=== PATIENT | female | born 1980 | race Caucasian/White ===

== ENCOUNTER 2017-11-14 10:38 | Emergency (ER) | payer OTHER ==
--- OUTSIDE RECORDS SUMMARY | 2017-11-14 10:41 | XMS REPORT ---
:1980 [facility] Care Team Providers Name Role Phone MackLaceycy Provider Role Unavailable Allergies, Adverse Reactions, Alerts Substance Reaction Event Type N.K.D.A. Info Not Available Non Drug Allergy Problems Problem Type Condition Code Onset Dates Condition Status Problem Bipolar 1 disorder F31.9 Active Problem Vertigo R42 Active Problem Migraine G43.909 Active Problem Urge incontinence N39.41 Active Problem Bipolar disorder F31.9 Active Problem Other chronic pain G89.29 Active Problem Overactive bladder N32.81 Active Assessment Stress incontinence N39.3 Active Problem Stress incontinence N39.3 Active Problem Arthritis of right knee M17.11 Active Problem Intractable vomiting with nausea, R11.2 Active unspecified vomiting type Problem Hypertriglyceridemia E78.1 Active Problem Elevated liver enzymes R74.8 Active Problem Gastroesophageal reflux disease K21.9 Active without esophagitis Problem Swelling R60.9 Active Problem History of hypothyroidism Z86.39 Active Problem Mild intermittent asthma without J45.20 Active complication Problem Asthma J45.909 Active Problem Anxiety F41.9 Active Problem Sinus problem J34.9 Active Problem Allergic rhinitis J30.9 Active Problem GERD (gastroesophageal reflux K21.9 Active disease) Problem Hyperlipidemia E78.5 Active Medications Medication Code Code Instructions Start End Status Dosage System Date Mirtazapine [facility] 87845049651 15 MG Orally Active 1 tablet Once a day at bedtime Topiramate [facility] 83415704368 50 MG Orally Active 1 tablet Twice a day Venlafaxine HCl [facility] 42635386892 75 MG Orally Jun 26, Active 1 capsule ER Once a day 2017 with food Meclizine HCl [facility] 24041573129 25 mg Orally Active 1 tablet every 8 hpurs for vertigo /dizzines s BusPIRone HCl ND 91460587801 30 MG Orally Jun 26, Active 1 tablet Twice a day 2017 Advair Diskus [facility] 77890308699 100-50 MCG/DOSE Active 1 puff Inhalation Twice a day One Touch Verio NDC 0 n/s finger Active one strip prick once a day Diclofenac [facility] [address]-22 1 % Transdermal Active not Sodium defined VESIcare [facility] 01413080601 10 MG Orally June Active 1 tablet Once a day 2017 Zofran [facility] 08028207663 8 MG Orally Active 1 tablet every 8 hours for N/V Ranitidine HCl ND 19535515418 150 MG Orally Jun 26, Active 1 capsule Once a day 2017 at bedtime Amitriptyline ND 65613436370 50 MG Orally Jun 26, Active 1 tablet HCl Once a day at 2017 bedtime VESIcare [facility] 49091854714 10 MG Orally Active 1 tablet Once a day Proventil HFA [facility] 80090615486 108 (90 Base) Active 2 puffs MCG/ACT as needed Inhalation every 6 hrs One Touch Delica ND 0 Active not Lancets defined Tolterodine [facility] 75336960284 1 MG Orally Jun 26, September 24, Active 1 tablet Tartrate Twice a day 2017 2017 Lasix [facility] 79166973483 20 MG Orally Active 1 tablet Once a day Klor-Con M10 [facility] 72978618804 10 MEQ Orally Active 1 tablet Twice a day with food Aripiprazole [facility] 27926885639 20 MG Orally Jun 26, Active 1 tablet Once a day 2017 Results Name Result Date Reference Range Unit Abnormality Flag URINALYSIS AUTO W/O SCOPE (27312) ----RADHA neg [id number] ----NIT neg [id number] ----PROTEIN neg [id number] ----pH 6.0 [id number] ----BLO neg [id number] ----GLUCOSE neg [id number] ----BILIRUBIN neg [id number] ----KETONES neg [id number] ----SPECIFIC GRAVITY 1.010 [id number] PVR ----PVR 0 [id number] Summary Purpose eClinicalWorks Submission
--- OUTSIDE RECORDS SUMMARY | 2017-11-14 10:41 | XMS REPORT ---
:1980 Author Organization eClinicalWorks Care Team Providers Name Role Phone Carrington, Na Provider Role Unavailable Allergies, Adverse Reactions, Alerts Substance Reaction Event Type N.K.D.A. Info Not Available Non Drug Allergy Problems Problem Type Condition Code Onset Dates Condition Status Assessment Arthritis of right knee M17.11 Active Assessment Other chronic pain G89.29 Active Assessment Elevated liver enzymes R74.8 Active Assessment Hypertriglyceridemia E78.1 Active Problem Allergic rhinitis J30.9 Active Assessment Urge incontinence N39.41 Active Problem Hyperlipidemia E78.5 Active Assessment Overactive bladder N32.81 Active Problem Bipolar 1 disorder F31.9 Active Problem Vertigo R42 Active Problem Migraine G43.909 Active Problem Urge incontinence N39.41 Active Problem Other chronic pain G89.29 Active Problem Bipolar disorder F31.9 Active Problem Overactive bladder N32.81 Active Problem Stress incontinence N39.3 Active Problem [...] Active Problem Sinus problem J34.9 Active Problem GERD (gastroesophageal reflux K21.9 Active disease) Medications Medication Code Code Instructions Start End Status Dosage System Date Date One Touch Verio NDC 0 n/s finger Active one strip prick once a day Proventil HFA ND 96921731781 108 (90 Base) Active 2 puffs MCG/ACT as needed Inhalation every 6 hrs Klor-Con M10 ND 13108982004 10 MEQ Orally Active 1 tablet Twice a day with food Zofran ND 39989132225 8 MG Orally Active 1 tablet every 8 hours for N/V Venlafaxine HCl ND 13070256789 75 MG Orally Jun 26, Active 1 capsule ER Once a day 2017 with food BusPIRone HCl ND 17773275364 30 MG Orally Jun 26, Active 1 tablet Twice a day 2017 Aripiprazole ND 41974326875 20 MG Orally Jun 26, Active 1 tablet Once a day 2017 Lasix [facility] 39220518149 20 MG Orally Active 1 tablet Once a day VESIcare [facility] 21251843227 10 MG Orally June Active 1 tablet Once a day 2017 VESIcare [facility] 43970174540 10 MG Orally Active 1 tablet Once a day Advair Diskus [facility] 87662478443 100-50 MCG/DOSE Active 1 puff Inhalation Twice a day Ranitidine HCl [facility] 58170052158 150 MG Orally Jun 26, Active 1 capsule Once a day 2017 at bedtime Diclofenac [facility] [address]-71 1 % Transdermal Active not Sodium defined Amitriptyline [facility] 97599510287 50 MG Orally Jun 26, Active 1 tablet HCl Once a day at 2018 bedtime One Touch Delica [facility] 0 Active not Lancets defined Tolterodine [facility] 49944068197 1 MG Orally Jun 26, September 24, Active 1 tablet Tartrate Twice a day 2017 2017 Meclizine HCl [facility] 12348594677 25 mg Orally Active 1 tablet every 8 hpurs for vertigo /dizzines s Results No Known Results Summary Purpose eClinicalWorks Submission
--- NOTE | 2017-11-14 10:58 | EDPHYS ---
Physician Documentation [facility] Name: Astrid Valadez Age: 37 yrs Sex: Female : 1980 Arrival Date: 11/14/2017 Time: 10:43 Bed 18 Private MD: Cassandra Carrington ED Physician Adam Rachel HPI: 11/14 10:55 This 37 yrs old Female presents to ER via Ambulatory with complaints of Flu pm1 Symptoms, Ear Pain. 10:55 The patient or guardian reports cough, with productive sputum, Left ear pain. Onset: pm1 The symptoms/episode began/occurred 4 day(s) ago. Severity of symptoms: in the emergency department the symptoms are actually worse. Modifying factors: The symptoms are alleviated by nothing, the symptoms are aggravated by nothing. Associated signs and symptoms: Pertinent positives: earache, sore throat, Pertinent negatives: chest pain, fever, nausea, vomiting. The patient has not experienced similar symptoms in the past. The patient has not recently seen a physician, the patient's primary care provider is Dr. Carrington. 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 ph Historical: - Allergies: 10:52 No Known Allergies; ph - Home Meds: 10:52 Abilify 15 mg Oral tab 1 tab once daily [Active]; buspirone 10 mg Oral tab 1 tab 3 ph times per day [Active]; Amitriptyline Oral once daily [Active]; Effexor XR 37.5 mg Oral cp24 1 cap once daily [Active]; omeprazole 40 mg Oral cpDR 1 cap once daily [Active]; ProAir HFA 90 mcg/actuation inhalation HFAA 2 puffs as needed [Active]; topiramate 25 mg Oral tab 1 tabs daily [Active]; - PMHx: 10:52 acid reflux; Asthma; Bipolar disorder; ph - PSHx: 10:52 eye surg; ph - Immunization history:: Adult Immunizations not up to date. - Social history:: Smoking status: Patient uses tobacco products, smokes one pack cigarettes per day. - Ebola Screening: : No symptoms or risks identified at this time. ROS: 10:55 Constitutional: Negative for fever, chills, and weight loss, Eyes: Negative for injury, pm1 pain, redness, and discharge. 10:55 Neck: Negative for injury, pain, and swelling, Cardiovascular: Negative for chest pain, palpitations, and edema, Abdomen/GI: Negative for abdominal pain, nausea, vomiting, diarrhea, and constipation, Back: Negative for injury and pain, MS/Extremity: Negative for injury and deformity, Skin: Negative for injury, rash, and discoloration, Neuro: Negative for headache, weakness, numbness, tingling, and seizure. 10:55 ENT: Positive for ear pain, sinus congestion, sinus pain, sore throat, Negative for drainage from ear(s). 10:55 Respiratory: Positive for cough, Negative for shortness of breath. Exam: 10:55 Constitutional: This is a well developed, well nourished patient who is awake, alert, pm1 and in no acute distress. Eyes: Pupils equal round and reactive to light, extra-ocular motions intact. Lids and lashes normal. Conjunctiva and sclera are non-icteric and not injected. Cornea within normal limits. Periorbital areas with no swelling, redness, or edema. 10:55 ENT: Nares patent. No nasal discharge, no septal abnormalities noted. Tympanic membranes are normal and external auditory canals are clear. Oropharynx with no redness, swelling, or masses, exudates, or evidence of obstruction, uvula midline. Mucous membranes moist. Neck: Trachea midline, no thyromegaly or masses palpated, and no cervical lymphadenopathy. Supple, full range of motion without nuchal rigidity, or vertebral point tenderness. No Meningismus. Chest/axilla: Normal chest wall appearance and motion. Nontender with no deformity. No lesions are appreciated. Cardiovascular: Regular rate and rhythm with a normal S1 and S2. No gallops, murmurs, or rubs. Normal PMI, no JVD. No pulse deficits. Respiratory: Lungs have equal breath sounds bilaterally, clear to auscultation and percussion. No rales, rhonchi or wheezes noted. No increased work of breathing, no retractions or nasal flaring. Abdomen/GI: Soft, non-tender, with normal bowel sounds. No distension or tympany. No guarding or rebound. No evidence of tenderness throughout. Back: No spinal tenderness. No costovertebral tenderness. Full range of motion. Skin: Warm, dry with normal turgor. Normal color with no rashes, no lesions, and no evidence of cellulitis. MS/ Extremity: Pulses equal, no cyanosis. Neurovascular intact. Full, normal range of motion. 10:55 Head/face: Sinus tenderness, that is moderate, is located over the right frontal sinus, left frontal sinus, right ethmoid sinus and left ethmoid sinus. 10:55 Neuro: Orientation: is normal, Motor: is normal, Gait: is steady, at a normal pace, without difficulty. Vital Signs: 10:50 BP 136 / 76; Pulse 82; Resp 18; Temp 98.6(TE); Pulse Ox 97% on R/A; Weight 129.27 kg; ph Height 5 ft. 4 in. (162.56 cm); Pain 5/10; 10:50 Body Mass Index 48.92 (129.27 kg, 162.56 cm) ph MDM: 10:44 Patient medically screened. pm1 10:55 Data reviewed: vital signs. Data interpreted: Pulse oximetry: on room air is 97 %. pm1 Interpretation: normal. Counseling: I had a detailed discussion with the patient and/or guardian regarding: the historical points, exam findings, and any diagnostic results supporting the discharge/admit diagnosis, the need for outpatient follow up, to return to the emergency department if symptoms worsen or persist or if there are any questions or concerns that arise at home. Administered Medications: No medications were administered Disposition: 17:59 Co-signature as Attending Physician, Adam Rachel MD. rn Disposition: 18 10:58 Discharged to Home. Impression: Acute sinusitis, Otalgia, right ear. - Condition is Stable. - Discharge Instructions: Earache, Adult, Sinusitis, Adult. - Prescriptions for Amoxicillin 500 mg Oral Capsule - take 1 capsule by ORAL route every 8 hours for 10 days; 30 tablet. Tessalon Perles 100 mg Oral Capsule - take 1 capsule by ORAL route every 8 hours As needed; 15 capsule. Zyrtec- D 5-120 mg Oral Tablet Sustained Release 12 hr - take 1 tablet by ORAL route every 12 hours As needed; 20 tablet. - Medication Reconciliation Form, Thank You Letter form. - Follow up: Emergency Department; When: As needed; Reason: Worsening of condition. Follow up: Private Physician; When: 2 - 3 days; Reason: Recheck today's complaints, Continuance of care, Re-evaluation by your physician. - Problem is new. - Symptoms have improved. Signatures: Adam Rachel MD MD rn Whiting, Zina RN RN Mayda Davis RN RN rb1 José Miguel Christiansen NP AIRCRAFT DE ICER INSTALLER pm1 Corrections: (The following items were deleted from the chart) 11:13 10:58 11/14/2017 10:58 Discharged to Home. Impression: Acute sinusitisOtalgia, right rb1 ear. Condition is Stable. Forms are Medication Reconciliation Form, Thank You Letter, Antibiotic Education, Prescription Opioid Use. Follow up: Emergency Department; When: As needed; Reason: Worsening of condition. Follow up: Private Physician; When: 2 - 3 days; Reason: Recheck today's complaints, Continuance of care, Re-evaluation by your physician. Problem is new. Symptoms have improved. pm1
--- NOTE | 2017-11-14 10:58 | ER ---
Nurse's Notes [facility] Name: Astrid Valadez Age: 37 yrs Sex: Female : 1980 Arrival Date: 11/14/2017 Time: 10:43 Bed 18 Private MD: Cassandra Carrington Diagnosis: Otalgia, right ear;Acute sinusitis Presentation: 11/14 10:46 Risk Assessment: Do you want to hurt yourself or someone else? Patient reports no rb1 desire to harm self or others. Initial Sepsis Screen: Does the patient meet any 2 criteria? No. Patient's initial sepsis screen is negative. Does the patient have a suspected source of infection? No. Patient's initial sepsis screen is negative. 10:49 Presenting complaint: Patient states: Pt c/o sore throat, cough, dizziness, sinus ph pressure and R ear pain x 4 days, denies fever, N/V/D. Transition of care: patient was not received from another setting of care. Onset of symptoms was November 14, 2017. Care prior to arrival: None. 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 ph Historical: - Allergies: 10:52 No Known Allergies; ph - Home Meds: 10:52 Abilify 15 mg Oral tab 1 tab once daily [Active]; buspirone 10 mg Oral tab 1 tab 3 ph times per day [Active]; Amitriptyline Oral once daily [Active]; Effexor XR 37.5 mg Oral cp24 1 cap once daily [Active]; omeprazole 40 mg Oral cpDR 1 cap once daily [Active]; ProAir HFA 90 mcg/actuation inhalation HFAA 2 puffs as needed [Active]; topiramate 25 mg Oral tab 1 tabs daily [Active]; - PMHx: 10:52 acid reflux; Asthma; Bipolar disorder; ph - PSHx: 10:52 eye surg; ph - Immunization history:: Adult Immunizations not up to date. - Social history:: Smoking status: Patient uses tobacco products, smokes one pack cigarettes per day. - Ebola Screening: : No symptoms or risks identified at this time. Screenin:46 Abuse screen: Denies threats or abuse. Nutritional screening: No deficits noted. rb1 Tuberculosis screening: No symptoms or risk factors identified. Fall Risk None identified. Assessment: 10:46 General: Appears in no apparent distress. comfortable, obese, unkempt, Behavior is rb1 calm, cooperative, Reports feeling ill for 2-3 days, Denies fever. Pain: Complains of pain in forehead and right ear Pain currently is 5 out of 10 on a pain scale. Neuro: Level of Consciousness is awake, alert, obeys commands, Oriented to person, place, time, situation. Cardiovascular: Capillary refill < 3 seconds is brisk in bilateral fingers. Respiratory: Reports cough that is productive, green sputum Airway is patent Respiratory effort is even, unlabored, Respiratory pattern is regular, symmetrical. GI: Reports diarrhea. : No signs and/or symptoms were reported regarding the genitourinary system. EENT: Throat is pink Reports pain since right ear. Derm: Skin is pink, warm \T\ dry. Vital Signs: 10:50 BP 136 / 76; Pulse 82; Resp 18; Temp 98.6(TE); Pulse Ox 97% on R/A; Weight 129.27 kg; ph Height 5 ft. 4 in. (162.56 cm); Pain 5/10; 10:50 Body Mass Index 48.92 (129.27 kg, 162.56 cm) ph ED Course: 10:43 Patient arrived in ED. sb2 10:43 Cassandra Carrington MD is Private Physician. sb2 10:44 [facility] pm1 10:44 Adam Rachel MD is Attending Physician. pm1 10:46 Patient has correct armband on for positive identification. Bed in low position. Call rb1 light in reach. Side rails up X 1. Pulse ox on. NIBP on. Warm blanket given. 10:48 Mayda Davis, RN is Primary Nurse. rb1 10:50 Triage completed. ph 10:52 Arm band placed on. ph 11:13 No provider procedures requiring assistance completed. Patient did not have IV access rb1 during this emergency room visit. Administered Medications: No medications were administered Outcome: 10:58 Discharge ordered by . pm1 11:13 Patient left the ED. rb1 11:13 Discharged to home ambulatory. rb1 11:13 Condition: stable 11:13 Discharge instructions given to patient, Instructed on discharge instructions, follow up and referral plans. medication usage, Demonstrated understanding of instructions, follow-up care, medications, Prescriptions given X 3. Signatures: Zina Whiting RN RN ph Mayda Davis RN RN rb1 José Miguel Christiansen NP LIBRARY INFORMATION TECHNICIAN pm1 Kiah Mak sb2 Corrections: (The following items were deleted from the chart) 11:15 No provider procedures requiring assistance completed. rb1 rb1 11:15 Patient did not have IV access during this emergency room visit. rb1 rb1
== END 2017-11-14 11:13 | disposition home or self-care (01) ==
LOC: ER 10:38
DX: J01.90 Acute sinusitis, unspecified (principal); H92.01 Otalgia, right ear; Z72.0 Tobacco use; J45.909 Unspecified asthma, uncomplicated
CPT/HCPCS: 99283

== ENCOUNTER 2018-01-26 16:30 | Emergency (ER) | payer OTHER ==
--- OUTSIDE RECORDS SUMMARY | 2018-01-26 16:32 | XMS REPORT ---
:1980 [facility] Care Team Providers Name Role Phone MackLaceycy [...] End Status Dosage System Date Mirtazapine [facility] 06814942197 15 MG Orally Active 1 tablet Once a day at bedtime Topiramate [facility] 46977754640 50 MG Orally Active 1 tablet Twice a day Venlafaxine HCl [facility] 12924690654 75 MG Orally Jun 26, Active 1 capsule ER Once a day 2017 with food Meclizine HCl [facility] 93688946685 25 mg Orally Active 1 tablet every 8 hpurs for vertigo /dizzines s BusPIRone HCl ND 51464690504 30 MG Orally Jun 26, Active 1 tablet Twice a day 2017 Advair Diskus [facility] 01457282410 100-50 MCG/DOSE Active 1 puff Inhalation Twice a day One Touch Verio NDC 0 n/s finger Active one strip prick once a day Diclofenac [facility] [address]-11 1 % Transdermal Active not Sodium defined VESIcare [facility] 76561640050 10 MG Orally June Active 1 tablet Once a day 2017 Zofran [facility] 82884729435 8 MG Orally Active 1 tablet every 8 hours for N/V Ranitidine HCl ND 18348885606 150 MG Orally Jun 26, Active 1 capsule Once a day 2017 at bedtime Amitriptyline ND 25849173976 50 MG Orally Jun 26, Active 1 tablet HCl Once a day at 2017 bedtime VESIcare [facility] 48173650898 10 MG Orally Active 1 tablet Once a day Proventil HFA [facility] 88700261197 108 (90 Base) Active 2 puffs MCG/ACT as needed Inhalation every 6 hrs One Touch Delica ND 0 Active not Lancets defined Tolterodine [facility] 22269759180 1 MG Orally Jun 26, September 24, Active 1 tablet Tartrate Twice a day 2017 2017 Lasix [facility] 25867970736 20 MG Orally Active 1 tablet Once a day Klor-Con M10 [facility] 83743992113 10 MEQ Orally Active 1 tablet Twice a day with food Aripiprazole [facility] 14334442218 20 MG Orally Jun 26, Active 1 tablet Once a day 2017 Results Name Result Date Reference Range Unit Abnormality Flag URINALYSIS AUTO W/O SCOPE (68947) ----RADHA neg [id number] ----NIT neg [id number] ----PROTEIN neg [id number] ----pH 6.0 [id number] ----BLO neg [id number] ----GLUCOSE neg [id number] ----BILIRUBIN neg [id number] ----KETONES neg [id number] ----SPECIFIC GRAVITY 1.010 [id number] PVR ----PVR 0 [id number] Summary Purpose eClinicalWorks Submission
--- OUTSIDE RECORDS SUMMARY | 2018-01-26 16:33 | XMS REPORT ---
:1980 Author Organization eClinicalWorks Care Team Providers Name Role Phone MackLaceycy [...] G89.29 Active Problem Overactive bladder N32.81 Active Problem [...] J34.9 Active Problem Allergic rhinitis J30.9 Active Assessment Stress incontinence N39.3 Active Problem GERD (gastroesophageal reflux K21.9 Active disease) Problem Hyperlipidemia E78.5 Active Medications Medication Code Code Instructions Start End Status Dosage System Date Date Venlafaxine HCl [facility] 52705351666 75 MG Orally b , Active 1 capsule ER Once a day 2018 with food Mirtazapine ND 64495782588 15 MG Orally Active 1 tablet Once a day at bedtime Diclofenac [facility] [address]-31 1 % Transdermal Active not Sodium defined Amitriptyline ND 53912849169 50 MG Orally Jun 26, Active 1 tablet HCl Once a day at 2018 bedtime Lasix ND 21893050277 20 MG Orally Active 1 tablet Once a day Aripiprazole ND 17035773572 20 MG Orally Jun 26, Active 1 tablet Once a day 2017 Zofran [facility] 86142642965 8 MG Orally Active 1 tablet every 8 hours for N/V Ranitidine HCl [facility] 21881315090 150 MG Orally Active 1 capsule Once a day at bedtime One Touch Verio NDC 0 n/s finger Active one strip prick once a day VESIcare [facility] 00564404213 10 MG Orally Active 1 tablet Once a day Proventil HFA [facility] 37899451927 108 (90 Base) Active 2 puffs MCG/ACT as needed Inhalation every 6 hrs Advair Diskus [facility] 87310178301 100-50 MCG/DOSE Active 1 puff Inhalation Twice a day One Touch Delica NDC 0 Active not Lancets defined Meclizine HCl [facility] 79616460741 25 mg Orally Active 1 tablet every 8 hpurs for vertigo /dizzines s Topiramate ND 94039741607 50 MG Orally Active 1 tablet Twice a day Klor-Con M10 ND 87699850739 10 MEQ Orally Active 1 tablet Twice a day with food BusPIRone HCl ND 34531382833 30 MG Orally Jun 26, Active 1 tablet Twice a day 2017 Results No Known Results Summary Purpose eClinicalWorks Submission
--- OUTSIDE RECORDS SUMMARY | 2018-01-26 16:33 | XMS REPORT ---
:1980 Author Organization eClinicalWorks Care Team Providers Name Role Phone Carrington, Na Provider Role Unavailable Allergies, Adverse Reactions, Alerts Substance Reaction Event Type N.K.D.A. Info Not Available Non Drug Allergy Problems Problem Type Condition Code Onset Dates Condition Status Assessment Hyperlipidemia E78.5 Active Assessment Gastroesophageal reflux disease K21.9 Active without esophagitis Assessment Hyperglycemia R73.9 Active Assessment Chronic sinus complaints R09.89 Active Assessment Allergic rhinitis J30.9 Active Assessment Mild intermittent asthma without J45.20 Active complication Problem Mild intermittent asthma without J45.20 Active complication Problem Vertigo R42 Active Problem Gastroesophageal reflux disease K21.9 Active without esophagitis Problem Intractable vomiting with nausea, R11.2 Active unspecified vomiting type Problem Swelling R60.9 Active Problem Arthritis of right knee M17.11 Active Problem Hypertriglyceridemia E78.1 Active Problem Elevated liver enzymes R74.8 Active Problem Pharyngitis, unspecified etiology J02.9 Active Problem Chronic sinus complaints R09.89 Active Problem Asthma J45.909 Active Problem Hyperlipidemia E78.5 Active Problem Cough R05 Active Problem Allergic rhinitis J30.9 Active Problem Other chronic pain G89.29 Active Problem Urge incontinence N39.41 Active Problem Hyperglycemia R73.9 Active Problem Stress incontinence N39.3 Active Problem Bipolar 1 disorder F31.9 Active Problem Overactive bladder N32.81 Active Problem Anxiety F41.9 Active Problem GERD (gastroesophageal reflux K21.9 Active disease) Problem History of hypothyroidism Z86.39 Active Problem Migraine G43.909 Active Problem Sinus problem J34.9 Active Problem Bipolar disorder F31.9 Active Medications Medication Code Code Instructions Start End Status Dosage System Date Date Montelukast [facility] 15224302994 10 MG Orally Dec 19, Active 1 tablet Sodium Once a day 2017 Diclofenac [facility] [address]-03 1 % Transdermal Active not Sodium defined VESIcare [facility] 01702495206 10 MG Orally Fe Active 1 tablet Once a day 2018 Symbicort [facility] 17245184979 160-4.5 MCG/ACT Dec 19Mar Active 2 puffs Inhalation 2017, Twice a day 2017 BusPIRone HCl ND 88468029628 30 MG Orally Jun 26, Active 1 tablet Twice a day 2017 Aripiprazole ND 16479301300 20 MG Orally Jun 26, Active 1 tablet Once a day 2017 Lasix ND 13874924447 20 MG Orally Active 1 tablet Once a day Ranitidine HCl [facility] 37827434526 150 MG Orally Active 1 capsule Once a day at bedtime Ranitidine HCl ND 36470916699 150 MG Orally Active 1 capsule Once a day at bedtime One Touch Verio NDC 0 n/s finger Active one strip prick once a day One Touch Delica ND 0 Active not Lancets defined Topiramate ND 04735532769 50 MG Orally Active 1 tablet Twice a day Mirtazapine ND 37423865452 15 MG Orally Active 1 tablet Once a day at bedtime Zofran [facility] 50608501577 8 MG Orally Active 1 tablet every 8 hours for N/V Meclizine HCl ND 13792680014 25 mg Orally Active 1 tablet every 8 hpurs for vertigo /dizzines s Klor-Con M10 [facility] 42943237069 10 MEQ Orally Active 1 tablet Twice a day with food Amitriptyline ND 71334236266 50 MG Orally Jun 26, Active 1 tablet HCl Once a day at 2018 bedtime Proventil HFA [facility] 72654745705 108 (90 Base) Active 2 puffs MCG/ACT as needed Inhalation every 6 hrs Advair Diskus [facility] 70433235751 100-50 MCG/DOSE Inactive 1 puff Inhalation Twice a day Venlafaxine HCl [facility] 62095682205 75 MG Orally Jun 26, Active 1 capsule ER Once a day 2017 with food Results No Known Results Summary Purpose eClinicalWorks Submission
--- OUTSIDE RECORDS SUMMARY | 2018-01-26 16:33 | XMS REPORT ---
:1980 Author Organization eClinicalWorks Care Team Providers Name Role Phone Carrington, Na Provider Role Unavailable Allergies No Known Allergies Problems Problem Type Condition Code Onset Dates Condition Status Problem Mild intermittent asthma without J45.20 Active [...] Active Problem Bipolar disorder F31.9 Active Medications No Known Medications Results No Known Results Summary Purpose eClinicalWorks Submission
--- OUTSIDE RECORDS SUMMARY | 2018-01-26 16:33 | XMS REPORT ---
:1980 Author Organization eClinicalWorks Care Team Providers Name Role Phone Venecia Giron Provider Role Unavailable Allergies No Known Allergies Problems Problem Type Condition Code Onset Dates Condition Status Problem Intractable vomiting with nausea, R11.2 Active unspecified vomiting type Problem Other chronic pain G89.29 Active Problem Vertigo R42 Active Problem Pharyngitis, unspecified etiology J02.9 Active Problem Allergic rhinitis J30.9 Active Problem Stress incontinence N39.3 Active Problem Anxiety F41.9 Active Problem Asthma J45.909 Active Problem Cough R05 Active Problem Hypertriglyceridemia E78.1 Active Problem Urge incontinence N39.41 Active Problem Elevated liver enzymes R74.8 Active Problem Arthritis of right knee M17.11 Active Problem Mild intermittent asthma without J45.20 Active complication Problem Gastroesophageal reflux disease K21.9 Active without esophagitis Problem Hyperlipidemia E78.5 Active Problem Bipolar 1 disorder F31.9 Active Problem Bipolar disorder F31.9 Active Problem History of hypothyroidism Z86.39 Active Problem Swelling R60.9 Active Problem Migraine G43.909 Active Problem GERD (gastroesophageal reflux K21.9 Active disease) Problem Sinus problem J34.9 Active Problem Overactive bladder N32.81 Active Medications Medication Code System Code Instructions Start Date End Date Status Dosage VESIcare [facility] 55095484111 10 MG Orally Once Jun 01, Active 1 tablet a day 2019 Results No Known Results Summary Purpose eClinicalWorks Submission
--- OUTSIDE RECORDS SUMMARY | 2018-01-26 16:33 | XMS REPORT ---
:1980 Author Organization eClinicalWorks Care Team Providers Name Role Phone Dorie Nolasco Provider Role Unavailable Allergies, Adverse Reactions, Alerts Substance Reaction Event Type N.K.D.A. Info Not Available Non Drug Allergy Problems Problem Type Condition Code Onset Dates Condition Status Assessment Pharyngitis, unspecified etiology J02.9 Active Assessment Cough R05 Active Problem Migraine G43.909 Active Problem Overactive bladder N32.81 Active Problem GERD (gastroesophageal reflux K21.9 Active disease) Problem Intractable vomiting with nausea, R11.2 Active unspecified vomiting type Problem Other chronic pain G89.29 Active Problem Vertigo R42 Active Problem Pharyngitis, unspecified etiology J02.9 Active Problem Stress incontinence N39.3 Active Problem Allergic rhinitis J30.9 Active Problem Anxiety F41.9 Active Problem Cough R05 Active Problem Asthma J45.909 Active Problem Hypertriglyceridemia E78.1 Active Problem Urge [...] Z86.39 Active Problem Swelling R60.9 Active Problem Sinus problem J34.9 Active Medications Medication Code Code Instructions Start End Status Dosage System Date Date Topiramate ND 89484662597 50 MG Orally Active 1 tablet Twice a day Mirtazapine ND 29374657783 15 MG Orally Active 1 tablet Once a day at bedtime Diclofenac [facility] [address]-72 1 % Transdermal Active not Sodium defined One Touch Delica ND 0 Active not Lancets defined Ranitidine HCl [facility] 48158894508 150 MG Orally Active 1 capsule Once a day at bedtime Aripiprazole ND 90431475320 20 MG Orally Jun 26, Active 1 tablet Once a day 2017 Lasix ND 47076585081 20 MG Orally Active 1 tablet Once a day Meclizine HCl ND 75981365750 25 mg Orally Active 1 tablet every 8 hpurs for vertigo /dizzines s VESIcare ND 96101369243 10 MG Orally Active 1 tablet Once a day One Touch Verio ND 0 n/s finger Active one strip prick once a day Advair Diskus ND 37571541769 100-50 MCG/DOSE Active 1 puff Inhalation Twice a day Proventil HFA [facility] 91665804758 108 (90 Base) Active 2 puffs MCG/ACT as needed Inhalation every 6 hrs BusPIRone HCl ND 32389626536 30 MG Orally Jun 26, Active 1 tablet Twice a day 2017 Zofran ND 75962889891 8 MG Orally Active 1 tablet every 8 hours for N/V Klor-Con M10 ND 43833491496 10 MEQ Orally Active 1 tablet Twice a day with food Venlafaxine HCl ND 04210598556 75 MG Orally Jun 26, Active 1 capsule ER Once a day 2017 with food Amitriptyline ND 20623678262 50 MG Orally Jun 26, Active 1 tablet HCl Once a day at 2018 bedtime Results No Known Results Summary Purpose eClinicalWorks Submission
--- OUTSIDE RECORDS SUMMARY | 2018-01-26 16:33 | XMS REPORT ---
[...] prick once a day Proventil HFA ND 57522018490 108 (90 Base) Active 2 puffs MCG/ACT as needed Inhalation every 6 hrs Klor-Con M10 ND 11803025450 10 MEQ Orally Active 1 tablet Twice a day with food Zofran ND 93538423543 8 MG Orally Active 1 tablet every 8 hours for N/V Venlafaxine HCl ND 11951030507 75 MG Orally Jun 26, Active 1 capsule ER Once a day 2017 with food BusPIRone HCl ND 30735080419 30 MG Orally Jun 26, Active 1 tablet Twice a day 2017 Aripiprazole ND 48822206624 20 MG Orally Jun 26, Active 1 tablet Once a day 2017 Lasix [facility] 35816388213 20 MG Orally Active 1 tablet Once a day VESIcare [facility] 86239171689 10 MG Orally June Active 1 tablet Once a day 2017 VESIcare [facility] 59514862943 10 MG Orally Active 1 tablet Once a day Advair Diskus [facility] 26982347502 100-50 MCG/DOSE Active 1 puff Inhalation Twice a day Ranitidine HCl [facility] 54825519703 150 MG Orally Jun 26, Active 1 capsule Once a day 2017 at bedtime Diclofenac [facility] [address]-69 1 % Transdermal Active not Sodium defined Amitriptyline [facility] 04918842082 50 MG Orally Jun 26, Active 1 tablet HCl Once a day at 2018 bedtime One Touch Delica [facility] 0 Active not Lancets defined Tolterodine [facility] 43120988771 1 MG Orally Jun 26, September 24, Active 1 tablet Tartrate Twice a day 2017 2017 Meclizine HCl [facility] 04646496438 25 mg Orally Active 1 tablet every 8 hpurs for vertigo /dizzines s Results No Known Results Summary Purpose eClinicalWorks Submission
--- OUTSIDE RECORDS SUMMARY | 2018-01-26 16:33 | XMS REPORT ---
:1980 Author Organization eClinicalWorks Care Team Providers Name Role Amber Vincent Provider Role Unavailable Allergies, Adverse Reactions, Alerts [...] Active Problem Allergic rhinitis J30.9 Active Assessment Acute non-recurrent sinusitis, J01.90 Active unspecified location Problem GERD (gastroesophageal reflux K21.9 Active disease) Problem Hyperlipidemia E78.5 Active Medications Medication Code System Code Instructions Start Date End Date Status Dosage Ranitidine HCl NDC 0 Active not defined Results No Known Results Summary Purpose eClinicalWorks Submission
[2018-01-26 18:24] LABS: Absolute Lymphocytes (CBC) 4.4 K/uL (0.7-4.9); Absolute Monocytes 0.7 K/uL (0.1-1.3); Absolute Neutrophil 7.4 K/uL (1.8-8.0); Basophils % 2.8 % (0-1.3); Eosinophils % 5.6 % (0-4.4); Lymphocytes % 32.3 % (15.3-44.8); MCH 33.8 pg (27.0-35.0); MCV 99.3 fL (80-100); Monocytes % 5.2 % (3.3-12.3); RBC Red Blood Cell Count 4.23 M/uL (3.86-4.86)
[2018-01-26 18:51] LABS: Potassium 4.4 mmol/L (3.5-5.1)
[2018-01-26 19:00] LABS: Blood Morphology Comment NOT SEEN (NOT SEEN); Platelet Estimate ADEQ
[2018-01-26] MEDS ORDERED: NA CHLORIDE 0.9% 1,000 ML ONE (19:14)
[2018-01-26 20:30] LABS: Urine Blood 2+ (NEG); Urine Glucose NEGATIVE (NEG); Urine Protein 1+ (NEG)
[2018-01-26 21:10] LABS: ALT/SGPT 39 U/L (12-78); AST/SGOT 37 U/L (15-37); Albumin 3.1 g/dL (3.4-5.0); Alkaline Phosphatase 59 U/L (45-117); Bilirubin Direct < 0.1 mg/dL (0-0.2); Bilirubin Total 0.4 mg/dL (0.2-1.0); Lipase 87 U/L (73-393); Protein, Total 6.7 g/dL (6.4-8.2)
--- NOTE | 2018-01-26 21:14 | ER ---
Nurse's Notes [facility] Name: Astrid Valadez Age: 37 yrs Sex: Female : 1980 Arrival Date: 01/26/2018 Time: 16:34 Bed 24 Private MD: Cassandra Carrington Diagnosis: Upper abdominal pain, unspecified Presentation: 01/26 16:39 Presenting complaint: Patient states: lower abd pain and cramping that started this sg morning, is worse now, has experienced vaginal bleeding today but has since stopped, pt reports having finished her cycle days ago. denies fever, reports nausea. Transition of care: patient was not received from another setting of care. Onset of symptoms was January 26, 2018. Risk Assessment: Do you want to hurt yourself or someone else? Patient reports no desire to harm self or others. Care prior to arrival: None. 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 - Social history:: Smoking status: Patient uses tobacco products, smokes two packs cigarettes per day. - Ebola Screening: : Patient negative for fever greater than or equal to 101.5 degrees Fahrenheit, and additional compatible Ebola Virus Disease symptoms Patient denies exposure to infectious person Patient denies travel to an Ebola-affected area in the 21 days before illness onset No symptoms or risks identified at this time. Screenin:50 Abuse screen: Denies threats or abuse. Nutritional screening: No deficits noted. tl3 Tuberculosis screening: No symptoms or risk factors identified. Fall Risk None identified. Assessment: 17:50 General: Appears uncomfortable, obese, well developed, well nourished, Behavior is tl3 calm, cooperative, drowsy, quiet. Pain: Complains of pain in left upper quadrant and right upper quadrant. Neuro: Level of Consciousness is awake, alert, obeys commands, confused, Oriented to person, place, time, situation, Appropriate for age. Cardiovascular: Patient's skin is warm and dry. Respiratory: Airway is patent Respiratory effort is even, unlabored, Respiratory pattern is regular, symmetrical. GI: Bowel sounds hyperactive in right upper quadrant, left upper quadrant, right lower quadrant and left lower quadrant Abd is soft. : Urine is cloudy. EENT: No signs and/or symptoms were reported regarding the EENT system. Derm: No signs and/or symptoms reported regarding the dermatologic system. Musculoskeletal: No signs and/or symptoms reported regarding the musculoskeletal system. 20:06 Reassessment: No changes from previously documented assessment. Patient and/or family iw updated on plan of care and expected duration. Pain level reassessed. Patient is alert, oriented x 3, equal unlabored respirations, skin warm/dry/pink. lab at bedside again to try and get additional blood for testing. Vital Signs: 16:40 Pulse 77; Resp 16; Temp 98.1; Pulse Ox 96% on R/A; Weight 126.1 kg; Height 5 ft. 4 in. sg (162.56 cm); Pain 10/10; 16:40 BP 140 / 88; sg 17:50 BP 109 / 69; Pulse 68; Resp 18; Pulse Ox 100% on R/A; tl3 19:24 Pulse 66; Resp 18; Pulse Ox 100% on R/A; mg2 20:06 BP 109 / 71; Pulse 66; Resp 18; Pulse Ox 96% ; iw 16:40 Body Mass Index 47.72 (126.10 kg, 162.56 cm) ED Course: 16:34 Patient arrived in ED. mr 16:34 Cassandra Carrington MD is Private Physician. mr 16:40 Triage completed. sg 16:41 Arm band placed on. sg 16:46 [facility] kb 16:46 Nate Nolasco MD is Attending Physician. kb 17:15 Lois Santoyo, BHARATH is Primary Nurse. tl3 17:50 Patient has correct armband on for positive identification. Bed in low position. Call tl3 light in reach. Side rails up X 1. Adult w/ patient. Pulse ox on. NIBP on. Door closed. Lights dimmed. Warm blanket given. Pillow given. 17:50 No provider procedures requiring assistance completed. Inserted saline lock: 22 gauge tl3 in right hand, using aseptic technique. Administered Medications: 19:17 Drug: NS 0.9% 1000 ml Route: IV; Rate: 1000 ml; Site: left hand; mg2 21:24 Follow up: IV Status: Completed infusion; IV Intake: 1000ml iw 21:22 Drug: Bentyl 20 mg Route: PO; mg2 21:22 Follow up: Response: No adverse reaction; Medication administered at discharge. mg2 Intake: 21:24 IV: 1000ml; Total: 1000ml. iw Outcome: 21:13 Discharge ordered by . kb 21:24 Patient left the ED. iw Signatures: Veronica Hood, NORM WALLIS-Maco Braden, RN RN Delia Canales mr Effie Lackey, RN BHARATH iw Lois Santoyo RN RN tl3 Magen Jade RN RN mg2
--- NOTE | 2018-01-26 21:14 | EDPHYS ---
Physician Documentation [facility] Name: Astrid Valadez Age: 37 yrs Sex: Female : 1980 Arrival Date: 01/26/2018 Time: 16:34 Bed 24 Private MD: Cassandra Carrington ED Physician Nate Nolasco HPI: 01/26 17:04 This 37 yrs old Female presents to ER via Ambulatory with complaints of kb Abdominal Pain. 17:04 The patient presents with abdominal pain in the upper abdomen. Onset: The kb symptoms/episode began/occurred this morning. The symptoms do not radiate. Associated signs and symptoms: Pertinent positives: nausea and vomiting, vaginal bleeding. The symptoms are described as crampy. Modifying factors: The symptoms are alleviated by nothing, the symptoms are aggravated by pressure. Severity of pain: At its worst the pain was mild in the emergency department the pain is unchanged. The patient has not experienced similar symptoms in the past. The patient has not recently seen a physician. Pt reports vomiting yesterday, nausea and abd cramping today with an episode of vaginal bleeding when she wiped once. . 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 - Social history:: Smoking status: Patient uses tobacco products, smokes two packs cigarettes per day. - Ebola Screening: : Patient negative for fever greater than or equal to 101.5 degrees Fahrenheit, and additional compatible Ebola Virus Disease symptoms Patient denies exposure to infectious person Patient denies travel to an Ebola-affected area in the 21 days before illness onset No symptoms or risks identified at this time. ROS: 17:04 Constitutional: Negative for fever, chills, and weight loss, Cardiovascular: Negative kb for chest pain, palpitations, and edema, Respiratory: Negative for shortness of breath, cough, wheezing, and pleuritic chest pain, Back: Negative for injury and pain, MS/Extremity: Negative for injury and deformity, Skin: Negative for injury, rash, and discoloration, Neuro: Negative for headache, weakness, numbness, tingling, and seizure. 17:04 Abdomen/GI: Positive for abdominal pain, nausea and vomiting. 17:04 : Positive for vaginal bleeding. Exam: 17:04 Constitutional: This is a well developed, well nourished patient who is awake, alert, kb and in no acute distress. Head/Face: Normocephalic, atraumatic. Chest/axilla: Normal chest wall appearance and motion. Nontender with no deformity. No lesions are appreciated. Cardiovascular: Regular rate and rhythm with a normal S1 and S2. No gallops, murmurs, or rubs. Normal PMI, no JVD. No pulse deficits. Respiratory: Lungs have equal breath sounds bilaterally, clear to auscultation and percussion. No rales, rhonchi or wheezes noted. No increased work of breathing, no retractions or nasal flaring. Back: No spinal tenderness. No costovertebral tenderness. Full range of motion. Skin: Warm, dry with normal turgor. Normal color with no rashes, no lesions, and no evidence of cellulitis. MS/ Extremity: Pulses equal, no cyanosis. Neurovascular intact. Full, normal range of motion. Neuro: Awake and alert, GCS 15, oriented to person, place, time, and situation. Cranial nerves II-XII grossly intact. Motor strength 5/5 in all extremities. Sensory grossly intact. Cerebellar exam normal. Normal gait. 17:04 Abdomen/GI: Inspection: abdomen appears normal, Bowel sounds: normal, in all quadrants, Palpation: soft, in all quadrants, mild abdominal tenderness, in the right upper quadrant and left upper quadrant. Vital Signs: 16:40 Pulse 77; Resp 16; Temp 98.1; Pulse Ox 96% on R/A; Weight 126.1 kg; Height 5 ft. 4 in. sg (162.56 cm); Pain 10/10; 16:40 BP 140 / 88; sg 17:50 BP 109 / 69; Pulse 68; Resp 18; Pulse Ox 100% on R/A; tl3 19:24 Pulse 66; Resp 18; Pulse Ox 100% on R/A; mg2 20:06 BP 109 / 71; Pulse 66; Resp 18; Pulse Ox 96% ; iw 16:40 Body Mass Index 47.72 (126.10 kg, 162.56 cm) MDM: 16:46 Patient medically screened. kb 17:06 Data reviewed: vital signs, nurses notes. Data interpreted: Pulse oximetry: on room air kb is 96 %. Interpretation: normal. 21:12 Counseling: I had a detailed discussion with the patient and/or guardian regarding: the kb historical points, exam findings, and any diagnostic results supporting the discharge/admit diagnosis, lab results, the need for outpatient follow up, a family practitioner, to return to the emergency department if symptoms worsen or persist or if there are any questions or concerns that arise at home. 01/26 16:50 Order name: Basic Metabolic Panel; Complete Time: 19:02 kb 01/26 16:50 Order name: CBC with Diff; Complete Time: 19:02 kb 01/26 17:54 Order name: Urine Dipstick--Ancillary (enter results); Complete Time: 20:31 eb 01/26 17:54 Order name: Urine --Ancillary (enter results); Complete Time: 20:31 eb 01/26 16:50 Order name: IV Saline Lock; Complete Time: 17:50 kb 01/26 16:50 Order name: Labs collected and sent; Complete Time: 17:50 kb 01/26 18:50 Order name: Manual Differential; Complete Time: 19:02 EDMS 01/26 19:24 Order name: Hepatic Function; Complete Time: 21:11 mg2 01/26 19:24 Order name: Lipase; Complete Time: 21:11 mg2 01/26 16:50 Order name: Urine Dipstick-Ancillary (obtain specimen); Complete Time: 17:50 kb 01/26 16:50 Order name: Urine Test (obtain specimen); Complete Time: 17:49 kb Administered Medications: 19:17 Drug: NS 0.9% 1000 ml Route: IV; Rate: 1000 ml; Site: left hand; mg2 21:24 Follow up: IV Status: Completed infusion; IV Intake: 1000ml iw 21:22 Drug: Bentyl 20 mg Route: PO; mg2 21:22 Follow up: Response: No adverse reaction; Medication administered at discharge. mg2 Disposition: 01/26/18 21:13 Discharged to Home. Impression: Upper abdominal pain, unspecified. - Condition is Stable. - Discharge Instructions: Gastroesophageal Reflux Disease, Adult, Abdominal Pain, Adult, [id number]. - Prescriptions for Bentyl 20 mg Oral Tablet - take 1 tablet by ORAL route every 6 hours As needed; 20 tablet. - Medication Reconciliation Form, Thank You Letter, Antibiotic Education, Prescription Opioid Use form. - Follow up: Private Physician; When: 2 - 3 days; Reason: Recheck today's complaints, Continuance of care, Re-evaluation by your physician. Follow up: Emergency Department; When: As needed; Reason: Worsening of condition. Addendum: 02/03/2018 16:43 Co-signature as Attending Physician, Nate Nolasco MD. g s Signatures: Dispatcher [employer] [facility] Veronica Hood, KADI-Kj CHIANGP-Maco Braden, RN RN sg Effie Lackey RN RN iw Nate Nolasco MD MD Magen Jade, RN RN mg2 Corrections: (The following items were deleted from the chart) 01/26 18:51 18:50 CBC Smear Scan ordered. [facility] 18:59 16:51 HEPATIC FUNCTION+C.LAB.BRZ ordered. [facility] 18:59 16:51 LIPASE+C.LAB.BRZ ordered. [facility] 21:24 21:13 01/26/2018 21:13 Discharged to Home. Impression: Upper abdominal pain, iw unspecified. Condition is Stable. Forms are Medication Reconciliation Form, Thank You Letter, Antibiotic Education, Prescription Opioid Use. Follow up: Private Physician; When: 2 - 3 days; Reason: Recheck today's complaints, Continuance of care, Re-evaluation by your physician. Follow up: Emergency Department; When: As needed; Reason: Worsening of condition. kb
[2018-01-26] MEDS ORDERED: DICYCLOMINE HCL 10 MG CAP ONE (21:23)
== END 2018-01-26 21:24 | disposition home or self-care (01) ==
LOC: ER 16:30
DX: R10.10 Upper abdominal pain, unspecified (principal); F17.210 Nicotine dependence, cigarettes, uncomplicated
CPT/HCPCS: 36415; 80048; 80076; 81003; 81025; 83690; 85025; 96360; 96361; 99283; J7030

== ENCOUNTER 2018-03-11 17:07 | Emergency (ER) | payer OTHER ==
--- OUTSIDE RECORDS SUMMARY | 2018-03-11 17:09 | XMS REPORT ---
[...] Start Date End Date Status Dosage VESIcare [facility] 16892742951 10 MG Orally Once Jun 01, Active 1 tablet a day 2019 Results No Known Results Summary Purpose eClinicalWorks Submission
--- OUTSIDE RECORDS SUMMARY | 2018-03-11 17:09 | XMS REPORT ---
[...] Status Dosage System Date Date Venlafaxine HCl [facility] 08321530080 75 MG Orally b , Active 1 capsule ER Once a day 2018 with food Mirtazapine ND 69225741097 15 MG Orally Active 1 tablet Once a day at bedtime Diclofenac [facility] [address]-77 1 % Transdermal Active not Sodium defined Amitriptyline ND 71468516467 50 MG Orally Jun 26, Active 1 tablet HCl Once a day at 2018 bedtime Lasix ND 36107813715 20 MG Orally Active 1 tablet Once a day Aripiprazole ND 99480174241 20 MG Orally Jun 26, Active 1 tablet Once a day 2017 Zofran [facility] 10106911061 8 MG Orally Active 1 tablet every 8 hours for N/V Ranitidine HCl [facility] 78460973616 150 MG Orally Active 1 capsule Once a day at bedtime One Touch Verio NDC 0 n/s finger Active one strip prick once a day VESIcare [facility] 00229392363 10 MG Orally Active 1 tablet Once a day Proventil HFA [facility] 85030440182 108 (90 Base) Active 2 puffs MCG/ACT as needed Inhalation every 6 hrs Advair Diskus [facility] 34112766203 100-50 MCG/DOSE Active 1 puff Inhalation Twice a day One Touch Delica NDC 0 Active not Lancets defined Meclizine HCl [facility] 86999707211 25 mg Orally Active 1 tablet every 8 hpurs for vertigo /dizzines s Topiramate ND 94183138002 50 MG Orally Active 1 tablet Twice a day Klor-Con M10 ND 49523409183 10 MEQ Orally Active 1 tablet Twice a day with food BusPIRone HCl ND 18328893418 30 MG Orally Jun 26, Active 1 tablet Twice a day 2017 Results No Known Results Summary Purpose eClinicalWorks Submission
--- OUTSIDE RECORDS SUMMARY | 2018-03-11 17:09 | XMS REPORT ---
:1980 [facility] Team Providers Name [...] Start End Status Dosage System Date Mirtazapine [facility] 56443363485 15 MG Orally Active 1 tablet Once a day at bedtime Topiramate [facility] 13032700753 50 MG Orally Active 1 tablet Twice a day Venlafaxine HCl [facility] 91298512736 75 MG Orally Jun 26, Active 1 capsule ER Once a day 2017 with food Meclizine HCl [facility] 51360026409 25 mg Orally Active 1 tablet every 8 hpurs for vertigo /dizzines s BusPIRone HCl ND 23643001451 30 MG Orally Jun 26, Active 1 tablet Twice a day 2017 Advair Diskus [facility] 83939761252 100-50 MCG/DOSE Active 1 puff Inhalation Twice a day One Touch Verio NDC 0 n/s finger Active one strip prick once a day Diclofenac [facility] [address]-03 1 % Transdermal Active not Sodium defined VESIcare [facility] 21979011998 10 MG Orally June Active 1 tablet Once a day 2017 Zofran [facility] 72335610824 8 MG Orally Active 1 tablet every 8 hours for N/V Ranitidine HCl ND 63353926502 150 MG Orally Jun 26, Active 1 capsule Once a day 2017 at bedtime Amitriptyline ND 08586839615 50 MG Orally Jun 26, Active 1 tablet HCl Once a day at 2017 bedtime VESIcare [facility] 34930894358 10 MG Orally Active 1 tablet Once a day Proventil HFA [facility] 40448062939 108 (90 Base) Active 2 puffs MCG/ACT as needed Inhalation every 6 hrs One Touch Delica ND 0 Active not Lancets defined Tolterodine [facility] 38392912423 1 MG Orally Jun 26, September 24, Active 1 tablet Tartrate Twice a day 2017 2017 Lasix [facility] 10481315290 20 MG Orally Active 1 tablet Once a day Klor-Con M10 [facility] 26902235660 10 MEQ Orally Active 1 tablet Twice a day with food Aripiprazole [facility] 07942623795 20 MG Orally Jun 26, Active 1 tablet Once a day 2017 Results Name Result Date Reference Range Unit Abnormality Flag URINALYSIS AUTO W/O SCOPE (94079) ----RADHA neg [id number] ----NIT neg [id number] ----PROTEIN neg [id number] ----pH 6.0 [id number] ----BLO neg [id number] ----GLUCOSE neg [id number] ----BILIRUBIN neg [id number] ----KETONES neg [id number] ----SPECIFIC GRAVITY 1.010 [id number] PVR ----PVR 0 [id number] Summary Purpose eClinicalWorks Submission
--- OUTSIDE RECORDS SUMMARY | 2018-03-11 17:09 | XMS REPORT ---
[...] prick once a day Proventil HFA ND 68294142356 108 (90 Base) Active 2 puffs MCG/ACT as needed Inhalation every 6 hrs Klor-Con M10 ND 42919335545 10 MEQ Orally Active 1 tablet Twice a day with food Zofran ND 27301466984 8 MG Orally Active 1 tablet every 8 hours for N/V Venlafaxine HCl ND 59429059793 75 MG Orally Jun 26, Active 1 capsule ER Once a day 2017 with food BusPIRone HCl ND 59314517640 30 MG Orally Jun 26, Active 1 tablet Twice a day 2017 Aripiprazole ND 41059803458 20 MG Orally Jun 26, Active 1 tablet Once a day 2017 Lasix [facility] 78417111046 20 MG Orally Active 1 tablet Once a day VESIcare [facility] 06752405962 10 MG Orally June Active 1 tablet Once a day 2017 VESIcare [facility] 44494443429 10 MG Orally Active 1 tablet Once a day Advair Diskus [facility] 39781094549 100-50 MCG/DOSE Active 1 puff Inhalation Twice a day Ranitidine HCl [facility] 96108755281 150 MG Orally Jun 26, Active 1 capsule Once a day 2017 at bedtime Diclofenac [facility] [address]-09 1 % Transdermal Active not Sodium defined Amitriptyline [facility] 27130181814 50 MG Orally Jun 26, Active 1 tablet HCl Once a day at 2018 bedtime One Touch Delica [facility] 0 Active not Lancets defined Tolterodine [facility] 99365985115 1 MG Orally Jun 26, September 24, Active 1 tablet Tartrate Twice a day 2017 2017 Meclizine HCl [facility] 90328037252 25 mg Orally Active 1 tablet every 8 hpurs for vertigo /dizzines s Results No Known Results Summary Purpose eClinicalWorks Submission
--- OUTSIDE RECORDS SUMMARY | 2018-03-11 17:09 | XMS REPORT ---
[...] Status Dosage System Date Date Topiramate ND 13084507911 50 MG Orally Active 1 tablet Twice a day Mirtazapine ND 69295747505 15 MG Orally Active 1 tablet Once a day at bedtime Diclofenac [facility] [address]-66 1 % Transdermal Active not Sodium defined One Touch Delica ND 0 Active not Lancets defined Ranitidine HCl [facility] 67316579937 150 MG Orally Active 1 capsule Once a day at bedtime Aripiprazole ND 71113661367 20 MG Orally Jun 26, Active 1 tablet Once a day 2017 Lasix ND 75145617563 20 MG Orally Active 1 tablet Once a day Meclizine HCl ND 52098553747 25 mg Orally Active 1 tablet every 8 hpurs for vertigo /dizzines s VESIcare ND 04953031113 10 MG Orally Active 1 tablet Once a day One Touch Verio ND 0 n/s finger Active one strip prick once a day Advair Diskus ND 31149815313 100-50 MCG/DOSE Active 1 puff Inhalation Twice a day Proventil HFA [facility] 16809610512 108 (90 Base) Active 2 puffs MCG/ACT as needed Inhalation every 6 hrs BusPIRone HCl ND 22097688179 30 MG Orally Jun 26, Active 1 tablet Twice a day 2017 Zofran ND 06785956965 8 MG Orally Active 1 tablet every 8 hours for N/V Klor-Con M10 ND 99948965748 10 MEQ Orally Active 1 tablet Twice a day with food Venlafaxine HCl ND 89704265128 75 MG Orally Jun 26, Active 1 capsule ER Once a day 2017 with food Amitriptyline ND 69896357042 50 MG Orally Jun 26, Active 1 tablet HCl Once a day at 2018 bedtime Results No Known Results Summary Purpose eClinicalWorks Submission
--- OUTSIDE RECORDS SUMMARY | 2018-03-11 17:10 | XMS REPORT ---
:1980 Author Organization eClinicalWorks Care Team Providers Name Role Earl Amber Sun Provider Role Unavailable Allergies, Adverse Reactions, Alerts Substance Reaction Event Type N.K.D.A. Info Not Available Non Drug Allergy Problems Problem Type Condition Code Onset Dates Condition Status Assessment Cellulitis of left hand L03.114 Active Problem Gastroesophageal reflux disease K21.9 Active without esophagitis Problem Swelling R60.9 Active Problem Sinus problem J34.9 Active Problem Mild intermittent asthma without J45.20 Active complication Problem Other chronic pain G89.29 Active Problem Allergic rhinitis J30.9 Active Problem Hypertriglyceridemia E78.1 Active Problem Hyperlipidemia E78.5 Active Problem Urge incontinence N39.41 Active Problem Stress incontinence N39.3 Active Problem Elevated liver enzymes R74.8 Active Problem Vaginal bleeding N93.9 Active Problem Gastroesophageal reflux disease, K21.9 Active esophagitis presence not specified Problem GERD (gastroesophageal reflux K21.9 Active disease) Problem Anxiety F41.9 Active Problem Fatty liver K76.0 Active Problem Asthma J45.909 Active Problem Hyperglycemia R73.9 Active Problem Chronic sinus complaints R09.89 Active Problem Pharyngitis, unspecified etiology J02.9 Active Problem Cough R05 Active Problem Bipolar disorder F31.9 Active Problem History of hypothyroidism Z86.39 Active Problem Bipolar 1 disorder F31.9 Active Problem Overactive bladder N32.81 Active Problem Intractable vomiting with nausea, R11.2 Active unspecified vomiting type Problem Arthritis of right knee M17.11 Active Problem Migraine G43.909 Active Problem Vertigo R42 Active Medications Medication Code Code Instructions Start End Status Dosage System Date Date One Touch Verio NDC 0 n/s finger Active one strip prick once a day Bactrim DS ND 61553915878 800-160 MG Feb 02, Active 1 tablet Orally Twice a 2018 day Ranitidine HCl ND 07437723242 150 MG Orally Active 1 capsule Once a day at bedtime Symbicort [facility] 47605901027 160-4.5 MCG/ACT Dec 19, Apr 18, Active 2 puffs Inhalation 2017 2017 Twice a day Klor-Con M10 ND 85826623467 10 MEQ Orally Active 1 tablet Twice a day with food Aripiprazole ND 16084299389 20 MG Orally Jun 26, Active 1 tablet Once a day 2017 One Touch Delica ND 0 Active not Lancets defined VESIcare ND 13503311314 10 MG Orally Jun 01, Active 1 tablet Once a day 2018 Proventil HFA [facility] 46179815191 108 (90 Base) Active 2 puffs MCG/ACT as needed Inhalation every 6 hrs Lasix ND 91630174006 20 MG Orally Active 1 tablet Once a day Topiramate ND 41223002473 50 MG Orally Active 1 tablet Twice a day Venlafaxine HCl [facility] 77552721369 75 MG Orally Jun 26, Active 1 capsule ER Once a day 2017 with food Mirtazapine ND 92713985139 15 MG Orally Active 1 tablet Once a day at bedtime Meclizine HCl ND 97313709049 25 mg Orally Active 1 tablet every 8 hpurs for vertigo /dizzines s Zofran ND 49787701148 8 MG Orally Active 1 tablet every 8 hours for N/V Amitriptyline ND 49627338889 50 MG Orally Jun 26, Active 1 tablet HCl Once a day at 2018 bedtime Diclofenac [facility] [address]-76 1 % Transdermal Active not Sodium defined Montelukast [facility] 02693409488 10 MG Orally Active 1 tablet Sodium Once a day Cipro [facility] 31424733221 500 MG Orally Jan 27, Feb 03, Active 1 tablet every 12 hrs 2017 2017 BusPIRone HCl [facility] 53967301701 30 MG Orally Jun 26, Active 1 tablet Twice a day 2017 Results No Known Results Summary Purpose eClinicalWorks Submission
--- OUTSIDE RECORDS SUMMARY | 2018-03-11 17:10 | XMS REPORT ---
[...] End Status Dosage System Date Date Montelukast [facility] 63445563211 10 MG Orally Dec 19, Active 1 tablet Sodium Once a day 2017 Diclofenac [facility] [address]-47 1 % Transdermal Active not Sodium defined VESIcare [facility] 28495539181 10 MG Orally Fe Active 1 tablet Once a day 2018 Symbicort [facility] 65662586806 160-4.5 MCG/ACT Dec 19Mar Active 2 puffs Inhalation 2017, Twice a day 2017 BusPIRone HCl ND 29073549233 30 MG Orally Jun 26, Active 1 tablet Twice a day 2017 Aripiprazole ND 96006296938 20 MG Orally Jun 26, Active 1 tablet Once a day 2017 Lasix ND 71509617841 20 MG Orally Active 1 tablet Once a day Ranitidine HCl [facility] 71937501351 150 MG Orally Active 1 capsule Once a day at bedtime Ranitidine HCl ND 58338026076 150 MG Orally Active 1 capsule Once a day at bedtime One Touch Verio NDC 0 n/s finger Active one strip prick once a day One Touch Delica ND 0 Active not Lancets defined Topiramate ND 57004899668 50 MG Orally Active 1 tablet Twice a day Mirtazapine ND 66682684964 15 MG Orally Active 1 tablet Once a day at bedtime Zofran [facility] 26018671344 8 MG Orally Active 1 tablet every 8 hours for N/V Meclizine HCl ND 24377901192 25 mg Orally Active 1 tablet every 8 hpurs for vertigo /dizzines s Klor-Con M10 [facility] 04413275834 10 MEQ Orally Active 1 tablet Twice a day with food Amitriptyline ND 60612116781 50 MG Orally Jun 26, Active 1 tablet HCl Once a day at 2018 bedtime Proventil HFA [facility] 61576361652 108 (90 Base) Active 2 puffs MCG/ACT as needed Inhalation every 6 hrs Advair Diskus [facility] 62334937746 100-50 MCG/DOSE Inactive 1 puff Inhalation Twice a day Venlafaxine HCl [facility] 08489836946 75 MG Orally Jun 26, Active 1 capsule ER Once a day 2017 with food Results No Known Results Summary Purpose eClinicalWorks Submission
--- OUTSIDE RECORDS SUMMARY | 2018-03-11 17:10 | XMS REPORT ---
:1980 Author Organization eClinicalWorks Care Team Providers Name Role Phone Carrington, Na Provider Role Unavailable Allergies No Known Allergies Problems Problem Type Condition Code Onset Dates Condition Status Problem Gastroesophageal reflux disease K21.9 Active without [...] G43.909 Active Problem Vertigo R42 Active Medications No Known Medications Results No Known Results Summary Purpose eClinicalWorks Submission
--- OUTSIDE RECORDS SUMMARY | 2018-03-11 17:10 | XMS REPORT ---
:1980 Author Organization eClinicalWorks Care Team Providers Name Role Phone Carrington, Na Provider Role Unavailable Allergies, Adverse Reactions, Alerts Substance Reaction Event Type N.K.D.A. Info Not Available Non Drug Allergy Problems Problem Type Condition Code Onset Dates Condition Status Assessment Allergic rhinitis J30.9 Active Assessment Acute renal insufficiency N28.9 Active Assessment Lower abdominal pain R10.30 Active Assessment Fatty liver K76.0 Active Problem Gastroesophageal reflux disease K21.9 Active [...] etiology J02.9 Active Problem Cough R05 Active Assessment Gastroesophageal reflux disease, K21.9 Active esophagitis presence not specified Problem Bipolar disorder F31.9 Active Assessment Vaginal bleeding N93.9 Active Problem History of hypothyroidism Z86.39 Active Assessment Hematuria, unspecified R31.9 Active Problem Bipolar 1 disorder F31.9 Active Assessment Urinary tract infection, site not N39.0 Active specified Problem Overactive bladder N32.81 Active Problem Intractable vomiting with nausea, R11.2 Active unspecified vomiting type Problem Arthritis of right knee M17.11 Active Problem Migraine G43.909 Active Problem Vertigo R42 Active Medications Medication Code Code Instructions Start End Status Dosage System Date Date or-Con M10 [facility] 29297759284 10 MEQ Orally Active 1 tablet Twice a day with food Venlafaxine HCl ND 39086135322 75 MG Orally Jun 26, Active 1 capsule ER Once a day 2018 with food Montelukast ND 12465574667 10 MG Orally Active 1 tablet Sodium Once a day Lasix ND 77005184851 20 MG Orally Active 1 tablet Once a day Ranitidine HCl ND 01595373076 150 MG Orally Active 1 capsule Once a day at bedtime Meclizine HCl ND 76860113813 25 mg Orally Active 1 tablet every 8 hpurs for vertigo /dizzines s Mirtazapine ND 40926115409 15 MG Orally Active 1 tablet Once a day at bedtime Proventil HFA [facility] 41969116296 108 (90 Base) Active 2 puffs MCG/ACT as needed Inhalation every 6 hrs Amitriptyline ND 31208715784 50 MG Orally Jun 26, Active 1 tablet HCl Once a day at 2018 bedtime VESIcare ND 80601748528 10 MG Orally Jun 01, Active 1 tablet Once a day 2018 Ranitidine HCl [facility] 06108343439 150 MG Orally Active 1 capsule Once a day at bedtime One Touch Delica NDC 0 Active not Lancets defined One Touch Verio ND 0 n/s finger Active one strip prick once a day Topiramate ND 04000167348 50 MG Orally Active 1 tablet Twice a day Aripiprazole ND 67037393737 20 MG Orally Jun 26, Active 1 tablet Once a day 2018 Cipro ND 65000657216 500 MG Orally Jan 27, Feb 03, Active 1 tablet every 12 hrs 2017 2017 Symbicort [facility] 08813250426 160-4.5 MCG/ACT Dec 19, Apr 18, Active 2 puffs Inhalation 2017 2017 Twice a day Diclofenac [facility] [address]-75 1 % Transdermal Active not Sodium defined BusPIRone HCl ND 44543171681 30 MG Orally Jun 26, Active 1 tablet Twice a day 2017 Zofran [facility] 82227128319 8 MG Orally Active 1 tablet every 8 hours for N/V Results No Known Results Summary Purpose eClinicalWorks Submission
[2018-03-11] MEDS ORDERED: NA CHLORIDE 0.9% 1,000 ML ONE (17:48)
[2018-03-11] MEDS ORDERED: ONDANSETRON 4 MG/2 ML VIAL ONE (17:48)
[2018-03-11] MEDS ORDERED: MECLIZINE HCL 12.5 MG TAB ONE (17:48)
--- NOTE | 2018-03-11 17:58 | RAD REPORT ---
EXAM DESCRIPTION: CT - Head Brain Wo Cont - 03/11/2018 5:50 pm CLINICAL HISTORY: DIZZINESS Drowsiness COMPARISON: Head C Spine Cap W Con dated 07/28/2016 TECHNIQUE: All CT scans are performed using dose optimization technique as appropriate and may inclu de automated exposure control or mA/KV adjustment according to patient size. FINDINGS: No intracranial hemorrhage, hydrocephalus or extra-axial fluid collection.No areas of brai n edema or evidence of midline shift. The paranasal sinuses and mastoids are clear. The calvarium is intact. IMPRESSION: No acute intracranial abnormality.
--- NOTE | 2018-03-11 18:03 | RAD REPORT ---
EXAM DESCRIPTION: RAD - Chest Single View - 03/11/2018 5:56 pm CLINICAL HISTORY: COUGH Chest pain. COMPARISON: No comparisons FINDINGS: Portable technique limits examination quality. The lungs are grossly clear. The heart is normal in size. No displaced fractures. IMPRESSION: No acute intrathoracic process suspected.
[2018-03-11 18:54] LABS: Urine Blood TRACE (NEG); Urine Glucose NEGATIVE (NEG); Urine Protein NEGATIVE (NEG); Urine Specific Gravity 1.015 (1.005-1.030)
--- NOTE | 2018-03-11 19:27 | RAD REPORT ---
EXAM DESCRIPTION: - CP - 03/11/2018 7:12 pm CLINICAL HISTORY: DIZZINESS TIA/CVA COMPARISON: No comparisons TECHNIQUE: Real-time sonographic evaluation of both carotid systems was performed. Doppler interroga tion was performed with waveform tracing bilaterally. FINDINGS: Normal high resistance waveforms are noted in both external carotid arteries. The common c arotid arteries and internal carotid arteries show normal low resistance waveforms. No significant plaque formation is seen. Peak systolic and end diastolic velocity values and the ICA/ CCA ratios are in the non-hemodynamically significant range. Antegrade flow seen in both vertebral arteries. IMPRESSION: No significant atherosclerotic changes noted. No evidence of a hemodynamically significant stenosis.
--- NOTE | 2018-03-11 19:51 | RAD REPORT ---
EXAM DESCRIPTION: MRI - Brain Wo Cont - 03/11/2018 7:43 pm CLINICAL HISTORY: DIZZINESS Drowsiness COMPARISON: Head Brain Wo Cont dated 03/11/2018 TECHNIQUE: Multi-sequence, multiplanar MR imaging of the brain was performed without contrast. FINDINGS: No intracranial hemorrhage, hydrocephalus or extra-axial fluid collections. No edema or sh ift of midline structures. No findings to suspect brain mass. DWI is negative for acute CVA. Midline structures are normally formed. Mastoid air cells and paranasal sinuses are clear. IMPRESSION: No acute or concerning intracranial abnormalities.
--- NOTE | 2018-03-11 22:28 | EDPHYS ---
Physician Documentation [facility] Name: Cely Valadez Age: 38 yrs Sex: Female : 1980 Arrival Date: 03/11/2018 Time: 17:09 Bed 30 Private MD: ED Physician Gareth Crowley HPI: 03/11 18:15 This 38 yrs old Female presents to ER via Ambulatory with complaints of breanne Dizziness. 18:15 The patient presents with dizziness, feeling off balance. Onset: The symptoms/episode breanne began/occurred 3 day(s) ago. Context: occurred at home. Modifying factors: The symptoms are alleviated by closing eyes, holding head still, the symptoms are aggravated by movement of head. Associated signs and symptoms: The patient has no apparent associated signs or symptoms. Severity of symptoms: At their worst the symptoms were mild moderate in the emergency department the symptoms are unchanged. Patient's baseline: Neuro:. 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 03/04/2018 ph Historical: - Allergies: 17:25 No Known Allergies; ph - Home Meds: 17:25 Abilify 15 mg Oral tab 1 tab once daily [Active]; Amitriptyline Oral once daily ph [Active]; buspirone 10 mg Oral tab 1 tab 3 times per day [Active]; Effexor XR 37.5 mg Oral cp24 1 cap once daily [Active]; omeprazole 40 mg Oral cpDR 1 cap once daily [Active]; ProAir HFA 90 mcg/actuation inhalation HFAA 2 puffs as needed [Active]; topiramate 25 mg Oral tab 1 tabs daily [Active]; - PMHx: 17:25 acid reflux; Asthma; Bipolar disorder; ph - PSHx: 17:25 eye surg; ph - Immunization history:: Adult Immunizations up to date. - Social history:: Smoking status: Patient uses tobacco products, smokes one pack cigarettes per day. - Family history:: not pertinent. - Ebola Screening: : No symptoms or risks identified at this time. ROS: 18:15 Constitutional: Negative for fever, chills, and weight loss, Eyes: Negative for injury, breanne pain, redness, and discharge, ENT: Negative for injury, pain, and discharge, Neck: Negative for injury, pain, and swelling, Cardiovascular: Negative for chest pain, palpitations, and edema, Respiratory: Negative for shortness of breath, cough, wheezing, and pleuritic chest pain, Abdomen/GI: Negative for abdominal pain, nausea, vomiting, diarrhea, and constipation, Back: Negative for injury and pain, : Negative for injury, bleeding, discharge, and swelling, MS/Extremity: Negative for injury and deformity, Skin: Negative for injury, rash, and discoloration, Psych: Negative for depression, anxiety, suicide ideation, homicidal ideation, and hallucinations, Allergy/Immunology: Negative for hives, rash, and allergies, Endocrine: Negative for neck swelling, polydipsia, polyuria, polyphagia, and marked weight changes, Hematologic/Lymphatic: Negative for swollen nodes, abnormal bleeding, and unusual bruising. 18:15 Neuro: Positive for dizziness. Exam: 18:15 Constitutional: This is a well developed, well nourished patient who is awake, alert, breanne and in no acute distress. Head/Face: Normocephalic, atraumatic. Eyes: Pupils equal round and reactive to light, extra-ocular motions intact. Lids and lashes normal. Conjunctiva and sclera are non-icteric and not injected. Cornea within normal limits. Periorbital areas with no swelling, redness, or edema. ENT: Nares patent. No nasal discharge, no septal abnormalities noted. Tympanic membranes are normal and external auditory canals are clear. Oropharynx with no redness, swelling, or masses, exudates, or evidence of obstruction, uvula midline. Mucous membranes moist. Neck: Trachea midline, no thyromegaly or masses palpated, and no cervical lymphadenopathy. Supple, full range of motion without nuchal rigidity, or vertebral point tenderness. No Meningismus. Chest/axilla: Normal chest wall appearance and motion. Nontender with no deformity. No lesions are appreciated. Cardiovascular: Regular rate and rhythm with a normal S1 and S2. No gallops, murmurs, or rubs. Normal PMI, no JVD. No pulse deficits. Respiratory: Lungs have equal breath sounds bilaterally, clear to auscultation and percussion. No rales, rhonchi or wheezes noted. No increased work of breathing, no retractions or nasal flaring. Abdomen/GI: Soft, non-tender, with normal bowel sounds. No distension or tympany. No guarding or rebound. No evidence of tenderness throughout. Back: No spinal tenderness. No costovertebral tenderness. Full range of motion. Skin: Warm, dry with normal turgor. Normal color with no rashes, no lesions, and no evidence of cellulitis. MS/ Extremity: Pulses equal, no cyanosis. Neurovascular intact. Full, normal range of motion. Neuro: Awake and alert, GCS 15, oriented to person, place, time, and situation. Cranial nerves II-XII grossly intact. Motor strength 5/5 in all extremities. Sensory grossly intact. Cerebellar exam normal. Normal gait. Psych: Awake, alert, with orientation to person, place and time. Behavior, mood, and affect are within normal limits. 18:15 Neck: ROM/movement: is normal, no acute changes, Meningeal signs: are not present, Kernig's sign is negative, Brudzinski's sign is negative. Vital Signs: 17:23 BP 137 / 78; Pulse 70; Resp 18; Temp 97.9; Pulse Ox 100% on R/A; Weight 127.01 kg; ph Height 5 ft. 4 in. (162.56 cm); Pain 6/10; 18:30 BP 134 / 74; Pulse 80; Resp 19; Pulse Ox 99% ; kr2 20:30 BP 120 / 89; Pulse 72; Resp 17; Pulse Ox 100% ; kr2 17:23 Body Mass Index 48.06 (127.01 kg, 162.56 cm) ph MDM: 17:25 Patient medically screened. [facility] 18:17 Data reviewed: vital signs, nurses notes, lab test result(s), EKG, radiologic studies, [facility] CT scan, doppler, plain films. 03/11 17:27 Order name: Basic Metabolic Panel [facility] 03/11 17:27 Order name: CBC with Diff [facility] 03/11 17:27 Order name: LFT's [facility] 03/11 17:27 Order name: Magnesium [facility] 03/11 17:27 Order name: NT PRO-BNP [facility] 03/11 17:27 Order name: PT-INR [facility] 03/11 17:27 Order name: XRAY Chest (1 view); Complete Time: 18:13 [facility] 03/11 18:35 Order name: Urine Dipstick--Ancillary (enter results); Complete Time: 19:40 03/11 18:35 Order name: Urine --Ancillary (enter results); Complete Time: 19:40 bd 03/11 22:30 Order name: Troponin I [facility] 03/11 22:31 Order name: Lipase [facility] 03/11 17:27 Order name: EKG; Complete Time: 17:28 [facility] 03/11 17:27 Order name: Cardiac monitoring; Complete Time: 18:30 [facility] 03/11 17:27 Order name: EKG - Nurse/Tech; Complete Time: 18:30 [facility] 03/11 17:27 Order name: O2 Per Protocol; Complete Time: 17:43 [facility] 03/11 17:27 Order name: O2 Sat Monitoring; Complete Time: 17:43 [facility] 03/11 17:27 Order name: CT Head Brain wo Cont; Complete Time: 18:13 [facility] 03/11 17:27 Order name: Urine Dipstick-Ancillary (obtain specimen); Complete Time: 18:30 [facility] 03/11 18:14 Order name: US Carotid Artery Bilateral; Complete Time: 19:40 [facility] 03/11 19:00 Order name: Brain Wo Cont; Complete Time: 20:10 [facility] Administered Medications: 18:00 Drug: Meclizine 50 mg Route: PO; kr2 19:30 Follow up: Response: No adverse reaction; No adverse reaction, states dizziness is kr2 decreased Disposition: 03/11/18 22:27 Patient has left against medical advice. Impression: Dizziness and giddiness, Bipolar disorder. - Patients states they are going to Home. - Condition is Undetermined. Follow up: Private Physician; When: Upon discharge from the Emergency Department; Reason: Recheck today's complaints, Continuance of care, Re-evaluation by your physician. - Problem is new. - Symptoms are unchanged. Signatures: Dispatcher [employer] [facility] Gareth Crowley MD MD cha Ballard, Brenda, RN RN Zina Maza RN RN Lucy Gonzales RN RN kr2 Corrections: (The following items were deleted from the chart) 19:00 18:15 MR STROKE PROTOCOL+MRI.RAD.BRZ ordered. [facility] 22:30 17:28 TROPONIN (EMERG DEPT USE ONLY)+C.LAB.BRZ ordered. [facility] 22:30 17:28 LIPASE+C.LAB.BRZ ordered. [facility] 22:39 22:27 03/11/2018 22:27 Patients has left against medical advice. Impression: Dizziness bb and giddiness; Bipolar disorder. Patient states they are going to Home. Condition is Undetermined. Follow up: Private Physician; When: Upon discharge from the Emergency Department; Reason: Recheck today's complaints, Continuance of care, Re-evaluation by your physician. Problem is new. Symptoms are unchanged. breanne
--- NOTE | 2018-03-11 22:28 | ER ---
Nurse's Notes [facility] Name: Cely Valadez Age: 38 yrs Sex: Female : 1980 Arrival Date: 03/11/2018 Time: 17:09 Bed 30 Private MD: Diagnosis: Dizziness and giddiness;Bipolar disorder Presentation: 03/11 17:20 Presenting complaint: Patient states: Dizziness x 3-4 days, worse today, states, " I ph feel like I'm going to fall over when I'm standing still." also reports runny nose, post nasal drip, chills, and pain in R ear, L episcopal and sinuses, states, " I went to urgent care and they said my ears looked okay and to come here." Denies syncope or fall, also denies N/V. Transition of care: patient was not received from another setting of care. Onset of symptoms was March 11, 2018. Risk Assessment: Do you want to hurt yourself or someone else? Patient reports no desire to harm self or others. Care prior to arrival: None. 17:20 Method Of Arrival: Ambulatory ph 17:20 Acuity: ADRIANA 3 ph 17:30 Initial Sepsis Screen: Does the patient meet any 2 criteria? No. Patient's initial kr2 sepsis screen is negative. Does the patient have a suspected source of infection? No. Patient's initial sepsis screen is negative. 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 - Social history:: Smoking status: Patient uses tobacco products, smokes one pack cigarettes per day. - Family history:: not pertinent. - Ebola Screening: : No symptoms or risks identified at this time. Screenin:30 Abuse screen: Denies threats or abuse. Denies injuries from another. Nutritional kr2 screening: No deficits noted. Tuberculosis screening: No symptoms or risk factors identified. Fall Risk None identified. Assessment: 17:30 General: Appears in no apparent distress. uncomfortable, obese, unkempt, Behavior is kr2 calm, cooperative. Pain: Complains of pain in head Pain does not radiate. Pain currently is 6 out of 10 on a pain scale. Quality of pain is described as aching, dull, Is continuous, Alleviated by nothing. Neuro: Level of Consciousness is awake, alert, obeys commands, Oriented to person, place, time, situation, Appropriate for age Supervisor [employer] are equal bilaterally Moves all extremities. Full function Gait is steady, Speech is normal, Facial symmetry appears normal, Pupils are PERRLA, Intact. Neuro: Reports dizziness. Cardiovascular: Capillary refill < 3 seconds in bilateral fingers Patient's skin is warm and dry. Respiratory: Airway is patent Respiratory effort is even, unlabored, Respiratory pattern is regular, symmetrical. GI: Abdomen is non-distended, obese. : Urine is clear. EENT: Oral mucosa is moist. Derm: Skin is intact, is healthy with good turgor, Skin is pink, warm \\T\\ dry. Musculoskeletal: Circulation, motion, and sensation intact. 18:30 Reassessment: Patient appears in no apparent distress at this time. Patient and/or kr2 family updated on plan of care and expected duration. Pain level reassessed. Patient is alert, oriented x 3, equal unlabored respirations, skin warm/dry/pink. Patient states feeling better. 19:30 Reassessment: No changes from previously documented assessment. kr2 20:15 Reassessment: Unable to obtain IV access, provider notified. kr2 20:30 Reassessment: Patient appears in no apparent distress at this time. Patient and/or kr2 family updated on plan of care and expected duration. Pain level reassessed. Patient is alert, oriented x 3, equal unlabored respirations, skin warm/dry/pink. Patient states feeling better. 20:54 Reassessment: Rheostat Assembler at bedside redrawing blood, previous sample hemolyzed. kr2 22:14 Reassessment: Patient appears in no apparent distress at this time. Patient and/or kr2 family updated on plan of care and expected duration. Pain level reassessed. Patient is alert, oriented x 3, equal unlabored respirations, skin warm/dry/pink. Patient states feeling better. 22:15 Reassessment: Pt states she does not want to be stuck again Dr Crowley notified pt bb wants to sign out AMA. 22:20 Reassessment: Dr Crowley at bedside for IV placement attempted to L EJ, blood drawn bb but unable to advance catheter. Catheter was removed intact, bleeding controlled pressure dressing applied. Blood sent to lab. 22:36 Reassessment: Patient is alert, oriented x 3, equal unlabored respirations, skin bb warm/dry/pink. pt states she wants to leave now Dr Crowley notified. Pt opted to go home against medical advice AMA form signed pt ambulated with steady gait to exit. Vital Signs: 17:23 BP 137 / 78; Pulse 70; Resp 18; Temp 97.9; Pulse Ox 100% on R/A; Weight 127.01 kg; ph Height 5 ft. 4 in. (162.56 cm); Pain 6/10; 18:30 BP 134 / 74; Pulse 80; Resp 19; Pulse Ox 99% ; kr2 20:30 BP 120 / 89; Pulse 72; Resp 17; Pulse Ox 100% ; kr2 17:23 Body Mass Index 48.06 (127.01 kg, 162.56 cm) ph ED Course: 17:09 Patient arrived in ED. as 17:23 Triage completed. ph 17:25 Gareth Crowley MD is Attending Physician. breanne 17:25 Arm band placed on Patient placed in an exam room, on a stretcher, on pulse oximetry. ph 17:30 Patient has correct armband on for positive identification. Bed in low position. Call kr2 light in reach. Side rails up X 1. Pulse ox on. NIBP on. Door closed. Warm blanket given. Head of bed elevated. 17:[address] via wheelchair. vr 17:50 CT Head Brain wo Cont In Process Unspecified. EDMS 17:52 X-ray completed. Patient tolerated procedure well. Patient moved back from radiology. jb2 17:55 XRAY Chest (1 view) In Process Unspecified. EDMS 18:02 EKG done, by mental health technician. reviewed by Gareth Crowley MD. sm3 18:20 Missed attempt(s): 20 gauge in left antecubital area. kr2 18:27 Missed attempt(s): 22 gauge in right antecubital area. Bleeding controlled, band aid ph applied, catheter tip intact. 18:40 Missed attempt(s): 24 gauge in left wrist. Bleeding controlled, band aid applied, jp3 catheter tip intact. 18:50 Missed attempt(s): 24 gauge in right wrist. Bleeding controlled, band aid applied, jp3 catheter tip intact. 19:12 US Carotid Artery Bilateral In Process Unspecified. EDMS 19:13 Patient moved to MRI via wheelchair. ka 19:31 Brain Wo Cont In Process Unspecified. EDMS 19:48 MRI completed. Patient tolerated well. Patient moved back from MRI. ka 20:21 Initial lab(s) drawn, by me, sent to lab. bb Administered Medications: 18:00 Drug: Meclizine 50 mg Route: PO; kr2 19:30 Follow up: Response: No adverse reaction; No adverse reaction, states dizziness is kr2 decreased Outcome: 22:39 AMA AMA form signed bb 22:39 Condition: stable 22:39 Patient left the ED. bb Signatures: Dispatcher [employer] [facility] Gareth Crowley MD MD cha Buechter, Jesse jb2 Martinez, Amelia as Ballard, Brenda, RN RN Kylah Adamson Patricia, RN RN ph Aguilera, Katelyn ka Reaves, Karey, RN RN kr2 Kelsie Hatch 3 Gurwinder Oliver jp3
[2018-03-11 22:31] LABS: Absolute Monocytes 0.9 K/uL (0.1-1.3); Absolute Neutrophil 7.6 K/uL (1.8-8.0); Basophils % 0.9 % (0-1.3); Eosinophils % 3.8 % (0-4.4); Hematocrit 43.8 % (36.0-45.0); Lymphocytes % 30.7 % (15.3-44.8); MCH 33.1 pg (27.0-35.0); MCV 98.5 fL (80-100); MPV 10.2 fL (7.6-11.3); Monocytes % 6.7 % (3.3-12.3); RBC Red Blood Cell Count 4.44 M/uL (3.86-4.86)
[2018-03-11 22:48] LABS: ALT/SGPT 38 U/L (12-78); AST/SGOT 27 U/L (15-37); Albumin 3.5 g/dL (3.4-5.0); Alkaline Phosphatase 70 U/L (45-117); BUN Blood Urea Nitrogen 12 mg/dL (7-18); Bicarbonate 26 mmol/L (21-32); Bilirubin Direct 0.2 mg/dL (0-0.2); Bilirubin Total 0.6 mg/dL (0.2-1.0); Glucose Level 87 mg/dL (74-106); Lipase 118 U/L (73-393); Magnesium 2.3 mg/dL (1.8-2.4); NT PRO-BNP 82 pg/mL (<125); Potassium 4.2 mmol/L (3.5-5.1); Protein, Total 7.3 g/dL (6.4-8.2); Sodium Level 140 mmol/L (136-145); Troponin I < 0.02 ng/mL (0.0-0.045)
--- NOTE | 2018-03-12 06:04 | EKG ---
Test Date: 2018-03-11 Test Time: 17:57:46 Business Mail Entry Clerk: GALLO MEASUREMENT RESULTS: Intervals: Rate: 68 ND: 194 QRSD: 74 QT: 412 QTc: 438 [place]: P: 58 ND: 194 QRS: 50 T: 50 INTERPRETIVE STATEMENTS: Normal sinus rhythm Low voltage QRS Nonspecific T wave abnormality Abnormal ECG No previous ECG available for comparison Electronically Signed On 03-12-18 06:03:38 TUGGER OPERATOR by Enmanuel Murillo
== END 2018-03-11 22:39 | disposition left against medical advice (07) ==
LOC: ER 17:07
DX: R42 Dizziness and giddiness (principal); F31.9 Bipolar disorder, unspecified; F17.210 Nicotine dependence, cigarettes, uncomplicated
CPT/HCPCS: 36415; 70450; 70551; 71045; 80048; 80076; 81003; 81025; 83690; 83735; 83880; 84484; 85025; 85610; 93005; 93880; 99284; J2405; J7030

== ENCOUNTER 2018-06-14 18:53 | Emergency (ER) | payer OTHER ==
--- OUTSIDE RECORDS SUMMARY | 2018-06-14 18:56 | XMS REPORT ---
:1980 [facility] Organization [facility] Address [address] [place] [address] Care Team Providers Name Role Phone Unavailable Unavailable Unavailable Problems This patient has no known problems. Allergies, Adverse Reactions, Alerts This patient has no known allergies or adverse reactions. Medications This patient has no known medications.
--- OUTSIDE RECORDS SUMMARY | 2018-06-14 18:56 | XMS REPORT ---
[...] prick once a day Proventil HFA ND 97405552113 108 (90 Base) Active 2 puffs MCG/ACT as needed Inhalation every 6 hrs Klor-Con M10 ND 65964473333 10 MEQ Orally Active 1 tablet Twice a day with food Zofran ND 21692369189 8 MG Orally Active 1 tablet every 8 hours for N/V Venlafaxine HCl ND 85155251041 75 MG Orally Jun 26, Active 1 capsule ER Once a day 2017 with food BusPIRone HCl ND 52037594138 30 MG Orally Jun 26, Active 1 tablet Twice a day 2017 Aripiprazole ND 28406486894 20 MG Orally Jun 26, Active 1 tablet Once a day 2017 Lasix [facility] 17575811014 20 MG Orally Active 1 tablet Once a day VESIcare [facility] 38664738565 10 MG Orally June Active 1 tablet Once a day 2017 VESIcare [facility] 92485955757 10 MG Orally Active 1 tablet Once a day Advair Diskus [facility] 32457187639 100-50 MCG/DOSE Active 1 puff Inhalation Twice a day Ranitidine HCl [facility] 76114819832 150 MG Orally Jun 26, Active 1 capsule Once a day 2017 at bedtime Diclofenac [facility] [address]-36 1 % Transdermal Active not Sodium defined Amitriptyline [facility] 76897473705 50 MG Orally Jun 26, Active 1 tablet HCl Once a day at 2018 bedtime One Touch Delica [facility] 0 Active not Lancets defined Tolterodine [facility] 08145640506 1 MG Orally Jun 26, September 24, Active 1 tablet Tartrate Twice a day 2017 2017 Meclizine HCl [facility] 43739285824 25 mg Orally Active 1 tablet every 8 hpurs for vertigo /dizzines s Results No Known Results Summary Purpose eClinicalWorks Submission
--- OUTSIDE RECORDS SUMMARY | 2018-06-14 18:56 | XMS REPORT ---
[...] Start End Status Dosage System Date Mirtazapine [facility] 91027428317 15 MG Orally Active 1 tablet Once a day at bedtime Topiramate [facility] 03131505459 50 MG Orally Active 1 tablet Twice a day Venlafaxine HCl [facility] 57847634092 75 MG Orally Jun 26, Active 1 capsule ER Once a day 2017 with food Meclizine HCl [facility] 60424033856 25 mg Orally Active 1 tablet every 8 hpurs for vertigo /dizzines s BusPIRone HCl ND 79317019300 30 MG Orally Jun 26, Active 1 tablet Twice a day 2017 Advair Diskus [facility] 51642233708 100-50 MCG/DOSE Active 1 puff Inhalation Twice a day One Touch Verio NDC 0 n/s finger Active one strip prick once a day Diclofenac [facility] [address]-34 1 % Transdermal Active not Sodium defined VESIcare [facility] 81368202013 10 MG Orally June Active 1 tablet Once a day 2017 Zofran [facility] 30890538064 8 MG Orally Active 1 tablet every 8 hours for N/V Ranitidine HCl ND 33312264531 150 MG Orally Jun 26, Active 1 capsule Once a day 2017 at bedtime Amitriptyline ND 88514478632 50 MG Orally Jun 26, Active 1 tablet HCl Once a day at 2017 bedtime VESIcare [facility] 91425220868 10 MG Orally Active 1 tablet Once a day Proventil HFA [facility] 06153295560 108 (90 Base) Active 2 puffs MCG/ACT as needed Inhalation every 6 hrs One Touch Delica ND 0 Active not Lancets defined Tolterodine [facility] 26987624753 1 MG Orally Jun 26, September 24, Active 1 tablet Tartrate Twice a day 2017 2017 Lasix [facility] 11552295321 20 MG Orally Active 1 tablet Once a day Klor-Con M10 [facility] 60868116664 10 MEQ Orally Active 1 tablet Twice a day with food Aripiprazole [facility] 98954499849 20 MG Orally Jun 26, Active 1 tablet Once a day 2017 Results Name Result Date Reference Range Unit Abnormality Flag URINALYSIS AUTO W/O SCOPE (01087) ----RADHA neg [id number] ----NIT neg [id number] ----PROTEIN neg [id number] ----pH 6.0 [id number] ----BLO neg [id number] ----GLUCOSE neg [id number] ----BILIRUBIN neg [id number] ----KETONES neg [id number] ----SPECIFIC GRAVITY 1.010 [id number] PVR ----PVR 0 [id number] Summary Purpose eClinicalWorks Submission
--- OUTSIDE RECORDS SUMMARY | 2018-06-14 18:57 | XMS REPORT ---
[...] Status Dosage System Date Date Topiramate ND 17816076347 50 MG Orally Active 1 tablet Twice a day Mirtazapine ND 64440105950 15 MG Orally Active 1 tablet Once a day at bedtime Diclofenac [facility] [address]-52 1 % Transdermal Active not Sodium defined One Touch Delica ND 0 Active not Lancets defined Ranitidine HCl [facility] 80707962648 150 MG Orally Active 1 capsule Once a day at bedtime Aripiprazole ND 79071955911 20 MG Orally Jun 26, Active 1 tablet Once a day 2017 Lasix ND 98959388798 20 MG Orally Active 1 tablet Once a day Meclizine HCl ND 05673468136 25 mg Orally Active 1 tablet every 8 hpurs for vertigo /dizzines s VESIcare ND 80100074462 10 MG Orally Active 1 tablet Once a day One Touch Verio ND 0 n/s finger Active one strip prick once a day Advair Diskus ND 02809678137 100-50 MCG/DOSE Active 1 puff Inhalation Twice a day Proventil HFA [facility] 04048450895 108 (90 Base) Active 2 puffs MCG/ACT as needed Inhalation every 6 hrs BusPIRone HCl ND 57568466371 30 MG Orally Jun 26, Active 1 tablet Twice a day 2017 Zofran ND 38577476482 8 MG Orally Active 1 tablet every 8 hours for N/V Klor-Con M10 ND 65743881477 10 MEQ Orally Active 1 tablet Twice a day with food Venlafaxine HCl ND 25911701384 75 MG Orally Jun 26, Active 1 capsule ER Once a day 2017 with food Amitriptyline ND 44775398742 50 MG Orally Jun 26, Active 1 tablet HCl Once a day at 2018 bedtime Results No Known Results Summary Purpose eClinicalWorks Submission
--- OUTSIDE RECORDS SUMMARY | 2018-06-14 18:57 | XMS REPORT ---
[...] Start Date End Date Status Dosage VESIcare [facility] 71693908848 10 MG Orally Once Jun 01, Active 1 tablet a day 2019 Results No Known Results Summary Purpose eClinicalWorks Submission
--- OUTSIDE RECORDS SUMMARY | 2018-06-14 18:57 | XMS REPORT ---
[...] Status Dosage System Date Date or-Con M10 [facility] 22988255757 10 MEQ Orally Active 1 tablet Twice a day with food Venlafaxine HCl ND 96437205402 75 MG Orally Jun 26, Active 1 capsule ER Once a day 2018 with food Montelukast ND 80567181256 10 MG Orally Active 1 tablet Sodium Once a day Lasix ND 00065956572 20 MG Orally Active 1 tablet Once a day Ranitidine HCl ND 77986719294 150 MG Orally Active 1 capsule Once a day at bedtime Meclizine HCl ND 86721697535 25 mg Orally Active 1 tablet every 8 hpurs for vertigo /dizzines s Mirtazapine ND 69407980719 15 MG Orally Active 1 tablet Once a day at bedtime Proventil HFA [facility] 54221245627 108 (90 Base) Active 2 puffs MCG/ACT as needed Inhalation every 6 hrs Amitriptyline ND 40455349416 50 MG Orally Jun 26, Active 1 tablet HCl Once a day at 2018 bedtime VESIcare ND 84430415812 10 MG Orally Jun 01, Active 1 tablet Once a day 2018 Ranitidine HCl [facility] 31544027491 150 MG Orally Active 1 capsule Once a day at bedtime One Touch Delica NDC 0 Active not Lancets defined One Touch Verio ND 0 n/s finger Active one strip prick once a day Topiramate ND 91342103522 50 MG Orally Active 1 tablet Twice a day Aripiprazole ND 05300106877 20 MG Orally Jun 26, Active 1 tablet Once a day 2018 Cipro ND 54481022970 500 MG Orally Jan 27, Feb 03, Active 1 tablet every 12 hrs 2017 2017 Symbicort [facility] 11326813765 160-4.5 MCG/ACT Dec 19, Apr 18, Active 2 puffs Inhalation 2017 2017 Twice a day Diclofenac [facility] [address]-77 1 % Transdermal Active not Sodium defined BusPIRone HCl ND 73151336292 30 MG Orally Jun 26, Active 1 tablet Twice a day 2017 Zofran [facility] 53655068746 8 MG Orally Active 1 tablet every 8 hours for N/V Results No Known Results Summary Purpose eClinicalWorks Submission
--- OUTSIDE RECORDS SUMMARY | 2018-06-14 18:57 | XMS REPORT ---
[...] Status Dosage System Date Date Venlafaxine HCl [facility] 24621529598 75 MG Orally b , Active 1 capsule ER Once a day 2018 with food Mirtazapine ND 82967578538 15 MG Orally Active 1 tablet Once a day at bedtime Diclofenac [facility] [address]-11 1 % Transdermal Active not Sodium defined Amitriptyline ND 58462609042 50 MG Orally Jun 26, Active 1 tablet HCl Once a day at 2018 bedtime Lasix ND 90879141909 20 MG Orally Active 1 tablet Once a day Aripiprazole ND 02396780180 20 MG Orally Jun 26, Active 1 tablet Once a day 2017 Zofran [facility] 59151562048 8 MG Orally Active 1 tablet every 8 hours for N/V Ranitidine HCl [facility] 28947595359 150 MG Orally Active 1 capsule Once a day at bedtime One Touch Verio NDC 0 n/s finger Active one strip prick once a day VESIcare [facility] 07287210050 10 MG Orally Active 1 tablet Once a day Proventil HFA [facility] 52301038298 108 (90 Base) Active 2 puffs MCG/ACT as needed Inhalation every 6 hrs Advair Diskus [facility] 04826408961 100-50 MCG/DOSE Active 1 puff Inhalation Twice a day One Touch Delica NDC 0 Active not Lancets defined Meclizine HCl [facility] 31473970481 25 mg Orally Active 1 tablet every 8 hpurs for vertigo /dizzines s Topiramate ND 20482755355 50 MG Orally Active 1 tablet Twice a day Klor-Con M10 ND 80303134598 10 MEQ Orally Active 1 tablet Twice a day with food BusPIRone HCl ND 10842552483 30 MG Orally Jun 26, Active 1 tablet Twice a day 2017 Results No Known Results Summary Purpose eClinicalWorks Submission
--- OUTSIDE RECORDS SUMMARY | 2018-06-14 18:57 | XMS REPORT ---
[...] End Status Dosage System Date Date Montelukast [facility] 13364866616 10 MG Orally Dec 19, Active 1 tablet Sodium Once a day 2017 Diclofenac [facility] [address]-69 1 % Transdermal Active not Sodium defined VESIcare [facility] 01145334933 10 MG Orally Fe Active 1 tablet Once a day 2018 Symbicort [facility] 18849000350 160-4.5 MCG/ACT Dec 19Mar Active 2 puffs Inhalation 2017, Twice a day 2017 BusPIRone HCl ND 72386996326 30 MG Orally Jun 26, Active 1 tablet Twice a day 2017 Aripiprazole ND 90748718430 20 MG Orally Jun 26, Active 1 tablet Once a day 2017 Lasix ND 20354989858 20 MG Orally Active 1 tablet Once a day Ranitidine HCl [facility] 31746193561 150 MG Orally Active 1 capsule Once a day at bedtime Ranitidine HCl ND 36824023197 150 MG Orally Active 1 capsule Once a day at bedtime One Touch Verio NDC 0 n/s finger Active one strip prick once a day One Touch Delica ND 0 Active not Lancets defined Topiramate ND 77573094201 50 MG Orally Active 1 tablet Twice a day Mirtazapine ND 54651740761 15 MG Orally Active 1 tablet Once a day at bedtime Zofran [facility] 97421657021 8 MG Orally Active 1 tablet every 8 hours for N/V Meclizine HCl ND 92927622333 25 mg Orally Active 1 tablet every 8 hpurs for vertigo /dizzines s Klor-Con M10 [facility] 03969642300 10 MEQ Orally Active 1 tablet Twice a day with food Amitriptyline ND 90709075250 50 MG Orally Jun 26, Active 1 tablet HCl Once a day at 2018 bedtime Proventil HFA [facility] 47874928763 108 (90 Base) Active 2 puffs MCG/ACT as needed Inhalation every 6 hrs Advair Diskus [facility] 55325414000 100-50 MCG/DOSE Inactive 1 puff Inhalation Twice a day Venlafaxine HCl [facility] 09857035225 75 MG Orally Jun 26, Active 1 capsule ER Once a day 2017 with food Results No Known Results Summary Purpose eClinicalWorks Submission
--- OUTSIDE RECORDS SUMMARY | 2018-06-14 18:57 | XMS REPORT ---
[...] prick once a day Bactrim DS ND 16704022557 800-160 MG Feb 02, Active 1 tablet Orally Twice a 2018 day Ranitidine HCl ND 79056405432 150 MG Orally Active 1 capsule Once a day at bedtime Symbicort [facility] 56584131994 160-4.5 MCG/ACT Dec 19, Apr 18, Active 2 puffs Inhalation 2017 2017 Twice a day Klor-Con M10 ND 92100646137 10 MEQ Orally Active 1 tablet Twice a day with food Aripiprazole ND 53721464853 20 MG Orally Jun 26, Active 1 tablet Once a day 2017 One Touch Delica ND 0 Active not Lancets defined VESIcare ND 76999003674 10 MG Orally Jun 01, Active 1 tablet Once a day 2018 Proventil HFA [facility] 69764104244 108 (90 Base) Active 2 puffs MCG/ACT as needed Inhalation every 6 hrs Lasix ND 62116529820 20 MG Orally Active 1 tablet Once a day Topiramate ND 90009424311 50 MG Orally Active 1 tablet Twice a day Venlafaxine HCl [facility] 67770673286 75 MG Orally Jun 26, Active 1 capsule ER Once a day 2017 with food Mirtazapine ND 51226476007 15 MG Orally Active 1 tablet Once a day at bedtime Meclizine HCl ND 84591318097 25 mg Orally Active 1 tablet every 8 hpurs for vertigo /dizzines s Zofran ND 86530087331 8 MG Orally Active 1 tablet every 8 hours for N/V Amitriptyline ND 09669566375 50 MG Orally Jun 26, Active 1 tablet HCl Once a day at 2018 bedtime Diclofenac [facility] [address]-71 1 % Transdermal Active not Sodium defined Montelukast [facility] 51607275970 10 MG Orally Active 1 tablet Sodium Once a day Cipro [facility] 69823133066 500 MG Orally Jan 27, Feb 03, Active 1 tablet every 12 hrs 2017 2017 BusPIRone HCl [facility] 47784617060 30 MG Orally Jun 26, Active 1 tablet Twice a day 2017 Results No Known Results Summary Purpose eClinicalWorks Submission
--- OUTSIDE RECORDS SUMMARY | 2018-06-14 18:58 | XMS REPORT ---
:1980 Author Organization eClinicalWorks Care Team Providers Name Role Phone Dorie Nolasco Provider Role Unavailable Allergies, Adverse Reactions, Alerts Substance Reaction Event Type N.K.D.A. Info Not Available Non Drug Allergy Problems Problem Type Condition Code Onset Dates Condition Status Problem Allergic rhinitis J30.9 Active Problem Asthma J45.909 Active Problem Hyperlipidemia E78.5 Active Problem Anxiety F41.9 Active Problem GERD (gastroesophageal reflux K21.9 Active disease) Problem Bipolar 1 disorder F31.9 Active Problem Overactive bladder N32.81 Active Problem Bipolar disorder F31.9 Active Problem History of hypothyroidism Z86.39 Active Problem Stress incontinence N39.3 Active Problem Chronic sinus complaints R09.89 Active Problem Migraine G43.909 Active Problem Hyperglycemia R73.9 Active Problem Pharyngitis, unspecified etiology J02.9 Active Problem Cough R05 Active Problem Cigarette nicotine dependence F17.210 Active without complication Problem PUD (peptic ulcer disease) K27.9 Active Problem Mild intermittent asthma without J45.20 Active complication Problem Swelling R60.9 Active Problem Edema, unspecified type R60.9 Active Problem Gastroesophageal reflux disease K21.9 Active without esophagitis Problem Fatty liver K76.0 Active Problem Gastroesophageal reflux disease, K21.9 Active esophagitis presence not specified Problem Bilateral lower extremity edema R60.0 Active Problem Vaginal bleeding N93.9 Active Problem Vertigo R42 Active Assessment Edema, unspecified type R60.9 Active Problem Urge incontinence N39.41 Active Problem Sinus problem J34.9 Active Problem Intractable vomiting with nausea, R11.2 Active unspecified vomiting type Problem Arthritis of right knee M17.11 Active Problem Other chronic pain G89.29 Active Problem Elevated liver enzymes R74.8 Active Problem Hypertriglyceridemia E78.1 Active Medications Medication Code Code Instructions Start End Status Dosage System Date Date Mirtazapine [facility] 10680436558 7.5 MG Orally Active 1 tablet Once a day at bedtime Amitriptyline ND 73550931325 25 MG Orally Jun 26, Active 1 tablet HCl Once a day at 2018 bedtime VESIcare ND 43126766843 10 MG Orally Feb Active 1 tablet Once a day 2018 One Touch Verio NDC 0 n/s finger Active one strip prick once a day Klor-Con M10 ND 49745222860 10 MEQ Orally Active 1 tablet Twice a day with food Ranitidine HCl [facility] 07035690841 150 MG Orally Active 1 capsule Once a day at bedtime Metoprolol ND 00907354555 50 MG Orally Active 1 tablet Succinate ER Once a day BusPIRone HCl ND 65616169069 15 MG Orally Jun 26, Active 1 tablet Twice a day 2017 Pantoprazole ND 59696896108 40 MG Orally Active 1 tablet Sodium Once a day Symbicort [facility] 94776368686 160-4.5 MCG/ACT Active 2 puffs Inhalation Twice a day Divalproex ND 86620046983 250 MG Orally Active as Sodium ER at bedtime directed Lasix ND 81931650134 20 MG Orally Active 1 tablet Once a day Proventil HFA [facility] 94991330252 108 (90 Base) Active 2 puffs as MCG/ACT needed Inhalation every 6 hrs Montelukast ND 87179594356 10 MG Orally Active 1 tablet Sodium Once a day Diclofenac [facility] [address]-80 1 % Transdermal Active not Sodium defined One Touch Delica NDC 0 Active not Lancets defined Aripiprazole ND 96941508683 15 MG Orally Jun 26, Active 1 tablet Once a day 2017 Venlafaxine HCl ND 07164112447 75 MG Orally Jun 26, Active 1 capsule ER Once a day 2017 with food Topiramate [facility] 00405944674 50 MG Orally Active 1 tablet Twice a day Results No Known Results Summary Purpose eClinicalWorks Submission
--- OUTSIDE RECORDS SUMMARY | 2018-06-14 18:58 | XMS REPORT ---
[...] bleeding N93.9 Active Problem Vertigo R42 Active Problem Urge incontinence N39.41 Active Problem Sinus problem J34.9 Active Problem Intractable vomiting with nausea, R11.2 Active unspecified vomiting type Problem Arthritis of right knee M17.11 Active Problem Other chronic pain G89.29 Active Problem Elevated liver enzymes R74.8 Active Problem Hypertriglyceridemia E78.1 Active Medications Medication Code Code Instructions Start End Status Dosage System Date Date Mupirocin [facility] 76495085908 2 % Externally Jun 02, Jun 07, Active 1 application twice a day 2018 2018 to affected area Results No Known Results Summary Purpose eClinicalWorks Submission
[2018-06-14] MEDS ORDERED: MORPHINE 4 MG/ML SYR ONE (19:55)
[2018-06-14] MEDS ORDERED: ONDANSETRON 4 MG/2 ML VIAL ONE (19:55)
[2018-06-14 20:16] LABS: Absolute Lymphocytes (CBC) 3.7 K/uL (0.7-4.9); Absolute Monocytes 1.2 K/uL (0.1-1.3); Absolute Neutrophil 11.1 K/uL (1.8-8.0); Basophils % 1.3 % (0-1.3); Hematocrit 43.8 % (36.0-45.0); Lymphocytes % 22.3 % (15.3-44.8); MPV 8.8 fL (7.6-11.3); Monocytes % 7.1 % (3.3-12.3); RBC Red Blood Cell Count 4.44 M/uL (3.86-4.86)
[2018-06-14 20:19] LABS: Protime INR 1.01
--- NOTE | 2018-06-14 20:33 | RAD REPORT ---
EXAM DESCRIPTION: RAD - Chest Single View - 06/14/2018 8:26 pm CLINICAL HISTORY: CHEST PAIN Chest pain. COMPARISON: Chest Single View dated 03/11/2018 FINDINGS: Portable technique limits examination quality. The lungs are grossly clear. The heart is normal in size. No displaced fractures. IMPRESSION: No acute intrathoracic process suspected.
[2018-06-14 20:39] LABS: ALT/SGPT 25 U/L (12-78); AST/SGOT 15 U/L (15-37); Albumin 3.7 g/dL (3.4-5.0); Alkaline Phosphatase 65 U/L (45-117); BUN Blood Urea Nitrogen 14 mg/dL (7-18); Bicarbonate 28 mmol/L (21-32); Bilirubin Direct 0.2 mg/dL (0-0.2); Bilirubin Total 0.5 mg/dL (0.2-1.0); Glucose Level 91 mg/dL (74-106); Magnesium 2.1 mg/dL (1.8-2.4); NT PRO-BNP 321 pg/mL (<125); Potassium 3.9 mmol/L (3.5-5.1); Protein, Total 7.5 g/dL (6.4-8.2); Sodium Level 140 mmol/L (136-145); Troponin (Emerg Dept Use Only) < 0.02 ng/mL (0.0-0.045)
[2018-06-14 21:22] LABS: Urine Blood NEGATIVE (NEG); Urine Glucose NEGATIVE (NEG); Urine Protein NEGATIVE (NEG); Urine Specific Gravity 1.015 (1.005-1.030)
--- NOTE | 2018-06-14 22:15 | ER ---
Nurse's Notes [facility] Name: Cely Valadez Age: 38 yrs Sex: Female : 1980 Arrival Date: 06/14/2018 Time: 18:56 Bed 15 Private MD: Cassandra Carrington Diagnosis: Strain of muscle and tendon of thorax Presentation: 06/14 19:00 Presenting complaint: Patient states: i started having trouble breathing an hour ago, hj my upper back hurts; been coughing for 2 days now; reports fever and chills;. Transition of care: patient was not received from another setting of care. Onset of symptoms was June 14, 2018. Risk Assessment: Do you want to hurt yourself or someone else? Patient reports no desire to harm self or others. Initial Sepsis Screen: Does the patient meet any 2 criteria? No. Patient's initial sepsis screen is negative. Does the patient have a suspected source of infection? No. Patient's initial sepsis screen is negative. Care prior to arrival: None. 19:00 Method Of Arrival: Ambulatory 19:00 Acuity: ADRIANA 3 hj Triage Assessment: 19:03 General: Appears in no apparent distress. uncomfortable, obese, Behavior is calm, hj cooperative, appropriate for age. Pain: Complains of pain in back. Musculoskeletal: Circulation, motion, and sensation intact. Capillary refill. 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 - Social history:: Smoking status: Patient uses tobacco products, smokes one pack cigarettes per day. Patient/guardian denies using alcohol. - Ebola Screening: : Patient negative for fever greater than or equal to 101.5 degrees Fahrenheit, and additional compatible Ebola Virus Disease symptoms Patient denies exposure to infectious person Patient denies travel to an Ebola-affected area in the 21 days before illness onset. Screenin:03 Abuse screen: Denies threats or abuse. Denies injuries from another. Nutritional hj screening: No deficits noted. Tuberculosis screening: No symptoms or risk factors identified. Fall Risk None identified. Assessment: 19:10 General: Appears in no apparent distress. uncomfortable, Behavior is calm, cooperative, rr5 crying. 19:10 Pain: Complains of pain in back Pain does not radiate. Pain currently is 10 out of 10 rr5 on a pain scale. Quality of pain is described as aching, Pain began gradually, Is intermittent. Neuro: Level of Consciousness is awake, alert, obeys commands, Oriented to person, place, time, situation, Appropriate for age. Cardiovascular: Capillary refill < 3 seconds Patient's skin is warm and dry. Respiratory: Reports Airway is patent Respiratory effort is even, unlabored, Respiratory pattern is regular, symmetrical. GI: Abdomen is obese. : No signs and/or symptoms were reported regarding the genitourinary system. EENT: No signs and/or symptoms were reported regarding the EENT system. Derm: Skin is intact, Skin temperature is warm. Musculoskeletal: Capillary refill < 3 seconds, Range of motion: intact in all extremities. 20:40 Reassessment: Patient appears in no apparent distress at this time. Patient is alert, rr5 oriented x 3, equal unlabored respirations, skin warm/dry/pink. Patient states symptoms have improved. 21:35 Reassessment: Patient appears in no apparent distress at this time. Patient is alert, rr5 oriented x 3, equal unlabored respirations, skin warm/dry/pink. awaiting for laboratory results. Patient states feeling better. Patient states symptoms have improved. 22:00 Reassessment: Patient appears in no apparent distress at this time. awaiting for review.rr5 23:00 Reassessment: Patient appears in no apparent distress at this time. Patient is alert, rr5 oriented x 3, equal unlabored respirations, skin warm/dry/pink. no complaints made. discharge instruction given and explained. Patient states feeling better. Patient states symptoms have improved. Vital Signs: 19:03 BP 123 / 88; Pulse 108; Resp 20; Temp 98.7(O); Pulse Ox 95% on R/A; Weight 87.09 kg; hj Height 5 ft. 4 in. (162.56 cm); Pain 10/10; 20:30 BP 143 / 84; Pulse 87; Resp 17; Pulse Ox 99% ; Pain 8/10; rr5 21:30 BP 135 / 70; Pulse 85; Resp 17; Pulse Ox 98% ; rr5 22:30 BP 131 / 76; Pulse 80; Resp 19; Pulse Ox 100% ; rr5 23:00 BP 131 / 70; Pulse 75; Resp 17; Pulse Ox 98% ; Pain 0/10; rr5 19:03 Body Mass Index 32.96 (87.09 kg, 162.56 cm) hj ED Course: 18:56 Patient arrived in ED. mr 18:56 Cassandra Carrington MD is Private Physician. mr 19:02 Triage completed. hj 19:03 Arm band placed on left wrist. hj 19:04 Patient has correct armband on for positive identification. Placed in gown. Bed in low hj position. Call light in reach. 19:10 Ramiundo Bright, BHARATH is Primary Nurse. rr5 19:10 Pulse ox on. NIBP on. rr5 19:13 Michi Sanchez PA is PHCP. jmm 19:13 Davis Weston MD is Attending Physician. jmm 19:20 classroom monitor on. rr5 19:54 Radiology exam delayed due to lab results not completed at this time. (BUN/Creatinine). mw3 20:15 Inserted saline lock: 22 gauge in left forearm, using aseptic technique. Blood rr5 collected. 20:27 XRAY Chest (1 view) In Process Unspecified. EDMS 21:36 CT Aorta for Dissection In Process Unspecified. EDMS 21:41 CT completed. Patient tolerated procedure well. Patient moved back from CT. mw3 22:14 Cassandra Carrington MD is Referral Physician. jmm 23:16 No provider procedures requiring assistance completed. IV discontinued, intact, rr5 bleeding controlled, No redness/swelling at site. Pressure dressing applied. Administered Medications: 20:20 Drug: morphine 4 mg Route: IVP; Site: left forearm; rr5 23:00 Follow up: Response: No adverse reaction rr5 20:25 Drug: Zofran 4 mg Route: IVP; Site: left forearm; rr5 23:17 Follow up: Response: No adverse reaction rr5 Outcome: 22:15 Discharge ordered by MD. clayton 23:00 Discharged to home ambulatory. rr5 23:00 Condition: stable 23:00 Discharge instructions given to patient, Instructed on discharge instructions, follow up and referral plans. medication usage, Demonstrated understanding of instructions, follow-up care, medications, Prescriptions given X 1. 23:17 Patient left the ED. rr5 Signatures: Dispatcher [employer] EDMS Michi Sanchez PA PA jmm Rivera, Mary mr David Draper RN BHARATH Estephania [facility] Raimundo Bright, BHARATH RN rr5
--- NOTE | 2018-06-14 22:15 | EDPHYS ---
Physician Documentation [facility] Name: Cely Valadez Age: 38 yrs Sex: Female : 1980 Arrival Date: 06/14/2018 Time: 18:56 Bed 15 Private MD: Cassandra Carrington ED Physician Davis Weston HPI: 06/14 19:40 This 38 yrs old Female presents to ER via Ambulatory with complaints of Back jmm Pain, Breathing Difficulty. 19:40 The patient presents with pain that is acute. Onset: The symptoms/episode jmm began/occurred 1 hour(s) ago. The pain does not radiate. Associated signs and symptoms: Pertinent positives: fever. This is a 38 year old female with a history of bipolar, asthma that present to the ED with complaints of cough she attributes to her asthma, fever with left upper back pain. patient states the pain switched to the right side of her back. Patient also complains of shortness of breath. Denies abdominal pain, denies vomiting, denies diarrhea, denies dysuria. . 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 - Social history:: Smoking status: Patient uses tobacco products, smokes one pack cigarettes per day. Patient/guardian denies using alcohol. - Ebola Screening: : Patient negative for fever greater than or equal to 101.5 degrees Fahrenheit, and additional compatible Ebola Virus Disease symptoms Patient denies exposure to infectious person Patient denies travel to an Ebola-affected area in the 21 days before illness onset. ROS: 19:40 Cardiovascular: Negative for chest pain, palpitations, and edema. [facility] 19:40 Constitutional: Positive for fever. 19:40 Respiratory: Positive for cough. 19:40 Back: Positive for pain at rest. 19:40 All other systems are negative. Exam: 19:40 Head/Face: atraumatic. Eyes: EOMI, no conjunctival erythema appreciated ENT: Moist [facility] Mucus Membranes 19:40 Chest/axilla: Normal chest wall appearance and motion. Cardiovascular: Regular rate and rhythm. No edema appreciated Respiratory: Normal respirations, no respiratory distress appreciated 19:40 Constitutional: The patient appears alert, awake, anxious, in obvious pain. 19:40 Abdomen/GI: Inspection: abdomen appears normal, Bowel sounds: normal, Palpation: abdomen is soft and non-tender. 19:40 Back: right thoracic back pain on palpation. 19:40 Musculoskeletal/extremity: ROM: intact in all extremities. 19:40 Neuro: Orientation: is normal, Mentation: is normal, Memory: is normal. Vital Signs: 19:03 BP 123 / 88; Pulse 108; Resp 20; Temp 98.7(O); Pulse Ox 95% on R/A; Weight 87.09 kg; hj Height 5 ft. 4 in. (162.56 cm); Pain 10/10; 20:30 BP 143 / 84; Pulse 87; Resp 17; Pulse Ox 99% ; Pain 8/10; rr5 21:30 BP 135 / 70; Pulse 85; Resp 17; Pulse Ox 98% ; rr5 22:30 BP 131 / 76; Pulse 80; Resp 19; Pulse Ox 100% ; rr5 23:00 BP 131 / 70; Pulse 75; Resp 17; Pulse Ox 98% ; Pain 0/10; rr5 19:03 Body Mass Index 32.96 (87.09 kg, 162.56 cm) MDM: 19:40 Patient medically screened. [facility] 22:13 Data reviewed: vital signs, nurses notes. Counseling: I had a detailed discussion with matilde the patient and/or guardian regarding: the historical points, exam findings, and any diagnostic results supporting the discharge/admit diagnosis, lab results, radiology results, to return to the emergency department if symptoms worsen or persist or if there are any questions or concerns that arise at home. 22:13 ED course: Patient is alert and non toxic in appearance in the ED. Symptoms appear to [facility] be due to musculoskeletal thoracic pain. CT negative. Patient advised to follow up with pcp and other cuevas given return precautions. patient understood and agrees with the plan of care. . 06/14 19:41 Order name: Basic Metabolic Panel; Complete Time: 20:47 [facility] 06/14 19:41 Order name: CBC with Diff; Complete Time: 20:47 [facility] 06/14 19:41 Order name: LFT's; Complete Time: 20:47 [facility] 06/14 19:41 Order name: Magnesium; Complete Time: 20:47 [facility] 06/14 19:41 Order name: NT PRO-BNP; Complete Time: 20:47 [facility] 06/14 19:41 Order name: PT-INR; Complete Time: 20:47 [facility] 06/14 19:41 Order name: Troponin (emerg Dept Use Only); Complete Time: 20:47 [facility] 06/14 19:41 Order name: XRAY Chest (1 view); Complete Time: 20:47 [facility] 06/14 19:41 Order name: CT Aorta for Dissection [facility] 06/14 20:44 Order name: Urine Dipstick--Ancillary (enter results); Complete Time: 21:41 [facility] 06/14 20:44 Order name: Urine --Ancillary (enter results); Complete Time: 21:41 [facility] 06/14 20:49 Order name: Flu; Complete Time: 21:52 [facility] 06/14 19:41 Order name: EKG; Complete Time: 19:43 [facility] 06/14 19:41 Order name: Cardiac monitoring; Complete Time: 20:25 [facility] 06/14 19:41 Order name: EKG - Nurse/Tech; Complete Time: 20:25 [facility] 06/14 19:41 Order name: IV Saline Lock; Complete Time: 20:25 [facility] 06/14 19:41 Order name: Labs collected and sent; Complete Time: 20:25 [facility] 06/14 19:41 Order name: O2 Per Protocol; Complete Time: 20:25 [facility] 06/14 19:41 Order name: O2 Sat Monitoring; Complete Time: 20:25 jm Administered Medications: 20:20 Drug: morphine 4 mg Route: IVP; Site: left forearm; rr5 23:00 Follow up: Response: No adverse reaction rr5 20:25 Drug: Zofran 4 mg Route: IVP; Site: left forearm; rr5 23:17 Follow up: Response: No adverse reaction rr5 Disposition: 06/15 00:00 Co-signature as Attending Physician, Davis Weston MD I agree with the assessment and kdr plan of care. Disposition: 06/14/18 22:15 Discharged to Home. Impression: Strain of muscle and tendon of thorax. - Condition is Stable. - Discharge Instructions: Thoracic Strain. - Prescriptions for Valium 5 mg Oral Tablet - take 1 tablet by ORAL route every 8 hours As needed; 12 tablet. - Medication Reconciliation Form, Thank You Letter, Antibiotic Education, Prescription Opioid Use form. - Follow up: Cassandra Carrington MD; When: 2 - 3 days; Reason: Recheck today's complaints, Continuance of care, Re-evaluation by your physician. Signatures: Dispatcher [employer] EDMS Davis Weston MD MD kdr Mickail, Joel, PA PA jmm Joaquin, Henry, RN RN Raimundo Bright RN RN rr5 Corrections: (The following items were deleted from the chart) 06/14 23:17 22:15 06/14/2018 22:15 Discharged to Home. Impression: Strain of muscle and tendon of rr5 thorax. Condition is Stable. Forms are Medication Reconciliation Form, Thank You Letter, Antibiotic Education, Prescription Opioid Use. Follow up: Cassandra Carrington; When: 2 - 3 days; Reason: Recheck today's complaints, Continuance of care, Re-evaluation by your physician. matilde
--- NOTE | 2018-06-15 07:40 | EKG ---
Test Date: 2018-06-14 Test Time: 19:50:43 Project Finance Analyst: RR MEASUREMENT RESULTS: Intervals: Rate: 90 NV: 238 QRSD: 74 QT: 378 QTc: 462 [place]: P: 36 NV: 238 QRS: 72 T: 47 INTERPRETIVE STATEMENTS: Sinus rhythm with 1st degree AV block Low voltage QRS Nonspecific T wave abnormality Abnormal ECG Compared to ECG 03/11/2018 17:57:46 First degree AV block now present T-wave abnormality still present Electronically Signed On 06-15-18 07:39:15 MATERIAL HANDLER 1ST SHIFT by Adolfo Zabala
--- NOTE | 2018-06-16 13:41 | RAD REPORT ---
EXAM DESCRIPTION: CT - Angio Aorta For Dissection - 06/14/2018 9:36 pm CLINICAL HISTORY: 38 years Female, right thoracic back pain COMPARISON: None. TECHNIQUE: CTA chest, abdomen, pelvis. 3 mm axial images were obtained along with coronal and sagitt al reformatted images. Intravenous contrast: No documented. Please refer to medical record. FINDINGS: Lung courtney: No active infiltrates. No pneumothorax. Mediastinal structures: Unremarkable. Thoracic aorta: No aneurysm or dissection. Right brachiocephalic artery: Unremarkable. Left common carotid artery: Unremarkable. Left subclavian artery: Unremarkable. Pulmonary arteries: No evidence of dissection. Celiac artery: Unremarkable. Superior mesenteric artery: Unremarkable. Right renal artery: Unremarkable. Left vertebral artery: Unremarkable. Inferior mesenteric artery: Unremarkable. Right iliofemoral arteries: Unremarkable. Left iliofemoral arteries: Unremarkable. Liver: Mild hepatomegaly. Spleen: Normal. Pancreas: Normal. Gallbladder: Normal Adrenal glands: Normal. Kidneys: Normal. Retroperitoneal structures: Normal. Bowel survey: Increased stool within the ascending, transverse, descending, sigmoid colon. The append ix is unremarkable. The distal ileum is unremarkable. Uterus and adnexa: Unremarkable. Urinary bladder: Unremarkable. Cavity: Unremarkable. Mesentery structures: Unremarkable. Abdominal wall: Very small umbilical hernia containing fat. Bony structures: Unremarkable. IMPRESSION: 1. No evidence of aortic dissection. 2. Increased stool within the ascending, transverse, descending, and sigmoid colon. Electronically signed by Ramon Moncada MD 06/14/2018 9:48 PM MACHINE PRECISION ETCHER Due to temporary technical issues with the PACS/Fluency reporting system, reports are being signed by the in house radiologist as a courtesy to ensure prompt reporting. The interpreting radiologist is f ully responsible for the content of the report.
== END 2018-06-14 23:17 | disposition home or self-care (01) ==
LOC: ER 18:53
DX: S29.012A Strain of muscle and tendon of back wall of thorax, initial encounter (principal); I44.0 Atrioventricular block, first degree; J45.909 Unspecified asthma, uncomplicated; F31.9 Bipolar disorder, unspecified
CPT/HCPCS: 36415; 71045; 71275; 74175; 80048; 80076; 81003; 81025; 83735; 83880; 84484; 85025; 85610; 87804; 93005; 96374; 96375; 99285; J2405; Q9967

== ENCOUNTER 2018-09-09 18:08 | Emergency (ER) | payer OTHER ==
--- OUTSIDE RECORDS SUMMARY | 2018-09-09 18:11 | XMS REPORT ---
[...] Status Dosage System Date Date Topiramate ND 01327990297 50 MG Orally Active 1 tablet Twice a day Mirtazapine ND 27626079937 15 MG Orally Active 1 tablet Once a day at bedtime Diclofenac [facility] [address]-31 1 % Transdermal Active not Sodium defined One Touch Delica ND 0 Active not Lancets defined Ranitidine HCl [facility] 00243144718 150 MG Orally Active 1 capsule Once a day at bedtime Aripiprazole ND 76445791610 20 MG Orally Jun 26, Active 1 tablet Once a day 2017 Lasix ND 32728105064 20 MG Orally Active 1 tablet Once a day Meclizine HCl ND 96040686639 25 mg Orally Active 1 tablet every 8 hpurs for vertigo /dizzines s VESIcare ND 83593908690 10 MG Orally Active 1 tablet Once a day One Touch Verio ND 0 n/s finger Active one strip prick once a day Advair Diskus ND 88357514137 100-50 MCG/DOSE Active 1 puff Inhalation Twice a day Proventil HFA [facility] 06855772553 108 (90 Base) Active 2 puffs MCG/ACT as needed Inhalation every 6 hrs BusPIRone HCl ND 14947291697 30 MG Orally Jun 26, Active 1 tablet Twice a day 2017 Zofran ND 36939155631 8 MG Orally Active 1 tablet every 8 hours for N/V Klor-Con M10 ND 89363708825 10 MEQ Orally Active 1 tablet Twice a day with food Venlafaxine HCl ND 16926287289 75 MG Orally Jun 26, Active 1 capsule ER Once a day 2017 with food Amitriptyline ND 72216394692 50 MG Orally Jun 26, Active 1 tablet HCl Once a day at 2018 bedtime Results No Known Results Summary Purpose eClinicalWorks Submission
--- OUTSIDE RECORDS SUMMARY | 2018-09-09 18:11 | XMS REPORT ---
:1980 [facility] Address [address] [place] [address] Dr. Wall [address] [place] [id number] Care Team Providers Name Role Phone Unavailable Unavailable Unavailable Problems This patient has no known problems. Allergies, Adverse Reactions, Alerts This patient has no known allergies or adverse reactions. Medications This patient has no known medications.
--- OUTSIDE RECORDS SUMMARY | 2018-09-09 18:11 | XMS REPORT ---
[...] Start Date End Date Status Dosage VESIcare [facility] 35726349471 10 MG Orally Once Jun 01, Active 1 tablet a day 2019 Results No Known Results Summary Purpose eClinicalWorks Submission
--- OUTSIDE RECORDS SUMMARY | 2018-09-09 18:11 | XMS REPORT ---
:1980 [facility] Team Providers Name Role Phone MackLaceycy [...] Start End Status Dosage System Date Mirtazapine [facility] 63967634428 15 MG Orally Active 1 tablet Once a day at bedtime Topiramate [facility] 43454311411 50 MG Orally Active 1 tablet Twice a day Venlafaxine HCl [facility] 18067795024 75 MG Orally Jun 26, Active 1 capsule ER Once a day 2017 with food Meclizine HCl [facility] 18793575891 25 mg Orally Active 1 tablet every 8 hpurs for vertigo /dizzines s BusPIRone HCl ND 86361732468 30 MG Orally Jun 26, Active 1 tablet Twice a day 2017 Advair Diskus [facility] 69127014409 100-50 MCG/DOSE Active 1 puff Inhalation Twice a day One Touch Verio NDC 0 n/s finger Active one strip prick once a day Diclofenac [facility] [address]-41 1 % Transdermal Active not Sodium defined VESIcare [facility] 24031830334 10 MG Orally June Active 1 tablet Once a day 2017 Zofran [facility] 21177362692 8 MG Orally Active 1 tablet every 8 hours for N/V Ranitidine HCl ND 61742006847 150 MG Orally Jun 26, Active 1 capsule Once a day 2017 at bedtime Amitriptyline ND 53015535028 50 MG Orally Jun 26, Active 1 tablet HCl Once a day at 2017 bedtime VESIcare [facility] 47700353548 10 MG Orally Active 1 tablet Once a day Proventil HFA [facility] 67940106863 108 (90 Base) Active 2 puffs MCG/ACT as needed Inhalation every 6 hrs One Touch Delica ND 0 Active not Lancets defined Tolterodine [facility] 23419344392 1 MG Orally Jun 26, September 24, Active 1 tablet Tartrate Twice a day 2017 2017 Lasix [facility] 47887935213 20 MG Orally Active 1 tablet Once a day Klor-Con M10 [facility] 11354939194 10 MEQ Orally Active 1 tablet Twice a day with food Aripiprazole [facility] 96139716909 20 MG Orally Jun 26, Active 1 tablet Once a day 2017 Results Name Result Date Reference Range Unit Abnormality Flag URINALYSIS AUTO W/O SCOPE (83474) ----RADHA neg [id number] ----NIT neg [id number] ----PROTEIN neg [id number] ----pH 6.0 [id number] ----BLO neg [id number] ----GLUCOSE neg [id number] ----BILIRUBIN neg [id number] ----KETONES neg [id number] ----SPECIFIC GRAVITY 1.010 [id number] PVR ----PVR 0 [id number] Summary Purpose eClinicalWorks Submission
--- OUTSIDE RECORDS SUMMARY | 2018-09-09 18:11 | XMS REPORT ---
[...] Status Dosage System Date Date Venlafaxine HCl [facility] 38159966170 75 MG Orally b , Active 1 capsule ER Once a day 2018 with food Mirtazapine ND 37849673150 15 MG Orally Active 1 tablet Once a day at bedtime Diclofenac [facility] [address]-27 1 % Transdermal Active not Sodium defined Amitriptyline ND 24709114951 50 MG Orally Jun 26, Active 1 tablet HCl Once a day at 2018 bedtime Lasix ND 85745678741 20 MG Orally Active 1 tablet Once a day Aripiprazole ND 55676767993 20 MG Orally Jun 26, Active 1 tablet Once a day 2017 Zofran [facility] 80846189507 8 MG Orally Active 1 tablet every 8 hours for N/V Ranitidine HCl [facility] 26515456653 150 MG Orally Active 1 capsule Once a day at bedtime One Touch Verio NDC 0 n/s finger Active one strip prick once a day VESIcare [facility] 93741910776 10 MG Orally Active 1 tablet Once a day Proventil HFA [facility] 12281742249 108 (90 Base) Active 2 puffs MCG/ACT as needed Inhalation every 6 hrs Advair Diskus [facility] 58620081405 100-50 MCG/DOSE Active 1 puff Inhalation Twice a day One Touch Delica NDC 0 Active not Lancets defined Meclizine HCl [facility]AM[facility] 18312200763 25 mg Orally Active 1 tablet every 8 hpurs for vertigo /dizzines s Topiramate ND 36413382624 50 MG Orally Active 1 tablet Twice a day Klor-Con M10 ND 22974049294 10 MEQ Orally Active 1 tablet Twice a day with food BusPIRone HCl ND 55192368036 30 MG Orally Jun 26, Active 1 tablet Twice a day 2017 Results No Known Results Summary Purpose eClinicalWorks Submission
--- OUTSIDE RECORDS SUMMARY | 2018-09-09 18:11 | XMS REPORT ---
[...] prick once a day Proventil HFA ND 20791123702 108 (90 Base) Active 2 puffs MCG/ACT as needed Inhalation every 6 hrs Klor-Con M10 ND 78870965657 10 MEQ Orally Active 1 tablet Twice a day with food Zofran ND 62552275941 8 MG Orally Active 1 tablet every 8 hours for N/V Venlafaxine HCl ND 20908988112 75 MG Orally Jun 26, Active 1 capsule ER Once a day 2017 with food BusPIRone HCl ND 63810442430 30 MG Orally Jun 26, Active 1 tablet Twice a day 2017 Aripiprazole ND 52902908959 20 MG Orally Jun 26, Active 1 tablet Once a day 2017 Lasix [facility] 87222438106 20 MG Orally Active 1 tablet Once a day VESIcare [facility] 42511547552 10 MG Orally June Active 1 tablet Once a day 2017 VESIcare [facility] 53378317406 10 MG Orally Active 1 tablet Once a day Advair Diskus [facility] 64834149949 100-50 MCG/DOSE Active 1 puff Inhalation Twice a day Ranitidine HCl [facility] 99597968982 150 MG Orally Jun 26, Active 1 capsule Once a day 2017 at bedtime Diclofenac [facility] [address]-00 1 % Transdermal Active not Sodium defined Amitriptyline [facility] 24005972766 50 MG Orally Jun 26, Active 1 tablet HCl Once a day at 2018 bedtime One Touch Delica [facility] 0 Active not Lancets defined Tolterodine [facility] 43022882448 1 MG Orally Jun 26, September 24, Active 1 tablet Tartrate Twice a day 2017 2017 Meclizine HCl [facility] 62168102536 25 mg Orally Active 1 tablet every 8 hpurs for vertigo /dizzines s Results No Known Results Summary Purpose eClinicalWorks Submission
--- OUTSIDE RECORDS SUMMARY | 2018-09-09 18:12 | XMS REPORT ---
[...] Status Dosage System Date Date or-Con M10 [facility] 48636470321 10 MEQ Orally Active 1 tablet Twice a day with food Venlafaxine HCl ND 42203750048 75 MG Orally Jun 26, Active 1 capsule ER Once a day 2018 with food Montelukast ND 71517907641 10 MG Orally Active 1 tablet Sodium Once a day Lasix ND 56832090489 20 MG Orally Active 1 tablet Once a day Ranitidine HCl ND 19012043180 150 MG Orally Active 1 capsule Once a day at bedtime Meclizine HCl ND 55348761448 25 mg Orally Active 1 tablet every 8 hpurs for vertigo /dizzines s Mirtazapine ND 90186263551 15 MG Orally Active 1 tablet Once a day at bedtime Proventil HFA [facility] 41357401530 108 (90 Base) Active 2 puffs MCG/ACT as needed Inhalation every 6 hrs Amitriptyline ND 53213508938 50 MG Orally Jun 26, Active 1 tablet HCl Once a day at 2018 bedtime VESIcare ND 56261229912 10 MG Orally Jun 01, Active 1 tablet Once a day 2018 Ranitidine HCl [facility] 22443315428 150 MG Orally Active 1 capsule Once a day at bedtime One Touch Delica NDC 0 Active not Lancets defined One Touch Verio ND 0 n/s finger Active one strip prick once a day Topiramate ND 09743817304 50 MG Orally Active 1 tablet Twice a day Aripiprazole ND 04024776755 20 MG Orally Jun 26, Active 1 tablet Once a day 2018 Cipro ND 85205470776 500 MG Orally Jan 27, Feb 03, Active 1 tablet every 12 hrs 2017 2017 Symbicort [facility] 32348408764 160-4.5 MCG/ACT Dec 19, Apr 18, Active 2 puffs Inhalation 2017 2017 Twice a day Diclofenac [facility] [address]-12 1 % Transdermal Active not Sodium defined BusPIRone HCl ND 50494235318 30 MG Orally Jun 26, Active 1 tablet Twice a day 2017 Zofran [facility] 38460338120 8 MG Orally Active 1 tablet every 8 hours for N/V Results No Known Results Summary Purpose eClinicalWorks Submission
--- OUTSIDE RECORDS SUMMARY | 2018-09-09 18:12 | XMS REPORT ---
[...] End Status Dosage System Date Date Mirtazapine [facility] 95920275401 7.5 MG Orally Active 1 tablet Once a day at bedtime Amitriptyline ND 68009022823 25 MG Orally Fe, Active 1 tablet HCl Once a day at 2018 bedtime VESIcare ND 09016385300 10 MG Orally Feb Active 1 tablet Once a day 2018 One Touch Verio NDC 0 n/s finger Active one strip prick once a day Klor-Con M10 ND 97376830409 10 MEQ Orally Active 1 tablet Twice a day with food Ranitidine HCl [facility] 10141332114 150 MG Orally Active 1 capsule Once a day at bedtime Metoprolol ND 00247830257 50 MG Orally Active 1 tablet Succinate ER Once a day BusPIRone HCl ND 06884790385 15 MG Orally Jun 26, Active 1 tablet Twice a day 2017 Pantoprazole ND 71594452882 40 MG Orally Active 1 tablet Sodium Once a day Symbicort [facility] 44166925121 160-4.5 MCG/ACT Active 2 puffs Inhalation Twice a day Divalproex ND 76099856971 250 MG Orally Active as Sodium ER at bedtime directed Lasix ND 90148460516 20 MG Orally Active 1 tablet Once a day Proventil HFA [facility] 85478765683 108 (90 Base) Active 2 puffs as MCG/ACT needed Inhalation every 6 hrs Montelukast ND 51846686616 10 MG Orally Active 1 tablet Sodium Once a day Diclofenac [facility] [address]-45 1 % Transdermal Active not Sodium defined One Touch Delica NDC 0 Active not Lancets defined Aripiprazole ND 55943481821 15 MG Orally Jun 26, Active 1 tablet Once a day 2017 Venlafaxine HCl ND 28754342940 75 MG Orally Jun 26, Active 1 capsule ER Once a day 2017 with food Topiramate [facility] 90491830779 50 MG Orally Active 1 tablet Twice a day Results No Known Results Summary Purpose eClinicalWorks Submission
--- OUTSIDE RECORDS SUMMARY | 2018-09-09 18:12 | XMS REPORT ---
[...] prick once a day Bactrim DS ND 81721975321 800-160 MG Feb 02, Active 1 tablet Orally Twice a 2018 day Ranitidine HCl ND 16885969840 150 MG Orally Active 1 capsule Once a day at bedtime Symbicort [facility] 01784451809 160-4.5 MCG/ACT Dec 19, Apr 18, Active 2 puffs Inhalation 2017 2017 Twice a day Klor-Con M10 ND 07430059166 10 MEQ Orally Active 1 tablet Twice a day with food Aripiprazole ND 44808376449 20 MG Orally Jun 26, Active 1 tablet Once a day 2017 One Touch Delica ND 0 Active not Lancets defined VESIcare ND 46167425822 10 MG Orally Jun 01, Active 1 tablet Once a day 2018 Proventil HFA [facility] 41511692471 108 (90 Base) Active 2 puffs MCG/ACT as needed Inhalation every 6 hrs Lasix ND 32034803926 20 MG Orally Active 1 tablet Once a day Topiramate ND 52038982077 50 MG Orally Active 1 tablet Twice a day Venlafaxine HCl [facility] 07572582981 75 MG Orally Jun 26, Active 1 capsule ER Once a day 2017 with food Mirtazapine ND 87152504999 15 MG Orally Active 1 tablet Once a day at bedtime Meclizine HCl ND 40990564642 25 mg Orally Active 1 tablet every 8 hpurs for vertigo /dizzines s Zofran ND 64928711038 8 MG Orally Active 1 tablet every 8 hours for N/V Amitriptyline ND 96923018745 50 MG Orally Jun 26, Active 1 tablet HCl Once a day at 2018 bedtime Diclofenac [facility] [address]-42 1 % Transdermal Active not Sodium defined Montelukast [facility] 15792069316 10 MG Orally Active 1 tablet Sodium Once a day Cipro [facility] 68923773770 500 MG Orally Jan 27, Feb 03, Active 1 tablet every 12 hrs 2017 2017 BusPIRone HCl [facility] 91690064580 30 MG Orally Jun 26, Active 1 tablet Twice a day 2017 Results No Known Results Summary Purpose eClinicalWorks Submission
--- OUTSIDE RECORDS SUMMARY | 2018-09-09 18:12 | XMS REPORT ---
[...] Status Dosage System Date Date Montelukast [facility] 88923068483 10 MG Orally Dec 19, Active 1 tablet Sodium Once a day [address] [facility] [address]-75 1 % Transdermal Active not Sodium defined VESIcare [facility] 45930085980 10 MG Orally Fe Active 1 tablet Once a day [address] [facility] 88643714466 160-4.5 MCG/ACT Dec 19Mar Active 2 puffs Inhalation 2017, Twice a day 2017 BusPIRone HCl ND 63512067658 30 MG Orally Jun 26, Active 1 tablet Twice a day 2017 Aripiprazole ND 77472266240 20 MG Orally Jun 26, Active 1 tablet Once a day 2017 Lasix ND 73638713289 20 MG Orally Active 1 tablet Once a day Ranitidine HCl [facility] 08124161587 150 MG Orally Active 1 capsule Once a day at bedtime Ranitidine HCl ND 45891648761 150 MG Orally Active 1 capsule Once a day at bedtime One Touch Verio NDC 0 n/s finger Active one strip prick once a day One Touch Delica ND 0 Active not Lancets defined Topiramate ND 04617281717 50 MG Orally Active 1 tablet Twice a day Mirtazapine ND 63396921727 15 MG Orally Active 1 tablet Once a day at bedtime Zofran [facility] 80430825175 8 MG Orally Active 1 tablet every 8 hours for N/V Meclizine HCl ND 47950273556 25 mg Orally Active 1 tablet every 8 hpurs for vertigo /dizzines s Klor-Con M10 [facility] 77201499815 10 MEQ Orally Active 1 tablet Twice a day with food Amitriptyline ND 74615005538 50 MG Orally Jun 26, Active 1 tablet HCl Once a day at 2018 bedtime Proventil HFA [facility] 01456903583 108 (90 Base) Active 2 puffs MCG/ACT as needed Inhalation every 6 hrs Adv[address] [facility] 52274309057 100-50 MCG/DOSE Inactive 1 puff Inhalation Twice a day Venlafaxine HCl [facility] 40567550547 75 MG Orally Jun 26, Active 1 capsule ER Once a day 2017 with food Results No Known Results Summary Purpose eClinicalWorks Submission
--- OUTSIDE RECORDS SUMMARY | 2018-09-09 18:13 | XMS REPORT ---
[...] J45.20 Active complication Problem Swelling R60.9 Active Assessment Allergic rhinitis J30.9 Active Problem Edema, unspecified type R60.9 Active Problem Gastroesophageal reflux disease K21.9 Active without esophagitis Assessment Leg cramps R25.2 Active Problem Fatty liver K76.0 Active Assessment Cigarette nicotine dependence F17.210 Active without complication Problem Gastroesophageal reflux disease, K21.9 Active esophagitis presence not specified Assessment Bipolar disorder F31.9 Active Problem Bilateral lower extremity edema R60.0 Active Problem Vaginal bleeding N93.9 Active Assessment Mild intermittent asthma without J45.20 Active complication Problem Vertigo R42 Active Assessment Hyperlipidemia E78.5 Active Problem Urge incontinence N39.41 Active Assessment Gastroesophageal reflux disease K21.9 Active without esophagitis Problem Sinus problem J34.9 Active Assessment Hypokalemia E87.6 Active Problem Intractable vomiting with nausea, R11.2 Active unspecified vomiting type Assessment Hyperglycemia R73.9 Active Problem Arthritis of right knee M17.11 Active Assessment Acute deep vein thrombosis (DVT) of I82.402 Active left lower extremity, unspecified vein Problem Other chronic pain G89.29 Active Problem Elevated liver enzymes R74.8 Active Problem Hypertriglyceridemia E78.1 Active Medications Medication Code Code Instructions Start End Status Dosage System Date Date KlorCon M10 [facility] 94091788401 10 MEQ Orally October Active 1 tablet once a day , with food 2018 Ranitidine HCl [facility] 36058489977 150 MG Orally Active 1 capsule Once a day at bedtime Diclofenac [facility] [address]-73 1 % Active not Sodium Transdermal defined Topiramate [facility] 93672066182 50 MG Orally Active 1 tablet Twice a day Ranitidine HCl [facility] 86911133016 150 MG Orally Active 1 capsule Once a day at bedtime Divalproex [facility] 69385806391 250 MG Orally Active as Sodium ER at bedtime directed VESIcare [facility] 21479722458 10 MG Orally May Active 1 tablet Once a day 2018 Advair Diskus [facility] 27449423050 100-50 Inactive 1 puff MCG/DOSE Inhalation Twice a day Lasix [facility] 58117503705 20 MG Orally Active 1 tablet Once a day Eliquis [facility] 45809774710 5 MG Orally Active as directed Naproxen [facility] 70048928628 500 MG Orally Active 1 tablet Twice a day Mirtazapine [facility] 26331120379 7.5 MG Orally Active 1 tablet Once a day at bedtime Symbicort [facility] 89980951128 160-4.5 Active 2 puffs MCG/ACT Inhalation Twice a day BusPIRone HCl [facility] 86246580627 15 MG Orally Jun 26, Active 1 tablet Three times a 2017 day Montelukast [facility] 24782137939 10 MG Orally Active 1 tablet Sodium Once a day Proventil HFA [facility] 69105977881 108 (90 Base) Active 2 puffs as MCG/ACT needed Inhalation every 6 hrs Metoprolol [facility] 40145481389 50 MG Orally Active 1 tablet Succinate ER Once a day Amitriptyline ND 18083392714 25 MG Orally Jun 26, Active 1 tablet HCl Once a day at 2017 bedtime One Touch Verio NDC 0 n/s finger Active one strip prick once a day One Touch Delica NDC 0 Active not Lancets defined Symbicort [facility] 88401802620 160-4.5 May 28, Active 2 puffs MCG/ACT 2019 Inhalation Twice a day Abilify [facility] 61410955447 15 MG Orally Active 1 tablet Once a day Pantoprazole [facility] 68413413171 40 MG Orally Active 1 tablet Sodium Once a day Aripiprazole [facility] 22825647474 15 MG Orally Jun 26, Active 1 tablet Once a day 2017 Dime Box [facility] 16568749312 300 MG Orally Active 1 tablet Carbonate ER Once a day at bedtime Provera [facility] 84045772763 10 MG Orally Active 1 tablet Once a day with food Venlafaxine HCl [facility] 35808570174 75 MG Orally Jun 26, Active 1 capsule ER Once a day 2017 with food Results No Known Results Summary Purpose eClinicalWorks Submission
--- OUTSIDE RECORDS SUMMARY | 2018-09-09 18:13 | XMS REPORT ---
[...] End Status Dosage System Date Date Mupirocin [facility] 30147978998 2 % Externally Jun 02, Jun 07, Active 1 application twice a day 2018 2018 to affected area Results No Known Results Summary Purpose eClinicalWorks Submission
[2018-09-09] MEDS ORDERED: BENZONATATE 100 MG CAP PO ONE (18:49)
[2018-09-09] MEDS ORDERED: ALBUTEROL 2.5 MG/3 ML NEB SOL ONE (18:49)
[2018-09-09] MEDS ORDERED: METHYLPREDNISOLONE 125 MG INJ ONE (18:49)
[2018-09-09] MEDS ORDERED: IPRATROPIUM BROM 0.5MG/2.5ML ONE (18:50)
[2018-09-09 19:18] LABS: Absolute Lymphocytes (CBC) 1.8 K/uL (0.7-4.9); Absolute Monocytes 0.7 K/uL (0.1-1.3); Absolute Neutrophil 11.8 K/uL (1.8-8.0); Basophils % 0.3 % (0-1.3); Eosinophils % 1.1 % (0-4.4); Hematocrit 47.9 % (36.0-45.0); Lymphocytes % 12.2 % (15.3-44.8); MPV 9.8 fL (7.6-11.3); Monocytes % 5.1 % (3.3-12.3); RBC Red Blood Cell Count 4.91 M/uL (3.86-4.86)
[2018-09-09 19:30] LABS: Albumin 3.7 g/dL (3.4-5.0); Bilirubin Total 0.4 mg/dL (0.2-1.0); Potassium 4.2 mmol/L (3.5-5.1); Protein, Total 7.8 g/dL (6.4-8.2)
--- NOTE | 2018-09-09 19:35 | RAD REPORT ---
EXAM DESCRIPTION: RAD - Chest Single View - 09/09/2018 6:47 pm CLINICAL HISTORY: Cough and congestion, shortness of breath COMPARISON: May 1018 TECHNIQUE: AP portable chest image was obtained 1843 hours . FINDINGS: Lung volumes are low. Patchy opacification in the lower right lung field is present. Heart size is prominent. Vasculature is prominent but not clearly different. Trachea is midline No measura ble pleural effusion and no pneumothorax. No acute bony abnormality seen. No acute aortic findings pereira spected. IMPRESSION: Shallow inspiration film showing patchy right base opacification. Right base finding is suspicious for early pneumonia. Atelectasis is possible given the shallow inspi ration.
--- NOTE | 2018-09-09 19:38 | ER ---
Nurse's Notes [facility] Name: Cely Valadez Age: 38 yrs Sex: Female : 1980 Arrival Date: 09/09/2018 Time: 18:11 Bed 11 Private MD: Cassandra Carrington Diagnosis: Pneumonia due to other specified bacteria Presentation: 09/09 18:14 Presenting complaint: Patient states: Aches, cough, dizziness during coughing spells. aj1 Denies fever. Transition of care: patient was not received from another setting of care. Onset of symptoms was September 09, 2018. Risk Assessment: Do you want to hurt yourself or someone else? Patient reports no desire to harm self or others. Initial Sepsis Screen: Does the patient meet any 2 criteria? HR > 90 bpm. No. Patient's initial sepsis screen is negative. Does the patient have a suspected source of infection? Yes: Productive cough/pneumonia. Care prior to arrival: None. 18:14 Method Of Arrival: Ambulatory aj1 18:14 Acuity: ADRIANA 4 aj1 Triage Assessment: 18:16 General: Appears in no apparent distress. uncomfortable, Behavior is calm, cooperative, aj1 appropriate for age. Pain: Denies pain. Neuro: Level of Consciousness is awake, alert, obeys commands. Cardiovascular: Patient's skin is warm and dry. Respiratory: Reports cough that is productive, Airway is patent Respiratory effort is even, unlabored, Respiratory pattern is regular, symmetrical. 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/A - Irregular menses aj1 Historical: - Allergies: 18:16 No Known Allergies; aj1 - Home Meds: 18:16 Depakote ER 500 mg Oral Tb24 1 tab once daily [Active]; Abilify 15 mg Oral tab 1 tab aj1 once daily [Active]; Amitriptyline Oral once daily [Active]; buspirone 15 mg oral tab 2 times per day [Active]; Effexor XR 37.5 mg Oral cp24 1 cap once daily [Active]; omeprazole 40 mg Oral cpDR 1 cap once daily [Active]; ProAir HFA 90 mcg/actuation inhalation HFAA 2 puffs as needed [Active]; topiramate 25 mg Oral tab 1 tabs daily [Active]; - PMHx: 18:16 acid reflux; Asthma; Bipolar disorder; aj1 - Immunization history:: Flu vaccine is not up to date. - Social history:: Smoking status: Patient uses tobacco products, smokes one pack cigarettes per day. - Ebola Screening: : Patient denies travel to an Ebola-affected area in the 21 days before illness onset. Screenin:50 Abuse screen: Denies threats or abuse. Denies injuries from another. rv 18:50 Nutritional screening: No deficits noted. Tuberculosis screening: No symptoms or risk rv factors identified. Fall Risk None identified. Assessment: 18:50 General: Appears in no apparent distress. uncomfortable, Behavior is calm, cooperative. rv 18:50 Pain: Denies pain. Neuro: Level of Consciousness is awake, alert, obeys commands, rv Oriented to person, place, time, situation. Cardiovascular: Capillary refill < 3 seconds. Respiratory: Reports shortness of breath at rest cough that is Airway is patent Respiratory effort is labored, Breath sounds with wheezes bilaterally. GI: No signs and/or symptoms were reported involving the gastrointestinal system. : No signs and/or symptoms were reported regarding the genitourinary system. EENT: No signs and/or symptoms were reported regarding the EENT system. Derm: Skin is intact. Musculoskeletal: No signs and/or symptoms reported regarding the musculoskeletal system. 19:24 Reassessment: Patient appears in no apparent distress at this time. Patient and/or rv family updated on plan of care and expected duration. Pain level reassessed. Patient is alert, oriented x 3, equal unlabored respirations, skin warm/dry/pink. Patient denies pain at this time. Patient states feeling better. Patient states symptoms have improved. Vital Signs: 18:16 BP 141 / 72; Pulse 112; Resp 20; Temp 99.2; Pulse Ox 96% on R/A; Weight 129.27 kg (R); aj1 Height 5 ft. 4 in. (162.56 cm) (R); Pain 0/10; 19:52 BP 139 / 76; Pulse 102; Resp 21; Temp 98.7; Pulse Ox 100% ; rv 18:16 Body Mass Index 48.92 (129.27 kg, 162.56 cm) aj1 ED Course: 18:11 Patient arrived in ED. mr 18:11 Cassandra Carrington MD is Private Physician. mr 18:15 Triage completed. aj1 18:16 Arm band placed on Patient placed in an exam room. aj1 18:20 Daljit Dodd MD is Attending Physician. ps1 18:27 Benjamin Valenzuela, BHARATH is Primary Nurse. rv 18:48 CXR XRAY In Process Unspecified. EDMS 18:50 Patient has correct armband on for positive identification. Bed in low position. Call rv light in reach. Side rails up X 1. 18:50 Pulse ox on. NIBP on. rv 18:55 Inserted saline lock: 22 gauge in right antecubital area, using aseptic technique. rv Blood collected. 19:36 Cassandra Carrington MD is Referral Physician. ps1 19:53 No provider procedures requiring assistance completed. rv 19:54 IV discontinued, intact, bleeding controlled, No redness/swelling at site. Pressure rv dressing applied. Administered Medications: 18:45 Drug: Tessalon Perle 200 mg Route: PO; rv 19:33 Follow up: Response: Marked relief of symptoms rv 18:46 Drug: DuoNeb (3:1) (2.5 mg - 0.5 mg) 3 ml Route: Nebulizer; rv 19:33 Follow up: Response: Marked relief of symptoms rv 18:54 Drug: SOLU-Medrol 125 mg Route: IVP; Site: right antecubital; rv 19:33 Follow up: Response: Marked relief of symptoms rv 19:50 Drug: Rocephin - (cefTRIAXone) 1 grams Route: IVPB; Infused Over: 30 mins; Site: right rv antecubital; 19:52 Follow up: Response: Medication administered at discharge.; IV Status: Completed rv infusion Outcome: 19:38 Discharge ordered by . ps1 19:54 Discharged to home ambulatory. rv 19:54 Condition: improved 19:54 Discharge instructions given to patient, Instructed on discharge instructions, follow up and referral plans. medication usage, Demonstrated understanding of instructions, follow-up care, medications, Prescriptions given X 2. 19:54 Patient left the ED. rv Signatures: Dispatcher [employer] EDLucy Morgan, RN RN aj1 Delia Canales mr Daljit Dodd MD MD ps1 Benjamin Valenzuela, BHARATH RN rv
--- NOTE | 2018-09-09 19:39 | EDPHYS ---
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 18:16 LMP N/A - Irregular menses aj1 Historical: - Allergies: 18:16 No Known Allergies; aj1 - Home Meds: 18:16 Depakote ER 500 mg Oral Tb24 1 tab once daily [Active]; Abilify 15 mg Oral tab 1 tab aj1 once daily [Active]; Amitriptyline Oral once daily [Active]; buspirone 15 mg oral tab 2 times per day [Active]; Effexor XR 37.5 mg Oral cp24 1 cap once daily [Active]; omeprazole 40 mg Oral cpDR 1 cap once daily [Active]; ProAir HFA 90 mcg/actuation inhalation HFAA 2 puffs as needed [Active]; topiramate 25 mg Oral tab 1 tabs daily [Active]; - PMHx: 18:16 acid reflux; Asthma; Bipolar disorder; aj1 - Immunization history:: Flu vaccine is not up to date. - Social history:: Smoking status: Patient uses tobacco products, smokes one pack cigarettes per day. - Ebola Screening: : Patient denies travel to an Ebola-affected area in the 21 days before illness onset. Vital Signs: 18:16 BP 141 / 72; Pulse 112; Resp 20; Temp 99.2; Pulse Ox 96% on R/A; Weight 129.27 kg (R); aj1 Height 5 ft. 4 in. (162.56 cm) (R); Pain 0/10; 19:52 BP 139 / 76; Pulse 102; Resp 21; Temp 98.7; Pulse Ox 100% ; rv 18:16 Body Mass Index 48.92 (129.27 kg, 162.56 cm) aj1 MDM: 18:34 Patient medically screened. ps1 09/09 18:33 Order name: CBC with Diff; Complete Time: 19:25 ps1 09/09 18:33 Order name: CMP; Complete Time: 19:36 ps1 09/09 18:33 Order name: CXR XRAY; Complete Time: 19:36 ps1 Administered Medications: 18:45 Drug: Tessalon Perle 200 mg Route: PO; rv 19:33 Follow up: Response: Marked relief of symptoms rv 18:46 Drug: DuoNeb (3:1) (2.5 mg - 0.5 mg) 3 ml Route: Nebulizer; rv 19:33 Follow up: Response: Marked relief of symptoms rv 18:54 Drug: SOLU-Medrol 125 mg Route: IVP; Site: right antecubital; rv 19:33 Follow up: Response: Marked relief of symptoms rv 19:50 Drug: Rocephin - (cefTRIAXone) 1 grams Route: IVPB; Infused Over: 30 mins; Site: right rv antecubital; 19:52 Follow up: Response: Medication administered at discharge.; IV Status: Completed rv infusion Disposition: 09/09/18 19:38 Discharged to Home. Impression: Pneumonia due to other specified bacteria. - Condition is Stable. - Discharge Instructions: Community-Acquired Pneumonia, Adult. - Prescriptions for Zithromax Z- Ridge 250 mg Oral Tablet - take 1 tablet by ORAL route as directed for 5 days Day 1 - take two (2) tablets one time. Day 2, 3, 4 , 5 take one (1) tablet once daily.; 6 tablet. Medrol (Ridge) 4 mg Oral Tablets, Dose Pack - take 1 tablet by ORAL route as directed - follow package instructions; 1 packet. - Medication Reconciliation Form, Thank You Letter, Antibiotic Education, Prescription Opioid Use form. - Follow up: Cassandra Carrington MD; When: As needed; Reason: Recheck today's complaints, Continuance of care, Re-evaluation by your physician. Follow up: Emergency Department; When: As needed; Reason: Fever > 102 F, Trouble breathing, Worsening of condition. - Problem is new. - Symptoms are unchanged. Signatures: Dispatcher [employer] EDMS Lucy Bowles RN RN aj1 Daljit Dodd MD MD ps1 Benjamin Valenzuela RN RN rv Corrections: (The following items were deleted from the chart) 19:54 19:38 09/09/2018 19:38 Discharged to Home. Impression: Pneumonia due to other specified rv bacteria. Condition is Stable. Forms are Medication Reconciliation Form, Thank You Letter, Antibiotic Education, Prescription Opioid Use. Follow up: Cassandra Carrington; When: As needed; Reason: Recheck today's complaints, Continuance of care, Re-evaluation by your physician. Follow up: Emergency Department; When: As needed; Reason: Fever > 102 F, Trouble breathing, Worsening of condition. Problem is new. Symptoms are unchanged. ps1
[2018-09-09] MEDS ORDERED: CEFTRIAXONE/SWI 1gm 1 GM/10 ML SYR ONE (19:59)
== END 2018-09-09 19:54 | disposition home or self-care (01) ==
LOC: ER 18:08
DX: J18.9 Pneumonia, unspecified organism (principal); J45.909 Unspecified asthma, uncomplicated; F31.9 Bipolar disorder, unspecified; F17.210 Nicotine dependence, cigarettes, uncomplicated
CPT/HCPCS: 36415; 71045; 80053; 85025; 94640; 96374; 96375; 99284; J0696; J2930

== ENCOUNTER 2018-09-22 15:23 | Emergency (ER) | payer OTHER ==
--- OUTSIDE RECORDS SUMMARY | 2018-09-22 15:25 | XMS REPORT ---
:1980 [facility] [address] [place] [address] Dr. Wall [address] [place] [id number] Care Team Providers Name Role Phone Unavailable Unavailable Unavailable Problems This patient has no known problems. Allergies, Adverse Reactions, Alerts This patient has no known allergies or adverse reactions. Medications This patient has no known medications.
--- OUTSIDE RECORDS SUMMARY | 2018-09-22 15:25 | XMS REPORT ---
:1980 [facility] Providers Name Role Phone [...] Start End Status Dosage System Date Mirtazapine [facility] 76099555391 15 MG Orally Active 1 tablet Once a day at bedtime Topiramate [facility] 57270890692 50 MG Orally Active 1 tablet Twice a day Venlafaxine HCl [facility] 34687090030 75 MG Orally Jun 26, Active 1 capsule ER Once a day 2017 with food Meclizine HCl [facility] 07711661475 25 mg Orally Active 1 tablet every 8 hpurs for vertigo /dizzines s BusPIRone HCl ND 54382224253 30 MG Orally Jun 26, Active 1 tablet Twice a day 2017 Advair Diskus [facility] 70575992066 100-50 MCG/DOSE Active 1 puff Inhalation Twice a day One Touch Verio NDC 0 n/s finger Active one strip prick once a day Diclofenac [facility] [address]-25 1 % Transdermal Active not Sodium defined VESIcare [facility] 38575243361 10 MG Orally June Active 1 tablet Once a day 2017 Zofran [facility] 63366892422 8 MG Orally Active 1 tablet every 8 hours for N/V Ranitidine HCl ND 19407626786 150 MG Orally Jun 26, Active 1 capsule Once a day 2017 at bedtime Amitriptyline ND 81008857436 50 MG Orally Jun 26, Active 1 tablet HCl Once a day at 2017 bedtime VESIcare [facility] 71348582104 10 MG Orally Active 1 tablet Once a day Proventil HFA [facility] 31291340930 108 (90 Base) Active 2 puffs MCG/ACT as needed Inhalation every 6 hrs One Touch Delica ND 0 Active not Lancets defined Tolterodine [facility] 51785840327 1 MG Orally Jun 26, September 24, Active 1 tablet Tartrate Twice a day 2017 2017 Lasix [facility] 14759086892 20 MG Orally Active 1 tablet Once a day Klor-Con M10 [facility] 14451611932 10 MEQ Orally Active 1 tablet Twice a day with food Aripiprazole [facility] 46626664437 20 MG Orally Jun 26, Active 1 tablet Once a day 2017 Results Name Result Date Reference Range Unit Abnormality Flag URINALYSIS AUTO W/O SCOPE (68324) ----RADHA neg [id number] ----NIT neg [id number] ----PROTEIN neg [id number] ----pH 6.0 [id number] ----BLO neg [id number] ----GLUCOSE neg [id number] ----BILIRUBIN neg [id number] ----KETONES neg [id number] ----SPECIFIC GRAVITY 1.010 [id number] PVR ----PVR 0 [id number] Summary Purpose eClinicalWorks Submission
--- OUTSIDE RECORDS SUMMARY | 2018-09-22 15:26 | XMS REPORT ---
[...] Start Date End Date Status Dosage VESIcare [facility] 10247694368 10 MG Orally Once Jun 01, Active 1 tablet a day 2019 Results No Known Results Summary Purpose eClinicalWorks Submission
--- OUTSIDE RECORDS SUMMARY | 2018-09-22 15:26 | XMS REPORT ---
[...] Status Dosage System Date Date Venlafaxine HCl [facility] [place] 2] 12450154030 75 MG Orally b , Active 1 capsule ER Once a day 2018 with food Mirtazapine ND 55147334650 15 MG Orally Active 1 tablet Once a day at bedtime Diclofenac [facility] [place] 2] [address]-68 1 % Transdermal Active not Sodium defined Amitriptyline ND 85468357786 50 MG Orally Jun 26, Active 1 tablet HCl Once a day at 2018 bedtime Lasix ND 99109179484 20 MG Orally Active 1 tablet Once a day Aripiprazole ND 39297376075 20 MG Orally Jun 26, Active 1 tablet Once a day 2017 Zofran [facility] [place] 2[place] 15628070662 8 MG Orally Active 1 tablet every 8 hours for N/V Ranitidine HCl [facility] [place]NOTE 2] 36487560318 150 MG Orally Active 1 capsule Once a day at bedtime One Touch Verio NDC 0 n/s finger Active one strip prick once a day VESIcare [facility] [place]NOTE 2] 37662075334 10 MG Orally Active 1 tablet Once a day Proventil HFA [facility] [place]NOTE 2] 09819072548 108 (90 Base) Active 2 puffs MCG/ACT as needed Inhalation every 6 hrs Advair Diskus [facility] [place]NOTE 2] 72447769800 100-50 MCG/DOSE Active 1 puff Inhalation Twice a day One Touch Delica NDC 0 Active not Lancets defined Meclizine HCl [facility] [place]NOTE 2] 24822207642 25 mg Orally Active 1 tablet every 8 hpurs for vertigo /dizzines s Topiramate ND 33009323900 50 MG Orally Active 1 tablet Twice a day Klor-Con M10 ND 00215837294 10 MEQ Orally Active 1 tablet Twice a day with food BusPIRone HCl ND 05722665649 30 MG Orally Jun 26, Active 1 tablet Twice a day 2017 Results No Known Results Summary Purpose eClinicalWorks Submission
--- OUTSIDE RECORDS SUMMARY | 2018-09-22 15:26 | XMS REPORT ---
[...] prick once a day Proventil HFA ND 03020792298 108 (90 Base) Active 2 puffs MCG/ACT as needed Inhalation every 6 hrs Klor-Con M10 ND 35838009393 10 MEQ Orally Active 1 tablet Twice a day with food Zofran ND 86385373190 8 MG Orally Active 1 tablet every 8 hours for N/V Venlafaxine HCl ND 95160845617 75 MG Orally Jun 26, Active 1 capsule ER Once a day 2017 with food BusPIRone HCl ND 17257746954 30 MG Orally Jun 26, Active 1 tablet Twice a day 2017 Aripiprazole ND 27689044611 20 MG Orally Jun 26, Active 1 tablet Once a day 2017 Lasix [facility] 11260746197 20 MG Orally Active 1 tablet Once a day VESIcare [facility] 32152717067 10 MG Orally June Active 1 tablet Once a day 2017 VESIcare [facility] 71106869897 10 MG Orally Active 1 tablet Once a day Advair Diskus [facility] 89123888831 100-50 MCG/DOSE Active 1 puff Inhalation Twice a day Ranitidine HCl [facility] 86579219015 150 MG Orally Jun 26, Active 1 capsule Once a day 2017 at bedtime Diclofenac [facility] [address]-85 1 % Transdermal Active not Sodium defined Amitriptyline [facility] 07446902882 50 MG Orally Jun 26, Active 1 tablet HCl Once a day at 2018 bedtime One Touch Delica [facility] 0 Active not Lancets defined Tolterodine [facility] 54585164137 1 MG Orally Jun 26, September 24, Active 1 tablet Tartrate Twice a day 2017 2017 Meclizine HCl [facility] 10541022854 25 mg Orally Active 1 tablet every 8 hpurs for vertigo /dizzines s Results No Known Results Summary Purpose eClinicalWorks Submission
--- OUTSIDE RECORDS SUMMARY | 2018-09-22 15:26 | XMS REPORT ---
[...] Status Dosage System Date Date Topiramate ND 33770662743 50 MG Orally Active 1 tablet Twice a day Mirtazapine ND 31901895989 15 MG Orally Active 1 tablet Once a day at bedtime Diclofenac [facility] [address]-49 1 % Transdermal Active not Sodium defined One Touch Delica ND 0 Active not Lancets defined Ranitidine HCl [facility] 25415480741 150 MG Orally Active 1 capsule Once a day at bedtime Aripiprazole ND 53378878693 20 MG Orally Jun 26, Active 1 tablet Once a day 2017 Lasix ND 47863902121 20 MG Orally Active 1 tablet Once a day Meclizine HCl ND 14376325894 25 mg Orally Active 1 tablet every 8 hpurs for vertigo /dizzines s VESIcare ND 75806706600 10 MG Orally Active 1 tablet Once a day One Touch Verio ND 0 n/s finger Active one strip prick once a day Advair Diskus ND 92509777061 100-50 MCG/DOSE Active 1 puff Inhalation Twice a day Proventil HFA [facility] 11100600342 108 (90 Base) Active 2 puffs MCG/ACT as needed Inhalation every 6 hrs BusPIRone HCl ND 84669026531 30 MG Orally Jun 26, Active 1 tablet Twice a day 2017 Zofran ND 14499411574 8 MG Orally Active 1 tablet every 8 hours for N/V Klor-Con M10 ND 10686752743 10 MEQ Orally Active 1 tablet Twice a day with food Venlafaxine HCl ND 17553480144 75 MG Orally Jun 26, Active 1 capsule ER Once a day 2017 with food Amitriptyline ND 57088917582 50 MG Orally Jun 26, Active 1 tablet HCl Once a day at 2018 bedtime Results No Known Results Summary Purpose eClinicalWorks Submission
--- OUTSIDE RECORDS SUMMARY | 2018-09-22 15:26 | XMS REPORT ---
[...] End Status Dosage System Date Date Montelukast [facility] 15811809853 10 MG Orally Dec 19, Active 1 tablet Sodium Once a day 2017 Diclofenac [facility] [address]-57 1 % Transdermal Active not Sodium defined VESIcare [facility] 79894480108 10 MG Orally Fe Active 1 tablet Once a day 2018 Symbicort [facility] 65885038986 160-4.5 MCG/ACT Dec 19Mar Active 2 puffs Inhalation 2017, Twice a day 2017 BusPIRone HCl ND 82963741010 30 MG Orally Jun 26, Active 1 tablet Twice a day 2017 Aripiprazole ND 57566348418 20 MG Orally Jun 26, Active 1 tablet Once a day 2017 Lasix ND 02037689628 20 MG Orally Active 1 tablet Once a day Ranitidine HCl [facility] 45913043419 150 MG Orally Active 1 capsule Once a day at bedtime Ranitidine HCl ND 40621813320 150 MG Orally Active 1 capsule Once a day at bedtime One Touch Verio NDC 0 n/s finger Active one strip prick once a day One Touch Delica ND 0 Active not Lancets defined Topiramate ND 45225987458 50 MG Orally Active 1 tablet Twice a day Mirtazapine ND 26055220425 15 MG Orally Active 1 tablet Once a day at bedtime Zofran [facility] 75962603347 8 MG Orally Active 1 tablet every 8 hours for N/V Meclizine HCl ND 60779194158 25 mg Orally Active 1 tablet every 8 hpurs for vertigo /dizzines s Klor-Con M10 [facility] 88692629589 10 MEQ Orally Active 1 tablet Twice a day with food Amitriptyline ND 99059483030 50 MG Orally Jun 26, Active 1 tablet HCl Once a day at 2018 bedtime Proventil HFA [facility] 04557207148 108 (90 Base) Active 2 puffs MCG/ACT as needed Inhalation every 6 hrs Advair Diskus [facility] 60780803352 100-50 MCG/DOSE Inactive 1 puff Inhalation Twice a day Venlafaxine HCl [facility] 10243536121 75 MG Orally Jun 26, Active 1 capsule ER Once a day 2017 with food Results No Known Results Summary Purpose eClinicalWorks Submission
--- OUTSIDE RECORDS SUMMARY | 2018-09-22 15:27 | XMS REPORT ---
[...] End Status Dosage System Date Date Mirtazapine [facility] 94552955619 7.5 MG Orally Active 1 tablet Once a day at bedtime Amitriptyline ND 52735713224 25 MG Orally Fe, Active 1 tablet HCl Once a day at 2018 bedtime VESIcare ND 35911934554 10 MG Orally Feb Active 1 tablet Once a day 2018 One Touch Verio NDC 0 n/s finger Active one strip prick once a day Klor-Con M10 ND 01197190631 10 MEQ Orally Active 1 tablet Twice a day with food Ranitidine HCl [facility] 38385586948 150 MG Orally Active 1 capsule Once a day at bedtime Metoprolol ND 52637234985 50 MG Orally Active 1 tablet Succinate ER Once a day BusPIRone HCl ND 66916466927 15 MG Orally Jun 26, Active 1 tablet Twice a day 2017 Pantoprazole ND 43003126375 40 MG Orally Active 1 tablet Sodium Once a day Symbicort [facility] 71011933657 160-4.5 MCG/ACT Active 2 puffs Inhalation Twice a day Divalproex ND 72342124690 250 MG Orally Active as Sodium ER at bedtime directed Lasix ND 87546337595 20 MG Orally Active 1 tablet Once a day Proventil HFA [facility] 79048709681 108 (90 Base) Active 2 puffs as MCG/ACT needed Inhalation every 6 hrs Montelukast ND 99764555434 10 MG Orally Active 1 tablet Sodium Once a day Diclofenac [facility] [address]-82 1 % Transdermal Active not Sodium defined One Touch Delica NDC 0 Active not Lancets defined Aripiprazole ND 14506485438 15 MG Orally Jun 26, Active 1 tablet Once a day 2017 Venlafaxine HCl ND 80348829502 75 MG Orally Jun 26, Active 1 capsule ER Once a day 2017 with food Topiramate [facility] 05360649704 50 MG Orally Active 1 tablet Twice a day Results No Known Results Summary Purpose eClinicalWorks Submission
--- OUTSIDE RECORDS SUMMARY | 2018-09-22 15:27 | XMS REPORT ---
[...] Status Dosage System Date Date KlorCon M10 [facility] 20395078857 10 MEQ Orally October Active 1 tablet once a day , with food [address] [facility] 65859482812 150 MG Orally Active 1 capsule Once a day at bedtime Diclofenac [facility] [address]-70 1 % Active not Sodium Transdermal defined Topiramate [facility] 43943952767 50 MG Orally Active 1 tablet Twice a day Ranitidine HCl [facility] 74321950821 150 MG Orally Active 1 capsule Once a day at bedtime Divalproex [facility] 64609048660 250 MG Orally Active as Sodium ER at bedtime directed VESIcare [facility] 26516286114 10 MG Orally May Active 1 tablet Once a day [address] [facility] 37162900651 100-50 Inactive 1 puff MCG/DOSE Inhalation Twice a day Lasix [facility] 72198422946 20 MG Orally Active 1 tablet Once a day Eliquis [facility] 48967727318 5 MG Orally Active as directed Naproxen [facility] 99687458312 500 MG Orally Active 1 tablet Twice a day Mirtazapine [facility] 78793313782 7.5 MG Orally Active 1 tablet Once a day at bedtime Symbicort [facility] 09717553824 160-4.5 Active 2 puffs MCG/ACT Inhalation Twice a day BusPIRone HCl [facility] 36982631558 15 MG Orally Jun 26, Active 1 tablet Three times a [address] [facility] 39825141666 10 MG Orally Active 1 tablet Sodium Once a day Proventil HFA [facility] 81858232925 108 (90 Base) Active 2 puffs as MCG/ACT needed Inhalation every [address] [facility] 79960886559 50 MG Orally Active 1 tablet Succinate ER Once a day Amitriptyline ND 28116406554 25 MG Orally Jun 26, Active 1 tablet HCl Once a day at 2017 bedtime One Touch Verio NDC 0 n/s finger Active one strip prick once a day One Touch Delica NDC 0 Active not Lancets defined Symbicort [facility] 97115222765 160-4.5 May 28, Active 2 puffs MCG/ACT 2019 Inhalation Twice a day Abilify [facility] 45908712535 15 MG Orally Active 1 tablet Once a day Pantoprazole [facility] 31657867415 40 MG Orally Active 1 tablet Sodium Once a day Aripiprazole [facility] 15311115889 15 MG Orally Jun 26, Active 1 tablet Once a day [address] [place] [facility] 35812304982 300 MG Orally Active 1 tablet Carbonate ER Once a day at bedtime Provera [facility] 95376928393 10 MG Orally Active 1 tablet Once a day with food Venlafaxine HCl [facility] 38831550798 75 MG Orally Jun 26, Active 1 capsule ER Once a day 2017 with food Results No Known Results Summary Purpose eClinicalWorks Submission
--- OUTSIDE RECORDS SUMMARY | 2018-09-22 15:27 | XMS REPORT ---
[...] End Status Dosage System Date Date Mupirocin [facility] 14451881283 2 % Externally Jun 02, Jun 07, Active 1 application twice a day 2018 2018 to affected area Results No Known Results Summary Purpose eClinicalWorks Submission
--- OUTSIDE RECORDS SUMMARY | 2018-09-22 15:27 | XMS REPORT ---
[...] Status Dosage System Date Date or-Con M10 [facility] 57878294199 10 MEQ Orally Active 1 tablet Twice a day with food Venlafaxine HCl ND 87876538766 75 MG Orally Jun 26, Active 1 capsule ER Once a day 2018 with food Montelukast ND 10518104547 10 MG Orally Active 1 tablet Sodium Once a day Lasix ND 65330836341 20 MG Orally Active 1 tablet Once a day Ranitidine HCl ND 23348624500 150 MG Orally Active 1 capsule Once a day at bedtime Meclizine HCl ND 32751987379 25 mg Orally Active 1 tablet every 8 hpurs for vertigo /dizzines s Mirtazapine ND 49453655921 15 MG Orally Active 1 tablet Once a day at bedtime Proventil HFA [facility] 83593848111 108 (90 Base) Active 2 puffs MCG/ACT as needed Inhalation every 6 hrs Amitriptyline ND 14150699374 50 MG Orally Jun 26, Active 1 tablet HCl Once a day at 2018 bedtime VESIcare ND 77643311221 10 MG Orally Jun 01, Active 1 tablet Once a day 2018 Ranitidine HCl [facility] 55884637127 150 MG Orally Active 1 capsule Once a day at bedtime One Touch Delica NDC 0 Active not Lancets defined One Touch Verio ND 0 n/s finger Active one strip prick once a day Topiramate ND 86587411453 50 MG Orally Active 1 tablet Twice a day Aripiprazole ND 53710005700 20 MG Orally Jun 26, Active 1 tablet Once a day 2018 Cipro ND 05598930394 500 MG Orally Jan 27, Feb 03, Active 1 tablet every 12 hrs 2017 2017 Symbicort [facility] 03404543003 160-4.5 MCG/ACT Dec 19, Apr 18, Active 2 puffs Inhalation 2017 2017 Twice a day Diclofenac [facility] [address]-33 1 % Transdermal Active not Sodium defined BusPIRone HCl ND 32329999266 30 MG Orally Jun 26, Active 1 tablet Twice a day 2017 Zofran [facility] 85268289897 8 MG Orally Active 1 tablet every 8 hours for N/V Results No Known Results Summary Purpose eClinicalWorks Submission
--- OUTSIDE RECORDS SUMMARY | 2018-09-22 15:27 | XMS REPORT ---
[...] prick once a day Bactrim DS ND 08255827582 800-160 MG Feb 02, Active 1 tablet Orally Twice a 2018 day Ranitidine HCl ND 62177497119 150 MG Orally Active 1 capsule Once a day at bedtime Symbicort [facility] 41983903805 160-4.5 MCG/ACT Dec 19, Apr 18, Active 2 puffs Inhalation 2017 2017 Twice a day Klor-Con M10 ND 58040285988 10 MEQ Orally Active 1 tablet Twice a day with food Aripiprazole ND 41161981511 20 MG Orally Jun 26, Active 1 tablet Once a day 2017 One Touch Delica ND 0 Active not Lancets defined VESIcare ND 12326225539 10 MG Orally Jun 01, Active 1 tablet Once a day 2018 Proventil HFA [facility] 17142712671 108 (90 Base) Active 2 puffs MCG/ACT as needed Inhalation every 6 hrs Lasix ND 47819699875 20 MG Orally Active 1 tablet Once a day Topiramate ND 28274889094 50 MG Orally Active 1 tablet Twice a day Venlafaxine HCl [facility] 19399919804 75 MG Orally Jun 26, Active 1 capsule ER Once a day 2017 with food Mirtazapine ND 55431419967 15 MG Orally Active 1 tablet Once a day at bedtime Meclizine HCl ND 41932245245 25 mg Orally Active 1 tablet every 8 hpurs for vertigo /dizzines s Zofran ND 76542375811 8 MG Orally Active 1 tablet every 8 hours for N/V Amitriptyline ND 66082602368 50 MG Orally Jun 26, Active 1 tablet HCl Once a day at 2018 bedtime Diclofenac [facility] [address]-43 1 % Transdermal Active not Sodium defined Montelukast [facility] 72638460286 10 MG Orally Active 1 tablet Sodium Once a day Cipro [facility] 51083987157 500 MG Orally Jan 27, Feb 03, Active 1 tablet every 12 hrs 2017 2017 BusPIRone HCl [facility] 73108639263 30 MG Orally Jun 26, Active 1 tablet Twice a day 2017 Results No Known Results Summary Purpose eClinicalWorks Submission
--- NOTE | 2018-09-22 16:47 | RAD REPORT ---
EXAM DESCRIPTION: US - Extrem Venous W Compress [place] - 09/22/2018 4:20 pm CLINICAL HISTORY: Leg pain and swelling COMPARISON: None. TECHNIQUE: Real-time sonographic evaluation of the bilateral lower extremity common femoral, superfi cial femoral, popliteal and posterior tibial veins was performed. FINDINGS: Normal compressibility, flow augmentation, phasic flow and spontaneous flow are identified in the left and right lower extremity common femoral, superficial femoral, popliteal and posterior t ibial veins. No intraluminal filling defects seen. IMPRESSION: No DVT in either lower extremity.
[2018-09-22 18:03] LABS: Absolute Lymphocytes (CBC) 2.8 K/uL (0.7-4.9); Absolute Monocytes 0.6 K/uL (0.1-1.3); Absolute Neutrophil 4.5 K/uL (1.8-8.0); Basophils % 0.7 % (0-1.3); Eosinophils % 3.8 % (0-4.4); Hematocrit 40.3 % (36.0-45.0); Lymphocytes % 33.7 % (15.3-44.8); Monocytes % 7.7 % (3.3-12.3)
[2018-09-22 18:23] LABS: ALT/SGPT 36 U/L (12-78); AST/SGOT 22 U/L (15-37); Albumin 2.9 g/dL (3.4-5.0); Alkaline Phosphatase 52 U/L (45-117); BUN Blood Urea Nitrogen 15 mg/dL (7-18); Bicarbonate 25 mmol/L (21-32); Bilirubin Direct < 0.1 mg/dL (0-0.2); Bilirubin Total 0.2 mg/dL (0.2-1.0); Glucose Level 93 mg/dL (74-106); Magnesium 2.4 mg/dL (1.8-2.4); NT PRO-BNP 142 pg/mL (<125); Potassium 4.5 mmol/L (3.5-5.1); Protein, Total 6.8 g/dL (6.4-8.2); Sodium Level 141 mmol/L (136-145); Troponin (Emerg Dept Use Only) < 0.02 ng/mL (0.0-0.045)
[2018-09-22 18:46] LABS: Blood Morphology Comment NOT SEEN (NOT SEEN); Platelet Estimate ND
[2018-09-22 18:47] LABS: MPV ND fL (7.6-11.3)
--- NOTE | 2018-09-22 18:58 | EDPHYS ---
Physician Documentation [facility] Name: Cely Valadez Age: 38 yrs Sex: Female : 1980 Arrival Date: 09/22/2018 Time: 15:24 Bed 17 Private MD: Cassandra Carrington ED Physician Gareth Crowley HPI: 09/22 16:05 This 38 yrs old Female presents to ER via Ambulatory with complaints of Leg cp Swelling, Numbness Of Arm. 16:05 The patient or guardian complains of intermittent numbness/tingling. The complaints cp affect the right hand, left hand. Context: resulted from unknown cause. Onset: The symptoms/episode began/occurred gradually. Treatment prior to arrival includes: no previous treatment. Associated signs and symptoms: Pertinent negatives: weakness, headache, chest pain, injury. Severity of symptoms: in the emergency department the symptoms have improved. Patient also c/o pain and swelling to left and right lower legs since yesterday. Patient reports she was diagnosed with DVT in the past and is not currently taking blood thinner. Patient reports prior to diagnosis of DVT she was taking oral contraceptive and she is a current smoker. Historical: - Allergies: 15:35 Aspirin; sv - PMHx: 15:35 acid reflux; Asthma; Bipolar disorder; DVT; sv - Immunization history:: Adult Immunizations up to date. - Social history:: Smoking status: Patient uses tobacco products, smokes one pack cigarettes per day. - Ebola Screening: : No symptoms or risks identified at this time. ROS: 16:10 Constitutional: Negative for body aches, chills, fever, poor PO intake. cp 16:10 Eyes: Negative for injury, pain, redness, and discharge. cp 16:10 ENT: Negative for drainage from ear(s), ear pain, sore throat, difficulty swallowing, difficulty handling secretions. 16:10 Cardiovascular: Negative for chest pain, palpitations. 16:10 Respiratory: Negative for cough, shortness of breath, wheezing. 16:10 Abdomen/GI: Negative for abdominal pain, nausea, vomiting, and diarrhea, black/tarry stool, rectal bleeding. 16:10 Back: Negative for pain at rest, pain with movement. 16:10 MS/extremity: Positive for pain, swelling, of the right lower leg and left lower leg, Negative for injury or acute deformity, decreased range of motion. 16:10 Skin: Negative for rash. 16:10 Neuro: Positive for tingling, of the right hand and left hand, Negative for altered mental status, headache, weakness. 16:10 All other systems are negative. Exam: 16:20 Head/Face: Normocephalic, atraumatic. cp 16:20 Constitutional: The patient appears in no acute distress, alert, awake, non-toxic, well developed, well nourished, obese. 16:20 Eyes: Periorbital structures: appear normal, Conjunctiva: normal, no exudate, no cp injection, Sclera: no appreciated abnormality, Lids and lashes: appear normal, bilaterally. 16:20 ENT: External ear(s): are unremarkable, Nose: is normal, Mouth: Lips: moist, Oral mucosa: pink and intact, moist, Posterior pharynx: is normal, airway is patent, no erythema, no exudate. 16:20 Neck: ROM/movement: is normal, is supple, without pain, no range of motions limitations, no nuchal rigidity. 16:20 Chest/axilla: Inspection: normal, Palpation: is normal, no crepitus, no tenderness. 16:20 Cardiovascular: Rate: normal, Rhythm: regular, Pulses: Pulses are 2+ in right radial artery, right dorsalis pedis artery, left radial artery and left dorsalis pedis artery. Heart sounds: murmur, not appreciated, JVD: is not appreciated. 16:20 Respiratory: the patient does not display signs of respiratory distress, Respirations: normal, no use of accessory muscles, no retractions, no splinting, no tachypnea, labored breathing, is not present, Breath sounds: are clear throughout, no decreased breath sounds, no stridor, no wheezing. 16:20 Abdomen/GI: Inspection: abdomen appears normal, Palpation: abdomen is soft and non-tender, in all quadrants. 16:20 Back: pain, is absent, ROM is normal. 16:20 Musculoskeletal/extremity: DVT Exam: no increased warmth, pain, that is mild, of the right leg, of the left leg, swelling, that is mild, of the right leg, of the left leg, tenderness, that is mild, of the right leg, of the left leg. 16:20 Skin: cellulitis, is not appreciated, no rash present. 16:20 Neuro: Orientation: is normal, Mentation: is normal, Cerebellar function: is grossly normal, Motor: moves all fours, strength is normal, Sensation: tingling, that is mild, of the left hand. 16:25 ECG was reviewed by the Attending Physician. Vital Signs: 15:36 BP 129 / 85; Pulse 83; Resp 16; Temp 98.2; Pulse Ox 96% ; Weight 129.27 kg; Height 5 sv ft. 4 in. (162.56 cm); Pain 3/10; 17:00 BP 124 / 82; Pulse 80; Resp 18; Temp 97.9(O); Pulse Ox 98% on R/A; mh5 18:01 BP 126 / 84; Pulse 73; Resp 20; Temp 98.6(O); Pulse Ox 98% on R/A; mh5 18:42 BP 120 / 87; Pulse 75; Resp 18; Temp 98.1(O); Pulse Ox 98% on R/A; mh5 19:08 BP 108 / 77; Pulse 75; Resp 17; Pulse Ox 97% on R/A; ae4 15:36 Body Mass Index 48.92 (129.27 kg, 162.56 cm) sv MDM: 15:50 Patient medically screened. breanne 16:00 Differential diagnosis: DVT, cellulitis, cardiac arrythmia, electrolyte abnormality. 18:56 Data reviewed: vital signs, nurses notes, lab test result(s), EKG, radiologic studies, cp ultrasound, and as a result, I will discharge patient. 18:56 Test interpretation: by ED physician or midlevel provider: ECG. Counseling: I had a cp detailed discussion with the patient and/or guardian regarding: the historical points, exam findings, and any diagnostic results supporting the discharge/admit diagnosis, lab results, radiology results, to return to the emergency department if symptoms worsen or persist or if there are any questions or concerns that arise at home. Response to treatment: the patient's symptoms have mildly improved after treatment, and as a result, I will discharge patient. ED course: VSS. US negative for DVT. Will discharge to home for continued monitoring. 09/22 15:55 Order name: Basic Metabolic Panel; Complete Time: 18:42 cp 09/22 18:52 Interpretation: Normal except: CL 109; GFR 69. cp 09/22 15:55 Order name: CBC with Diff; Complete Time: 18:53 09/22 18:52 Interpretation: Normal except: WBC 8.4; HCT 40.3. 09/22 15:55 Order name: LFT's; Complete Time: 18:42 09/22 15:55 Order name: Magnesium; Complete Time: 18:42 09/22 15:55 Order name: NT PRO-BNP; Complete Time: 18:42 09/22 15:55 Order name: Troponin (emerg Dept Use Only); Complete Time: 18:42 09/22 15:55 Order name: EKG; Complete Time: 15:57 09/22 15:55 Order name: Cardiac monitoring; Complete Time: 17:42 09/22 15:55 Order name: EKG - Nurse/Tech; Complete Time: 17:42 09/22 15:55 Order name: IV Saline Lock; Complete Time: 17:01 09/22 15:55 Order name: Labs collected and sent; Complete Time: 17:01 09/22 15:55 Order name: US Extremity Venous W Compression [place]; Complete Time: 18:17 09/22 18:17 Interpretation: Report reviewed. 09/22 18:46 Order name: Manual Differential; Complete Time: 18:53 EDMS 09/22 15:55 Order name: O2 Per Protocol; Complete Time: 17:01 09/22 15:55 Order name: O2 Sat Monitoring; Complete Time: 17:01 cp EC:25 Rate is 71 beats/min. Rhythm is regular. UT interval is normal. QRS interval is normal. cp QT interval is normal. Interpreted by me. Reviewed by me. Administered Medications: No medications were administered Disposition: 09/23 08:32 Co-signature as Attending Physician, Gareth Crowley MD I agree with the assessment and breanne plan of care. Disposition: 09/22/18 18:57 Discharged to Home. Impression: Pain in left lower leg, Pain in right lower leg, Paresthesia of skin - hands. - Condition is Stable. - Discharge Instructions: Musculoskeletal Pain, Paresthesia. - Medication Reconciliation Form, Thank You Letter, Antibiotic Education, Prescription Opioid Use form. - Follow up: Private Physician; When: 2 - 3 days; Reason: Recheck today's complaints. - Problem is new. - Symptoms have improved. Signatures: Dispatcher [employer] Jeimy Mendez RN RN Gareth Pulido MD MD cha Page, Corey, PA PA cp Kelvin Leal, RN RN ae4 Corrections: (The following items were deleted from the chart) 09/22 19:09 18:57 09/22/2018 18:57 Discharged to Home. Impression: Pain in left lower leg; Pain in ae4 right lower leg; Paresthesia of skin - hands. Condition is Stable. Forms are Medication Reconciliation Form, Thank You Letter, Antibiotic Education, Prescription Opioid Use. Follow up: Private Physician; When: 2 - 3 days; Reason: Recheck today's complaints. Problem is new. Symptoms have improved. cp
--- NOTE | 2018-09-22 18:58 | ER ---
Nurse's Notes [facility] Name: Cely Valadez Age: 38 yrs Sex: Female : 1980 Arrival Date: 09/22/2018 Time: 15:24 Bed 17 Private MD: Cassandra Carrington Diagnosis: Pain in left lower leg;Pain in right lower leg;Paresthesia of skin-hands Presentation: 09/22 15:34 Presenting complaint: Patient states: BLE swelling and pain since yesterday, has hx of sv DVT to the leg (unsure which one) stopped taking her blood thinner med d/t insurance dropping. c/o BUE numbness when holding them up and back. Transition of care: patient was not received from another setting of care. Onset of symptoms was September 21, 2018. Initial Sepsis Screen: Does the patient meet any 2 criteria? No. Patient's initial sepsis screen is negative. Does the patient have a suspected source of infection? No. Patient's initial sepsis screen is negative. Care prior to arrival: None. 15:34 Method Of Arrival: Ambulatory sv 15:34 Acuity: ADRIANA 3 sv 19:04 Risk Assessment: Do you want to hurt yourself or someone else? Patient reports no ae4 desire to harm self or others. Triage Assessment: 16:00 General: Appears in no apparent distress. uncomfortable, Behavior is calm, cooperative. ae4 Pain: Complains of pain in chest Pain currently is 8 out of 10 on a pain scale. EENT: No signs and/or symptoms were reported regarding the EENT system. Neuro: Level of Consciousness is awake, alert, obeys commands, Oriented to person, place, time, situation, Appropriate for age. Cardiovascular: Patient's skin is warm and dry. Cardiovascular: Denies fatigue, lightheadedness, nausea, shortness of breath, Heart tones S1 S2 present Rhythm is regular. Respiratory: Airway is patent Respiratory effort is even, unlabored, Respiratory pattern is regular, symmetrical, Breath sounds are clear bilaterally. Respiratory: Denies shortness of breath labored breathing. GI: Abdomen is round Bowel sounds present X 4 quads. : No signs and/or symptoms were reported regarding the genitourinary system. Derm: Skin is pink, warm \T\ dry. Musculoskeletal: No signs and/or symptoms reported regarding the musculoskeletal system. Historical: - Allergies: 15:35 Aspirin; sv - PMHx: 15:35 acid reflux; Asthma; Bipolar disorder; DVT; sv - Immunization history:: Adult Immunizations up to date. - Social history:: Smoking status: Patient uses tobacco products, smokes one pack cigarettes per day. - Ebola Screening: : No symptoms or risks identified at this time. Screenin:03 Abuse screen: Denies threats or abuse. Denies injuries from another. Nutritional ae4 screening: No deficits noted. Tuberculosis screening: No symptoms or risk factors identified. Fall Risk None identified. Assessment: 17:31 Reassessment: Lumber Sales Supervisor at bedside. ae4 17:45 Reassessment: Nurses unable to obtain successful IV, Lumber Sales Supervisor able to get small amount ae4 of blood provider notified, okay per provider to cancel PT. Lumber Sales Supervisor notified in person. Vital Signs: 15:36 BP 129 / 85; Pulse 83; Resp 16; Temp 98.2; Pulse Ox 96% ; Weight 129.27 kg; Height 5 sv ft. 4 in. (162.56 cm); Pain 3/10; 17:00 BP 124 / 82; Pulse 80; Resp 18; Temp 97.9(O); Pulse Ox 98% on R/A; mh5 18:01 BP 126 / 84; Pulse 73; Resp 20; Temp 98.6(O); Pulse Ox 98% on R/A; mh5 18:42 BP 120 / 87; Pulse 75; Resp 18; Temp 98.1(O); Pulse Ox 98% on R/A; mh5 19:08 BP 108 / 77; Pulse 75; Resp 17; Pulse Ox 97% on R/A; ae4 15:36 Body Mass Index 48.92 (129.27 kg, 162.56 cm) sv ED Course: 15:24 Patient arrived in ED. ag5 15:25 Cassandra Carrington MD is Private Physician. ag5 15:35 Triage completed. sv 15:36 Arm band placed on. sv 15:40 Kelvin Leal, BHARATH is Primary Nurse. ae4 15:48 Gareth Benites PA is PHCP. cp 15:48 Gareth Crowley MD is Attending Physician. cp 16:00 Placed in gown. Bed in low position. Call light in reach. Side rails up X 1. Adult w/ ae4 patient. bus monitor on. Pulse ox on. NIBP on. Warm blanket given. 16:21 US Extremity Venous W Compression [place] In Process Unspecified. EDMS 17:02 Missed attempt(s): 22 gauge antecubital area. upper arm. 5 17:20 Missed attempt(s): 24 gauge in left upper arm. ae4 19:08 No provider procedures requiring assistance completed. Patient did not have IV access ae4 during this emergency room visit. Administered Medications: No medications were administered Outcome: 18:57 Discharge ordered by . christian 19:09 Discharged to home ambulatory. ae4 19:09 Condition: stable 19:09 Discharge instructions given to patient, Instructed on discharge instructions, follow up and referral plans. Demonstrated understanding of instructions. 19:09 Patient left the ED. ae4 Signatures: Dispatcher [employer] Jeimy Mendez, RN RN Gareth Mosher, Emma Rose cp 5 Santiago Cooper Kelvin Carmichael RN RN ae4
[2018-09-22 19:25] LABS: Urine Specific Gravity 1.015 (1.005-1.030)
[2018-09-22 19:25] LABS: Urine Blood 2+ (NEG); Urine Glucose NEGATIVE (NEG); Urine Protein 1+ (NEG); Urine Specific Gravity 1.015 (1.005-1.030); Urine pH 7.5 (5.0-7.0)
--- NOTE | 2018-09-23 07:58 | EKG ---
Test Date: 2018-09-22 Test Time: 16:19:07 Car Pusher: MIMI MEASUREMENT RESULTS: Intervals: Rate: 71 NH: 188 QRSD: 78 QT: 416 QTc: 452 [place]: P: 57 NH: 188 QRS: 41 T: 34 INTERPRETIVE STATEMENTS: Normal sinus rhythm Low voltage QRS Nonspecific T wave abnormality Abnormal ECG Compared to ECG 06/14/2018 19:50:43 First degree AV block no longer present T-wave abnormality still present Electronically Signed On 09-23-18 07:57:05 CDT by Adolfo Zabala
== END 2018-09-22 19:09 | disposition home or self-care (01) ==
LOC: ER 15:23
DX: R20.2 Paresthesia of skin (principal); M79.661 Pain in right lower leg; F17.210 Nicotine dependence, cigarettes, uncomplicated; Z88.6 Allergy status to analgesic agent; Z86.718 Personal history of other venous thrombosis and embolism
CPT/HCPCS: 36415; 80048; 80076; 81003; 81025; 83735; 83880; 84484; 85025; 93005; 93970; 99284

== ENCOUNTER 2018-12-12 11:20 | Emergency (ER) | payer OTHER ==
--- OUTSIDE RECORDS SUMMARY | 2018-12-12 11:22 | XMS REPORT ---
:1980 [facility] Address [address] [place] [address] Dr. [address] [place] [id number] Care Team Providers Name Role Phone Unavailable Unavailable Unavailable Problems This patient has no known problems. Allergies, Adverse Reactions, Alerts This patient has no known allergies or adverse reactions. Medications This patient has no known medications.
--- OUTSIDE RECORDS SUMMARY | 2018-12-12 11:23 | XMS REPORT ---
:1980 [facility] Providers Name [...] Start End Status Dosage System Date Mirtazapine [facility] 23350342938 15 MG Orally Active 1 tablet Once a day at bedtime Topiramate [facility] 34300313908 50 MG Orally Active 1 tablet Twice a day Venlafaxine HCl [facility] 90964803349 75 MG Orally Jun 26, Active 1 capsule ER Once a day 2017 with food Meclizine HCl [facility] 10328756498 25 mg Orally Active 1 tablet every 8 hpurs for vertigo /dizzines s BusPIRone HCl ND 45684366659 30 MG Orally Jun 26, Active 1 tablet Twice a day 2017 Advair Diskus [facility] 70346492366 100-50 MCG/DOSE Active 1 puff Inhalation Twice a day One Touch Verio NDC 0 n/s finger Active one strip prick once a day Diclofenac [facility] [address]-10 1 % Transdermal Active not Sodium defined VESIcare [facility] 23496185369 10 MG Orally June Active 1 tablet Once a day 2017 Zofran [facility] 17437484651 8 MG Orally Active 1 tablet every 8 hours for N/V Ranitidine HCl ND 36084940127 150 MG Orally Jun 26, Active 1 capsule Once a day 2017 at bedtime Amitriptyline ND 07445623042 50 MG Orally Jun 26, Active 1 tablet HCl Once a day at 2017 bedtime VESIcare [facility] 46740355300 10 MG Orally Active 1 tablet Once a day Proventil HFA [facility] 80872001391 108 (90 Base) Active 2 puffs MCG/ACT as needed Inhalation every 6 hrs One Touch Delica ND 0 Active not Lancets defined Tolterodine [facility] 11056487194 1 MG Orally Jun 26, September 24, Active 1 tablet Tartrate Twice a day 2017 2017 Lasix [facility] 91755262299 20 MG Orally Active 1 tablet Once a day Klor-Con M10 [facility] 88464204787 10 MEQ Orally Active 1 tablet Twice a day with food Aripiprazole [facility] 88911752037 20 MG Orally Jun 26, Active 1 tablet Once a day 2017 Results Name Result Date Reference Range Unit Abnormality Flag URINALYSIS AUTO W/O SCOPE (61908) ----RADHA neg [id number] ----NIT neg [id number] ----PROTEIN neg [id number] ----pH 6.0 20170919 ----BLO neg [id number] ----GLUCOSE neg [id number] ----BILIRUBIN neg [id number] ----KETONES neg [id number] ----SPECIFIC GRAVITY 1.010 [id number] PVR ----PVR 0 [id number] Summary Purpose eClinicalWorks Submission
--- OUTSIDE RECORDS SUMMARY | 2018-12-12 11:23 | XMS REPORT ---
[...] Start Date End Date Status Dosage VESIcare [facility] 16551490341 10 MG Orally Once Jun 01, Active 1 tablet a day 2019 Results No Known Results Summary Purpose eClinicalWorks Submission
--- OUTSIDE RECORDS SUMMARY | 2018-12-12 11:23 | XMS REPORT ---
[...] Date Date Venlafaxine HCl [facility] 94600812321 75 MG Orally b , Active 1 capsule ER Once a day 2018 with food Mirtazapine ND 43324843106 15 MG Orally Active 1 tablet Once a day at bedtime Diclofenac [facility] [address]-46 1 % Transdermal Active not Sodium defined Amitriptyline ND 01128162896 50 MG Orally Jun 26, Active 1 tablet HCl Once a day at 2018 bedtime Lasix ND 83467569739 20 MG Orally Active 1 tablet Once a day Aripiprazole ND 35919391332 20 MG Orally Jun 26, Active 1 tablet Once a day 2017 Zofran [facility] 56530026360 8 MG Orally Active 1 tablet every 8 hours for N/V Ranitidine HCl [facility] 06274855132 150 MG Orally Active 1 capsule Once a day at bedtime One Touch Verio NDC 0 n/s finger Active one strip prick once a day VESIcare [facility] 23955459801 10 MG Orally Active 1 tablet Once a day Proventil HFA [facility] 13329592138 108 (90 Base) Active 2 puffs MCG/ACT as needed Inhalation every 6 hrs Advair Diskus [facility] 22564277057 100-50 MCG/DOSE Active 1 puff Inhalation Twice a day One Touch Delica NDC 0 Active not Lancets defined Meclizine HCl [facility] 89239371578 25 mg Orally Active 1 tablet every 8 hpurs for vertigo /dizzines s Topiramate ND 71286792126 50 MG Orally Active 1 tablet Twice a day Klor-Con M10 ND 35700582013 10 MEQ Orally Active 1 tablet Twice a day with food BusPIRone HCl ND 57127208542 30 MG Orally Jun 26, Active 1 tablet Twice a day 2017 Results No Known Results Summary Purpose eClinicalWorks Submission
--- OUTSIDE RECORDS SUMMARY | 2018-12-12 11:23 | XMS REPORT ---
[...] Status Dosage System Date Date Topiramate ND 97280153611 50 MG Orally Active 1 tablet Twice a day Mirtazapine ND 09660768952 15 MG Orally Active 1 tablet Once a day at bedtime Diclofenac [facility] [address]-77 1 % Transdermal Active not Sodium defined One Touch Delica ND 0 Active not Lancets defined Ranitidine HCl [facility] 98281778546 150 MG Orally Active 1 capsule Once a day at bedtime Aripiprazole ND 80372728530 20 MG Orally Jun 26, Active 1 tablet Once a day 2017 Lasix ND 22710141530 20 MG Orally Active 1 tablet Once a day Meclizine HCl ND 81860082153 25 mg Orally Active 1 tablet every 8 hpurs for vertigo /dizzines s VESIcare ND 65136825738 10 MG Orally Active 1 tablet Once a day One Touch Verio ND 0 n/s finger Active one strip prick once a day Advair Diskus ND 04232925389 100-50 MCG/DOSE Active 1 puff Inhalation Twice a day Proventil HFA [facility] 71162511289 108 (90 Base) Active 2 puffs MCG/ACT as needed Inhalation every 6 hrs BusPIRone HCl ND 44077218631 30 MG Orally Jun 26, Active 1 tablet Twice a day 2017 Zofran ND 60434501699 8 MG Orally Active 1 tablet every 8 hours for N/V Klor-Con M10 ND 76895527510 10 MEQ Orally Active 1 tablet Twice a day with food Venlafaxine HCl ND 92192632974 75 MG Orally Jun 26, Active 1 capsule ER Once a day 2017 with food Amitriptyline ND 69315946538 50 MG Orally Jun 26, Active 1 tablet HCl Once a day at 2018 bedtime Results No Known Results Summary Purpose eClinicalWorks Submission
--- OUTSIDE RECORDS SUMMARY | 2018-12-12 11:23 | XMS REPORT ---
[...] prick once a day Proventil HFA ND 29384334246 108 (90 Base) Active 2 puffs MCG/ACT as needed Inhalation every 6 hrs Klor-Con M10 ND 78435243368 10 MEQ Orally Active 1 tablet Twice a day with food Zofran ND 73100901836 8 MG Orally Active 1 tablet every 8 hours for N/V Venlafaxine HCl ND 53994360955 75 MG Orally Jun 26, Active 1 capsule ER Once a day 2017 with food BusPIRone HCl ND 83779349025 30 MG Orally Jun 26, Active 1 tablet Twice a day 2017 Aripiprazole ND 67614489881 20 MG Orally Jun 26, Active 1 tablet Once a day 2017 Lasix [facility] 61387148261 20 MG Orally Active 1 tablet Once a day VESIcare [facility] 43687541119 10 MG Orally June Active 1 tablet Once a day 2017 VESIcare [facility] 99433359409 10 MG Orally Active 1 tablet Once a day Advair Diskus [facility] 86444186080 100-50 MCG/DOSE Active 1 puff Inhalation Twice a day Ranitidine HCl [facility] 68565447272 150 MG Orally Jun 26, Active 1 capsule Once a day 2017 at bedtime Diclofenac [facility] [address]-45 1 % Transdermal Active not Sodium defined Amitriptyline [facility] 51921684555 50 MG Orally Jun 26, Active 1 tablet HCl Once a day at 2018 bedtime One Touch Delica [facility] 0 Active not Lancets defined Tolterodine [facility] 64979156143 1 MG Orally Jun 26, September 24, Active 1 tablet Tartrate Twice a day 2017 2017 Meclizine HCl [facility] 20405303393 25 mg Orally Active 1 tablet every 8 hpurs for vertigo /dizzines s Results No Known Results Summary Purpose eClinicalWorks Submission
--- OUTSIDE RECORDS SUMMARY | 2018-12-12 11:24 | XMS REPORT ---
[...] End Status Dosage System Date Date Mupirocin [facility] 83986325428 2 % Externally Jun 02, Jun 07, Active 1 application twice a day 2018 2018 to affected area Results No Known Results Summary Purpose eClinicalWorks Submission
--- OUTSIDE RECORDS SUMMARY | 2018-12-12 11:24 | XMS REPORT ---
[...] Status Dosage System Date Date Montelukast [facility] 52635382362 10 MG Orally Dec 19, Active 1 tablet Sodium Once a day 2017 Diclofenac [facility] [address]-17 1 % Transdermal Active not Sodium defined VESIcare [facility] 47317971192 10 MG Orally Fe Active 1 tablet Once a day 2018 Symbicort [facility] 33383948056 160-4.5 MCG/ACT Dec 19Mar Active 2 puffs Inhalation 2017, Twice a day 2017 BusPIRone HCl ND 45099749752 30 MG Orally Jun 26, Active 1 tablet Twice a day 2017 Aripiprazole ND 64582538452 20 MG Orally Jun 26, Active 1 tablet Once a day 2017 Lasix ND 10985026495 20 MG Orally Active 1 tablet Once a day Ranitidine HCl [facility] 77130778961 150 MG Orally Active 1 capsule Once a day at bedtime Ranitidine HCl ND 84579191370 150 MG Orally Active 1 capsule Once a day at bedtime One Touch Verio NDC 0 n/s finger Active one strip prick once a day One Touch Delica ND 0 Active not Lancets defined Topiramate ND 90828070672 50 MG Orally Active 1 tablet Twice a day Mirtazapine ND 09558796699 15 MG Orally Active 1 tablet Once a day at bedtime Zofran [facility] 03126215577 8 MG Orally Active 1 tablet every 8 hours for N/V Meclizine HCl ND 24752523128 25 mg Orally Active 1 tablet every 8 hpurs for vertigo /dizzines s Klor-Con M10 [facility] 61681877903 10 MEQ Orally Active 1 tablet Twice a day with food Amitriptyline ND 71852907935 50 MG Orally Jun 26, Active 1 tablet HCl Once a day at 2018 bedtime Proventil HFA [facility] 85314603057 108 (90 Base) Active 2 puffs MCG/ACT as needed Inhalation every 6 hrs Advair Diskus [facility] 51368995263 100-50 MCG/DOSE Inactive 1 puff Inhalation Twice a day Venlafaxine HCl [facility] 88555439179 75 MG Orally Jun 26, Active 1 capsule ER Once a day 2017 with food Results No Known Results Summary Purpose eClinicalWorks Submission
--- OUTSIDE RECORDS SUMMARY | 2018-12-12 11:24 | XMS REPORT ---
[...] Status Dosage System Date Date or-Con M10 [facility] 34971327557 10 MEQ Orally Active 1 tablet Twice a day with food Venlafaxine HCl ND 15131343857 75 MG Orally Jun 26, Active 1 capsule ER Once a day 2018 with food Montelukast ND 52440624303 10 MG Orally Active 1 tablet Sodium Once a day Lasix ND 13561620885 20 MG Orally Active 1 tablet Once a day Ranitidine HCl ND 03893202424 150 MG Orally Active 1 capsule Once a day at bedtime Meclizine HCl ND 10523500923 25 mg Orally Active 1 tablet every 8 hpurs for vertigo /dizzines s Mirtazapine ND 87867927634 15 MG Orally Active 1 tablet Once a day at bedtime Proventil HFA [facility] 70953312674 108 (90 Base) Active 2 puffs MCG/ACT as needed Inhalation every 6 hrs Amitriptyline ND 50364572970 50 MG Orally Jun 26, Active 1 tablet HCl Once a day at 2018 bedtime VESIcare ND 11020145596 10 MG Orally Jun 01, Active 1 tablet Once a day 2018 Ranitidine HCl [facility] 86031611258 150 MG Orally Active 1 capsule Once a day at bedtime One Touch Delica NDC 0 Active not Lancets defined One Touch Verio ND 0 n/s finger Active one strip prick once a day Topiramate ND 70889597577 50 MG Orally Active 1 tablet Twice a day Aripiprazole ND 35722825336 20 MG Orally Jun 26, Active 1 tablet Once a day 2018 Cipro ND 51366789371 500 MG Orally Jan 27, Feb 03, Active 1 tablet every 12 hrs 2017 2017 Symbicort [facility] 57853069429 160-4.5 MCG/ACT Dec 19, Apr 18, Active 2 puffs Inhalation 2017 2017 Twice a day Diclofenac [facility] [address]-38 1 % Transdermal Active not Sodium defined BusPIRone HCl ND 32081393088 30 MG Orally Jun 26, Active 1 tablet Twice a day 2017 Zofran [facility] 55282290286 8 MG Orally Active 1 tablet every 8 hours for N/V Results No Known Results Summary Purpose eClinicalWorks Submission
--- OUTSIDE RECORDS SUMMARY | 2018-12-12 11:24 | XMS REPORT ---
[...] prick once a day Bactrim DS ND 52699951088 800-160 MG Feb 02, Active 1 tablet Orally Twice a 2018 day Ranitidine HCl ND 74704388377 150 MG Orally Active 1 capsule Once a day at bedtime Symbicort [facility] 14131236091 160-4.5 MCG/ACT Dec 19, Apr 18, Active 2 puffs Inhalation 2017 2017 Twice a day Klor-Con M10 ND 19413247434 10 MEQ Orally Active 1 tablet Twice a day with food Aripiprazole ND 22514710178 20 MG Orally Jun 26, Active 1 tablet Once a day 2017 One Touch Delica ND 0 Active not Lancets defined VESIcare ND 50000302837 10 MG Orally Jun 01, Active 1 tablet Once a day 2018 Proventil HFA [facility] 48940214863 108 (90 Base) Active 2 puffs MCG/ACT as needed Inhalation every 6 hrs Lasix ND 29488033914 20 MG Orally Active 1 tablet Once a day Topiramate ND 89929169852 50 MG Orally Active 1 tablet Twice a day Venlafaxine HCl [facility] 19911276690 75 MG Orally Jun 26, Active 1 capsule ER Once a day 2017 with food Mirtazapine ND 93496025411 15 MG Orally Active 1 tablet Once a day at bedtime Meclizine HCl ND 48787214985 25 mg Orally Active 1 tablet every 8 hpurs for vertigo /dizzines s Zofran ND 50508451862 8 MG Orally Active 1 tablet every 8 hours for N/V Amitriptyline ND 53718871218 50 MG Orally Jun 26, Active 1 tablet HCl Once a day at 2018 bedtime Diclofenac [facility] [address]-00 1 % Transdermal Active not Sodium defined Montelukast [facility] 41569132371 10 MG Orally Active 1 tablet Sodium Once a day Cipro [facility] 80622607338 500 MG Orally Jan 27, Feb 03, Active 1 tablet every 12 hrs 2017 2017 BusPIRone HCl [facility] 79042152958 30 MG Orally Jun 26, Active 1 tablet Twice a day 2017 Results No Known Results Summary Purpose eClinicalWorks Submission
--- OUTSIDE RECORDS SUMMARY | 2018-12-12 11:24 | XMS REPORT ---
[...] Status Dosage System Date Date Mirtazapine [facility] 62610025069 7.5 MG Orally Active 1 tablet Once a day at bedtime Amitriptyline ND 95700137921 25 MG Orally Fe, Active 1 tablet HCl Once a day at 2018 bedtime VESIcare ND 20785568384 10 MG Orally Feb Active 1 tablet Once a day 2018 One Touch Verio NDC 0 n/s finger Active one strip prick once a day Klor-Con M10 ND 87606250231 10 MEQ Orally Active 1 tablet Twice a day with food Ranitidine HCl [facility] 03717262293 150 MG Orally Active 1 capsule Once a day at bedtime Metoprolol ND 73699025045 50 MG Orally Active 1 tablet Succinate ER Once a day BusPIRone HCl ND 40648797995 15 MG Orally Jun 26, Active 1 tablet Twice a day 2017 Pantoprazole ND 64748372842 40 MG Orally Active 1 tablet Sodium Once a day Symbicort [facility] 29196146905 160-4.5 MCG/ACT Active 2 puffs Inhalation Twice a day Divalproex ND 40254603649 250 MG Orally Active as Sodium ER at bedtime directed Lasix ND 09662030504 20 MG Orally Active 1 tablet Once a day Proventil HFA [facility] 88547755725 108 (90 Base) Active 2 puffs as MCG/ACT needed Inhalation every 6 hrs Montelukast ND 80363592201 10 MG Orally Active 1 tablet Sodium Once a day Diclofenac [facility] [address]-87 1 % Transdermal Active not Sodium defined One Touch Delica NDC 0 Active not Lancets defined Aripiprazole ND 70381399890 15 MG Orally Jun 26, Active 1 tablet Once a day 2017 Venlafaxine HCl ND 12982959289 75 MG Orally Jun 26, Active 1 capsule ER Once a day 2017 with food Topiramate [facility] 98408255769 50 MG Orally Active 1 tablet Twice a day Results No Known Results Summary Purpose eClinicalWorks Submission
--- OUTSIDE RECORDS SUMMARY | 2018-12-12 11:25 | XMS REPORT | Summary of Care ---
:1980 Author Organization [facility] - [facility] Address [address] [place] [address] Care Team Providers Name Role Phone Goldie Estevez MD Unavailable Unavailable 1, [facility] Unavailable Unavailable Cassandra Carrington Primary Care Provider Reason for Visit Reason Comments Refill Request Encounter Details Date Type Department Care Team Description 12/03/2018 Telephone [facility] and Belinda Martin, Refill Request Adult Primary Care- MD Schwartz [address] [place] [address] [address] [facility] , [facility] [address] [place] [address] [place] [id number] Allergies Active Allergy Reactions Severity Noted Date Comments Oats Nausea and/or Vomiting 02/02/2016 documented as of this encounter (statuses as of 12/05/2018) Medications Medication Sig Dispensed Refills Start Date End Date Status busPIRone 30 mg tablet TAKE 1 TABLET (30 0 11/23/2016 Active MG) BY MOUTH 2 TIMES PER DAY Diclofenac Sodium Take 2-4 grams 100 g 3 03/25/2017 Active (VOLTAREN) 1 % twice a day as gelIndications: Muscle needed for pain spasm albuterol (PROAIR HFA) Inhale 2 Puffs 8.5 g 11 03/25/2017 Active 90 mcg/actuation every 6 (six) inhalerIndications: hours as needed Intrinsic asthma for Wheezing or without status Shortness of asthmaticus, mild Breath. intermittent, uncomplicated mirtazapine 7.5 mg Take 7.5 mg by 0 Active tablet mouth at bedtime. solifenacin ([facility]) Take 10 mg by 0 Active 10 mg tablet mouth daily. ranitidine 150 mg Take 150 mg by 0 Active capsule mouth at bedtime. montelukast 10 mg Take 10 mg by 0 Active tablet mouth. budesonide-formoterol Inhale 2 Puffs 2 0 Active 160-4.5 mcg/actuation (two) times inhaler daily. amitriptyline 25 mg Take 25 mg by 0 Active tablet mouth at bedtime. ARIPiprazole 15 mg Take 15 mg by 0 Active tablet mouth daily. pantoprazole 20 mg EC Take 40 mg by 0 Active tablet mouth daily. cyclobenzaprine 5 mg Take 1 tablet by 30 tablet 0 04/09/2018 Active tablet mouth 3 (three) times daily. traMADOL (ULTRAM) 50 mg Take 1 tablet by 20 tablet 0 04/09/2018 Active tablet mouth every 6 (six) hours as needed for Pain (scale 4-6). KLOR-CON 10 10 mEq CR TAKE 1 TABLET BY 30 tablet 0 04/21/2018 Active tabletIndications: MOUTH DAILY. Pedal edema apixaban (ELIQUIS) 5 mg 10 mg twice daily 74 tablet 0 05/06/2018 Active (74 tabs) 5 mg VTE for 7 days then 5 starter pack mg twice daily blood sugar diagnostic Use BID, DX E11.9 100 Box 11 12/05/2018 Active strip (Brand upon insurance approval)ONE TOUCH VERIO TEST STRIP documented as of this encounter (statuses as of 12/05/2018) Active Problems Problem Noted Date Right knee pain 11/16/2016 Pedal edema 11/11/2016 Morbid obesity due to excess calories 09/12/2016 Irregular menstrual cycle 09/12/2016 Exposure to hepatitis C 09/12/2016 Exposure to hepatitis B 09/12/2016 Left lower quadrant pain 06/07/2016 Weight loss 06/07/2016 Elevated glucose 06/07/2016 Polyuria 06/07/2016 Hirsutism 06/07/2016 Acne, unspecified acne type 06/07/2016 documented as of this encounter (statuses as of 12/05/2018) Resolved Problems Problem Noted Date Resolved Date PCOS (polycystic ovarian syndrome) 08/09/2016 09/12/2016 Routine gynecological examination 06/07/2016 06/07/2016 documented as of this encounter (statuses as of 12/05/2018) Immunizations Name Administration Dates Next Due Influenza Virus Vaccine Quad IM 3+ YRS 03/25/2017 Tdap 02/02/2016 documented as of this encounter Social History Tobacco Use Types Packs/Day Years Used Date Current Every Day Smoker Cigarettes, Cigars 0.5 20 Smokeless Tobacco: Never Used Comments: 0.5 pack per day Alcohol Use Drinks/Week oz/Week Comments No 0 Standard drinks or equivalent 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 documented as of this encounter Last Filed Vital Signs Not on filedocumented in this encounter Plan of Treatment Health Maintenance Due Date Last Done Comments INFLUENZA VACCINE 12/28/2018 03/25/2017 PAP SMEAR 10/18/2021 10/18/2016, 02/10/2014 (Previously completed), 11/20/2005 DTaP,Tdap,and Td Vaccines (2 02/01/2026 02/02/2016 - Td) PNEUMOCOCCAL 0-64 YEARS Aged Out No longer eligible based COMBINED SERIES on patient's age to complete this topic documented as of this encounter Results Not on filedocumented in this encounter Insurance Payer Benefit Plan / Subscriber ID Effective Dates Phone Address Type Group [employer] MEDICAID OF xxxxxxxxx 2018-Present [phone] [address] [place] [address] [place] [address] documented as of this encounter
--- OUTSIDE RECORDS SUMMARY | 2018-12-12 11:25 | XMS REPORT ---
[...] Status Dosage System Date Date KlorCon M10 [facility] 87057830554 10 MEQ Orally October Active 1 tablet once a day , with food 2018 Ranitidine HCl [facility] 02869540944 150 MG Orally Active 1 capsule Once a day at bedtime Diclofenac [facility] [address]-67 1 % Active not Sodium Transdermal defined Topiramate [facility] 80863756672 50 MG Orally Active 1 tablet Twice a day Ranitidine HCl [facility] 45208471930 150 MG Orally Active 1 capsule Once a day at bedtime Divalproex [facility] 36744602379 250 MG Orally Active as Sodium ER at bedtime directed VESIcare [facility] 77121643858 10 MG Orally May Active 1 tablet Once a day 2018 Advair Diskus [facility] 05917840541 100-50 Inactive 1 puff MCG/DOSE Inhalation Twice a day Lasix [facility] 58591412005 20 MG Orally Active 1 tablet Once a day Eliquis [facility] 90912184144 5 MG Orally Active as directed Naproxen [facility] 10315253721 500 MG Orally Active 1 tablet Twice a day Mirtazapine [facility] 55987076276 7.5 MG Orally Active 1 tablet Once a day at bedtime Symbicort [facility] 06705401260 160-4.5 Active 2 puffs MCG/ACT Inhalation Twice a day BusPIRone HCl [facility] 86117704341 15 MG Orally Jun 26, Active 1 tablet Three times a 2017 day Montelukast [facility] 30932953047 10 MG Orally Active 1 tablet Sodium Once a day Proventil HFA [facility] 79002042424 108 (90 Base) Active 2 puffs as MCG/ACT needed Inhalation every 6 hrs Metoprolol [facility] 06110368119 50 MG Orally Active 1 tablet Succinate ER Once a day Amitriptyline ND 41684541036 25 MG Orally Jun 26, Active 1 tablet HCl Once a day at 2017 bedtime One Touch Verio NDC 0 n/s finger Active one strip prick once a day One Touch Delica NDC 0 Active not Lancets defined Symbicort [facility] 47662371947 160-4.5 May 28, Active 2 puffs MCG/ACT 2019 Inhalation Twice a day Abilify [facility] 29694096905 15 MG Orally Active 1 tablet Once a day Pantoprazole [facility] 79300111485 40 MG Orally Active 1 tablet Sodium Once a day Aripiprazole [facility] 09896893637 15 MG Orally Jun 26, Active 1 tablet Once a day 2017 [place] [facility] 74581668607 300 MG Orally Active 1 tablet Carbonate ER Once a day at bedtime Provera [facility] 89847832579 10 MG Orally Active 1 tablet Once a day with food Venlafaxine HCl [facility] 37603013411 75 MG Orally Jun 26, Active 1 capsule ER Once a day 2017 with food Results No Known Results Summary Purpose eClinicalWorks Submission
[2018-12-12] MEDS ORDERED: KETOROLAC 30 MG/ML INJ ONE (11:44)
--- NOTE | 2018-12-12 12:14 | RAD REPORT ---
EXAM DESCRIPTION: RAD - Shoulder Right 2 View - 12/12/2018 12:07 pm CLINICAL HISTORY: PAIN COMPARISON: Chest Single View dated 09/09/2018 FINDINGS: Mild AC joint degenerative changes present with inferiorly projecting osteophyte. No fract ure or dislocation.
--- NOTE | 2018-12-12 12:38 | EDPHYS ---
Physician Documentation [facility] Name: Cely Valadez Age: 38 yrs Sex: Female : 1980 Arrival Date: 12/12/2018 Time: 11:22 Bed 19 Private MD: ED Physician Adam Rachel HPI: 12/12 11:45 This 38 yrs old Female presents to ER via Ambulatory with complaints of cp Shoulder Pain. 11:45 The patient or guardian complains of pain, that is acute. anterior aspect and posterior cp aspect of right shoulder. Context: resulted from an unknown reason, The patient reports no decreased range of motion. Onset: The symptoms/episode began/occurred this morning, upon awakening. Modifying factors: The symptoms are aggravated by movement, rotation of arm, deep breaths. Associated signs and symptoms: Pertinent negatives: diaphoresis, dyspnea, neck pain, Numbness in right arm shortness of breath, Weakness in right arm. Severity of symptoms: in the emergency department the symptoms are unchanged. Treatment prior to arrival includes: no previous treatment. Historical: - Allergies: 11:31 Aspirin; la1 - PMHx: 11:31 acid reflux; Asthma; Bipolar disorder; DVT; la1 - Immunization history:: Adult Immunizations up to date. - Social history:: Smoking status: Patient uses tobacco products, smokes one pack cigarettes per day. - Ebola Screening: : No symptoms or risks identified at this time. ROS: 11:55 Constitutional: Negative for body aches, chills, fever, poor PO intake. cp 11:55 Eyes: Negative for injury, pain, redness, and discharge. cp 11:55 ENT: Negative for drainage from ear(s), ear pain, sore throat, difficulty swallowing, difficulty handling secretions. 11:55 Cardiovascular: Negative for edema, palpitations. 11:55 Respiratory: Negative for cough, shortness of breath, wheezing. 11:55 Abdomen/GI: Negative for abdominal pain, nausea, vomiting, and diarrhea. 11:55 MS/extremity: Positive for pain, tenderness, of the anterior aspect and posterior aspect of right shoulder, Negative for injury or acute deformity, decreased range of motion, paresthesias. 11:55 Skin: Negative for rash. 11:55 Neuro: Negative for altered mental status, headache, syncope, weakness. 11:55 All other systems are negative. Exam: 12:00 Constitutional: The patient appears in no acute distress, alert, awake, cp non-diaphoretic, non-toxic, well developed, well nourished, obese. 12:00 Head/Face: Normocephalic, atraumatic. cp 12:00 Eyes: Periorbital structures: appear normal, Conjunctiva: normal, no exudate, no injection, Sclera: no appreciated abnormality, Lids and lashes: appear normal, bilaterally. 12:00 ENT: External ear(s): are unremarkable, Nose: is normal, Mouth: Lips: moist, Oral mucosa: pink and intact, moist, Posterior pharynx: is normal, airway is patent, no erythema, no exudate. 12:00 Neck: C-spine: vertebral tenderness, is not appreciated, crepitus, is not appreciated, ROM/movement: is normal, is supple. 12:00 Chest/axilla: Inspection: normal. 12:00 Cardiovascular: Rate: normal, Rhythm: regular, Pulses: Pulses are 2+ in right radial artery and left radial artery. Edema: is not appreciated, JVD: is not appreciated. 12:00 Respiratory: the patient does not display signs of respiratory distress, Respirations: normal, no use of accessory muscles, no retractions, no splinting, no tachypnea, labored breathing, is not present, Breath sounds: are clear throughout, no decreased breath sounds, no stridor, no wheezing. 12:00 Abdomen/GI: Inspection: abdomen appears normal. 12:00 Musculoskeletal/extremity: ROM: limited passive range of motion due to pain, in the right shoulder, Sensation intact. Joints: All joints are normal except the anterior aspect and posterior aspect of right shoulder displays pain at rest, tenderness. 12:00 Skin: no rash present. Vital Signs: 11:31 BP 128 / 90; Pulse 96; Resp 16; Temp 98.7; Pulse Ox 98% on R/A; Weight 133.81 kg; la1 Height 5 ft. 4 in. (162.56 cm); 11:31 Body Mass Index 50.64 (133.81 kg, 162.56 cm) la1 MDM: 11:38 Patient medically screened. cp 12:35 ED course: VSS. Patient reports pain improved after IM toradol. Will discharge to home cp for continued monitoring. 12:35 Differential diagnosis: tendonitis, strain. cp 12:35 Data reviewed: vital signs, nurses notes, radiologic studies, plain films. Test cp interpretation: by ED physician or midlevel provider: xrays of right shoulder negative for acute findings. Counseling: I had a detailed discussion with the patient and/or guardian regarding: the historical points, exam findings, and any diagnostic results supporting the discharge/admit diagnosis, radiology results, to return to the emergency department if symptoms worsen or persist or if there are any questions or concerns that arise at home. Response to treatment: the patient's symptoms have markedly improved after treatment, and as a result, I will discharge patient. 12/12 11:42 Order name: XRAY Shoulder RIGHT 2 view cp Administered Medications: 11:54 Drug: TORadol 60 mg Route: IM; Site: left vastus lateralis; iw 12:44 Follow up: Response: No adverse reaction; Pain is decreased em Disposition: 12:52 Co-signature as Attending Physician, Adam Rachel MD. rn Disposition: 12/12/18 12:37 Discharged to Home. Impression: Pain in right shoulder. - Condition is Stable. - Discharge Instructions: Musculoskeletal Pain, Shoulder Pain, Shoulder Range of Motion Exercises. - Prescriptions for Naprosyn 500 mg Oral Tablet - take 1 tablet by ORAL route 2 times per day take with food; 20 tablet. Cyclobenzaprine 10 mg Oral Tablet - take 1 tablet by ORAL route every 8 hours As needed; 15 tablet. - Medication Reconciliation Form, Thank You Letter, Antibiotic Education, Prescription Opioid Use form. - Follow up: Private Physician; When: 2 - 3 days; Reason: Worsening of condition. - Problem is new. - Symptoms have improved. Signatures: Dispatcher [employer] [facility] Justus Kam, CHICKEN STUFFER CHICKEN STUFFER em Effie Lackey RN RN iw Nieto, Roman, MD MD rn Attema, Lee, RN RN la1 Gareth Benites PA PA cp Corrections: (The following items were deleted from the chart) 12:47 12:37 12/12/2018 12:37 Discharged to Home. Impression: Pain in right shoulder. em Condition is Stable. Forms are Medication Reconciliation Form, Thank You Letter, Antibiotic Education, Prescription Opioid Use. Follow up: Private Physician; When: 2 - 3 days; Reason: Worsening of condition. Problem is new. Symptoms have improved. cp
--- NOTE | 2018-12-12 12:38 | ER ---
Nurse's Notes [facility] Name: Cely Valadez Age: 38 yrs Sex: Female : 1980 Arrival Date: 12/12/2018 Time: 11:22 Bed 19 Private MD: Diagnosis: Pain in right shoulder Presentation: 12/12 11:30 Presenting complaint: Patient states: I woke up this morning with pain in my right la1 upper chest area close to my shoulder, it hurts when I take a deep breath and also when I move my shoulder. Pt denies any known trauma. Transition of care: patient was not received from another setting of care. Onset of symptoms was December 12, 2018. Risk Assessment: Do you want to hurt yourself or someone else? Patient reports no desire to harm self or others. Initial Sepsis Screen: Does the patient meet any 2 criteria? No. Patient's initial sepsis screen is negative. Does the patient have a suspected source of infection? No. Patient's initial sepsis screen is negative. Care prior to arrival: None. 11:30 Method Of Arrival: Ambulatory la1 11:30 Acuity: ADRIANA 4 la1 Historical: - Allergies: 11:31 Aspirin; la1 - PMHx: 11:31 acid reflux; Asthma; Bipolar disorder; DVT; la1 - Immunization history:: Adult Immunizations up to date. - Social history:: Smoking status: Patient uses tobacco products, smokes one pack cigarettes per day. - Ebola Screening: : No symptoms or risks identified at this time. Screenin:33 Abuse screen: Denies threats or abuse. Nutritional screening: No deficits noted. la1 Tuberculosis screening: No symptoms or risk factors identified. Fall Risk None identified. Assessment: 11:32 General: Appears in no apparent distress. Behavior is calm, cooperative. Pain: la1 Complains of pain in anterior aspect of right upper chest. Neuro: Level of Consciousness is awake, alert, obeys commands, Oriented to person, place, time, situation. Cardiovascular: Capillary refill < 3 seconds Patient's skin is warm and dry. Respiratory: Airway is patent Respiratory effort is even, unlabored, Respiratory pattern is regular, symmetrical. GI: No signs and/or symptoms were reported involving the gastrointestinal system. : No signs and/or symptoms were reported regarding the genitourinary system. Musculoskeletal: Reports pain with ROM of right shoulder. 12:44 Reassessment: Patient appears in no apparent distress at this time. Patient and/or em family updated on plan of care and expected duration. Pain level reassessed. Patient is alert, oriented x 3, equal unlabored respirations, skin warm/dry/pink. rates pain 3/10 Patient states feeling better. Vital Signs: 11:31 BP 128 / 90; Pulse 96; Resp 16; Temp 98.7; Pulse Ox 98% on R/A; Weight 133.81 kg; la1 Height 5 ft. 4 in. (162.56 cm); 11:31 Body Mass Index 50.64 (133.81 kg, 162.56 cm) la1 ED Course: 11:22 Patient arrived in ED. rg4 11:31 Triage completed. la1 11:32 Gareth Benites PA is PHCP. cp 11:32 Adam Rachel MD is Attending Physician. cp 11:32 Arm band placed on right wrist. la1 11:33 Patient has correct armband on for positive identification. la1 11:37 Justus Kam LVN is Primary Nurse. em 12:06 X-ray completed. Portable x-ray completed in exam room. Patient tolerated procedure mh1 well. 12:08 XRAY Shoulder RIGHT 2 view In Process Unspecified. EDMS 12:43 No provider procedures requiring assistance completed. Patient did not have IV access em during this emergency room visit. Administered Medications: 11:54 Drug: TORadol 60 mg Route: IM; Site: left vastus lateralis; iw 12:44 Follow up: Response: No adverse reaction; Pain is decreased em Outcome: 12:37 Discharge ordered by MD. cp 12:43 Discharged to home ambulatory. em 12:43 Condition: good 12:43 Discharge instructions given to patient, Instructed on discharge instructions, follow up and referral plans. medication usage, Demonstrated understanding of instructions, follow-up care, medications, Prescriptions given X 2. 12:47 Patient left the ED. em Signatures: Dispatcher [employer] EDMS Ariana Moon 1 Justus Kam LVN LVN em Effie Lackey RN RN Mazin Jarquin RN RN la1 Gareth Benites PA PA cp Garcia, Rubi rg4
== END 2018-12-12 12:47 | disposition home or self-care (01) ==
LOC: ER 11:20
DX: M25.511 Pain in right shoulder (principal); F17.210 Nicotine dependence, cigarettes, uncomplicated; Z88.6 Allergy status to analgesic agent
CPT/HCPCS: 96372; 99283

== ENCOUNTER 2019-03-11 20:47 | Emergency (ER) | payer OTHER ==
--- OUTSIDE RECORDS SUMMARY | 2019-03-11 20:51 | XMS REPORT ---
:1980 [facility] Address [address] Wall [address] [place] [address] Care Team Providers Name Role Phone Unavailable Unavailable Unavailable Problems This patient has no known problems. Allergies, Adverse Reactions, Alerts This patient has no known allergies or adverse reactions. Medications This patient has no known medications.
--- OUTSIDE RECORDS SUMMARY | 2019-03-11 20:51 | XMS REPORT ---
:1980 Author Organization [employer] Care Team Providers Name Role Phone Carrington, Na Provider Role Unavailable Allergies, Adverse Reactions, Alerts Substance Reaction Event Type N.K.D.A. Info Not Available Non Drug Allergy Problems Problem Type Condition Code Onset Dates Condition Status Problem Asthma J45.909 Active Problem Hyperlipidemia E78.5 Active Problem GERD (gastroesophageal reflux K21.9 Active disease) Problem Anxiety F41.9 Active Problem Bipolar 1 disorder F31.9 Active Problem Overactive bladder N32.81 Active Problem Bipolar disorder F31.9 Active Problem History of hypothyroidism Z86.39 Active Problem Migraine G43.909 Active Problem Gastroesophageal reflux disease K21.9 Active without esophagitis Problem Swelling R60.9 Active Problem Intractable vomiting with nausea, R11.2 Active unspecified vomiting type Problem Sinus problem J34.9 Active Problem Mild intermittent asthma without J45.20 Active complication Problem Elevated liver enzymes R74.8 Active Problem Hypertriglyceridemia E78.1 Active Problem Vertigo R42 Active Problem Urge incontinence N39.41 Active Problem Stress incontinence N39.3 Active Problem Chronic sinus complaints R09.89 Active Problem Arthritis of right knee M17.11 Active Problem Other chronic pain G89.29 Active Assessment Obesity, morbid, BMI 50 or higher E66.01 Active Assessment Gastroesophageal reflux disease K21.9 Active without esophagitis Assessment Hypokalemia E87.6 Active Assessment Pneumococcal vaccination declined Z28.21 Active Problem Hyperglycemia R73.9 Active Assessment BMI 50.0-59.9, adult Z68.43 Active Problem Cough R05 Active Problem Pharyngitis, unspecified etiology J02.9 Active Problem Fatty liver K76.0 Active Problem Gastroesophageal reflux disease, K21.9 Active esophagitis presence not specified Problem BMI 50.0-59.9, adult Z68.43 Active Problem Edema, unspecified type R60.9 Active Problem Obesity, morbid, BMI 50 or higher E66.01 Active Assessment Mild intermittent asthma without J45.20 Active complication Problem Bilateral lower extremity edema R60.0 Active Assessment Cervical cancer screening Z12.4 Active Problem Vaginal bleeding N93.9 Active Assessment Hyperlipidemia E78.5 Active Problem Cigarette nicotine dependence F17.210 Active without complication Assessment Influenza vaccination declined Z28.21 Active Problem PUD (peptic ulcer disease) K27.9 Active Assessment Allergic rhinitis J30.9 Active Problem Allergic rhinitis J30.9 Active Assessment Routine gynecological examination Z01.419 Active Assessment Adult general medical exam Z00.00 Active Assessment Screening mammogram, encounter for Z12.31 Active Assessment Hyperglycemia R73.9 Active Medications Medication Code Code Instructions Start End Status Dosage System Date Date Mirtazapine [facility] 97174532034 7.5 MG Orally Active 1 tablet Once a day at bedtime Venlafaxine HCl [facility] 73521863942 75 MG Orally Jun 26, Active 1 capsule ER Once a day 2017 with food Abilify [facility] 84505350064 15 MG Orally Active 1 tablet Once a day Ranitidine HCl [facility] 84765344369 150 MG Orally Inactive 1 capsule Once a day at bedtime One Touch Delica NDC 0 Active not Lancets defined Symbicort [facility] 47576216043 160-4.5 Active 2 puffs MCG/ACT Inhalation Twice a day Klor-Con M10 [facility] 29420314078 10 MEQ Orally Active 1 tablet once a day with food Aripiprazole [facility] 08081449826 15 MG Orally Jun 26, Active 1 tablet Once a day 2017 [place] [facility] 31659041197 300 MG Orally Active 1 tablet Carbonate ER Once a day at bedtime Divalproex [facility] 38823649018 250 MG Orally Active as Sodium ER at bedtime directed Diclofenac [facility] [address]-92 1 % Active not Sodium Transdermal defined Lasix [facility] 50675180518 20 MG Orally Active 1 tablet Once a day Proventil HFA [facility] 84418429961 108 (90 Base) Active 2 puffs as MCG/ACT needed Inhalation every 6 hrs One Touch Verio ND 0 n/s finger Active one strip prick once a day BusPIRone HCl [facility] [address]-62 Active not defined Naproxen [facility] 70272480785 500 MG Orally Active 1 tablet Twice a day Provera [facility] 69575060326 10 MG Orally Active 1 tablet Once a day with food Bactrim DS [facility] 33961053345 800-160 MG Active 1 tablet Orally Twice a day Depakote [facility] [address]-95 Active not defined Montelukast [facility] 40233969288 10 MG Orally Active 1 tablet Sodium Once a day Eliquis [facility] 90489900373 5 MG Orally Active as directed Pantoprazole [facility] 27400024435 40 MG Orally Feb 11, Active 1 tablet Sodium Once a day 2019 Effexor [facility] 30624326738 Active not defined Abilify [facility] [address]-86 Active not defined BusPIRone HCl [facility] 48333719764 15 MG Orally Jun 26, Active 1 tablet Three times a 2018 day Ranitidine HCl [facility] 61757849662 150 MG Active TAKE 1 CAPSULE BY MOUTH EVERYDAY AT BEDTIME Amitriptyline [facility] 86761811655 25 MG Orally Jun 26, Active 1 tablet HCl Once a day at 2018 bedtime Amitriptyline [facility] 0 Active not HCl defined Metoprolol [facility] 55942952308 50 MG Orally Active 1 tablet Succinate ER Once a day Symbicort [facility] 39642947959 160-4.5 Active 2 puffs MCG/ACT Inhalation Twice a day Pantoprazole [facility] 64815737219 40 MG Orally Active 1 tablet Sodium Once a day Topiramate [facility] 28284073431 50 MG Orally Active 1 tablet Twice a day Results No Known Results Summary Purpose eClinicalWorks Submission
--- NOTE | 2019-03-11 22:39 | ER ---
Nurse's Notes [facility] Name: Cely Valadez Age: 39 yrs Sex: Female : 1980 Arrival Date: 03/11/2019 Time: 20:49 Bed Waiting Private MD: Diagnosis: Presentation: 03/11 20:56 Presenting complaint: Patient states: "I went to the emergency clinic a couple days aj1 ago, and they tried to help me out but they don't know whats going on. My lower back and my side started hurting 2 to 3 days. They claimed it was back pain due to muscle problems but its shooting up into my upper back" Denies recent injury. Denies dysuria. Transition of care: patient was not received from another setting of care. Onset of symptoms was March 11, 2019. Risk Assessment: Do you want to hurt yourself or someone else? Patient reports no desire to harm self or others. Initial Sepsis Screen: Does the patient meet any 2 criteria? No. Patient's initial sepsis screen is negative. Does the patient have a suspected source of infection? No. Patient's initial sepsis screen is negative. Care prior to arrival: None. 20:56 Method Of Arrival: Ambulatory aj1 20:56 Acuity: ADRIANA 4 aj1 22:37 Note Patient notified registration staff that she was leaving because her ride was aj1 leaving and she didn't want to wait anymore. Triage Assessment: 20:59 General: Appears in no apparent distress. comfortable, Behavior is calm, cooperative, aj1 appropriate for age. Pain: Complains of pain in back Pain currently is 6 out of 10 on a pain scale. Neuro: Level of Consciousness is awake, alert, obeys commands. Cardiovascular: Patient's skin is warm and dry. Respiratory: Airway is patent Respiratory effort is even, unlabored, Respiratory pattern is regular, symmetrical. Musculoskeletal: Circulation, motion, and sensation intact. Range of motion: intact in all extremities. [employer]: 20:59 LMP 01/2019 aj1 Historical: - Allergies: 20:59 NKDA; aj1 - PMHx: 20:59 acid reflux; Asthma; Bipolar disorder; DVT; aj1 - Immunization history:: Flu vaccine is not up to date. - Social history:: Smoking status: Patient uses tobacco products, smokes two packs cigarettes per day. - Ebola Screening: : Patient denies travel to an Ebola-affected area in the 21 days before illness onset. Vital Signs: 20:59 BP 148 / 93; Pulse 81; Resp 18; Temp 97.4; Pulse Ox 98% on R/A; Weight 139.71 kg (R); aj1 Height 5 ft. 4 in. (162.56 cm) (R); Pain 6/10; 20:59 Body Mass Index 52.87 (139.71 kg, 162.56 cm) aj1 ED Course: 20:49 Patient arrived in ED. cf2 20:58 Triage completed. aj1 20:59 Arm band placed on Patient placed in waiting room, Patient notified of wait time. aj1 Administered Medications: No medications were administered Outcome: 22:38 Patient left the ED. aj1 Signatures: Lucy Bowles RN RN aj1 Rebekah Devi cf2
[2019-03-12 09:01] VITALS: BP 148/93; TEMP 97.4; O2SAT 98
== END 2019-03-11 22:38 | disposition left against medical advice (07) ==
LOC: ER 20:47
DX: Z02.9 Encounter for administrative examinations, unspecified (principal)
CPT/HCPCS: 99281

== ENCOUNTER 2019-04-08 11:19 | Emergency (ER) | payer OTHER ==
--- OUTSIDE RECORDS SUMMARY | 2019-04-08 11:33 | XMS REPORT ---
[...] End Status Dosage System Date Date Mirtazapine [facility] 70767381329 7.5 MG Orally Active 1 tablet Once a day at bedtime Venlafaxine HCl [facility] 49521116773 75 MG Orally Jun 26, Active 1 capsule ER Once a day 2017 with food Abilify [facility] 44234045514 15 MG Orally Active 1 tablet Once a day Ranitidine HCl [facility] 74398136067 150 MG Orally Inactive 1 capsule Once a day at bedtime One Touch Delica NDC 0 Active not Lancets defined Symbicort [facility] 83899781118 160-4.5 Active 2 puffs MCG/ACT Inhalation Twice a day Klor-Con M10 [facility] 22270229199 10 MEQ Orally Active 1 tablet once a day with food Aripiprazole [facility] 81733050620 15 MG Orally Jun 26, Active 1 tablet Once a day 2017 [place] [facility] 78922626003 300 MG Orally Active 1 tablet Carbonate ER Once a day at bedtime Divalproex [facility] 45684117728 250 MG Orally Active as Sodium ER at bedtime directed Diclofenac [facility] [address]-53 1 % Active not Sodium Transdermal defined Lasix [facility] 22243402403 20 MG Orally Active 1 tablet Once a day Proventil HFA [facility] 10427138516 108 (90 Base) Active 2 puffs as MCG/ACT needed Inhalation every 6 hrs One Touch Verio ND 0 n/s finger Active one strip prick once a day BusPIRone HCl [facility] [address]-29 Active not defined Naproxen [facility] 50632880453 500 MG Orally Active 1 tablet Twice a day Provera [facility] 64957319454 10 MG Orally Active 1 tablet Once a day with food Bactrim DS [facility] 45185753897 800-160 MG Active 1 tablet Orally Twice a day Depakote [facility] [address]-06 Active not defined Montelukast [facility] 81490559647 10 MG Orally Active 1 tablet Sodium Once a day Eliquis [facility] 22151138169 5 MG Orally Active as directed Pantoprazole [facility] 01427586449 40 MG Orally Feb 11, Active 1 tablet Sodium Once a day 2019 Effexor [facility] 52210621540 Active not defined Abilify [facility] [address]-97 Active not defined BusPIRone HCl [facility] 87870842643 15 MG Orally Jun 26, Active 1 tablet Three times a 2018 day Ranitidine HCl [facility] 97250236211 150 MG Active TAKE 1 CAPSULE BY MOUTH EVERYDAY AT BEDTIME Amitriptyline [facility] 41992826622 25 MG Orally Jun 26, Active 1 tablet HCl Once a day at 2018 bedtime Amitriptyline [facility] 0 Active not HCl defined Metoprolol [facility] 09583215663 50 MG Orally Active 1 tablet Succinate ER Once a day Symbicort [facility] 81153707923 160-4.5 Active 2 puffs MCG/ACT Inhalation Twice a day Pantoprazole [facility] 88896399200 40 MG Orally Active 1 tablet Sodium Once a day Topiramate [facility] 50476272730 50 MG Orally Active 1 tablet Twice a day Results No Known Results Summary Purpose eClinicalWorks Submission
--- OUTSIDE RECORDS SUMMARY | 2019-04-08 11:34 | XMS REPORT ---
[...] reflux disease K21.9 Active without esophagitis Problem Hyperglycemia R73.9 Active Problem Cough R05 Active Problem Swelling R60.9 Active Problem Pharyngitis, unspecified etiology J02.9 Active Problem Fatty liver K76.0 Active Problem Gastroesophageal reflux disease, K21.9 Active esophagitis presence not specified Problem BMI 50.0-59.9, adult Z68.43 Active Problem Edema, unspecified type R60.9 Active Problem Intractable vomiting with nausea, R11.2 Active unspecified vomiting type Problem Sinus problem J34.9 Active Problem Obesity, morbid, BMI 50 or higher E66.01 Active Problem Mild intermittent asthma without J45.20 Active complication Problem Bilateral lower extremity edema R60.0 Active Problem Vaginal bleeding N93.9 Active Problem Cigarette nicotine dependence F17.210 Active without complication Problem PUD (peptic ulcer disease) K27.9 Active Problem Elevated liver enzymes R74.8 Active Problem Allergic rhinitis J30.9 Active Problem Hypertriglyceridemia E78.1 Active Problem Vertigo R42 Active Problem Urge incontinence N39.41 Active Problem Stress incontinence N39.3 Active Problem Chronic sinus complaints R09.89 Active Problem Arthritis of right knee M17.11 Active Problem Other chronic pain G89.29 Active Medications No Known Medications Results No Known Results Summary Purpose [employer]ClinicalWorks Submission
--- OUTSIDE RECORDS SUMMARY | 2019-04-08 11:34 | XMS REPORT ---
[...] rhinitis J30.9 Active Problem Hypertriglyceridemia E78.1 Active Assessment Muscle tightness M62.89 Active Problem Vertigo R42 Active Assessment Acute left-sided low back pain M54.5 Active without sciatica Problem Urge incontinence N39.41 Active Problem Stress incontinence N39.3 Active Problem Chronic sinus complaints R09.89 Active Problem Arthritis of right knee M17.11 Active Problem Other chronic pain G89.29 Active Medications Medication Code Code Instructions Start End Status Dosage System Date Date Aripiprazole [facility] 68949582795 15 MG Orally Jun 26, Active 1 tablet Once a day [address] [facility] 36785677272 7.5 MG Orally Active 1 tablet Once a day at bedtime Eliquis [facility] 43169669892 5 MG Orally Active as directed [place] Carbonate [facility] 99528126637 300 MG Orally Active 1 tablet ER Once a day at bedtime Diclofenac Sodium [facility] [address]-06 1 % Active not Transdermal defined Ranitidine HCl [facility] 29739509296 150 MG Active TAKE 1 CAPSULE BY MOUTH EVERYDAY AT BEDTIME Amitriptyline HCl [facility] 0 Active not defined Venlafaxine HCl ER [facility] 32375132793 75 MG Orally Jun 26, Active 1 capsule Once a day 2017 with food Abilify [facility] 79344281169 15 MG Orally Active 1 tablet Once a day Divalproex Sodium [facility] 31087345866 250 MG Orally Active as ER at bedtime directed Cyclobenzaprine [facility] 25314977040 10 MG Orally Mar 19, Dec Active 1 tablet HCl once a day at 2018 11, as needed bedtime [address] [facility] 12379643482 20 MG Orally Active 1 tablet Once a day BusPIRone HCl [facility] [address]-83 Active not defined Bactrim DS [facility] 93413567292 800-160 MG Active 1 tablet Orally Twice a day Cyclobenzaprine [facility] 45633376001 10 MG Orally Active 1 tablet HCl Three times a as needed day Amitriptyline HCl [facility] 69720407714 25 MG Orally Jun 26, Active 1 tablet Once a day at 2018 bedtime BusPIRone HCl [facility] 67375705511 15 MG Orally Jun 26, Active 1 tablet Three times a [address] [facility] 46103070660 160-4.5 Active 2 puffs MCG/ACT Inhalation Twice a day Klor-Con M10 [facility] 30159707974 10 MEQ Orally Active 1 tablet once a day with food Abilify [facility] [address]-13 Active not defined Naproxen [facility] 18395946883 500 MG Orally Active 1 tablet Twice a day Provera [facility] 75643178133 10 MG Orally Active 1 tablet Once a day with food One Touch Verio ND 0 n/s finger Active one strip prick once a day Proventil HFA [facility] 81328466613 108 (90 Base) Active 2 puffs as MCG/ACT needed Inhalation every [address] [facility] 38736795801 160-4.5 Active 2 puffs MCG/ACT Inhalation Twice a day Pantoprazole [facility] 24819087168 40 MG Orally Oct 16, Active 1 tablet Sodium Once a day [address] [facility] 75271034873 50 MG Orally Active 1 tablet Twice a day One Touch Delica [facility] 0 Active not Lancets defined Montelukast Sodium [facility] 41275685701 10 MG Orally Active 1 tablet Once a day Effexor [facility] 04066342348 Active not defined Pantoprazole [facility] 40678227890 40 MG Orally Active 1 tablet Sodium Once a day Metoprolol [facility] 53212276985 50 MG Orally Active 1 tablet Succinate ER Once a day Depakote [facility] [address]-42 Active not defined Results No Known Results Summary Purpose eClinicalWorks Submission
--- OUTSIDE RECORDS SUMMARY | 2019-04-08 11:34 | XMS REPORT ---
:1980 [facility] Address [address] [place] [address] Care Team Providers Name Role Phone Unavailable Unavailable Unavailable Problems This patient has no known problems. Allergies, Adverse Reactions, Alerts This patient has no known allergies or adverse reactions. Medications This patient has no known medications.
[2019-04-08] MEDS ORDERED: IBUPROFEN 200 MG TAB PO ONE (12:15)
--- NOTE | 2019-04-08 12:46 | RAD REPORT ---
EXAM DESCRIPTION: RAD - Ankle Left 3 View - 04/08/2019 12:24 pm CLINICAL HISTORY: PAIN Twisting injury to left ankle. COMPARISON: Ankle Left 3 View dated 12/16/2016 FINDINGS: Mild soft tissue swelling is seen about the ankle. No fracture or dislocation is seen. Sma ll calcaneal spurs.
--- NOTE | 2019-04-08 13:41 | ER ---
Nurse's Notes [facility] Name: Cely Valadez Age: 39 yrs Sex: Female : 1980 Arrival Date: 04/08/2019 Time: 11:23 Bed 23 Private MD: Cassandra Carrington Diagnosis: Sprain of unspecified ligament of left ankle Presentation: 04/08 11:30 Presenting complaint: Twisted left ankle while walking today, c/o pain 10/06. Transition hb of care: patient was not received from another setting of care. Onset of symptoms was April 08, 2019. Risk Assessment: Do you want to hurt yourself or someone else? Patient reports no desire to harm self or others. Initial Sepsis Screen: Does the patient meet any 2 criteria? No. Patient's initial sepsis screen is negative. Does the patient have a suspected source of infection? No. Patient's initial sepsis screen is negative. Care prior to arrival: None. 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 hb Historical: - Allergies: 11:31 NKDA; hb - Home Meds: 11:31 Abilify 15 mg Oral tab 1 tab once daily [Active]; Amitriptyline Oral once daily hb [Active]; buspirone 15 mg Oral tab 2 times per day [Active]; Depakote ER 500 mg Oral Tb24 1 tab once daily [Active]; Effexor XR 37.5 mg Oral cp24 1 cap once daily [Active]; omeprazole 40 mg Oral cpDR 1 cap once daily [Active]; ProAir HFA 90 mcg/actuation inhalation HFAA 2 puffs as needed [Active]; topiramate 25 mg Oral tab 1 tabs daily [Active]; Hydralazine Oral [Active]; - PMHx: 11:31 acid reflux; Bipolar disorder; Asthma; DVT; hb - Immunization history:: Adult Immunizations up to date. - Social history:: Smoking status: Patient uses tobacco products, smokes one pack cigarettes per day. - Ebola Screening: : No symptoms or risks identified at this time. Screenin:09 Abuse screen: Denies threats or abuse. Denies injuries from another. Nutritional mg2 screening: No deficits noted. Tuberculosis screening: No symptoms or risk factors identified. Fall Risk Gait- Weak (10 pts.). Assessment: 12:08 General: Appears in no apparent distress. uncomfortable, Behavior is calm, cooperative. mg2 Pain: Complains of pain in left foot Pain does not radiate. Quality of pain is described as aching, Pain began suddenly, 1 day ago. Is intermittent, Aggravated by increased activity, weight bearing. Neuro: Level of Consciousness is awake, alert, obeys commands, Oriented to person, place, time, situation. Cardiovascular: Capillary refill < 3 seconds Patient's skin is warm and dry. Respiratory: Airway is patent Respiratory effort is even, unlabored, Respiratory pattern is regular, symmetrical. GI: No signs and/or symptoms were reported involving the gastrointestinal system. : No signs and/or symptoms were reported regarding the genitourinary system. EENT: No signs and/or symptoms were reported regarding the EENT system. Derm: Skin is intact, is healthy with good turgor, Skin is pink, warm \T\ dry. normal. Derm: Musculoskeletal: Swelling present in left foot. Vital Signs: 11:31 BP 144 / 90; Pulse 88; Resp 16; Temp 97.37; Pulse Ox 100% on R/A; Weight 139.71 kg; hb Height 5 ft. 4 in. (162.56 cm); Pain 6/10; 12:30 BP 135 / 78; Pulse 80; Resp 18; Temp 98; Pulse Ox 100% on R/A; mg2 13:25 BP 146 / 77; Pulse 83; Resp 18; Pulse Ox 100% on R/A; mg2 11:31 Body Mass Index 52.87 (139.71 kg, 162.56 cm) hb ED Course: 11:23 Patient arrived in ED. mr 11:23 Cassandra Carrington MD is Private Physician. mr 11:25 Davis Wetson MD is Attending Physician. kdr 11:30 Triage completed. hb 11:31 Arm band placed on. hb 11:51 Magen Jade, BHARATH is Primary Nurse. mg2 12:09 Patient has correct armband on for positive identification. Door closed. mg2 12:10 No provider procedures requiring assistance completed. Patient did not have IV access mg2 during this emergency room visit. 12:25 Ankle Left 3 View XRAY In Process Unspecified. EDMS 13:26 Yoshi wrap to left foot. mg2 13:39 Cassandra Carrington MD is Referral Physician. kdr Administered Medications: 12:21 Drug: Ibuprofen 600 mg Route: PO; mg2 12:53 Follow up: Response: No adverse reaction mg2 Outcome: 13:40 Discharge ordered by MD. kdr 13:50 Discharged to home via wheelchair. mg2 13:50 Condition: stable 13:50 Discharge instructions given to patient, Instructed on discharge instructions, follow mg2 up and referral plans. medication usage, Demonstrated understanding of instructions, follow-up care, medications, Prescriptions given X 1. 13:52 Patient left the ED. mg2 Signatures: Dispatcher [employer] EDMS Davis Weston MD MD [facility] Delia Canales mr Mohini Hein RN RN Magen Jade RN RN mg2
--- NOTE | 2019-04-08 13:41 | EDPHYS ---
Physician Documentation [facility] Name: Cely Valadez Age: 39 yrs Sex: Female : 1980 Arrival Date: 04/08/2019 Time: 11:23 Bed 23 Private MD: Cassandra Carrington ED Physician Davis Weston HPI: 04/08 12:11 This 39 yrs old Female presents to ER via Ambulatory with complaints of left kdr ankle pain. 12:12 The patient presents with decreased range of motion, an injury, pain, that is acute, kdr swelling, tenderness. The complaints affect the left ankle. Onset: The symptoms/episode began/occurred acutely, just prior to arrival, this morning. Context: The problem was sustained on a street or driveway, resulted from a mis-step by the patient, The mechanism of injury involved inversion of the affected ankle. The patient can partially bear weight on the affected extremity. the patient is able to ambulate, with mild difficulty. Associated signs and symptoms: The patient has no apparent associated signs or symptoms. Modifying factors: The symptoms are alleviated by sitting, the symptoms are aggravated by weight bearing, movement. Severity of symptoms: At their worst the symptoms were very mild, mild, in the emergency department the symptoms are unchanged. The patient has not experienced similar symptoms in the past. The patient has not recently seen a physician. 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 hb Historical: - Allergies: 11:31 NKDA; hb - Home Meds: 11:31 Abilify 15 mg Oral tab 1 tab once daily [Active]; Amitriptyline Oral once daily hb [Active]; buspirone 15 mg Oral tab 2 times per day [Active]; Depakote ER 500 mg Oral Tb24 1 tab once daily [Active]; Effexor XR 37.5 mg Oral cp24 1 cap once daily [Active]; omeprazole 40 mg Oral cpDR 1 cap once daily [Active]; ProAir HFA 90 mcg/actuation inhalation HFAA 2 puffs as needed [Active]; topiramate 25 mg Oral tab 1 tabs daily [Active]; Hydralazine Oral [Active]; - PMHx: 11:31 acid reflux; Bipolar disorder; Asthma; DVT; hb - Immunization history:: Adult Immunizations up to date. - Social history:: Smoking status: Patient uses tobacco products, smokes one pack cigarettes per day. - Ebola Screening: : No symptoms or risks identified at this time. ROS: 12:13 Constitutional: Negative for fever, chills, and weight loss, Eyes: Negative for injury, kdr pain, redness, and discharge, Neck: Negative for injury, pain, and swelling. 12:13 MS/extremity: Positive for injury or acute deformity, decreased range of motion, pain, swelling, tenderness, of the left lateral ankle and lateral aspect of left foot. Exam: 12:13 Constitutional: This is a well developed, well nourished patient who is awake, alert, kdr and in no acute distress. 12:13 Musculoskeletal/extremity: Extremities: grossly normal except: noted in the left lateral ankle and lateral aspect of left foot: ROM: limited active range of motion, limited passive range of motion, limited active range of motion due to pain, limited passive range of motion due to pain. Vital Signs: 11:31 BP 144 / 90; Pulse 88; Resp 16; Temp 97.37; Pulse Ox 100% on R/A; Weight 139.71 kg; hb Height 5 ft. 4 in. (162.56 cm); Pain 6/10; 12:30 BP 135 / 78; Pulse 80; Resp 18; Temp 98; Pulse Ox 100% on R/A; mg2 13:25 BP 146 / 77; Pulse 83; Resp 18; Pulse Ox 100% on R/A; mg2 11:31 Body Mass Index 52.87 (139.71 kg, 162.56 cm) hb MDM: 12:13 Data reviewed: vital signs, nurses notes, radiologic studies. Counseling: I had a kdr detailed discussion with the patient and/or guardian regarding: the historical points, exam findings, and any diagnostic results supporting the discharge/admit diagnosis, radiology results, the need for outpatient follow up. 13:40 Patient medically screened. kdr 04/08 12:10 Order name: Ankle Left 3 View XRAY; Complete Time: 13:39 kdr 04/08 12:10 Order name: Yoshi wrap-joint: Left ankle; Complete Time: 13:08 kdr Administered Medications: 12:21 Drug: Ibuprofen 600 mg Route: PO; mg2 12:53 Follow up: Response: No adverse reaction mg2 Disposition: 04/08/19 13:40 Discharged to Home. Impression: Sprain of unspecified ligament of left ankle. - Condition is Fair. - Discharge Instructions: Crutch Use, [id number], Ankle Sprain, [id number]. - Prescriptions for Ibuprofen 800 mg Oral Tablet - take 1 tablet by ORAL route every 8 hours As needed take with food; 15 tablet. - Medication Reconciliation Form, Thank You Letter form. - Follow up: Cassandra Carrington MD; When: 2 - 3 days; Reason: If symptoms return, Further diagnostic work-up, Recheck today's complaints, Continuance of care, Re-evaluation by your physician. - Problem is new. - Symptoms have improved. Signatures: Dispatcher [employer] EDMA Davis Weston MD MD [facility] Mohini Hein RN RN Magen Jade RN RN mg2 Corrections: (The following items were deleted from the chart) 13:52 13:40 04/08/2019 13:40 Discharged to Home. Impression: Sprain of unspecified ligament mg2 of left ankle. Condition is Fair. Forms are Medication Reconciliation Form, Thank You Letter, Antibiotic Education, Prescription Opioid Use. Follow up: Cassandra Carrington; When: 2 - 3 days; Reason: If symptoms return, Further diagnostic work-up, Recheck today's complaints, Continuance of care, Re-evaluation by your physician. Problem is new. Symptoms have improved. kdr
[2019-04-08 14:18] VITALS: BP 146/77; O2SAT 100
== END 2019-04-08 13:52 | disposition home or self-care (01) ==
LOC: ER 11:19
DX: S93.402A Sprain of unspecified ligament of left ankle, initial encounter (principal); X58.XXXA Exposure to other specified factors, initial encounter; Y93.01 Activity, walking, marching and hiking; Y92.89 Other specified places as the place of occurrence of the external cause; Z86.718 Personal history of other venous thrombosis and embolism; F31.9 Bipolar disorder, unspecified; J45.909 Unspecified asthma, uncomplicated; F17.210 Nicotine dependence, cigarettes, uncomplicated
CPT/HCPCS: 99284

== ENCOUNTER 2019-10-12 07:25 | Emergency (ER) | payer OTHER ==
--- OUTSIDE RECORDS SUMMARY | 2019-10-12 07:27 | XMS REPORT | Summary of Care ---
:1980 Author Organization [facility] Address [address] [place] [address] Care Team Providers Name Role Phone Mukul Estevez MD Unavailable Unavailable 1, Lab Unavailable Unavailable Salma Carrington Primary Care Provider Reason for Visit Reason Comments Appointment appt change Encounter Details Date Type Department Care Team Description 07/16/2019 Telephone [facility] Vascular Ramón Ingram MD Appointment (appt Surgery- [address]) [address] [place] [address] [address] [id number] [place], [place] [phone] [address] [phone] Allergies Active Allergy Reactions Severity Noted Date Comments Oats Nausea and/or Vomiting 02/02/2016 documented as of this encounter (statuses as of 07/17/2019) Medications Medication Sig Dispensed Refills Start Date End Date Status busPIRone 30 mg tablet TAKE 1 TABLET (30 0 7 Active MG) BY MOUTH 2 TIMES PER [...] 2 0 Active 160-4.5 mcg/actuation (two) times daily. inhaler amitriptyline 25 mg Take 25 mg by 0 Active tablet mouth at bedtime. ARIPiprazole 15 mg Take 15 mg by 0 Active tablet mouth daily. pantoprazole 20 mg EC Take 40 mg by 0 Active tablet mouth daily. KLOR-CON 10 10 mEq CR TAKE 1 TABLET BY 30 tablet 0 04/21/2018 Active tabletIndications: MOUTH DAILY. Pedal edema blood sugar diagnostic Use BID, DX E11.9 100 Box 11 9 Active strip (Brand upon insurance approval)ONE TOUCH VERIO TEST STRIP hydrOXYzine 25 mg TK 1 T PO BID PRN 0 02/21/2019 Active tablet divalproex ER 500 mg TK 2 TS PO QHS. 0 02/28/2019 Active 24 hr tablet diclofenac 75 mg EC Take 1 tablet by 60 tablet 1 03/25/2019 Active tabletIndications: mouth 2 (two) Right knee pain, times daily with unspecified chronicity meals. aspirin 81 mg EC Take 1 tablet by 0 05/06/2019 Active tabletIndications: mouth daily. Chest pain, unspecified type nitroglycerin 0.[address] 1 tablet 1 Bottle 5 05/06/2019 Active sublingual under the tongue tabletIndications: every 5 (five) Chest pain, minutes as needed unspecified type for Chest pain. Venlafaxine 150 mg TK 1 T PO QD 0 06/25/2019 Active tablet erythromycin 5 mg/gram Place 0.5 Inches 1 g 1 07/09/2019 Active (0.5 %) ophthalmic in both eyes 4 ointmentIndications: (four) times Hordeolum externum of daily. right lower eyelid documented as of this encounter (statuses as of 07/17/2019) Active Problems Problem Noted Date Right knee pain 11/16/2016 Pedal edema 11/11/2016 Morbid obesity due to excess calories 09/12/2016 Irregular menstrual cycle 09/12/2016 Exposure to hepatitis C 09/12/2016 Exposure to hepatitis B 09/12/2016 Left lower quadrant pain 06/07/2016 Weight loss 06/07/2016 Elevated glucose 06/07/2016 Polyuria 06/07/2016 Hirsutism 06/07/2016 Acne, unspecified acne type 06/07/2016 documented as of this encounter (statuses as of 07/17/2019) Resolved Problems Problem Noted Date Resolved Date PCOS (polycystic ovarian syndrome) 08/09/201609/12 Routine gynecological examination 06/07/20162016 documented as of this encounter (statuses as of 07/17/2019) Immunizations Name Administration Dates Next Due Influenza [...] filedocumented in this encounter Plan of Treatment Date Type Specialty Care Team Description 12/09/2019 Office Visit Cardiology Demetra Washington M D [address] [place] [address] [phone] Health Maintenance Due Date Last Done Comments Breast Cancer Screening 02/27/2020 02/26/2019 (MAMMOGRAM) PNEUMOCOCCAL 0-64 YEARS 05/26/2020 Postpone d from 1985 COMBINED SERIES (1 of 1 - (Refus ed) PPSV23) INFLUENZA VACCINE (#1) 2020 03/25/2017 Postponed from 12/28/2018 (Refused) PAP SMEAR 10/18/2021 10/18/2016, 02/10/2014 (Previously completed), 11/20/2005 DTaP,Tdap,and Td Vaccines (2 02/01/2026 02/02/2016 - Td) documented as of this encounter Results Not on filedocumented in this encounter Insurance Payer Benefit Plan / Subscriber ID Effective Dates Phone Addre ss Type Group [facility] xxxxxxxxx 2018-Present Medicaid COMM PLAN - PLUS MANAGED MEDICAID documented as of this encounter
--- OUTSIDE RECORDS SUMMARY | 2019-10-12 07:28 | XMS REPORT ---
:1980 Author Organization [employer] Care Team Providers Name Role Phone Carrington, Na Provider Role Unavailable Allergies No Known Allergies Problems Problem Type Condition Code Onset Dates Condition Statu s Problem GERD (gastroesophageal reflux K21.9 Active disease) Problem Anxiety F41.9 Active Problem Overactive bladder N32.81 Active Problem Bipolar 1 disorder F31.9 Active Problem Bipolar disorder F31.9 Active Problem History of hypothyroidism Z86.39 Ac tive Problem Migraine G43.909 Active Problem Gastroesophageal reflux disease K21.9 Active without esophagitis Problem Swelling R60.9 Active Problem Sinus problem J34.9 Active Problem Pharyngitis, unspecified etiology J02.9 Active Problem Gastroesophageal reflux disease, K21.9 Active esophagitis presence not specified Problem Mild intermittent asthma without J45.20 Active complication Problem Fatty liver K76.0 Active Problem Bilateral lower extremity edema R60.0 Active Problem Vaginal bleeding N93.9 Active Problem Primary osteoarthritis involving M15.0 Active multiple joints Problem Obesity, morbid, BMI 50 or higher E66.01 Active Problem Arthritis of right knee M17.11 Acti ve Problem Vertigo R42 Active Problem Abnormal mammogram of left breast R92.8 Active Problem Intractable vomiting with nausea, R11.2 Active unspecified vomiting type Problem Cigarette nicotine dependence F17.210 Active without complication Problem PUD (peptic ulcer disease) K27.9 A ctive Problem BMI 50.0-59.9, adult Z68.43 Active Problem Edema, unspecified type R60.9 Acti ve Problem Hyperlipidemia E78.5 Active Problem Hypertriglyceridemia E78.1 Active Problem Asthma J45.909 Active Problem Other chronic pain G89.29 Active Problem Urge incontinence N39.41 Active Problem Allergic rhinitis J30.9 Active Problem Elevated liver enzymes R74.8 Activ e Problem Hyperglycemia R73.9 Active Problem Cough R05 Active Problem Stress incontinence N39.3 Active Problem Chronic sinus complaints R09.89 Act wale Medications No Known Medications Results No Known Results Summary Purpose [employer] Submission
--- OUTSIDE RECORDS SUMMARY | 2019-10-12 07:29 | XMS REPORT | Summary of Care ---
:1980 Author Organization [facility] Address [address] [place] [address] Care Team Providers Name Role Phone Mukul Estevez MD Unavailable Unavailable 1, Lab Unavailable Unavailable Salma Carrington Primary Care Provider Reason for Visit Reason Comments Refill Request Encounter Details Date Type Department Care Team Description 08/20/2019 Telephone [facility] Orthopaedic Geno Brownlee, PAC Refill Request Surgery- [place] [address] [facility], [place] [address] [place], [place] [phone] [address] [phone] Allergies Active Allergy Reactions Severity Noted Date Comments Oats Nausea and/or Vomiting 02/02/2016 documented as of this encounter (statuses as of 08/20/2019) Medications Medication Sig Dispensed Refills Start Date End Date Status busPIRone 30 mg TAKE 1 TABLET 0 11/23/2016 Active tablet (30 MG) BY MOUTH 2 TIMES PER DAY Diclofenac Sodium Take 2-4 grams 100 g 3 03/25/2017 Active (VOLTAREN) 1 % twice a day as gelIndications: needed for Muscle spasm pain albuterol (PROAIR Inhale 2 Puffs 8.5 g 11 03/25/2017 Active HFA) 90 every 6 (six) mcg/actuation hours as inhalerIndications needed for : Intrinsic asthma Wheezing or without status Shortness of asthmaticus, mild Breath. intermittent, uncomplicated mirtazapine 7.5 mg Take 7.5 mg by 0 Active tablet mouth at bedtime. solifenacin Take 10 mg by 0 Acti ve (VESICARE) 10 mg mouth daily. tablet ranitidine 150 mg Take 150 mg by 0 Active capsule mouth at bedtime. montelukast 10 mg Take 10 mg by 0 Active tablet mouth. budesonide-formote Inhale 2 Puffs 0 Active rol 160-4.5 2 (two) times mcg/actuation daily. inhaler amitriptyline 25 Take 25 mg by 0 Active mg tablet mouth at bedtime. ARIPiprazole 15 mg Take 15 mg by 0 Active tablet mouth daily. pantoprazole 20 mg Take 40 mg by 0 Active EC tablet mouth daily. KLOR-CON 10 10 mEq TAKE 1 TABLET 30 tablet 0 04/21/2018 Active CR BY MOUTH tabletIndications: DAILY. Pedal edema blood sugar Use BID, DX 100 Box 11 12/05/2018 Activ e diagnostic strip E11.9 (Brand upon insurance approval)ONE TOUCH VERIO TEST STRIP hydrOXYzine 25 mg TK 1 T PO BID 0 02/21/2019 Active tablet PRN divalproex ER 500 TK 2 TS PO 0 02/28/2019 Active mg 24 hr tablet QHS. aspirin 81 mg EC Take 1 tablet 0 05/06/2019 Active tabletIndications: by mouth Chest pain, daily. unspecified type nitroglycerin 0.4 Place 1 tablet 1 Bottle 5 05/06/2019 Active mg sublingual under the tabletIndications: tongue every Chest pain, 5 (five) unspecified type minutes as needed for Chest pain. Venlafaxine 150 mg TK 1 T PO QD 0 06/25/2019 Active tablet erythromycin [address] Place 0.5 1 g 1 07/09/2019 Acti ve mg/gram (0.5 %) Inches in both ophthalmic eyes 4 (four) ointmentIndication times daily. s: Hordeolum externum of right lower eyelid diclofenac 75 mg Take 1 tablet 60 tablet 1 08/20/2019 Active EC by mouth 2 tabletIndications: (two) times Right knee pain, daily with unspecified meals. chronicity diclofenac 75 mg Take 1 tablet 60 tablet 1 03/25/2019 08/20/19 2 Discontinued EC by mouth 2 0 (Reorder) tabletIndications: (two) times Right knee pain, daily with unspecified meals. chronicity documented as of this encounter (statuses as of 08/20/2019) Active Problems Problem Noted Date Right knee pain 11/16/2016 Pedal edema 11/11/2016 Morbid obesity due to excess calories 09/12/2016 Irregular menstrual cycle 09/12/2016 Exposure to hepatitis C 09/12/2016 Exposure to hepatitis B 09/12/2016 Left lower quadrant pain 06/07/2016 Weight loss 06/07/2016 Elevated glucose 06/07/2016 Polyuria 06/07/2016 Hirsutism 06/07/2016 Acne, unspecified acne type 06/07/2016 documented as of this encounter (statuses as of 08/20/2019) Resolved Problems Problem Noted Date Resolved Date PCOS (polycystic ovarian syndrome) 08/09/201609/12 Routine gynecological examination 06/07/20162016 documented as of this encounter (statuses as of 08/20/2019) Immunizations Name Administration Dates Next Due Influenza [...] Office Visit Cardiology Demetra Washington M D [address] [address] [phone] Health Maintenance Due Date Last Done Comments [...] Results Not on filedocumented in this encounter Visit Diagnoses Diagnosis Right knee pain, unspecified chronicity documented in this encounter Insurance Payer Benefit Plan / Subscriber ID Effective Dates Phone Addre ss Type [facility] xxxxxxxxx 2018-Present Medicaid COMM PLAN - PLUS MANAGED MEDICAID documented as of this encounter
--- OUTSIDE RECORDS SUMMARY | 2019-10-12 07:29 | XMS REPORT ---
[...] M17.11 Acti ve Problem Vertigo R42 Active Assessment Elevated blood pressure reading R03.0 Active without diagnosis of hypertension Problem Abnormal mammogram of left breast R92.8 Active Problem Intractable vomiting with nausea, R11.2 Active unspecified vomiting type Assessment Primary osteoarthritis involving M15.0 Active multiple joints Problem Cigarette nicotine dependence F17.210 Active without complication Assessment Hyperlipidemia E78.5 Active Problem PUD (peptic ulcer disease) K27.9 A ctive Assessment Allergic rhinitis J30.9 Active Problem BMI 50.0-59.9, adult Z68.43 Active Problem Edema, unspecified type R60.9 Acti ve Problem Hyperlipidemia E78.5 Active Problem Hypertriglyceridemia E78.1 Active Problem Asthma J45.909 Active Problem Other chronic pain G89.29 Active Problem Urge incontinence N39.41 Active Problem Allergic rhinitis J30.9 Active Problem Elevated liver enzymes R74.8 Activ e Assessment Bipolar 1 disorder F31.9 Active Problem Hyperglycemia R73.9 Active Assessment Mild intermittent asthma without J45.20 Active complication Problem Cough R05 Active Problem Stress incontinence N39.3 Active Problem Chronic sinus complaints R09.89 Act wale Medications Medication Code Code Instructions Start End Status Dosage System Date Date Depakote [facility] [address]-00 Active not defined Abilify [facility] [address]-75 Active not defined Lasix [facility] 45479300803 20 MG Orally Active 1 table t Once a day Symbicort [facility] 72351474716 160-4.5 Active 2 puffs MCG/ACT Inhalation Twice a day Bactrim DS [facility] 49260546551 800-160 MG Active 1 tabl et Orally Twice a day [facility] Carbonate [facility] 72730582843 300 MG Orally Acti ve 1 tablet ER Once a day at bedtime Eliquis [facility] 20537342655 5 MG Orally Active as directed BusPIRone HCl [facility] [address]-47 Active not defined Diclofenac Sodium [facility] [address]-36 1 % Active not Transdermal defined Montelukast Sodium [facility] 56105119769 10 MG Orally Acti ve 1 tablet Once a day Cyclobenzaprine [facility] 08578058881 10 MG Orally Active 1 tablet HCl once a day at as needed bedtime Cetirizine HCl [facility] 69482033994 10 MG Orally Active 1 tablet Once a day for allergies Abilify [facility] 37543727872 15 MG Orally Active 1 table t Once a day Provera [facility] 77363175232 10 MG Orally Active 1 table t Once a day with food Topiramate [facility] 22562026446 50 MG Orally Active 1 ta blet Twice a day Amitriptyline HCl ND 0 Active not defined Ranitidine HCl [facility] 21097796333 150 MG Active TAKE 1 CAPSULE BY MOUTH EVERYDAY AT BEDTIME Amitriptyline HCl [facility] 75368393025 25 MG Orally Jun 26, Activ e 1 tablet Once a day at 2018 bedtime Divalproex Sodium [facility] 79645738199 250 MG Orally Acti ve as ER at bedtime directed Mirtazapine [facility] 92197051499 7.5 MG Orally Active 1 tablet Once a day at bedtime Naproxen ND 45054473662 500 MG Orally Active 1 tab let Twice a day Proventil HFA [facility] 60315808724 108 (90 Base) Active 2 puffs as MCG/ACT needed Inhalation every 6 hrs Effexor [facility] 14578258405 Active not defined Aripiprazole ND 78505442301 15 MG Orally Jun 26, Active 1 tablet Once a day 2017 Pantoprazole ND 04670416047 40 MG Orally Active 1 tablet Sodium Once a day Diclofenac Sodium [facility] 95765503206 75 MG Orally Activ e 1 tablet Twice a day with food prn pain or milk BusPIRone HCl ND 36911419351 15 MG Orally Jun 26, Active 1 tablet Three times a 2017 day Metoprolol [facility] 85264236072 50 MG Orally Active 1 ta blet Succinate ER Once a day One Touch Verio ND 0 n/s finger Active one s trip prick once a day Venlafaxine HCl ER [facility] 96427921588 75 MG Orally Jun 26, Acti ve 1 capsule Once a day 2017 with food Symbicort [facility] 12572067247 160-4.5 Active 2 puffs MCG/ACT Inhalation Twice a day Klor-Con M10 [facility] 30079810406 10 MEQ Orally Active 1 tablet once a day with food One Touch Delica NDC 0 Active not Lancets defined Pantoprazole [facility] 89246744405 40 MG Orally Feb 11, Active 1 tablet Sodium Once a day 2018 Montelukast Sodium [facility] 15036291159 10 MG Orally Acti ve 1 tablet Once a day Results No Known Results Summary Purpose eClinicalWorks Submission
--- OUTSIDE RECORDS SUMMARY | 2019-10-12 07:30 | XMS REPORT ---
[...] complaints R09.89 Act wale Medications Medication Code System Code Instructions Start Date End Date Status Dosage VESIcare NDC 41040170869 10 MG Orally Once Active 1 tablet a day Results No Known Results Summary Purpose eClinicalWorks Submission
--- OUTSIDE RECORDS SUMMARY | 2019-10-12 07:31 | XMS REPORT ---
:1980 Author Organization eClinicalWorks Care Team Providers Name Role Phone Carrington, Na Provider Role Unavailable Allergies, Adverse Reactions, Alerts Substance Reaction Event Type N.K.D.A. Info Not Available Non Drug Allergy Problems Problem Type Condition Code Onset Dates Condition Statu s Problem Bipolar 1 disorder F31.9 Active Problem GERD (gastroesophageal reflux K21.9 Active disease) Problem Bipolar disorder F31.9 Active Problem Overactive bladder N32.81 Active Problem History of hypothyroidism Z86.39 Ac tive Problem Migraine G43.909 Active Assessment Elevated blood pressure reading R03.0 Active without diagnosis of hypertension Problem Gastroesophageal reflux disease K21.9 Active without esophagitis Problem Swelling R60.9 Active Problem Sinus problem J34.9 Active Problem Mild intermittent asthma without J45.20 Active complication Problem Gastroesophageal reflux disease, K21.9 Active esophagitis presence not specified Problem Fatty liver K76.0 Active Problem Intractable vomiting with nausea, R11.2 Active unspecified vomiting type Problem Vaginal bleeding N93.9 Active Problem PUD (peptic ulcer disease) K27.9 A ctive Problem Bilateral lower extremity edema R60.0 Active Problem Abnormal mammogram of left breast R92.8 Active Problem Primary osteoarthritis involving M15.0 Active multiple joints Problem Urge incontinence N39.41 Active Problem Arthritis of right knee M17.11 Acti ve Assessment Hyperlipidemia E78.5 Active Problem Mixed incontinence urge and stress N39.46 Active Problem Vertigo R42 Active Assessment Primary osteoarthritis involving M15.0 Active multiple joints Problem Edema, unspecified type R60.9 Acti ve Assessment Mixed incontinence urge and stress N39.46 Active Problem Cigarette nicotine dependence F17.210 Active without complication Assessment Renal insufficiency N28.9 Active Problem Obesity, morbid, BMI 50 or higher E66.01 Active Assessment Bipolar 1 disorder F31.9 Active Problem BMI 50.0-59.9, adult Z68.43 Active Problem Asthma J45.909 Active Problem Other chronic pain G89.29 Active Problem Anxiety F41.9 Active Problem Stress incontinence N39.3 Active Problem Allergic rhinitis J30.9 Active Problem Elevated liver enzymes R74.8 Activ e Problem Hyperlipidemia E78.5 Active Problem Hypertriglyceridemia E78.1 Active Assessment Mild intermittent asthma without J45.20 Active complication Problem Cough R05 Active Problem Pharyngitis, unspecified etiology J02.9 Active Problem Chronic sinus complaints R09.89 Act wale Problem Hyperglycemia R73.9 Active Medications Medication Code Code Instructions Start End Status Dosage System Date Date Effexor [facility] 61943313727 Active not defined Abilify [facility] 21962983608 15 MG Orally Active 1 table t Once a day Eliquis [facility] 27649675018 5 MG Orally Active as directed Montelukast Sodium ND 31193982217 10 MG Orally Acti ve 1 tablet Once a day Klor-Con M10 [facility] 18590030840 10 MEQ Orally Active 1 tablet once a day with food Symbicort [facility] 64166933487 160-4.5 Active 2 puffs MCG/ACT Inhalation Twice a day Lasix [facility] 10731904445 20 MG Orally Active 1 table t Once a day Pantoprazole [facility] 44961098948 40 MG Orally Active 1 tablet Sodium Once a day Provera [facility] 99164461557 10 MG Orally Active 1 table t Once a day with food Bactrim DS [facility] 97109921476 800-160 MG Active 1 tabl et Orally Twice a day Symbicort [facility] 98971143830 160-4.5 Active 2 puffs MCG/ACT Inhalation Twice a day BusPIRone HCl ND 83707683931 15 MG Orally Jun 26, Active 1 tablet Three times a 2017 day Divalproex Sodium [facility] 01556312361 250 MG Orally Acti ve as ER at bedtime directed Topiramate [facility] 07353082160 50 MG Orally Active 1 ta blet Twice a day Diclofenac Sodium [facility] [address]-20 1 % Active not Transdermal defined One Touch Verio [facility] 0 n/s finger Active one s trip prick once a day [place] Carbonate [place] 67777242918 300 MG Orally Acti ve 1 tablet ER Once a day at bedtime Naproxen ND 45912187056 500 MG Orally Active 1 tab let Twice a day Abilify [facility] [address]-81 Active not defined Cyclobenzaprine [facility] 25154338197 10 MG Orally Active 1 tablet HCl once a day at as needed bedtime One Touch Delica ND 0 Active not Lancets defined Metoprolol [facility] 30138706322 50 MG Orally Active 1 ta blet Succinate ER Once a day VESIcare [facility] 52277949639 10 MG Orally Active 1 tabl et Once a day Montelukast Sodium ND 84055869295 10 MG Orally Acti ve 1 tablet Once a day Ranitidine HCl [facility] 04629121407 150 MG Active TAKE 1 CAPSULE BY MOUTH EVERYDAY AT BEDTIME Diclofenac Sodium [facility] 13076682746 75 MG Orally Activ e 1 tablet Twice a day with food prn pain or milk Mirtazapine [facility] 77595964688 7.5 MG Orally Active 1 tablet Once a day at bedtime Amitriptyline HCl [facility] 0 Active not defined Pantoprazole [facility] 95220793480 40 MG Orally Feb 11, Active 1 tablet Sodium Once a day 2018 Proventil HFA [facility] 85998338408 108 (90 Base) Active 2 puffs as MCG/ACT needed Inhalation every 6 hrs Depakote [facility] [address]-65 Active not defined BusPIRone HCl [facility] [address]-18 Active not defined Cetirizine HCl [facility] 47290999797 10 MG Orally Active 1 tablet Once a day for allergies Aripiprazole [facility] 39942633970 15 MG Orally Jun 26, Active 1 tablet Once a day 2017 Venlafaxine HCl ER [facility] 61191381206 75 MG Orally Jun 26, Acti ve 1 capsule Once a day 2017 with food Oxybutynin ND 42175044519 10 MG Orally September Active 1 ta blet Chloride ER Once a day 2019 Amitriptyline HCl [facility] 63185575536 25 MG Orally Jun 26, Activ e 1 tablet Once a day at 2018 bedtime Results No Known Results Summary Purpose eClinicalWorks Submission
--- OUTSIDE RECORDS SUMMARY | 2019-10-12 07:31 | XMS REPORT ---
[...] of right knee M17.11 Acti ve Problem Mixed incontinence urge and stress N39.46 Active Problem Vertigo R42 Active Problem Edema, unspecified type R60.9 Acti ve Problem Cigarette nicotine dependence F17.210 Active without complication Problem Obesity, morbid, BMI 50 or higher E66.01 Active Problem BMI 50.0-59.9, adult Z68.43 Active Problem Asthma J45.909 Active Problem Other chronic pain G89.29 Active Problem Anxiety F41.9 Active Problem Stress incontinence N39.3 Active Problem Allergic rhinitis J30.9 Active Problem Elevated liver enzymes R74.8 Activ e Problem Hyperlipidemia E78.5 Active Problem Hypertriglyceridemia E78.1 Active Problem Cough R05 Active Problem Pharyngitis, unspecified etiology J02.9 Active Problem Chronic sinus complaints R09.89 Act wale Problem Hyperglycemia R73.9 Active Medications Medication Code System Code Instructions Start Date End Date Status Dosage VESIcare [facility] 31265802970 10 MG Orally Once Active 1 tablet a day Results No Known Results Summary Purpose eClinicalWorks Submission
--- OUTSIDE RECORDS SUMMARY | 2019-10-12 07:32 | XMS REPORT | Continuity of Care Document ---
:1980 Author Organization [facility] t Address [address] [place] [address] Care Team Providers Name Role Phone Marisa Bravo Attending Clinician Juan Jose MCKNIGHT Attending Clinician Hitesh WALLIS Attending Clinician Felix MCKNIGHT Attending Clinician Problems Condition Condition Condition Status Onset Resolution Last Treating Co mments Source Name Details Category Date Date Treatment Clinician Date Bipolar Bipolar Problem Active [facility] Vertigo Vertigo Problem [facility] Migraine Migraine Problem [facility] Urge Urge Problem Active [facility] incontinen incontinen [facility] - ce ce [facility] Other Other Problem Active [facility] chronic chronic [facility] pain [facility] Overactive Overactive Problem Active [facility] bladder bladder [facility] Stress Stress Problem Active [facility] incontinen incontinen [facility] - ce [facility] Arthritis Arthritis Problem Active [facility] of right of right [facility] knee knee [facility] Intractabl Intractabl Problem Active [facility] e vomiting e vomiting [facility] - with with [facility] nausea, nausea, l unspecifie unspecifie Ou tpati d vomiting d vomiting en t type type Clinics Hypertrigl Hypertrigl Problem Active [facility] yceridemia yceridemia [facility] Elevated Elevated Problem [facility] liver liver [facility] enzymes enzymes [facility] Gastroesop Gastroesop Problem Active [facility] hageal hageal [facility] reflux reflux [facility] disease, disease, l esophagiti esophagiti Ou tpati s presence s presence en t not not Clinics specified specified Edema, Edema, Problem Active [facility] unspecifie unspecifie [facility] - d type d type [facility] History of History of Problem Active [facility] hypothyroi hypothyroi [facility] - dism dism [facility] Mild Mild Problem Active [facility] intermitte intermitte [facility] - nt asthma nt asthma Maynor kristin without without l complicati complicati Ou tpati on on ent Clinics Asthma Asthma Problem Active [facility] Anxiety Anxiety Problem Active [facility] Sinus Sinus Problem Active [facility] problem problem [facility] Allergic [facility]ergic Problem Active [facility] rhinitis rhinitis [facility] Hyperlipid Hyperlipid Problem Active [facility] emia emia [facility] Pharyngiti Pharyngiti Problem Active [facility] s, s, [facility] - unspecifie unspecifie Me moria d etiology d etiology l [facility] Cough Cough Problem Active [facility] Hyperglyce Hyperglyce Problem Active [facility] afsaneh afsaneh [facility] Chronic Chronic Problem Active [facility] sinus sinus [facility] complaints complaints Me moria l [facility] Fatty Fatty Problem Active [facility] liver liver [facility] Vaginal Vaginal Problem Active [facility] bleeding bleeding [facility] Cigarette Cigarette Problem Active [facility] nicotine nicotine [facility] dependence dependence Me moria without without l complicati complicati Ou tpati on on ent Clinics PUD PUD Problem Active [facility] (peptic (peptic [facility] ulcer ulcer [facility] disease) disease) l [facility] Bilateral Bilateral Problem Active [facility] lower lower [facility] extremity extremity Maynor kristin edema edema l [facility] Obesity, Obesity, Problem Active [facility] morbid, morbid, [facility] - BMI 50 or BMI 50 or Maynor kristin higher higher l [facility] BMI BMI Problem Active [facility] 50.0-59.9, 50.0-59.9, [facility] - adult adult [facility] Primary Primary Problem Active [facility] osteoarthr osteoarthr [facility] - itis itis [facility] involving involving l multiple multiple Outpat i joints joints ent Clinics Abnormal Abnormal Problem Active [facility] mammogram mammogram [facility] - of left of left [facility] breast breast l [facility] Mixed Mixed Problem Active [facility] incontinen incontinen [facility] - ce urge ce urge [facility] and stress and stress l [facility] Allergies, Adverse Reactions, Alerts This patient has no known allergies or adverse reactions. Medications Ordered Filled Start Stop Current Ordering Indication Dosage Frequency Signature Comments Components Source Medication Medication Date Date Medication? Clinician (SIG) Name Name VESIcare VESIcare Yes Na Carrington [address] [facility] Procedures This patient has no known procedures. Encounters Start End Encounter Admission Attending Care Care Encounter Source Date/Time Date/Time Type Type Clinicians Facility Department ID 2019-10-02 2019-10-02 [facility] [id number] [facility] 16:58:00 16:58:00 [employer] [facility] 2019-09-28 2019-09-28 [facility] [id number] 08:40:00 08:40:00 [employer] [facility] Medicine [facility] 2019-09-17 2019-09-17 [facility] [id number] [facility] 14:18:00 14:18:00 [employer] [facility] 2019-09-15 2019-09-15 [facility] [id number] 09:25:00 09:25:00 t [employer] [facility] 2019-09-10 2019-09-10 [facility] [id number] 16:38:00 16:38:00 [employer] [facility] 2019-08-24 2019-08-24 [facility] [id number] 09:40:00 09:40:00 [employer] [facility] Outpati ent Clinics 2019-08-20 2019-08-20 Telephone Torrie [facility] [id number] 00:00:00 00:00:00 [facility] [id number] Surgical [id number] Specialti [id number] es [address] [place] 2019-07-23 2019-07-23 [facility] [id number] 12:01:00 12:01:00 t [employer] [facility] 2019-07-16 2019-07-16 Telephone Juan Jose [facility] [id number] 00:00:00 00:00:00 Aisha Schwartz [id number] [place] [id number] Professio [id number] nal 205 [facility] 2019-07-09 2019-07-09 Urgent Venecia Proctor [facility] [id number] 20:04:49 21:44:08 [facility] [id number] Surgical [id number] Specialti [id number] es [address] [place] 2019-06-10 2019-06-10 [facility] [id number] 09:32:20 10:19:35 Visit Demetra Schwartz [id number] [place] 4.2.7.2.686 Professio [id number] nal 059 [facility] 2019-05-26 2019-05-26 [facility] [id number] 17:11:00 17:11:00 t [employer] [facility] Outpati ent Clinics 2019-05-25 2019-05-25 [facility] [id number] 14:40:00 14:40:00 t [employer] [facility] Outpati ent Clinics 2019-04-07 2019-04-07 [facility] [id number] 03:19:00 03:19:00 [place] [employer] [facility] Medicine Medicine Outpati ent Clinics 2019-03-19 2019-03-19 [facility] [id number] 12:20:00 12:20:00 [place] [employer] OtherInbox [facility] Medicine Outpati ent Clinics 2019-02-11 2019-02-11 [facility] [id number] [facility] 08:20:00 08:20:00 t [place] [employer] [facility] Medicine l Medicine Outpati ent Clinics 2018-12-18 2018-12-18 [facility] [id number] [facility] 11:40:00 11:40:00 [place] [employer] [facility] Medicine Outpati ent Clinics 2018-06-02 2018-06-02 [facility] [id number] [facility] 10:14:00 10:14:00 [place] [employer] [facility] Medicine Outpati ent Clinics 2018-05-28 2018-05-28 [facility] [id number] [facility] 15:15:00 15:15:00 t [place] [employer] [facility] Medicine Outpati ent Clinics 2018-05-06 2018-05-06 [facility] [id number] 10:15:00 10:15:00 [facility] l Outpat[facility] ent Clinics 2018-02-10 2018-02-10 [facility] [id number] [facility] 08:22:00 08:22:00 t [place] [employer] [facility] Medicine Medicine Outpati ent Clinics 2018-02-02 2018-02-02 [facility] [id number] 09:45:00 09:45:00 t [facility] - Care Clinic [facility] Clinic l Outpati ent Clinics 2018-01-27 2018-01-27 [facility] [id number] [facility] 14:00:00 14:00:00 t [place] [employer] [facility] Medicine l Medicine Outpati ent Clinics 2018-01-10 2018-01-10 [facility] [id number] 14:23:00 14:23:00 t [place] [employer] - [employer] [facility] Outpati ent Clinics 2017-12-19 2017-12-19 [facility] [id number] 14:45:00 14:45:00 t [place] [employer] [facility] Outpati ent Clinics 2017-12-03 2017-12-03 [facility] [id number] [facility] 13:20:00 13:20:00 t Specialty/U [facility] k[facility] Outpat[facility] Clinics 2017-11-30 2017-11-30 [facility] [id number] 13:15:00 13:15:00 t Urgent [facility] Outpati ent Clinics 2017-11-28 2017-11-28 [facility] [id number] 15:00:00 15:00:00 t Specialty/U Kaylin k[facility] Outpat[facility] ent Clinics 2017-11-23 2017-11-23 [facility] [id number] 15:30:00 15:30:00 t Urgent [facility] Outpati ent Clinics 2017-09-19 2017-09-19 [facility] [id number] 10:00:00 10:00:00 t Specialty/U Kaylin kes [facility] Outpat[facility] ent Clinics 2017-09-09 2017-09-09 [facility] [id number] 10:00:00 10:00:00 t [place] - Drive [facility] Results This patient has no known results.
--- NOTE | 2019-10-12 07:55 | EDPHYS ---
Physician Documentation [facility] Name: Cely Valadez Age: 39 yrs Sex: Female : 1980 Arrival Date: 10/12/2019 Time: 07:28 Bed 6 Private MD: Cassandra Carrintgon ED Physician Adam Rachel HPI: 10/11 07:39 This 39 yrs old Female presents to ER via Unassigned with complaints of Leg rn Swelling, redness. 07:39 The patient presents with cellulitis of the right leg and left leg. Onset: The rn symptoms/episode began/occurred at an unknown time. Possible cause(s): unknown. Modifying factors: the symptoms are alleviated by nothing, the symptoms are aggravated by nothing. Severity of symptoms: At their worst the symptoms were mild, in the emergency department the symptoms are unchanged. The patient has experienced similar episodes in the past. The patient has not recently seen a physician. Reports lower legs with increased swelling and redness, no drainage, no fever, no injury, + itching, wound to back of left calf without known reason or onset. Reports legs chronically swollen, no drastic changes. . Historical: - Allergies: 07:46 NKDA; iw - Home Meds: 07:46 Abilify 15 mg Oral tab 1 tab once daily [Active]; Amitriptyline Oral once daily iw [Active]; buspirone 15 mg Oral tab 2 times per day [Active]; Depakote ER 500 mg Oral Tb24 1 tab once daily [Active]; Effexor XR 37.5 mg Oral cp24 1 cap once daily [Active]; Hydralazine Oral [Active]; omeprazole 40 mg Oral cpDR 1 cap once daily [Active]; ProAir HFA 90 mcg/actuation inhalation HFAA 2 puffs as needed [Active]; topiramate 25 mg Oral tab 1 tabs daily [Active]; - PMHx: 07:46 acid reflux; Asthma; Bipolar disorder; DVT; iw - Immunization history:: Adult Immunizations up to date. - Family history:: not pertinent. - Social history:: Smoking status: Patient denies any tobacco usage or history of. - Hospitalizations: : No recent hospitalization is reported. ROS: 07:39 Constitutional: Negative for fever, chills, and weight loss, Eyes: Negative for injury, rn pain, redness, and discharge, Neck: Negative for injury, pain, and swelling, Cardiovascular: Negative for chest pain, palpitations Respiratory: Negative for shortness of breath, cough, wheezing, and pleuritic chest pain, Abdomen/GI: Negative for abdominal pain, nausea, vomiting, diarrhea, and constipation, MS/Extremity: Negative for injury and deformity, Skin: + itching and redness to lower legs Neuro: Negative for headache, weakness, numbness, tingling, and seizure. Exam: 07:39 Constitutional: Overweight female, no acute distress Head/Face: Normocephalic, rn atraumatic. ENT: MMM Cardiovascular: Regular rate and rhythm. No pulse deficits. Respiratory: Speaking full sentences. No increased work of breathing, no retractions or nasal flaring. Skin: warm, dry, + mild erythema that blanches, no open wounds, no weeping, no fluctuance/streaking MS/ Extremity: Pulses equal, no cyanosis. Neurovascular intact. Full, normal range of motion. Equal circumference. 2+ pitting edema bilateral lower ext. Neuro: Awake and alert, GCS 15 Vital Signs: 07:46 BP 145 / 83; Pulse 95; Resp 20 S; Temp 97.4; Pulse Ox 100% on R/A; iw MDM: 07:30 Patient medically screened. rn 07:39 Differential diagnosis: cellulitis. Data reviewed: vital signs, nurses notes. rn 07:52 Counseling: I had a detailed discussion with the patient and/or guardian regarding: the rn historical points, exam findings, and any diagnostic results supporting the discharge/admit diagnosis, the need for outpatient follow up, to return to the emergency department if symptoms worsen or persist or if there are any questions or concerns that arise at home. Special discussion: I discussed with the patient/guardian in detail that at this point there is no indication for admission to the hospital. It is understood, however, that if the symptoms persist or worsen the patient needs to return immediately for re-evaluation. Administered Medications: No medications were administered Disposition: 10/12/19 07:54 Discharged to Home. Impression: Cellulitis, unspecified. - Condition is Stable. - Discharge Instructions: Cellulitis, Adult. - Prescriptions for Clindamycin HCl 300 mg Oral Capsule - take 1 capsule by ORAL route every 6 hours for 10 days; 40 capsule. Hydroxyzine HCl 50 mg Oral Tablet - take 1 tablet by ORAL route every 8 hours As needed; 20 tablet. - Medication Reconciliation Form, Thank You Letter, Antibiotic Education, Prescription Opioid Use form. - Follow up: Private Physician; When: As needed; Reason: Recheck today's complaints, Re-evaluation by your physician. - Problem is new. - Symptoms have improved. Signatures: Effie Lackey RN RN Adam Rachel MD MD rn Baxter, Heather, RN RN Corrections: (The following items were deleted from the chart) 08:03 07:54 10/12/2019 07:54 Discharged to Home. Impression: Cellulitis, unspecified. hb Condition is Stable. Forms are Medication Reconciliation Form, Thank You Letter, Antibiotic Education, Prescription Opioid Use. Follow up: Private Physician; When: As needed; Reason: Recheck today's complaints, Re-evaluation by your physician. Problem is new. Symptoms have improved. rn
--- NOTE | 2019-10-12 07:55 | ER ---
Nurse's Notes [facility] Name: Cely Valadez Age: 39 yrs Sex: Female : 1980 Arrival Date: 10/12/2019 Time: 07:28 Bed 6 Private MD: Cassandra Carrington Diagnosis: Cellulitis, unspecified Presentation: 10/11 07:43 Chief complaint: Patient states: has chronic leg swelling, has been scratching the back iw of her legs and has some scabbing that she is worried is infected. Coronavirus screen: Proceed with normal triage. Patient denies a cough. Patient denies shortness of breath or difficulty breathing. Patient denies measured and/or subjective temperature greater than 100.4F prior to today's visit. Patient denies travel on a cruise ship or to a country the [facility] currently lists as an affected area. Patient denies contact with known and/or suspected case of COVID-19. Ebola Screen: Patient negative for fever greater than or equal to 101.5 degrees Fahrenheit, and additional compatible Ebola Virus Disease symptoms Patient denies exposure to infectious person. Patient denies travel to an Ebola-affected area in the 21 days before illness onset. No symptoms or risks identified at this time. Initial Sepsis Screen: Does the patient meet any 2 criteria? No. Patient's initial sepsis screen is negative. Does the patient have a suspected source of infection? No. Patient's initial sepsis screen is negative. Risk Assessment: Do you want to hurt yourself or someone else? Patient reports no desire to harm self or others. Onset of symptoms was October 05, 2019. 07:43 Method Of Arrival: Ambulatory iw 07:43 Acuity: ADRIANA 3 iw Historical: - Allergies: 07:46 NKDA; iw - Home Meds: 07:46 Abilify 15 mg Oral tab 1 tab once daily [Active]; Amitriptyline Oral once daily iw [Active]; buspirone 15 mg Oral tab 2 times per day [Active]; Depakote ER 500 mg Oral Tb24 1 tab once daily [Active]; Effexor XR 37.5 mg Oral cp24 1 cap once daily [Active]; Hydralazine Oral [Active]; omeprazole 40 mg Oral cpDR 1 cap once daily [Active]; ProAir HFA 90 mcg/actuation inhalation HFAA 2 puffs as needed [Active]; topiramate 25 mg Oral tab 1 tabs daily [Active]; - PMHx: 07:46 acid reflux; Asthma; Bipolar disorder; DVT; iw - Immunization history:: Adult Immunizations up to date. - Family history:: not pertinent. - Social history:: Smoking status: Patient denies any tobacco usage or history of. - Hospitalizations: : No recent hospitalization is reported. Screenin:50 Abuse screen: Denies threats or abuse. Denies injuries from another. Nutritional hb screening: No deficits noted. Tuberculosis screening: No symptoms or risk factors identified. Fall Risk None identified. Assessment: 07:50 General: Appears in no apparent distress. Behavior is calm, cooperative. Pain: Pain hb currently is 5 out of 10 on a pain scale. Neuro: Level of Consciousness is awake, alert, obeys commands. Cardiovascular: Patient's skin is warm and dry. Respiratory: Respiratory effort is even, unlabored, Respiratory pattern is regular, symmetrical. GI: No signs and/or symptoms were reported involving the gastrointestinal system. : No signs and/or symptoms were reported regarding the genitourinary system. EENT: No signs and/or symptoms were reported regarding the EENT system. Derm: redness and swelling noted to BLEs, numerous healing scratch mac on BLEs. Musculoskeletal: No signs and/or symptoms reported regarding the musculoskeletal system. Vital Signs: 07:46 BP 145 / 83; Pulse 95; Resp 20 S; Temp 97.4; Pulse Ox 100% on R/A; iw ED Course: 07:28 Patient arrived in ED. mr 07:28 Cassandra Carrington MD is Private Physician. mr 07:30 Adam Rachel MD is Attending Physician. rn 07:45 Triage completed. iw 07:46 Arm band placed on. iw 07:50 Patient has correct armband on for positive identification. hb 07:59 Mohini Hein, BHARATH is Primary Nurse. hb 08:01 No provider procedures requiring assistance completed. Patient did not have IV access hb during this emergency room visit. Administered Medications: No medications were administered Outcome: 07:54 Discharge ordered by . rn 08:01 Discharged to home ambulatory. hb 08:01 Condition: stable 08:01 Discharge instructions given to patient, Instructed on discharge instructions, follow up and referral plans. medication usage, Demonstrated understanding of instructions, follow-up care, medications, Prescriptions given X 2. 08:03 Patient left the ED. hb Signatures: Delia Canales Irene, RN Adam Castelan MD MD rn Baxter, Heather, RN RN hb
[2019-10-12 08:10] VITALS: BP 145/83; TEMP 97.4; O2SAT 100
== END 2019-10-12 08:03 | disposition home or self-care (01) ==
LOC: ER 07:25
DX: L03.116 Cellulitis of left lower limb (principal); L03.115 Cellulitis of right lower limb; F31.9 Bipolar disorder, unspecified; Z86.718 Personal history of other venous thrombosis and embolism
CPT/HCPCS: 99282

== ENCOUNTER 2019-10-26 20:05 | Emergency (ER) | payer OTHER ==
--- OUTSIDE RECORDS SUMMARY | 2019-10-26 20:09 | XMS REPORT ---
[...] End Status Dosage System Date Date Depakote [facility] [address]-77 Active not defined Abilify [facility] [address]-85 Active not defined Lasix [facility] 00555496783 20 MG Orally Active 1 table t Once a day Symbicort [facility] 91068845879 160-4.5 Active 2 puffs MCG/ACT Inhalation Twice a day Bactrim DS [facility] 64443973544 800-160 MG Active 1 tabl et Orally Twice a day [place] Carbonate [facility] 71139696761 300 MG Orally Acti ve 1 tablet ER Once a day at bedtime Eliquis [facility] 24670018958 5 MG Orally Active as directed BusPIRone HCl [facility] [address]-16 Active not defined Diclofenac Sodium [facility] [address]-01 1 % Active not Transdermal defined Montelukast Sodium [facility] 64073767843 10 MG Orally Acti ve 1 tablet Once a day Cyclobenzaprine [facility] 73869785780 10 MG Orally Active 1 tablet HCl once a day at as needed bedtime Cetirizine HCl [facility] 92483764591 10 MG Orally Active 1 tablet Once a day for allergies Abilify [facility] 18910188020 15 MG Orally Active 1 table t Once a day Provera [facility] 48399356148 10 MG Orally Active 1 table t Once a day with food Topiramate [facility] 10433343316 50 MG Orally Active 1 ta blet Twice a day Amitriptyline HCl ND 0 Active not defined Ranitidine HCl [facility] 35069508555 150 MG Active TAKE 1 CAPSULE BY MOUTH EVERYDAY AT BEDTIME Amitriptyline HCl [facility] 69771269596 25 MG Orally Jun 26, Activ e 1 tablet Once a day at 2018 bedtime Divalproex Sodium [facility] 29894281929 250 MG Orally Acti ve as ER at bedtime directed Mirtazapine [facility] 50232942873 7.5 MG Orally Active 1 tablet Once a day at bedtime Naproxen ND 82030204448 500 MG Orally Active 1 tab let Twice a day Proventil HFA [facility] 92394194767 108 (90 Base) Active 2 puffs as MCG/ACT needed Inhalation every 6 hrs Effexor [facility] 26928422099 Active not defined Aripiprazole ND 61167452445 15 MG Orally Jun 26, Active 1 tablet Once a day 2017 Pantoprazole ND 18380012066 40 MG Orally Active 1 tablet Sodium Once a day Diclofenac Sodium [facility] 13754370416 75 MG Orally Activ e 1 tablet Twice a day with food prn pain or milk BusPIRone HCl ND 80256428130 15 MG Orally Jun 26, Active 1 tablet Three times a 2017 day Metoprolol [facility] 84479803439 50 MG Orally Active 1 ta blet Succinate ER Once a day One Touch Verio ND 0 n/s finger Active one s trip prick once a day Venlafaxine HCl ER [facility] 50780954444 75 MG Orally Jun 26, Acti ve 1 capsule Once a day 2017 with food Symbicort [facility] 14724495141 160-4.5 Active 2 puffs MCG/ACT Inhalation Twice a day Klor-Con M10 [facility] 97091050269 10 MEQ Orally Active 1 tablet once a day with food One Touch Delica NDC 0 Active not Lancets defined Pantoprazole [facility] 66197771926 40 MG Orally Feb 11, Active 1 tablet Sodium Once a day 2018 Montelukast Sodium [facility] 75431589169 10 MG Orally Acti ve 1 tablet Once a day Results No Known Results Summary Purpose eClinicalWorks Submission
--- OUTSIDE RECORDS SUMMARY | 2019-10-26 20:10 | XMS REPORT ---
[...] End Status Dosage System Date Date Effexor [facility] 38447469554 Active not defined Abilify [facility] 35701842780 15 MG Orally Active 1 table t Once a day Eliquis [facility] 06044921285 5 MG Orally Active as directed Montelukast Sodium ND 74967456860 10 MG Orally Acti ve 1 tablet Once a day Klor-Con M10 [facility] 10663923796 10 MEQ Orally Active 1 tablet once a day with food Symbicort [facility] 34687479428 160-4.5 Active 2 puffs MCG/ACT Inhalation Twice a day Lasix [facility] 63586539447 20 MG Orally Active 1 table t Once a day Pantoprazole [facility] 05322328109 40 MG Orally Active 1 tablet Sodium Once a day Provera [facility] 68412407848 10 MG Orally Active 1 table t Once a day with food Bactrim DS [facility] 61959046673 800-160 MG Active 1 tabl et Orally Twice a day Symbicort [facility] 50133775942 160-4.5 Active 2 puffs MCG/ACT Inhalation Twice a day BusPIRone HCl ND 46972628438 15 MG Orally Jun 26, Active 1 tablet Three times a 2017 day Divalproex Sodium [facility] 98504362408 250 MG Orally Acti ve as ER at bedtime directed Topiramate [facility] 48946587577 50 MG Orally Active 1 ta blet Twice a day Diclofenac Sodium [facility] [address]-19 1 % Active not Transdermal defined One Touch Verio [facility] 0 n/s finger Active one s trip prick once a day Coleta Carbonate ND 20356567165 300 MG Orally Acti ve 1 tablet ER Once a day at bedtime Naproxen ND 08414285006 500 MG Orally Active 1 tab let Twice a day Abilify [facility] [address]-57 Active not defined Cyclobenzaprine [facility] 79922750397 10 MG Orally Active 1 tablet HCl once a day at as needed bedtime One Touch Delica ND 0 Active not Lancets defined Metoprolol [facility] 30418615865 50 MG Orally Active 1 ta blet Succinate ER Once a day VESIcare [facility] 13169813170 10 MG Orally Active 1 tabl et Once a day Montelukast Sodium ND 84415457572 10 MG Orally Acti ve 1 tablet Once a day Ranitidine HCl [facility] 68106898743 150 MG Active TAKE 1 CAPSULE BY MOUTH EVERYDAY AT BEDTIME Diclofenac Sodium [facility] 85918005233 75 MG Orally Activ e 1 tablet Twice a day with food prn pain or milk Mirtazapine [facility] 37971822139 7.5 MG Orally Active 1 tablet Once a day at bedtime Amitriptyline HCl [facility] 0 Active not defined Pantoprazole [facility] 83107204915 40 MG Orally Feb 11, Active 1 tablet Sodium Once a day 2018 Proventil HFA [facility] 27738481776 108 (90 Base) Active 2 puffs as MCG/ACT needed Inhalation every 6 hrs Depakote [facility] [address]-73 Active not defined BusPIRone HCl [facility] [address]-58 Active not defined Cetirizine HCl [facility] 37561679885 10 MG Orally Active 1 tablet Once a day for allergies Aripiprazole [facility] 01692756349 15 MG Orally Jun 26, Active 1 tablet Once a day 2017 Venlafaxine HCl ER [facility] 02125402970 75 MG Orally Jun 26, Acti ve 1 capsule Once a day 2017 with food Oxybutynin ND 54648896263 10 MG Orally September Active 1 ta blet Chloride ER Once a day 2019 Amitriptyline HCl [facility] 84010221622 25 MG Orally Jun 26, Activ e 1 tablet Once a day at 2018 bedtime Results No Known Results Summary Purpose eClinicalWorks Submission
--- OUTSIDE RECORDS SUMMARY | 2019-10-26 20:10 | XMS REPORT ---
[...] Date End Date Status Dosage VESIcare NDC 52608821766 10 MG Orally Once Active 1 tablet a day Results No Known Results Summary Purpose eClinicalWorks Submission
--- OUTSIDE RECORDS SUMMARY | 2019-10-26 20:11 | XMS REPORT | Continuity of Care Document ---
:1980 Author Organization [facility] t Address [address] [place] [address] Care Team Providers Name Role Phone Juan Jose MCKNIGHT Attending Clinician Problems Condition Condition Condition Status Onset Resolution Last Treating Co mments Source Name Details Category Date Date Treatment Clinician Date Bipolar Bipolar Problem Active [facility] Vertigo Vertigo Problem [facility] Migraine Migraine Problem [facility] Urge Urge Problem Active [facility] incontinen incontinen Kaylin kes - ce ce [facility] Other Other Problem Active [facility] chronic chronic [facility] pain pain [facility] Overactive Overactive Problem Active [facility] bladder bladder [facility] Stress Stress Problem Active [facility] incontinen incontinen Kay[facility] kes - ce ce [facility] Arthritis Arthritis Problem Active [facility] of right of right [facility] knee knee [facility] Intractabl Intractabl Problem Active [facility] e vomiting e vomiting Kaylin kes - with with Memoria nausea, nausea, l unspecifie unspecifie Ou tpati d vomiting d vomiting en t type type Clinics Hypertrigl Hypertrigl Problem Active [facility] yceridemia yceridemia [facility] k[facility] - [facility] Elevated Elevated Problem Active [facility] liver liver [facility] enzymes enzymes [facility] Gastroesop Gastroesop Problem Active [facility] hageal hageal [facility] reflux reflux [facility] disease, disease, l esophagiti esophagiti Ou tpati s presence s presence en t not not Clinics specified specified Edema, Edema, Problem Active [facility] unspecifie unspecifie Kaylin kes - d type d type [facility] History of History of Problem Active [facility] hypothyroi hypothyroi Kaylin kes - dism dism [facility] Mild Mild Problem Active [facility] intermitte intermitte Kaylin kes - nt asthma nt asthma Maynor kristin without without l complicati complicati Ou tpati on on ent Clinics Asthma Asthma Problem [facility]xiety Anxiety Problem Active [facility] Sinus Sinus Problem Active [facility] problem problem [facility] Allergic Allergic Problem Active [facility] rh[facility] rhinitis [facility] Hyperlipid Hyperlipid Problem Active [facility] emia emia [facility] Pharyngiti Pharyngiti Problem Active [facility] s, s, [facility] - unspecifie unspecifie Me moria d etiology d etiology l [facility] Cough Cough Problem [facility] Hyperglyce Hyperglyce Problem Active [facility] afsaneh afsaneh [facility] Chronic Chronic Problem Active [facility] sinus sinus [facility] complaints complaints Me moria l [facility] Fatty Fatty Problem Active [facility] liver liver [facility] Vaginal Vaginal Problem Active [facility] bleeding bleeding [facility] Cigarette Cigarette Problem Active [facility] nicotine nicotine [facility] - dependence dependence Me moria without without l complicati complicati Ou tpati on on ent Clinics PUD PUD Problem Active [facility] (peptic (peptic [facility] - ulcer ulcer [facility]oria disease) disease) l [facility] Bilateral Bilateral Problem Active [facility] lower lower [facility] - extremity extremity Maynor kristin edema edema l [facility] Obesity, Obesity, Problem Active [facility] morbid, morbid, [facility] - BMI 50 or BMI 50 or Maynor kristin higher higher l [facility] BMI BMI Problem Active [facility] 50.0-59.9, 50.0-59.9, Kaylin kes - adult adult [facility] Primary Primary Problem Active [facility] osteoarthr osteoarthr Kaylin kes - itis itis [facility]oria involving involving l multiple multiple Outpat i joints joints ent Clinics Abnormal Abnormal Problem Active [facility] mammogram mammogram [facility] - of left of left [facility] breast breast l [facility] Mixed Mixed Problem Active [facility] incontinen incontinen Kaylin kes - ce urge ce urge Memoria and stress and stress l [facility] Allergies, Adverse Reactions, Alerts This patient has no known allergies or adverse reactions. Medications Ordered Filled Start Stop Current Ordering Indication Dosage Frequency Signature Comments Components Source Medication Medication Date Date Medication? Clinician (SIG) Name Name VESIcare VESIcare Yes Na Carrington [address] [facility] Procedures This patient has no known procedures. Encounters Start End Encounter Admission Attending Care Care Encounter Source Date/Time Date/Time Type Type Clinicians Facility Department ID 2019-10-22 2019-10-[address] [facility] [id number] 11:04:33 11:52:39 Visit Aisha Schwartz [id number] [place] [id number] [place] [id number] [address] 2019-10-15 2019-10-15 [facility] [id number] [address] 16:50:00 16:50:00 [employer] [facility] 2019-10-02 2019-10-02 [facility] [id number] [address] 16[facility]58:00 16:58:00 [employer] [facility] Medicine [facility] 2019-09-28 2019-09-28 [facility] [id number] 08:40:00 08:40:00 [employer] [facility] 2019-09-17 2019-09-17 [facility] [id number] [address] 14:18:00 14:18:00 [employer] [facility] l Medicine Outpati ent Clinics 2019-09-15 2019-09-15 [facility] [id number] 09:25:00 09:25:00 [place] [employer] [place] [facility] Medicine l Medicine Outpati ent Clinics 2019-09-10 2019-09-10 [facility] [id number] 16:38:00 16:38:00 [place] [employer] s - Drive [facility] Medicine l Medicine Outpati ent Clinics 2019-08-24 2019-08-24 [facility] [id number] 09:40:00 09:40:00 [place] [employer] [place] [facility] Medicine l Medicine Outpati ent Clinics 2019-07-23 2019-07-23 [facility] [id number] [address] 12:01:00 12:01:00 [place] [employer] [facility] Medicine l Medicine Outpati ent Clinics 2019-05-26 2019-05-26 [facility] [id number] [address] 17:11:00 17:11:00 [place] [employer] - [employer] [facility] Medicine l Medicine Outpati ent Clinics 2019-05-25 2019-05-25 [facility] [id number] 14:40:00 14:40:00 [place] [employer] s - [employer] [facility] Medicine l Medicine Outpati ent Clinics 2019-04-07 2019-04-07 [facility] [id number] [address] 03:19:00 03:19:00 [place] [employer] [place] [facility] Medicine l Medicine Outpati ent Clinics 2019-03-19 2019-03-19 [facility] [id number] 12:20:00 12:20:00 [place] [employer] [place] [address] [facility] Medicine l Medicine Outpati ent Clinics 2019-02-11 2019-02-11 [facility] [id number] 08:20:00 08:20:00 [place] [employer] [address] [facility] Medicine l Medicine Outpati ent Clinics 2018-12-18 2018-12-18 [facility] [id number] 11:40:00 11:40:00 [place] [employer] s - Drive [facility] Medicine Outpati ent Clinics 2018-06-02 2018-06-02 [facility] [id number] 10:14:00 10:14:00 t [employer] [facility] Medicine Outpati ent Clinics 2018-05-28 2018-05-28 [facility] [id number] 15:15:00 15:15:00 t [employer] [facility] Medicine Outpati ent Clinics 2018-05-06 2018-05-06 [facility] [id number] 10:15:00 10:15:00 t [facility] - Care Clinic [facility] l Outpati ent Clinics 2018-02-10 2018-02-10 [facility] [id number] 08:22:00 08:22:00 t [employer] [facility] Medicine Outpati ent Clinics 2018-02-02 2018-02-02 [facility] [id number] 09:45:00 09:45:00 t [facility]gent [facility] - Care Clinic [facility] Clinic l Outpati ent Clinics 2018-01-27 2018-01-27 [facility] [id number] 14:00:00 14:00:00 t [employer] [facility] Medicine Outpati ent Clinics 2018-01-10 2018-01-10 [facility] [id number] [facility] 14:23:00 14:23:00 t [employer] [facility] Medicine Outpati ent Clinics 2017-12-19 2017-12-19 [facility] [id number] 14:45:00 14:45:00 t [employer] [facility] Medicine Outpati ent Clinics 2017-12-03 2017-12-03 [facility] [id number] 13:20:00 13:20:00 t Specialty/U Kaylin kes - [facility] Clin[facility] 2017-11-30 2017-11-30 [facility] [id number] 13:15:00 13:15:00 t Urgent Urgent Care [facility] - Care Clinic [facility] Outpati ent Clinics 2017-11-28 2017-11-28 [facility] [id number] 15:00:00 15:00:00 t Specialty/U Kaylin kes - Special[facility] rology [facility] 2017-11-23 2017-11-23 [facility] [id number] 15:30:00 15:30:00 t Urgent Urgent Care [facility] - Care Clinic [facility] Outpati ent Clinics 2017-09-19 2017-09-19 [facility] [id number] 10:00:00 10:00:00 t Specialty/U Kaylin kes - Specialty ro[facility] 2017-09-09 2017-09-09 [facility] [id number] 10:00:00 10:00:00 t [employer] [facility] Family Medicine [facility] Results This patient has no known results.
--- OUTSIDE RECORDS SUMMARY | 2019-10-26 20:11 | XMS REPORT | Summary of Care ---
:1980 Author Organization [facility] Address [address] [place] [address] Care Team Providers Name Role Phone Mukul Estevez MD Unavailable Unavailable 1, Lab Unavailable Unavailable Salma Carrington Primary Care Provider Encounter Details Date Type Department Care Team Description 10/15/2019 Orders Only [facility] Doctor Unassigned, No [address] [facility] [place] [address] [address] [place] [address] Allergies Active Allergy Reactions Severity Noted Date Comments Oats Nausea and/or Vomiting 02/02/2016 documented as of this encounter (statuses as of 10/15/2019) Medications Medication Sig Dispensed Refills Start Date [...] QHS. 0 02/28/2019 Active 24 hr tablet aspirin 81 mg EC Take 1 tablet [...] Hordeolum externum of daily. right lower eyelid diclofenac 75 mg EC Take 1 tablet by 60 tablet 1 08/20/2019 Active tabletIndications: mouth 2 (two) Right knee pain, times daily with unspecified chronicity meals. documented as of this encounter (statuses as of 10/15/2019) Active Problems Problem Noted Date Right knee pain 11/16/2016 Pedal edema 11/11/2016 Morbid obesity due to excess calories 09/12/2016 Irregular menstrual cycle 09/12/2016 Exposure to hepatitis C 09/12/2016 Exposure to hepatitis B 09/12/2016 Left lower quadrant pain 06/07/2016 Weight loss 06/07/2016 Elevated glucose 06/07/2016 Polyuria 06/07/2016 Hirsutism 06/07/2016 Acne, unspecified acne type 06/07/2016 documented as of this encounter (statuses as of 10/15/2019) Resolved Problems Problem Noted Date Resolved Date PCOS (polycystic ovarian syndrome) 08/09/201609/12 Routine gynecological examination 06/07/20162016 documented as of this encounter (statuses as of 10/15/2019) Immunizations Name Administration Dates Next Due Influenza Virus Vaccine Quad IM 3+ YRS 03/25/2017 TDAP 02/02/2016 documented as of this encounter Social [...] Office Visit Cardiology Demetra Washington M D [address] [place] [address] 15 [phone] Health Maintenance Due Date Last Done Comments Breast Cancer Screening 02/27/2020 02/26/2019 (MAMMOGRAM) PNEUMOCOCCAL 0-64 YEARS 05/26/2020 Postpone d from 1985 COMBINED SERIES (1 of 1 - (Refus ed) PPSV23) INFLUENZA VACCINE (Season 05/27/2020 03/25/2017 Postpo linn from 12/29/2019 Ended) (Refused) Depression Screening 07/08/2020 07/09/2019 PAP SMEAR 10/18/2021 10/18/2016, 02/10/2014 (Previously completed), 11/20/2005 DTaP,Tdap,and Td Vaccines (2 02/01/2026 02/02/2016 - Td) documented as of this encounter Procedures Procedure Name Priority Date/Time Associated Diagnosis Comme nts CONSENT/REFUSAL FOR Routine 10/15/2019 12:11 PM CDT DIAGNOSIS AND TREATMENT documented in this encounter Results Not on filedocumented in this encounter Insurance Payer Benefit Plan / Subscriber ID Effective Dates Phone Addre ss Type Group [facility] xxxxxxxxx 2018-Present Medicaid COMM PLAN - PLUS MANAGED MEDICAID documented as of this encounter
--- OUTSIDE RECORDS SUMMARY | 2019-10-26 20:11 | XMS REPORT ---
[...] Start Date End Date Status Dosage VESIcare [facility] [place] [id number] 10 MG Orally Once Active 1 tablet a day Results No Known Results Summary Purpose eClinicalWorks Submission
--- OUTSIDE RECORDS SUMMARY | 2019-10-26 20:14 | XMS REPORT | Summary of Care ---
:1980 Author Organization [facility] Address [address] [place] [address] Care Team Providers Name Role Phone Mukul Estevez MD Unavailable Unavailable 1, Lab Unavailable Unavailable Salma Gutierrez Primary Care Provider Reason for Referral (Routine) Status Reason Specialty Diagnoses / Referred By Referred To Procedures Contact Contact New Request IM-SLEEP MEDICINE Diagnoses Morbid obesity due to excess calories Simone Huang MD Procedures Discharge Follow-Up: Specialty Service IM-SLEEP MEDICINE; 4-6 Weeks [address] [place] [address] Other (Routine) Status Reason Specialty Diagnoses / Referred By Referred To Procedures Contact Contact New Request Diagnoses Acute on chronic diastolic CHF (congestive heart failure), NYHA class 3 Simone Huang MD Prasad, Sendil Procedures Discharge Follow-up: Specialty Provider DERRICK MCINTYRE; 2 Weeks 301 [facility] MD Megan [place], [place] [address] [place] [address] [address] Phone: [place], [place] [phone] Fax: (Routine) Status Reason Specialty Diagnoses / Referred By Referred To Procedures Contact Contact New Request [place]-VASCULAR Diagnoses Leg swelling Simone Huang MD SURGERY Procedures Discharge Follow-Up: Specialty Service [place]-VASCULAR SURGERY; 2 Weeks [address] [place] [address] (Routine) Status Reason Specialty Diagnoses / Referred By Referred To Procedures Contact Contact New Request Diagnoses Bilateral lower leg cellulitis Simone Huang MD Vang, Na Ly Procedures Discharge Follow-up: PCP JO GUTIERREZ; 1 Week 301 [facility] [address] [place], [place] [address] [address] [address] [place], [place] Phone: [phone] Phone: Fax: Radiology Services ([place]) Status Reason Specialty Diagnoses / Referred By Referred To Procedures Contact Contact New Request Diagnostic Diagnoses Pedal edema Zach Laurent, Radiology Procedures XR CHEST [address] [place] [address]. [address] [place] [address] ([place]) Status Reason Specialty Diagnoses / Referred By Referred To Procedures Contact Contact New Request Vascular Procedures Karma Rodriguez, Sonography BILATERAL VENOUS RIBBON BLOCKER DUPLEX LOWER [address] [place] [address] BY [facility] [place] [address] Reason for Visit Reason Comments Headache DIZZY Auth/Cert Status Reason Specialty Diagnoses / Referred By Referred To Procedures Contact Contact Emergency Medicine [facility] Em ergency Dept [address] [place] [address] Fax: Encounter Details Date Type Department Care Team Description 10/15/2019 - Hospital ADC Medicine Karma Rodriguez , RIBBON BLOCKER [address] [place] [phone] Bilateral 10/19/2019 Encounter Surgery Unit Ángel Plasencia MD [address] [place] [address] [phone] cellulitis of lower [address] [place], [place] [id number] Allergies Active Allergy Reactions Severity Noted Date Comments Oats Nausea and/or Vomiting 02/02/2016 documented as of this encounter (statuses as of 10/19/2019) Medications Medication Sig Dispensed Refills Start Date End Date Status busPIRone 30 mg TAKE 1 TABLET 0 11/23/2016 Active tablet (30 MG) BY MOUTH 2 TIMES PER DAY Diclofenac Sodium Take 2-4 grams 100 g 3 03/25/2017 Active (VOLTAREN) 1 % twice a day as gelIndications: needed for pain Muscle spasm albuterol (PROAIR Inhale 2 Puffs 8.5 g 11 03/25/2017 Active HFA) 90 every 6 (six) mcg/actuation hours as needed inhalerIndications: for Wheezing or Intrinsic asthma Shortness of without status Breath. asthmaticus, mild intermittent, uncomplicated mirtazapine 7.5 mg Take 7.5 mg by 0 Active tablet mouth at bedtime. solifenacin Take 10 mg by 0 Acti ve (VESICARE) 10 mg mouth daily. tablet ranitidine 150 mg Take 150 mg by 0 Active capsule mouth at bedtime. montelukast 10 mg Take 10 mg by 0 Active tablet mouth. budesonide-formoter Inhale 2 Puffs 0 Active ol 160-4.5 2 (two) times mcg/actuation daily. inhaler amitriptyline 25 mg Take 25 mg by 0 Active tablet mouth at bedtime. ARIPiprazole 15 mg Take 15 mg by 0 Active tablet mouth daily. pantoprazole 20 mg Take 40 mg by 0 Active EC tablet mouth daily. blood sugar Use BID, DX 100 Box 11 12/05/2018 Activ e diagnostic strip E11.9 (Brand upon insurance approval)ONE TOUCH VERIO TEST STRIP hydrOXYzine 25 mg TK 1 T PO BID 0 02/21/2019 Active tablet PRN divalproex ER 500 TK 2 TS PO QHS. 0 02/28/2019 Active mg 24 hr tablet aspirin 81 mg EC Take 1 tablet 0 05/06/2019 Active tabletIndications: by mouth daily. Chest pain, unspecified type nitroglycerin 0.4 Place 1 tablet 1 Bottle 5 05/06/2019 Active mg sublingual under the tabletIndications: tongue every 5 Chest pain, (five) minutes unspecified type as needed for Chest pain. Venlafaxine 150 mg TK 1 T PO QD 0 06/25/2019 Active tablet erythromycin [address] Place 0.5 1 g 1 07/09/2019 Acti ve mg/gram (0.5 %) Inches in both ophthalmic eyes 4 (four) ointmentIndications times daily. : Hordeolum externum of right lower eyelid diclofenac 75 mg EC Take 1 tablet 60 tablet 1 08/20/2019 Active tabletIndications: by mouth 2 Right knee pain, (two) times unspecified daily with chronicity meals. doxycycline hyclate Take 1 capsule 4 capsule 0 10/19/201909/28 Active 100 mg by mouth every 0 capsuleIndications: 12 (twelve) Bilateral lower leg hours for 2 cellulitis days. KCL 20 mEq Take 1 tablet 15 tablet 2 10/19/2019 Acti ve tabletIndications: by mouth every 0 Acute on chronic 48 diastolic CHF (forty-eight) (congestive heart hours for 30 failure), NYHA days. class 3 furosemide 40 mg Take 1 tablet 30 tablet 2 10/19/2019 11/18/19 2 Active tabletIndications: by mouth daily 0 Acute on chronic for 30 days. diastolic CHF (congestive heart failure), NYHA class 3 lactobacillus Take 1 tablet 4 tablet 0 10/19/2019 A ctive acidophilus 25 by mouth 2 0 million cell -100 (two) times mg daily for 2 captabIndications: days. Bilateral lower leg cellulitis KLOR-CON 10 10 mEq TAKE 1 TABLET 30 tablet 0 04/21/2018 Discontinued CR BY MOUTH DAILY. 0 tabletIndications: Pedal edema documented as of this encounter (statuses as of 10/19/2019) Active Problems Problem Noted Date MARQUEZ (dyspnea on exertion) 10/16/2019 Acute on chronic diastolic CHF (congestive heart failu re), NYHA class 3 10/16/2019 Bilateral cellulitis of lower leg 10/15/2019 Cellulitis 10/15/2019 Right knee pain 11/16/2016 Pedal edema 11/11/2016 Morbid obesity due to excess calories 09/12/2016 Irregular menstrual cycle 09/12/2016 Exposure to hepatitis C 09/12/2016 Exposure to hepatitis B 09/12/2016 Left lower quadrant pain 06/07/2016 Weight loss 06/07/2016 Elevated glucose 06/07/2016 Polyuria 06/07/2016 Hirsutism 06/07/2016 Acne, unspecified acne type 06/07/2016 documented as of this encounter (statuses as of 10/19/2019) Resolved Problems Problem Noted Date Resolved Date PCOS (polycystic ovarian syndrome) 08/09/201609/12 Routine gynecological examination 06/07/20162016 documented as of this encounter (statuses as of 10/19/2019) Immunizations Name Administration Dates Next Due Influenza [...] Travel End No recent travel history available. COVID-19 Exposure Response Date Recorded In the last month, have you been in contact with No / Unsure 10/15/2019 12:17 PM CDT someone who was confirmed or suspected to have Coronavirus / COVID-19? documented as of this encounter Last Filed Vital Signs Vital Sign Reading Time Taken Comments Blood Pressure 123/85 10/19/2019 3:45 PM CDT Pulse 80 10/19/2019 3:45 PM CDT Temperature 36.1 C (96.9 F) 10/19/2019 3:45 PM CDT Respiratory Rate 20 10/19/2019 3:45 PM CDT Oxygen Saturation 98% 10/19/2019 3:45 PM CDT Inhaled Oxygen Concentration - - Weight 131.5 kg (290 lb) 10/19/2019 3:30 AM CDT Height 162.6 cm (5' 4") 10/15/2019 5:50 PM CDT Body Mass Index 49.78 10/15/2019 5:50 PM CDT documented in this encounter Discharge Instructions AttachmentsThe following attachments cannot be sent through Care Everywhere. Cellulitis, Discharge Instructions for (Romanian)Skin Infection, Cellulitis (Romanian)Doxycycline delayed-release capsules (Romanian)Furosemide tablets (Romanian)Potassium Salts tablets, extended-release tablets or capsules (Romanian) Lactobacillus Oral formulations (Romanian)documented in this encounter Progress Notes Aislinn Hernandez - 10/19/2019 3:07 PM CDTRoutine rounding visit - patient stated no spiritual and/or emotional support needed at this time. Patient said that she is "spiritual not quaker" and so "No preference" for quaker preference is correct. Future seam closer support is available if needed/wanted. Tpao KelvinKADI - 10/19/2019 12:45 PM CDT Subjective: Patient is a 39-year-old female who presents with worsening bilateral leg edema, rednessand chills. Patient was seen in the ED approximately 4 days ago and was given clindamycin for bilateral lower extremity edema and redness. Patient reports taking one day of clindamycin before returningto the ED for dizziness. Patient found to have bilateral lower extremity cellulitis which I have been consulted for. Patient examined at bedside. Denies nausea, shortness of breath, diarrhea, fever. Reports good appetite Objective: Vitals: 10/19/19 0330 10/19/19 0746 10/19/19 0850 10/19/19 1054 BP: 107/63 131/77 136/78 Pulse: 81 87 77 Resp: Temp: 36.1 C (96.9 F) 36 C (96.8 F) 36.4 C (97.6 F) TempSrc: Temporal Artery Temporal Artery Temporal Artery SpO2: 91% 97% 96% 97% Weight: 290 lb (131.5 kg) Height: CBC WBC x10^3 (/CMM) Date Value 11/06/2005 10.5 (H) WBC (10*3/L) Date Value 10/17/2019 10.80 RBC x10^6 (/CMM) Date Value 11/06/2005 4.27 RBC (10*6/L) Date Value 10/17/2019 3.59 (L) PLT x10^3 (/CMM) Date Value 11/06/2005 228 PLT (10*3/L) Date Value 10/17/2019 271 HGB Date Value 10/17/2019 10.8 g/dL (L) 11/06/2005 14.0 G/DL HCT (%) Date Value 10/17/2019 33.2 (L) 11/06/2005 42.8 CMP NA Date Value 10/17/2019 136 mmol/L 11/06/2005 144 MMOL/L K Date Value 10/17/2019 3.4 mmol/L (L) 11/06/2005 4.2 MMOL/L CALCIUM Date Value 10/17/2019 7.5 mg/dL (L) 11/06/2005 8.7 MG/DL CL Date Value 10/17/2019 106 mmol/L 11/06/2005 107 MMOL/L BUN Date Value 10/17/2019 20 mg/dL 11/06/2005 24 MG/DL (H) CREATININE Date Value 10/17/2019 0.67 mg/dL 11/06/2005 0.97 MG/DL GLUCOSE Date Value 10/17/2019 78 mg/dL 11/06/2005 80 MG/DL CO2 TOTAL Date Value 10/17/2019 25 mmol/L 11/06/2005 24 MMOL/L ALBUMIN (g/dL) Date Value 10/15/2019 3.7 T PROTEIN (g/dL) Date Value 10/15/2019 7.6 TOTAL BILI (mg/dL) Date Value 10/15/2019 0.3 ALT(SGPT) (U/L) Date Value 06/15/2016 30 ALTv (U/L) Date Value 10/15/2019 17 AST(SGOT) (U/L) Date Value 10/15/2019 26 ALK PHOS (U/L) Date Value 10/15/2019 67 Chest xray 10/15: EXAM: XR CHEST 1 VW HISTORY: chf COMPARISON: None. FINDINGS: The heart is upper limit of normal in size, unchanged. Mild hilar vascular congestion is present but the lungs are clear otherwise. The opacities over the lower lungs are due to soft tissues of the chest. Bilateral venous doppler 10/14: The BILATERAL lower extremity venous system was examined. No evidence of deep or superficial venous thrombosis in either lower extremity? however, deep venous thrombosis could not be ruled out bilaterally in the posteriortibial veins. ROS: General: Awake, alert, no acute distress CV: S1, S2 RESP: Good breath sounds ABD: Round, nontender, bowel sounds present Extremities: Edema to bilateral lower extremity Skin: Erythema to bilateral lower extremities with no open wounds or weeping, no warmth Assessment and plan: Bilateral lower extremity stasis dermatitis, procal and WBC negative, unlikely cellulitis Blood cultures positive for Gram positive bacilli, most likely contamination No leukocytosis, afebrile Patient is currently on Doxycycline and Levaquin From ID standpoint, no need for antibiotics upon discharge Will continue to monitor Patient discussed with Dr. Vernon Cmanuela, MD Demetra - 10/19/2019 8:26 AM CDT [facility] Cardiology progress note Date of Service: 10/19/2019 Cely Eagle is a 39 years old female hospitalized for leg cellulitis. Good UOP. Less SOB. Labs stable. PHYSICAL EXAM Vitals: 10/18/19 1957 10/19/19 0003 10/19/19 0330 10/19/19 0746 BP: 128/89 105/62 107/63 131/77 Pulse: 83 79 81 87 Resp: 18 18 Temp: 36.2 C (97.1 F) 35.8 C (96.4 F) 36.1 C (96.9 F) 36 C (96.8 F) TempSrc: Temporal Artery Temporal Artery Temporal Artery Temporal Artery SpO2: 95% 90% 91% 97% Weight: 131.5 kg (290 lb) Height: General: alert and oriented x 3 (person, place and date/time); no apparent distress, obese HEENT: normocephalic atraumatic Neck: supple, no lymphadenopathy, no bruits, no JVD Lungs: clear to auscultation bilaterally Cardio: S1, S2, normal rate, regular; no murmurs, rubs or gallops Abdomen: non-distended : not examined Rectal: not examined Extremities: no clubbing, cyanosis, - edema + mild redness Skin: no rashes Neuro: no focal deficits Medications: I have reviewed the patient's medications; see Medication Reconciliation. Labs: I have reviewed the patient's labs. ASSESSMENT AND PLAN Principal Problem: Bilateral cellulitis of lower leg Active Problems: Morbid obesity due to excess calories Acute on chronic diastolic CHF (congestive heart failure), NYHA class 3 Acute on chronic diastolic CHF: Good UOP. Continue with IV lasix 20 BiD. Keep K > 4 and Mag > 2. Echo showed normal LVEF. Low salt diet. Daily weight. Consider OP sleep study to assess FAREED. Volume status is good. Consider PO lasix upon discharge. Bilateral leg cellulitis: as per primary team. B/l venous insufficiency: Follows [facility] Vascular surgery. Morbid obesity/Possible FAREED: recommend outpatient sleep clinic assessment. F/u Dr. Mcintyre 2-3 weeks Demetra Washington MD, FAC, [employer], Division of Cardiology [facility] Simone Cardenas MD - 10/18/2019 1:49 PM CDT Hospital Medicine Progress Note Name: Cely Eagle : 1980 Admit Date: 10/15/2019 PCP on file:Jo Gutierrez ASSESSMENT: Cely Eagle is a 39 year old female with PLAN: # bilateral leg cellulitis, with failed outpatient treatment with clindamycin # ? Bacteremia with gram positive bacilli # Leukocytosis, resolving IV doxy and levaquin day 4 Follow blood culture Repeated blood culture this am ID consult Dr. Vernon # Significant b/l venous insufficiency, has [facility] vascular f/u Venous doppler checked. # Acute diastolic CHF,mild IV lasix; need po lasix on discharge Monitor I/O Cardiology consulted Telemetry Echo showed normal LVEF # Smoker. Doesn't want nicotine patch # Morbid obesity Possible FAREED, recommended to patient to discuss getting a sleep study test with PCP # psychiatric history Resumed home meds Dispo: Home in 1-2 days VTE Prophylaxis: Lovenox Code Status: [facility] was verified during stay Electronically signed by: Simone Huang MD SUBJECTIVE/ 24-HOUR HOSPITAL EVENTS: 10/15: no new complaint. Afebrile. 10/16: Feels better. 10/17: Afebrile. Feels better. OBJECTIVE: Vital signs range: Temp: [35.7 C (96.3 F)-36.3 C (97.3 F)] 36.2 C (97.2 F) Pulse: [81-95] 81 Resp: [16-20] 18 BP: (120-134)/(74-96) 127/90 Most recent vital signs: BP 127/90 | Pulse 81 | Temp 36.2 C (97.2 F) (Temporal Artery) | Resp 18 | Ht 1.626 m (5' 4") | Wt 131.3 kg (289 lb 9 oz) | SpO2 98% | BMI 49.70 kg/m I/O: I/O last 3 completed shifts: In: 1883 [Oral:1783; I.V.:100] Out: 3050 [Urine:3050] PHYSICAL EXAM: General: alert and oriented x 4 (person, place, date/time and situation); no apparent distress HEENT: pupils equal, round, reactive to light; extraocular movements intact; oropharynx clear; moistmucous membranes Neck: supple, no lymphadenopathy, no bruits, no JVD Lungs: clear to auscultation bilaterally Cardio: S1, S2 normal; no murmurs, rubs or gallops Abdomen: soft; non-tender; non-distended; normoactive bowel sounds Extremities: no clubbing, cyanosis, or edema Skin: erythema in bilateral lower legs, improved Neuro: cranial nerves II through XII grossly intact; sensation grossly intact; muscle strength 5 outof 5 in all four extremities, no focal deficits, alert and oriented x 3 LABS: I reviewed all the relevant patient's new lab test results No results found for this or any previous visit (from the past 24 hour(s)). IMAGING: I reviewed all the relevant patient's new radiology test results Hospital Encounter on 10/15/19 XR CHEST 1 VW Narrative EXAM: XR CHEST 1 VW HISTORY: chf COMPARISON: None. FINDINGS: The heart is upper limit of normal in size, unchanged. Mild hilar vascular congestion is present but the lungs are clear otherwise. The opacities over the lower lungs are due to soft tissues of the chest. MEDICATIONS: I reviewed the current inpatient medications ordered Current Facility-Administered Medications Medication Dose Route Frequency Last Rate Last Dose traMADol (ULTRAM) tablet 50 mg 50 mg Oral BIDPRN 50 mg at 10/18/19 0157 KCL (KLOR-CON M20) tablet 20 mEq 20 mEq Oral DAILY 20 mEq at 10/18/19900 amitriptyline (ELAVIL) tablet 25 mg 25 mg Oral QHS 25 mg at 10/17/192044 ARIPiprazole (ABILIFY) tablet 15 mg 15 mg Oral DAILY 15 mg at 10/18/19901 aspirin chewable tablet 81 mg 81 mg Oral DAILY 81 mg at 10/18/19901 budesonide-formoteroL (SYMBICORT) 160-4.5 mcg/actuation inhaler 2 Puff 2 Puff Inhalation BID 2 Puff at 10/18/19 0749 busPIRone (BUSPAR) tablet 10 mg 10 mg Oral BID 10 mg at 10/18/19900 divalproex ER (DEPAKOTE ER) 24 hr tablet 1,000 mg 1,000 mg Oral QHS 1,000 mg at 10/17/192044 docusate (COLACE) capsule 100 mg 100 mg Oral BID 100 mg at 10/18/19901 doxycycline (VIBRAMYCIN) 100 mg in NaCl 0.9% (NS) 100 mL MINI-BAG 100 mg IV Piggyback Q12H ABX 100 mg at 10/18/19 0157 enoxaparin (LOVENOX) injection 40 mg 40 mg Subcutaneous DAILY 40 mg at 10/18/19901 furosemide (LASIX) injection 20 mg 20 mg Slow IV Push QAM+PM 20 mg at 10/18/19900 lactobacillus acidophilus (ACIDOPHILLUS) 25 million cell -100 mg captab 1 tablet 1 tablet Oral BID 1 tablet at 10/18/19900 levoFLOXacin in D5W (LEVAQUIN) 750 mg/150 mL Piggyback 750 mg 750 mg IV Piggyback Q24H ABX 750 mg at 10/18/19 0302 mirtazapine (REMERON) tablet 15 mg 15 mg Oral QHS 15 mg at 10/17/192044 montelukast (SINGULAIR) tablet 10 mg 10 mg Oral DAILY 10 mg at 10/18/19900 ondansetron (ZOFRAN (PF)) injection 4 mg 4 mg Slow IV Push Q6HPRN pantoprazole (PROTONIX) EC tablet 40 mg 40 mg Oral DAILY 40 mg at 10/18/19900 venlafaxine XR (EFFEXOR XR) 24 hr capsule 150 mg 150 mg Oral QAM WITH BREAKFAST 150 mg at 10/18/19 0901 ai, MD Demetra - 10/18/2019 10:42 AM CDT [facility] Cardiology progress note Date of Service: 10/18/2019 Cely Eagle is a 39 years old female hospitalized for leg cellulitis. Good UOP. Less SOB. Labs stable. PHYSICAL EXAM Vitals: 10/18/19 0015 10/18/19 0344 10/18/19 0749 10/18/19 0750 BP: 122/75 129/80 (!) 134/96 Pulse: 84 83 95 90 Resp: 18 20 18 18 Temp: 36 C (96.8 F) 35.7 C (96.3 F) 36.1 C (97 F) TempSrc: Temporal Artery Temporal Artery Temporal Artery SpO2: 90% 92% 97% 96% Weight: 131.3 kg (289 lb 9 oz) Height: Date 10/18/19 0700 - 10/19/19 0659 Shift 7462-7365 5696-8126 0438-6206 24 Hour Total INTAKE Oral 243 243 Shift Total 243 243 OUTPUT Shift Total Weight (kg) 131.3 131.3 131.3 131.3 General: alert and oriented x 3 (person, place and date/time); no apparent distress, obese HEENT: normocephalic atraumatic Neck: supple, no lymphadenopathy, no bruits, no JVD Lungs: clear to auscultation bilaterally Cardio: S1, S2, normal rate, regular; no murmurs, rubs or gallops Abdomen: non-distended : not examined Rectal: not examined Extremities: no clubbing, cyanosis, + trace edema + mild redness Skin: no rashes Neuro: no focal deficits Medications: I have reviewed the patient's medications; see Medication Reconciliation. Labs: I have reviewed the patient's labs. ASSESSMENT AND PLAN Principal Problem: Bilateral cellulitis of lower leg Active Problems: Morbid obesity due to excess calories Acute on chronic diastolic CHF (congestive heart failure), NYHA class 3 Acute on chronic diastolic CHF: Reported good UOP. Continue with IV lasix 20 BiD. Keep K > 4 and Mag > 2. Echo showed normal LVEF. Low salt diet. Daily weight. Consider OP sleep study to assess FAREED. Volume status is good. Consider PO lasix upon discharge. Bilateral leg cellulitis: as per primary team. B/l venous insufficiency: Follows [facility] Vascular surgery. Morbid obesity/Possible FAREED: recommend outpatient sleep clinic assessment. Demetra Washington MD, [facility], [employer], Division of Cardiology [facility] imone Huang MD - 10/17/2019 12:59 PM CDT [facility] Medicine Progress Note Name: Cely Eagle : 1980 Admit Date: 10/15/2019 PCP on file:Jo Gutierrez ASSESSMENT: Cely Eagle is a 39 year old female with PLAN: # bilateral leg cellulitis, with failed outpatient treatment with clindamycin # ? Bacteremia with gram positive rich # Leukocytosis, resolving IV doxy and levaquin day 3 Follow blood culture Repeat blood culture in am ID consult Dr. Vernon # Significant b/l venous insufficiency, has [facility] vascular f/u Venous doppler checked. # Acute diastolic CHF,mild IV lasix Monitor I/O Cardiology consulted Telemetry Echo showed normal LVEF # Smoker. Doesn't want nicotine patch # Morbid obesity Possible FAREED, recommended to patient to discuss getting a sleep study test with PCP # psychiatric history Resumed home meds Dispo: Home in 1-2 days VTE Prophylaxis: Lovenox Code Status: [facility] was verified during stay Electronically signed by: Simone uHang MD SUBJECTIVE/ 24-HOUR HOSPITAL EVENTS: 10/15: no new complaint. Afebrile. 10/16: Feels better. OBJECTIVE: Vital signs range: Temp: [35.8 C (96.4 F)-36.6 C (97.8 F)] 36.3 C (97.3 F) Pulse: [72-85] 77 Resp: [16-18] 18 BP: (109-139)/(57-89) 139/89 Most recent vital signs: BP 139/89 | Pulse 77 | Temp 36.3 C (97.3 F) (Temporal Artery) | Resp 18 | Ht 1.626 m (5' 4") | Wt 131.3 kg (289 lb 9 oz) | SpO2 96% | BMI 49.70 kg/m I/O: I/O last 3 completed shifts: In: 441 [Oral:341; I.V.:100] Out: 3000 [Urine:3000] PHYSICAL EXAM: General: alert and oriented x 4 (person, place, date/time and situation); no apparent distress HEENT: pupils equal, round, reactive to light; extraocular movements intact; oropharynx clear; moistmucous membranes Neck: supple, no lymphadenopathy, no bruits, no JVD Lungs: clear to auscultation bilaterally Cardio: S1, S2 normal; no murmurs, rubs or gallops Abdomen: soft; non-tender; non-distended; normoactive bowel sounds Extremities: no clubbing, cyanosis, or edema Skin: erythema in bilateral lower legs Neuro: cranial nerves II through XII grossly intact; sensation grossly intact; muscle strength 5 outof 5 in all four extremities, no focal deficits, alert and oriented x 3 LABS: I reviewed all the relevant patient's new lab test results Recent Results (from the past 24 hour(s)) BASIC METABOLIC PANEL (NA, K, CL, CO2, GLUCOSE, BUN, CREATININE, CA) Collection Time: 10/17/19 5:04 AM Result Value Ref Range NA 136 135 - 145 mmol/L K 3.4 (L) 3.5 - 5.0 mmol/L CL 106 98 - 108 mmol/L CO2 TOTAL 25 23 - 31 mmol/L AGAP 5 2 - 16 BUN 20 7 - 23 mg/dL GLUCOSE 78 70 - 110 mg/dL CREATININE 0.67 0.50 - 1.04 mg/dL CALCIUM 7.5 (L) 8.6 - 10.6 mg/dL eGFR Calculation (Non-) 97.5 mL/min/1.73m2 eGFR Calculation () 118.2 mL/min/1.73m2 MAGNESIUM Collection Time: 10/17/19 5:04 AM Result Value Ref Range MAGNESIUM 2.0 1.7 - 2.4 mg/dL CBC WITH DIFFERENTIAL Collection Time: 10/17/19 5:04 AM Result Value Ref Range WBC 10.80 4.30 - 11.10 10*3/L RBC 3.59 (L) 3.93 - 5.25 10*6/L HGB 10.8 (L) 11.6 - 15.0 g/dL HCT 33.2 (L) 35.7 - 45.2 % MCV 92.5 80.6 - 95.5 fL MCH 30.1 25.9 - 32.8 pg MCHC 32.5 31.6 - 35.1 g/dL RDW-SD 45.7 39.0 - 49.9 fL RDW-CV 13.5 12.0 - 15.5 % PLT 271 166 - 358 10*3/L MPV 9.7 9.5 - 12.9 fL NRBC/100 WBC 0.0 0.0 - 10.0 /100 WBCs NRBC x10^3 <0.01 10*3/L GRAN MAT (NEUT) % 67.4 % IMM GRAN % 1.60 % LYMPH % 19.4 % MONO % 7.7 % EOS % 3.3 % BASO % 0.6 % GRAN MAT x10^3(ANC) 7.27 (H) 1.88 - 7.09 10*3/uL IMM GRAN x10^3 0.17 (H) 0.00 - 0.06 10*3/uL LYMPH x10^3 2.10 1.32 - 3.29 10*3/uL MONO x10^3 0.83 0.33 - 0.92 10*3/uL EOS x10^3 0.36 0.03 - 0.39 10*3/uL BASO x10^3 0.07 0.01 - 0.07 10*3/uL N-TERMINAL PRO-BNP Collection Time: 10/17/19 5:04 AM Result Value Ref Range NT-proBNP 163 (H) <=125 pg/mL IMAGING: I reviewed all the relevant patient's new radiology test results Hospital Encounter on 10/15/19 XR CHEST 1 VW Narrative EXAM: XR CHEST 1 VW HISTORY: chf COMPARISON: None. FINDINGS: The heart is upper limit of normal in size, unchanged. Mild hilar vascular congestion is present but the lungs are clear otherwise. The opacities over the lower lungs are due to soft tissues of the chest. MEDICATIONS: I reviewed the current inpatient medications ordered Current Facility-Administered Medications Medication Dose Route Frequency Last Rate Last Dose [START ON 10/18/2019] KCL (KLOR-CON M20) tablet 20 mEq 20 mEq Oral DAILY amitriptyline (ELAVIL) tablet 25 mg 25 mg Oral QHS 25 mg at 10/16/192039 ARIPiprazole (ABILIFY) tablet 15 mg 15 mg Oral DAILY 15 mg at 10/17/19816 aspirin chewable tablet 81 mg 81 mg Oral DAILY 81 mg at 10/17/19817 budesonide-formoteroL (SYMBICORT) 160-4.5 mcg/actuation inhaler 2 Puff 2 Puff Inhalation BID 2 Puff at 10/17/19 07 busPIRone (BUSPAR) tablet 10 mg 10 mg Oral BID 10 mg at 10/17/19817 divalproex ER (DEPAKOTE ER) 24 hr tablet 1,000 mg 1,000 mg Oral QHS 1,000 mg at 10/16/192038 docusate (COLACE) capsule 100 mg 100 mg Oral BID 100 mg at 10/17/19816 doxycycline (VIBRAMYCIN) 100 mg in NaCl 0.9% (NS) 100 mL MINI-BAG 100 mg IV Piggyback Q12H ABX 100 mg at 10/17/19 0204 enoxaparin (LOVENOX) injection 40 mg 40 mg Subcutaneous DAILY 40 mg at 10/17/19817 furosemide (LASIX) injection 20 mg 20 mg Slow IV Push QAM+PM 20 mg at 10/17/19817 lactobacillus acidophilus (ACIDOPHILLUS) 25 million cell -100 mg captab 1 tablet 1 tablet Oral BID 1 tablet at 10/17/19817 levoFLOXacin in D5W (LEVAQUIN) 750 mg/150 mL Piggyback 750 mg 750 mg IV Piggyback Q24H ABX 750 mg at 10/17/19 0504 mirtazapine (REMERON) tablet 15 mg 15 mg Oral QHS 15 mg at 10/16/192039 montelukast (SINGULAIR) tablet 10 mg 10 mg Oral DAILY 10 mg at 10/17/19 0817 ondansetron (ZOFRAN (PF)) injection 4 mg 4 mg Slow IV Push Q6HPRN pantoprazole (PROTONIX) EC tablet 40 mg 40 mg Oral DAILY 40 mg at 10/17/19 0818 venlafaxine XR (EFFEXOR XR) 24 hr capsule 150 mg 150 mg Oral QAM WITH BREAKFAST 150 mg at 10/17/19 0817 CDemetra roy MD - 10/17/2019 12:16 PM CDT [facility] Cardiology progress note Date of Service: 10/17/2019 Cely Eagle is a 39 years old female hospitalized for leg cellulitis. Good UOP. Less SOB. Labs stable. PHYSICAL EXAM Vitals: 10/17/19 0438 10/17/19 0741 10/17/19 0800 10/17/19 1133 BP: 110/57 111/65 139/89 Pulse: 82 85 79 77 Resp: 18 18 18 18 Temp: 36.6 C (97.8 F) 36 C (96.8 F) 36.3 C (97.3 F) TempSrc: Temporal Artery Temporal Artery Temporal Artery SpO2: 92% 93% 92% 96% Weight: 131.3 kg (289 lb 9 oz) Height: Date 10/17/19 0700 - 10/18/19 0659 Shift 2730-9251 3864-3095 4458-8610 24 Hour Total INTAKE Oral 483 483 Shift Total 483 483 OUTPUT Urine(mL/kg/hr) 350 350 Shift Total 350 350 Weight (kg) 131.3 131.3 131.3 131.3 General: alert and oriented x 3 (person, place and date/time); no apparent distress, obese HEENT: normocephalic atraumatic Neck: supple, no lymphadenopathy, no bruits, no JVD Lungs: clear to auscultation bilaterally Cardio: S1, S2, normal rate, regular; no murmurs, rubs or gallops Abdomen: non-distended : not examined Rectal: not examined Extremities: no clubbing, cyanosis, + edema + redness Skin: no rashes Neuro: no focal deficits Medications: I have reviewed the patient's medications; see Medication Reconciliation. Labs: I have reviewed the patient's labs. ASSESSMENT AND PLAN Principal Problem: Bilateral cellulitis of lower leg Active Problems: Morbid obesity due to excess calories Acute on chronic diastolic CHF (congestive heart failure), NYHA class 3 Acute on chronic diastolic CHF: Reported good UOP. Continue with IV lasix 20 BiD. Keep K > 4 and Mag > 2. Echo showed normal LVEF. Low salt diet. Daily weight. Consider OP sleep study to assess FAREED. Bilateral leg cellulitis: as per primary team. B/l venous insufficiency: Follows [facility] Vascular surgery. Morbid obesity/Possible FAREED: recommend outpatient sleep clinic assessment. Demetra Washington MD, FACC, [employer], Division of Cardiology [facility] Simone Huang MD - 10/16/2019 4:59 PM CDT [facility] Medicine Progress Note Name: Cely Eagle : 1980 Admit Date: 10/15/2019 PCP on file:Jo Gutierrez ASSESSMENT: Cely Eagle is a 39 year old female with PLAN: # bilateral leg cellulitis, with failed outpatient treatment with clindamycin # ? Bacteremia with gram positive rich # Leukocytosis, resolving IV doxy and levaquin day 2 Follow blood culture ID consult Dr. Vernon # Significant b/l venous insufficiency, has [facility] vascular f/u Venous doppler checked. # Acute diastolic CHF,mild IV lasix Monitor I/O Cardiology consulted Telemetry Follow Echo # Smoker. Doesn't want nicotine patch # Morbid obesity Possible FAREED, recommended to patient to discuss getting a sleep study test with PCP # psychiatric history Resumed home meds Dispo: Home in 1-2 days VTE Prophylaxis: Lovenox Code Status: [place] FACILITIES LOCATOR was verified during stay Electronically signed by: Simone Huang MD SUBJECTIVE/ 24-HOUR HOSPITAL EVENTS: 10/15: no new complaint. Afebrile. OBJECTIVE: Vital signs range: Temp: [35.8 C (96.4 F)-37 C (98.6 F)] 35.8 C (96.4 F) Pulse: [72-90] 72 Resp: [18-20] 18 BP: (111-150)/(58-92) 134/76 Most recent vital signs: BP 134/76 | Pulse 72 | Temp 35.8 C (96.4 F) (Temporal Artery) | Resp 18 | Ht 1.626 m (5' 4") | Wt 135 kg (297 lb 9.6 oz) | SpO2 94% | BMI 51.08 kg/m I/O: I/O last 3 completed shifts: In: - Out: 500 [Urine:500] PHYSICAL EXAM: General: alert and oriented x 4 (person, place, date/time and situation); no apparent distress HEENT: pupils equal, round, reactive to light; extraocular movements intact; oropharynx clear; moistmucous membranes Neck: supple, no lymphadenopathy, no bruits, no JVD Lungs: clear to auscultation bilaterally Cardio: S1, S2 normal; no murmurs, rubs or gallops Abdomen: soft; non-tender; non-distended; normoactive bowel sounds Extremities: no clubbing, cyanosis, or edema Skin: erythema in bilateral lower legs Neuro: cranial nerves II through XII grossly intact; sensation grossly intact; muscle strength 5 outof 5 in all four extremities, no focal deficits, alert and oriented x 3 LABS: I reviewed all the relevant patient's new lab test results Recent Results (from the past 24 hour(s)) PROCALCITONIN Collection Time: 10/16/19 3:24 AM Result Value Ref Range Procalcitonin 0.02 <0.07 ng/mL SEDIMENTATION RATE Collection Time: 10/16/19 3:24 AM Result Value Ref Range ESR 22 (H) 0 - 20 mm/HR BASIC METABOLIC PANEL (NA, K, CL, CO2, GLUCOSE, BUN, CREATININE, CA) Collection Time: 10/16/19 3:24 AM Result Value Ref Range NA 136 135 - 145 mmol/L K 4.2 3.5 - 5.0 mmol/L CL 103 98 - 108 mmol/L CO2 TOTAL 28 23 - 31 mmol/L AGAP 5 2 - 16 BUN 18 7 - 23 mg/dL GLUCOSE 95 70 - 110 mg/dL CREATININE 0.88 0.50 - 1.04 mg/dL CALCIUM 8.5 (L) 8.6 - 10.6 mg/dL eGFR Calculation (Non-) 71.2 mL/min/1.73m2 eGFR Calculation () 86.3 mL/min/1.73m2 N-TERMINAL PRO-BNP Collection Time: 10/16/19 3:24 AM Result Value Ref Range NT-proBNP 280 (H) <=125 pg/mL TROPONIN I Collection Time: 10/16/19 3:24 AM Result Value Ref Range TROPONIN I <0.012 <=0.034 ng/mL MAGNESIUM Collection Time: 10/16/19 3:24 AM Result Value Ref Range MAGNESIUM 2.2 1.7 - 2.4 mg/dL PHOSPHORUS Collection Time: 10/16/19 3:24 AM Result Value Ref Range PHOSPHORUS 4.9 2.5 - 5.0 mg/dL CBC WITH DIFFERENTIAL Collection Time: 10/16/19 3:24 AM Result Value Ref Range WBC 9.97 4.30 - 11.10 10*3/L RBC 3.88 (L) 3.93 - 5.25 10*6/L HGB 11.6 11.6 - 15.0 g/dL HCT 36.0 35.7 - 45.2 % MCV 92.8 80.6 - 95.5 fL MCH 29.9 25.9 - 32.8 pg MCHC 32.2 31.6 - 35.1 g/dL RDW-SD 45.6 39.0 - 49.9 fL RDW-CV 13.7 12.0 - 15.5 % PLT 295 166 - 358 10*3/L MPV 9.9 9.5 - 12.9 fL NRBC/100 WBC 0.0 0.0 - 10.0 /100 WBCs NRBC x10^3 <0.01 10*3/L GRAN MAT (NEUT) % 62.1 % IMM GRAN % 1.60 % LYMPH % 22.0 % MONO % 9.5 % EOS % 4.1 % BASO % 0.7 % GRAN MAT x10^3(ANC) 6.19 1.88 - 7.09 10*3/uL IMM GRAN x10^3 0.16 (H) 0.00 - 0.06 10*3/uL LYMPH x10^3 2.19 1.32 - 3.29 10*3/uL MONO x10^3 0.95 (H) 0.33 - 0.92 10*3/uL EOS x10^3 0.41 (H) 0.03 - 0.39 10*3/uL BASO x10^3 0.07 0.01 - 0.07 10*3/uL CBC WITH DIFFERENTIAL Collection Time: 10/16/19 3:24 AM Result Value Ref Range WBC 10.42 4.30 - 11.10 10*3/L RBC 3.86 (L) 3.93 - 5.25 10*6/L HGB 11.4 (L) 11.6 - 15.0 g/dL HCT 35.5 (L) 35.7 - 45.2 % MCV 92.0 80.6 - 95.5 fL MCH 29.5 25.9 - 32.8 pg MCHC 32.1 31.6 - 35.1 g/dL RDW-SD 45.2 39.0 - 49.9 fL RDW-CV 13.5 12.0 - 15.5 % PLT 294 166 - 358 10*3/L MPV 10.0 9.5 - 12.9 fL NRBC/100 WBC 0.0 0.0 - 10.0 /100 WBCs NRBC x10^3 <0.01 10*3/L GRAN MAT (NEUT) % 62.2 % IMM GRAN % 1.60 % LYMPH % 21.4 % MONO % 9.8 % EOS % 4.1 % BASO % 0.9 % GRAN MAT x10^3(ANC) 6.48 1.88 - 7.09 10*3/uL IMM GRAN x10^3 0.17 (H) 0.00 - 0.06 10*3/uL LYMPH x10^3 2.23 1.32 - 3.29 10*3/uL MONO x10^3 1.02 (H) 0.33 - 0.92 10*3/uL EOS x10^3 0.43 (H) 0.03 - 0.39 10*3/uL BASO x10^3 0.09 (H) 0.01 - 0.07 10*3/uL IMAGING: I reviewed all the relevant patient's new radiology test results Hospital Encounter on 10/15/19 XR CHEST 1 VW Narrative EXAM: XR CHEST 1 VW HISTORY: chf COMPARISON: None. FINDINGS: The heart is upper limit of normal in size, unchanged. Mild hilar vascular congestion is present but the lungs are clear otherwise. The opacities over the lower lungs are due to soft tissues of the chest. MEDICATIONS: I reviewed the current inpatient medications ordered Current Facility-Administered Medications Medication Dose Route Frequency Last Rate Last Dose amitriptyline (ELAVIL) tablet 25 mg 25 mg Oral QHS 25 mg at 10/16/19 0259 ARIPiprazole (ABILIFY) tablet 15 mg 15 mg Oral DAILY 15 mg at 10/16/19 0933 aspirin chewable tablet 81 mg 81 mg Oral DAILY 81 mg at 10/16/19 0933 budesonide-formoteroL (SYMBICORT) 160-4.5 mcg/actuation inhaler 2 Puff 2 Puff Inhalation BID Stopped at 10/16/19 0744 busPIRone (BUSPAR) tablet 10 mg 10 mg Oral BID 10 mg at 10/16/19 0933 divalproex ER (DEPAKOTE ER) 24 hr tablet 1,000 mg 1,000 mg Oral QHS 1,000 mg at 10/16/19 0145 docusate (COLACE) capsule 100 mg 100 mg Oral BID doxycycline (VIBRAMYCIN) 100 mg in NaCl 0.9% (NS) 100 mL MINI-BAG 100 mg IV Piggyback Q12H ABX 100 mg at 10/16/19 1505 enoxaparin (LOVENOX) injection 40 mg 40 mg Subcutaneous DAILY 40 mg at 10/16/19 0933 furosemide (LASIX) injection 20 mg 20 mg Slow IV Push QAM+PM 20 mg at 10/16/19 1632 KCL (KLOR-CON M10) tablet 10 mEq 10 mEq Oral DAILY 10 mEq at 10/16/19 0933 lactobacillus acidophilus (ACIDOPHILLUS) 25 million cell -100 mg captab 1 tablet 1 tablet Oral BID 1 tablet at 10/16/19 0933 levoFLOXacin in D5W (LEVAQUIN) 750 mg/150 mL Piggyback 750 mg 750 mg IV Piggyback Q24H ABX 750 mg at 10/16/19 0300 mirtazapine (REMERON) tablet 15 mg 15 mg Oral QHS 15 mg at 10/16/19 0300 montelukast (SINGULAIR) tablet 10 mg 10 mg Oral DAILY 10 mg at 10/16/19 0933 ondansetron (ZOFRAN (PF)) injection 4 mg 4 mg Slow IV Push Q6HPRN pantoprazole (PROTONIX) EC tablet 40 mg 40 mg Oral DAILY 40 mg at 10/16/19 0933 venlafaxine XR (EFFEXOR XR) 24 hr capsule 150 mg 150 mg Oral QAM WITH BREAKFAST 150 mg at 10/16/19932 Marti Perdomo LB - 10/16/2019 11:34 AM CDTSubjective Patient ID: Cely Eagle is a 39 year old female. Care Management Social Functional Assessment Patient Name: Cely Eagle Age: [age] year old Sex: female Previous admit date: N/A Current diagnosis and co-morbidities: Bilateral cellulitis of lower leg Readmission Questions: Was patient discharged from any acute care hospital within the last 30 days: No Social Functional Assessment: Primary language spoken/preferred: Romanian Mental Status: Alert & Oriented to Person,Place & Time Information given by: Self Patient's support system: Spouse;Other Name and number of support system: Royce Richardson, and Emmy kunz, friend [phone] Primary Gore Stitcher: Self MPOA: No Living Arrangement: Home Address of living arrangement : [address] [place] [address] [address] [facility] [address] Persons living in home: Self;Spouse Barriers to returning home: None Baseline functional status- ambulation: Independent Functional status-baseline personal care: Independent Baseline functional status- driving: Independent Baseline functional status- grocery shopping: Independent Functional status-baseline housekeeping: Independent Functional status-baseline meal prep: Independent Current functional status same as prior: Yes Do you have a PCP?: Yes Name of PCP: Jo Gutierrez Home Health Care Agency: No Provider Services: No DME Company: No Equipment: None Hemodialysis: No Funding Resources: Medicaid HMO Prescription coverage plan: Medicaid-3 slots Pharmacy where meds are filled: Other Other pharmacy: [facility] Anticipated services prior to disharge: Continue Medical Eval Expected mode of discharge transportation: Same as support system Additional Recommendations for DC: Medical clearance Additional info required for discharge planning: Pending medical evaluation Recommended discharge plan: Home SFA Complete: Social Functional Assessment complete: Yes Alcohol Use Screening (AUDIT-C) How often do you have a drink containing alcohol?: Never SCORE: 0 Role of Care Management explained. Any issues or concerns with obtaining/affording your medications at home: no. Are you or your support system able to shredder picker medications at discharge: yes. Review of Systems Objective Physical Exam Assessment/Plan Home with , no discharge needs to report MAGDALENO [place] Resource Economist - Care Management [facility] [phone] [email or web address] documented in this encounter Plan of Treatment Date Type Specialty Care Team Description 12/09/2019 Office Visit Cardiology Demetra Washington M D [address] [place] [address] [phone] Name Type Priority Associated Diagnoses Date/Ti me BLOOD CULTURE SCREEN LAB Routine 020 10:15 AM CDT BLOOD CULTURE SCREEN LAB Routine 020 9:48 AM CDT Name Type Priority Associated Diagnoses Order S chedule BASIC METABOLIC PANEL LAB Routine ONCE f or 1 Occurrences (NA, K, CL, CO2, starting until GLUCOSE, BUN, 10/19/2019 CREATININE, CA) Health Maintenance Due Date Last Done Comments [...] encounter Procedures Procedure Name Priority Date/Time Associated Comments Diagnosis CBC WITH DIFFERENTIAL Routine 10/19/2019 1:39 Re sults for this PM CDT procedure are i n the results section. N-TERMINAL PRO-BNP Routine 10/19/2019 1:39 Resul ts for this PM CDT procedure are i n the results section. CBC WITH DIFFERENTIAL Routine 10/19/2019 1:39 Re sults for this PM CDT procedure are i n the results section. BASIC METABOLIC PANEL Routine 10/19/2019 1:39 Re sults for this (NA, K, CL, CO2, PM CDT procedure a re in GLUCOSE, BUN, the results CREATININE, CA) section. MAGNESIUM Routine 10/19/2019 1:39 Results for this PM CDT procedure are i n the results section. CBC WITH DIFFERENTIAL Routine 10/17/2019 5:04 Re sults for this AM CDT procedure are i n the results section. N-TERMINAL PRO-BNP Routine 10/17/2019 5:04 Resul ts for this AM CDT procedure are i n the results section. CBC WITH DIFFERENTIAL Routine 10/17/2019 5:04 Re sults for this AM CDT procedure are i n the results section. BASIC METABOLIC PANEL Routine 10/17/2019 5:04 Re sults for this (NA, K, CL, CO2, AM CDT procedure a re in GLUCOSE, BUN, the results CREATININE, CA) section. MAGNESIUM Routine 10/17/2019 5:04 Results for this AM CDT procedure are i n the results section. ECHO ROUTINE W/DOPPLER Routine 10/16/2019 9:43 Bilateral lowe r leg COLOR AM CDT cellulitis XR CHEST 1 VW CARROLL 10/16/2019 4:31 Pedal edema Results fo r this AM CDT procedure are i n the results section. CBC WITH DIFFERENTIAL Routine 10/16/2019 3:24 Re sults for this AM CDT procedure are i n the results section. CBC WITH DIFFERENTIAL Routine 10/16/2019 3:24 Re sults for this AM CDT procedure are i n the results section. DIFF CONSULT Routine 10/16/2019 3:24 Results for this INTERPRETATION AM CDT procedure are in the results section. PROCALCITONIN Routine 10/16/2019 3:24 Results fo r this AM CDT procedure are i n the results section. N-TERMINAL PRO-BNP Routine 10/16/2019 3:24 Resul ts for this AM CDT procedure are i n the results section. CBC WITH DIFFERENTIAL Routine 10/16/2019 3:24 Re sults for this AM CDT procedure are i n the results section. DIFF CONSULT Routine 10/16/2019 3:24 Results for this INTERPRETATION AM CDT procedure are in the results section. SEDIMENTATION RATE CARROLL 10/16/2019 3:24 Resul ts for this AM CDT procedure are i n the results section. BASIC METABOLIC PANEL Routine 10/16/2019 3:24 Re sults for this (NA, K, CL, CO2, AM CDT procedure a re in GLUCOSE, BUN, the results CREATININE, CA) section. TROPONIN I Routine 10/16/2019 3:24 Results for this AM CDT procedure are i n the results section. MAGNESIUM Routine 10/16/2019 3:24 Results for this AM CDT procedure are i n the results section. PHOSPHORUS Routine 10/16/2019 3:24 Results for this AM CDT procedure are i n the results section. BLOOD CULTURE WORKUP STAT 10/15/2019 4:25 Cellulitis of ri ght Results for this PM CDT lower extremity procedure ar e in the results section. BLOOD CULTURE WORKUP STAT 10/15/2019 4:25 Cellulitis of ri ght Results for this PM CDT lower extremity procedure ar e in the results section. BLOOD CULTURE SCREEN STAT 10/15/2019 4:25 Cellulitis of ri ght Results for this PM CDT lower extremity procedure ar e in the results section. BLOOD CULTURE SCREEN STAT 10/15/2019 4:25 Cellulitis of ri ght Results for this PM CDT lower extremity procedure ar e in the results section. BILATERAL VENOUS DUPLEX CARROLL 10/15/2019 2:15 LOWER EXTREMITY BY PM CDT VASCULAR LAB LACTIC ACID WHOLE BLOOD STAT 10/15/2019 1:33 Dizzine ss Results for this PM CDT Nonintractable procedure are in headache, the results unspecified section. chronicity pattern, unspecified headache type COVID-19 (ID NOW RAPID STAT 10/15/2019 1:15 Dizzines s Results for this TESTING) PM CDT Nonintractable procedure are in headache, the results unspecified section. chronicity pattern, unspecified headache type EKG-12 LEAD Routine 10/15/2019 12:40 PM CDT POCT TEST CARROLL 10/15/2019 12:39 Dizziness Results for this PM CDT Nonintractable procedure are in headache, the results unspecified section. chronicity pattern, unspecified headache type CBC WITH DIFFERENTIAL STAT 10/15/2019 12:38 Dizziness Results for this PM CDT Nonintractable procedure are in headache, the results unspecified section. chronicity pattern, unspecified headache type N-TERMINAL PRO-BNP STAT 10/15/2019 12:38 Dizziness Results for this PM CDT Nonintractable procedure are in headache, the results unspecified section. chronicity pattern, unspecified headache type URINALYSIS STAT 10/15/2019 12:38 Dizziness Results for this PM CDT Nonintractable procedure are in headache, the results unspecified section. chronicity pattern, unspecified headache type CBC WITH DIFFERENTIAL Routine 10/15/2019 12:38 Dizziness Results for this PM CDT Nonintractable procedure are in headache, the results unspecified section. chronicity pattern, unspecified headache type COMP. METABOLIC PANEL STAT 10/15/2019 12:38 Dizziness Results for this (56830) PM CDT Nonintractable procedure are in headache, the results unspecified section. chronicity pattern, unspecified headache type TROPONIN I STAT 10/15/2019 12:38 Dizziness Results for this PM CDT Nonintractable procedure are in headache, the results unspecified section. chronicity pattern, unspecified headache type CREATINE KINASE Add-on 10/15/2019 12:38 Results for this PM CDT procedure are i n the results section. EKG-12 LEAD STAT 10/15/2019 12:26 PM CDT NOTICE OF PRIVACY Routine 10/15/2019 12:11 PRACTICES PM CDT documented in this encounter Results CBC WITH DIFFERENTIAL (10/19/2019 1:39 PM CDT) Pathologist Sig nature WBC 10.75 4.30 - 11.10 [facility] 10*3/L [facility] RBC 4.13 3.93 - 5.25 [facility] 10*6/L [facility] HGB 12.4 11.6 - 15.0 [facility] g/dL [facility] HCT 37.7 35.7 - 45.2 % [facility] MCV 91.3 80.6 - 95.5 fL [facility] MCH 30.0 25.9 - 32.8 pg [facility] MCHC 32.9 31.6 - 35.1 [facility] g/dL [facility] RDW-SD 46.1 39.0 - 49.9 fL [facility] RDW-CV 13.9 12.0 - 15.5 % [facility] PLT 254 166 - 358 [facility] 10*3/L [facility] MPV 10.2 9.5 - 12.9 fL [facility] NRBC/100 WBC 0.0 0.0 - 10.0 /100 [facility] WBCs [facility] NRBC x10^3 <0.01 10*3/L [facility] GRAN MAT (NEUT) % 63.2 % [facility] IMM GRAN % 1.60 % [facility] LYMPH % 24.6 % [facility] MONO % 6.6 % [facility] EOS % 3.3 % [facility] BASO % 0.7 % [facility] GRAN MAT x10^3(ANC) 6.79 1.88 - 7.09 [facility] 10*3/uL [facility] IMM GRAN x10^3 0.17 (H) 0.00 - 0.06 [facility] 10*3/uL [facility] LYMPH x10^3 2.64 1.32 - 3.29 [facility] 10*3/uL [facility] MONO x10^3 0.71 0.33 - 0.92 [facility] 10*3/uL [facility] EOS x10^3 0.36 0.03 - 0.39 [facility] 10*3/uL [facility] BASO x10^3 0.08 (H) 0.01 - 0.07 [facility] 10*3/uL [facility] Specimen Blood - ARM, LEFT Performing Organization Address City/State/Zipcode Phone Number [facility] CLIA: [id number], [address] [place], [place] [address] MAGNESIUM (10/19/2019 1:39 PM CDT) Pathologist Sig nature MAGNESIUM 2.4 1.7 - 2.4 mg/dL [facility] Specimen Blood - ARM, LEFT Performing Organization Address City/State/Zipcode Phone Number [facility] CLIA: [id number], [address] [place] [address] BASIC METABOLIC PANEL (NA, K, CL, CO2, GLUCOSE, BUN, CREATININE, CA) (10/19/2019 1:39 PM CDT) Pathologist [facility] nature NA 134 (L) 135 - 145 [facility] mmol/L [facility] K 4.1 3.5 - 5.0 [facility] mmol/L [facility] CL 102 98 - 108 mmol/L [facility] CO2 TOTAL 28 23 - 31 mmol/L [facility] AGAP 4 2 - 16 [facility] BUN 21 7 - 23 mg/dL [facility] GLUCOSE 115 (H) 70 - 110 mg/dL [facility] CREATININE 0.79 0.50 - 1.04 [facility] mg/dL [facility] CALCIUM 8.6 8.6 - 10.6 [facility] mg/dL [facility] eGFR Calculation 80.6 mL/min/1.73m2 [facility] ([facility] [place]) eGFR Calculation 97.7 mL/min/1.73m2 [facility] () [facility] Specimen Blood - ARM, LEFT Narrative Performed At [facility] ([facility] and Staging of Kidney Disease* + + +- + | GFR (mL/min/1.73 m2) | With Kidney Damage | Without Kidney Damage + + +- + | >90 | Stage one | Normal + + +- + | 60-89 | Stage two | Decreased GFR + + +- + | 30-59 | Stage three | Stage three + + +- + | 15-29 | Stage four | Stage four + + +- + | <15 (or dialysis) | Stage five | Stage five + + +- + *Each stage assumes the associated GFR level has been in effect for at least three months. Stages 1 to 5, with or without kidney disease, indicate chronic kidney disease. Notes: Determination of stages one and two (with eGFR >59mL/min/1.73 m2) requires estimation of kidney damage for at least three months as defined by structural or functional abnormalities of the kidney, manifested by either: Pathological abnormalities or Markers of kidney damage (including abnormalities in the composition of the blood or urine or abnormalities in imaging tests). Performing Organization Address City/State/Zipcode Phone Number [facility] CLIA: [id number], [address] N-TERMINAL PRO-BNP (10/19/2019 1:39 PM CDT) Pathologist Sig nature NT-proBNP 61 <=125 pg/mL [facility] Specimen Blood - ARM, LEFT Narrative Performed At [facility] has been reported to cause a negative [facility] bias, interpret results relative to patient's use of biotin. Performing Organization Address City/[facility]/Zipcode Phone Number [facility] CLIA: [id number], [address] CBC WITH DIFFERENTIAL (10/17/2019 5:04 AM CDT) Pathologist Sig nature WBC 10.80 4.30 - 11.10 [facility] 10*3/L [facility] RBC 3.59 (L) 3.93 - 5.25 [facility] 10*6/L [facility] HGB 10.8 (L) 11.6 - 15.0 [facility] g/dL [facility] HCT 33.2 (L) 35.7 - 45.2 % [facility] MCV 92.5 80.6 - 95.5 fL [facility] MCH 30.1 25.9 - 32.8 pg [facility] MCHC 32.5 31.6 - 35.1 [facility] g/dL [facility] RDW-SD 45.7 39.0 - 49.9 fL [facility] RDW-CV 13.5 12.0 - 15.5 % [facility] PLT 271 166 - 358 [facility] 10*3/L [facility] MPV 9.7 9.5 - 12.9 fL [facility] NRBC/100 WBC 0.0 0.0 - 10.0 /100 [facility] WBCs [facility] NRBC x10^3 <0.01 10*3/L [facility] GRAN MAT (NEUT) % 67.4 % [facility] IMM GRAN % 1.60 % [facility] LYMPH % 19.4 % [facility] MONO % 7.7 % [facility] EOS % 3.3 % [facility] BASO % 0.6 % [facility] GRAN MAT x10^3(ANC) 7.27 (H) 1.88 - 7.09 [facility] 10*3/uL [facility] IMM GRAN x10^3 0.17 (H) 0.00 - 0.06 [facility] 10*3/uL HOSPITAL LABORATORY LYMPH x10^3 2.10 1.32 - 3.29 [facility] 103/uL [facility] MONO x10^3 0.83 0.33 - 0.92 [facility] 103/uL [facility] EOS x10^3 0.36 0.03 - 0.39 [facility] 103/uL [facility] BASO x10^3 0.07 0.01 - 0.[address]/[facility] LABORATORY Specimen Blood - ARM, RIGHT Performing Organization Address [facility] Phone Number [facility] CLIA: [id number], [address] MAGNESIUM (10/17/2019 5:04 AM CDT) Pathologist Sig [facility] MAGNESIUM 2.0 1.7 - 2.4 mg/dL [facility] Specimen Blood - ARM, RIGHT Performing Organization Address [facility] Phone Number [facility] CLIA: [id number], [address] BASIC METABOLIC PANEL (NA, K, CL, CO2, GLUCOSE, BUN, CREATININE, CA) (10/17/2019 5:04 AM CDT) Pathologist Sig nature NA 136 135 - 145 [facility] mmol/L [facility] K 3.4 (L) 3.5 - 5.0 [facility] mmol/L [facility] CL 106 98 - 108 mmol/L [facility] CO2 TOTAL 25 23 - 31 mmol/L [facility] AGAP 5 2 - 16 [facility] BUN 20 7 - 23 mg/dL [facility] GLUCOSE 78 70 - 110 mg/dL [facility] CREATININE 0.67 0.50 - 1.04 [facility] mg/dL [facility] CALCIUM 7.5 (L) 8.6 - 10.6 [facility] mg/dL [facility] eGFR Calculation 97.5 mL/min/1.73m2 [facility] ([facility] LABORATORY [place]) eGFR Calculation 118.2 mL/min/1.73m2 [facility] () [facility] Specimen Blood - ARM, RIGHT Narrative Performed At [facility] LAB[facility] and Staging of Kidney Disease* + + +- + | GFR (mL/min/1.73 m2) | With Kidney Damage | Without Kidney Damage + + +- + | >90 | Stage one | Normal + + +- + | 60-89 | Stage two | Decreased GFR + + +- + | 30-59 | Stage three | Stage three + + +- + | 15-29 | Stage four | Stage four + + +- + | <15 (or dialysis) | Stage five | Stage five + + +- + *Each stage assumes the associated GFR level has been in effect for at least three months. Stages 1 to 5, with or without kidney disease, indicate chronic kidney disease. Notes: Determination of stages one and two (with eGFR >59mL/min/1.73 m2) requires estimation of kidney damage for at least three months as defined by structural or functional abnormalities of the kidney, manifested by either: Pathological abnormalities or Markers of kidney damage (including abnormalities in the composition of the blood or urine or abnormalities in imaging tests). Performing Organization Address City/[facility] Phone Number [facility] CLIA: [id number], [address] [address] 15 [facility] N-TERMINAL PRO-BNP (10/17/2019 5:04 AM CDT) Pathologist Sig nature NT-proBNP 163 (H) <=125 pg/mL [facility] Specimen Blood - ARM, RIGHT Narrative Performed At [facility] has been reported to cause a negative [facility] bias, interpret results relative to patient's use of biotin. Performing Organization Address City/[facility]/Zipcode Phone Number [facility] CLIA: [id number], [address] [place], [place] [address] XR CHEST 1 VW (10/16/2019 4:31 AM CDT) Specimen Narrative Performed At EXAM: XR CHEST 1 VW PACS/VR/DOSE HISTORY: chf COMPARISON: None. FINDINGS: The heart is upper limit of normal in size, unchanged. Mild hilar vascular congestion is present but the lungs are clear otherwis e. The opacities over the lower lungs are due to soft tissues of the chest. Procedure Note [facility], Radiant Results Inft User - 2019 8:12 AM CDT EXAM: XR CHEST 1 VW HISTORY: chf COMPARISON: None. FINDINGS: The heart is upper limit of normal in si ze, unchanged. Mild hilar vascular congestion is present but the lungs are clear otherwise. The opacities over the lower lungs are due to soft tissues of the chest. Performing Organization Address City/State/Zipcode Phone Number PACS/VR/DOSE CBC WITH DIFFERENTIAL (10/16/2019 3:24 AM CDT) Pathologist Sig nature WBC 10.42 4.30 - 11.10 [facility] 10*3/L [facility] RBC 3.86 (L) 3.93 - 5.25 [facility] 10*6/L [facility] HGB 11.4 (L) 11.6 - 15.0 [facility] g/dL [facility] HCT 35.5 (L) 35.7 - 45.2 % [facility] MCV 92.0 80.6 - 95.5 fL [facility] MCH 29.5 25.9 - 32.8 pg [facility] MCHC 32.1 31.6 - 35.1 [facility] g/dL [facility] RDW-SD 45.2 39.0 - 49.9 fL [facility] RDW-CV 13.5 12.0 - 15.5 % [facility] PLT 294 166 - 358 [facility] 10*3/L [facility] MPV 10.0 9.5 - 12.9 fL [facility] NRBC/100 WBC 0.0 0.0 - 10.0 /100 [facility] WBCs [facility] NRBC x10^3 <0.01 10*3/L [facility] GRAN MAT (NEUT) % 62.2 % [facility] IMM GRAN % 1.60 % [facility] LYMPH % 21.4 % [facility] MONO % 9.8 % [facility] EOS % 4.1 % [facility] BASO % 0.9 % [facility] GRAN MAT x10^3(ANC) 6.48 1.88 - 7.09 [facility] 10*3/uL [facility] IMM GRAN x10^3 0.17 (H) 0.00 - 0.06 [facility] 10*3/uL HOSPITAL LABORATORY LYMPH x10^3 2.23 1.32 - 3.29 [facility] 10*3/uL [facility] MONO x10^3 1.02 (H) 0.33 - 0.92 [facility] 103/uL [facility] EOS x10^3 0.43 (H) 0.03 - 0.39 [facility] 10*3/uL [facility] BASO x10^3 0.09 (H) 0.01 - 0.[address]uL [facility] Specimen Blood - VENOUS Performing Organization Address City/State/Zipcode Phone Number [facility] CLIA: [id number], [address] [place], [place] [address] DIFF CONSULT INTERPRETATION (10/16/2019 3:24 AM CDT) Specimen Blood - VENOUS Narrative Performed At [facility] are normocytic and normochromic but decreased in [facility] SERVICES number. No increased spherocytes or schistocytes. Polychromasia is appropriate. There is neutrophilia. P MNs are increased without toxic changes or left-shift. N o abnormal lymphoid cells or blasts are seen. Lymphocyte s are small and mature. Platelets are normal. Normocytic ane afsaneh, anemia of chronic disease. The granulocytosis appear s to be reactive. Performing Organization Address City/State/Zipcode Phone Number [facility]ORAT[facility] SERVICES CLIA: [id number], [address] [place], [place] [address] [facility] CBC WITH DIFFERENTIAL (10/16/2019 3:24 AM CDT) [facility] Sig nature WBC 9.97 4.30 - 11.10 [facility] 10*3/L HOSPITAL LABORATORY RBC 3.88 (L) 3.93 - 5.25 [facility] 10*6/L HOSPITAL LABORATORY HGB 11.6 11.6 - 15.0 [facility] g/dL HOSPITAL LABORATORY HCT 36.0 35.7 - 45.2 % [facility] MCV 92.8 80.6 - 95.5 fL [facility] MCH 29.9 25.9 - 32.8 pg [facility] MCHC 32.2 31.6 - 35.1 [facility] g/dL HOSPITAL LABORATORY RDW-SD 45.6 39.0 - 49.9 fL [facility] RDW-CV 13.7 12.0 - 15.5 % [facility] PLT 295 166 - 358 [facility] 10*3/L [facility] MPV 9.9 9.5 - 12.9 fL [facility] NRBC/100 WBC 0.0 0.0 - 10.0 /100 [facility] WBCs [facility] NRBC x10^3 <0.01 10*3/L [facility] GRAN MAT (NEUT) % 62.1 % [facility] IMM GRAN % 1.60 % [facility] LYMPH % 22.0 % [facility] MONO % 9.5 % [facility] EOS % 4.1 % [facility] BASO % 0.7 % [facility] GRAN MAT x10^3(ANC) 6.19 1.88 - 7.09 [facility] 10*3/uL HOSPITAL LABORATORY IMM GRAN x10^3 0.16 (H) 0.00 - 0.06 [facility] 10*3/uL HOSPITAL LABORATORY LYMPH x10^3 2.19 1.32 - 3.29 [facility] 10*3/uL HOSPITAL LABORATORY MONO x10^3 0.95 (H) 0.33 - 0.92 [facility] 10*3/uL HOSPITAL LABORATORY EOS x10^3 0.41 (H) 0.03 - 0.39 [facility] 10*3/uL HOSPITAL LABORATORY BASO x10^3 0.07 0.01 - 0.07 [facility] 10*3/uL HOSPITAL LABORATORY Specimen Blood - VENOUS Performing Organization Address City/State/Zipcode Phone Number [facility] CLIA: [id number], [address] [place], [place] [address] PHOSPHORUS (10/16/2019 3:24 AM CDT) Pathologist Sig nature PHOSPHORUS 4.9 2.5 - 5.0 mg/dL [facility] Specimen Blood - VENOUS Performing Organization Address [facility] Phone Number [facility] CLIA: [id number], [address] MAGNESIUM (10/16/2019 3:24 AM CDT) Pathologist Sig nature MAGNESIUM 2.2 1.7 - 2.4 mg/dL [facility] Specimen Blood - VENOUS Performing Organization Address [facility] Phone Number [facility] CLIA: [id number], [address] TROPONIN I (10/16/2019 3:24 AM CDT) Pathologist Sig nature TROPONIN I <0.012 <=0.034 ng/mL [facility] Specimen Blood - VENOUS Narrative Performed At Equal or Less than 0.034 ng/ml---Normal [facility] Note: Cardiac troponin begins to rise 3-4 hours after the onset of ischemia. Repeat in 4-6 hours if the sample was drawn within 3-4 hours of the onset of the symptom and found normal. Between 0.035 and 0.120 ng/mL--- Borderline. Questionable myocardial injury or necros is Note: Serial measurement may be necessary to confirm or exclude the diagnosis of myocardial injury or necrosis; Clinical correlation (symptoms, EKGs, imaging studies, and others) required; Repeat in 4-6 hours if clinically indicated. Equal or Higher than 0.121 ng/mL---Abnormal. Myocardial Injury or Necrosis Likely Biotin has been reported to cause a negative bias, interpret results relative to patient's use of biotin. Performing Organization Address [facility] Phone Number [facility] CLIA: [id number], [address] N-TERMINAL PRO-BNP (10/16/2019 3:24 AM CDT) Pathologist Sig nature NT-proBNP 280 (H) <=125 pg/mL [facility] Specimen Blood - VENOUS Narrative Performed At [facility] has been reported to cause a negative [facility] bias, interpret results relative to patient's use of biotin. Performing Organization Address City/State/Zipcode Phone Number [facility] CLIA: [id number], [address] [place] [address] BASIC METABOLIC PANEL (NA, K, CL, CO2, GLUCOSE, BUN, CREATININE, CA) (10/16/2019 3:24 AM CDT) Pathologist [facility] NA 136 135 - 145 [facility] mmol/L [facility] K 4.2 3.5 - 5.0 [facility] mmol/L [facility] CL 103 98 - 108 mmol/L [facility] CO2 TOTAL 28 23 - 31 mmol/L [facility] AGAP 5 2 - 16 [facility] BUN 18 7 - 23 mg/dL [facility] GLUCOSE 95 70 - 110 mg/dL [facility] CREATININE 0.88 0.50 - 1.04 [facility] mg/dL [facility] CALCIUM 8.5 (L) 8.6 - 10.6 [facility] mg/dL [facility] eGFR Calculation 71.2 mL/min/1.73m2 [facility] ([facility] LABORATORY [place]) eGFR Calculation 86.3 mL/min/1.73m2 [facility] () [facility] Specimen Blood - VENOUS Narrative Performed At [facility] LABORATORY and Staging of Kidney Disease* + + +- + | GFR (mL/min/1.73 m2) | With Kidney Damage | Without Kidney Damage + + +- + | >90 | Stage one | Normal + + +- + | 60-89 | Stage two | Decreased GFR + + +- + | 30-59 | Stage three | Stage three + + +- + | 15-29 | Stage four | Stage four + + +- + | <15 (or dialysis) | Stage five | Stage five + + +- + *Each stage assumes the associated GFR level has been in effect for at least three months. Stages 1 to 5, with or without kidney disease, indicate chronic kidney disease. Notes: Determination of stages one and two (with eGFR >59mL/min/1.73 m2) requires estimation of kidney damage for at least three months as defined by structural or functional abnormalities of the kidney, manifested by either: Pathological abnormalities or Markers of kidney damage (including abnormalities in the composition of the blood or urine or abnormalities in imaging tests). Performing Organization Address City/State/Zipcode Phone Number [facility] CLIA: [id number], [address] [place], [place] [address] SEDIMENTATION RATE (10/16/2019 3:24 AM CDT) Pathologist Sig [facility] ESR 22 (H) 0 - 20 mm/HR [facility] Specimen Blood - VENOUS Performing Organization Address [facility]/Zipcode Phone Number [facility] CLIA: [id number], [address] [place], [place] [address] PROCALCITONIN (10/16/2019 3:24 AM CDT) Pathologist Sig [facility] Procalcitonin 0.02 <0.07 ng/mL [facility] LABORATORY SERVICES Specimen Blood - VENOUS Narrative Performed At INTERPRETATION OF PROCALCITONIN RESULTS IN ADULTS >= 1 8 [facility] LAB[facility] SERVICES YEARS OF AGE Initiation and discontinuation of antibiotics on patie nts with suspected or confirmed Lower Respiratory Tract Infection in Adults >= 18 years of age. + + + +----- ------ + |Procalcitonin |Interpretation |Antibiotic |Considerations |ng/mL | |recommend ation | + + + +----- ------ + | <0.1 | Bacterial | Strongly | | | infection very | discouraged | Overruling: | | unlikely | | Clinically unstable + + + + H igh risk for adverse | <0.25 | Bacterial | Discouraged | outcome | | infection | | SEE IMPORTANT NOTE | | unlikely | | + + + +----- ------ + | >=0.25 | Bacterial | Encouraged | | | infection | | | | likely | | Consider treatment failure + + + + if l evels does not decrease | >0.5 | Bacterial | Strongly | appropriately | | infection very | encouraged | | | likely | | + + + +----- ------ + Discontinuation of antibiotics in high-acuity patients with suspected or confirmed sepsis in Adults >= 18 years of age. + + + +----- ------ + |Procalcitonin |Interpretation |Antibiotic |Considerations |ng/mL | |recommend ation | + + + +----- ------ + | <0.25 | Bacterial | Strongly | | | infection very | discouraged | Overruling: | | unlikely | | Clinically unstable + + + + H igh risk for adverse | <0.5 or drop | Bacterial | Discouraged | outcome | >80% from | infection | | SEE IMPORTANT NOTE | highest PCT | unlikely | | | level | | | + + + +----- ------ + | >=0.5 | Bacterial | Encouraged | | | infection | | | | likely | | Consider treatment failure + + + + if l evels does not decrease | >1.0 | Bacterial | Strongly | appropriately | | infection very | encouraged | | | likely | | + + + +----- ------ + Percentage of drop of Procalcitonin calculation for Discontinuation of antibiotics in high-acuity patients with suspected or confirmed sepsis in Adults >= 18 years of age. Procalcitonin highest{}-Procalcitonin current{} Delta Procalcitonin = x100% Procalcitonin current {} IMPORTANT NOTE: Procalcitonin may be elevated without bacterial infection by physiologic stress related to t rauma, lawson, chronic dialysis, metastatic cancer, surgery in the past seven days, malaria, some fungal infections, and some forms of vasculitis. The interpretation algorithm may not apply to patients with immunosuppression (equivalent o f >10 mg of prednisone daily), HIV with CD4 cell count < 350 cells/mm3, active malignancy on systemic chemotherapy, solid organ transplant or hematopoietic stem cell transplant ation, or hospital acquired pneumonia. Additionally, some [facility] nical trials of procalcitonin have excluded patients with sh ock requiring vasopressor use, acute respiratory failure requiring mechanical ventilation, or those with known lung abscess/empyema. For further information please refer to: [email or web address] Performing Organization Address City/[facility]/Zipcode Phone Number [facility] LABORATORY SERVICES CLIA: [id number], [address] [place] [address] [facility] BLOOD CULTURE WORKUP (10/15/2019 4:25 PM CDT) Blood Culture Diphtheroid-like [facility] Workup organism SERVICES Gram stain Gram positive [facility] bacilliComment: [facility] Pedi Bottle Specimen Blood - VENOUS Narrative Performed At [facility] often contaminate blood cultures from [facility] n [facility] LAB[facility] SERVICES colonization during phlebotomy. Preferred management is to repeat blood cultures, and monitor off a ntibiotics Consider Infectious Diseases consultation if uncertain whether bacteremia or contamination. Please contact the Antimicrobial Stewardship Program w ith questions. ASP Pager: [phone] Performing Organization Address City/State/Zipcode Phone Number [facility] CLIA: [id number], [address] [place], [place] [address] [facility] CLIA: [id number], [address] [place] [address] [address] BLOOD CULTURE WORKUP (10/15/2019 4:25 PM CDT) Blood Culture Diphtheroid-like [facility] Workup organism SERVICES Gram stain Gram positive [facility] bacilliComment: HOSPITAL LABORATORY Pedi Bottle Specimen Blood - VENOUS Narrative Performed At [facility] often contaminate blood cultures from [facility] LABORATORY SERVICES colonization during phlebotomy. Preferred management is to repeat blood cultures, and monitor off a ntibiotics Consider Infectious Diseases consultation if uncertain whether bacteremia or contamination. Please contact the Antimicrobial Stewardship Program w ith questions. ASP Pager: [phone] Performing Organization Address City/[facility]/Zipcode Phone Number [facility] SERVICES CLIA: [id number], [address] [place], [place] [address] [facility] CLIA: [id number], [address] [place], [place] [address] BLOOD CULTURE SCREEN (10/15/2019 4:25 PM CDT) Blood Culture positive. No growth [facility] Culture-Aerobic See Blood Culture [facility] Workup for LABORATORY additional information. (AA)Comment: Previous preliminary verified result was Culture In Progress on 10/15/2019 at 2001 CDT Specimen Blood - VENOUS Performing Organization Address [facility] Phone Number [facility] CLIA: [id number], [address] [place] [address] BLOOD CULTURE SCREEN (10/15/2019 4:25 PM CDT) [facility] Blood Culture positive. No growth [facility] Culture-Aerobic See Blood Culture [facility] Workup for LABORATORY additional information. (AA)Comment: Previous preliminary verified result was Culture In Progress on 10/15/2019 at 2001 CDT Specimen Blood - VENOUS Performing Organization Address [facility] Phone Number [facility] CLIA: [id number], [address] [place] [address] Lactic Acid Whole Blood (10/15/2019 1:33 PM CDT) Pathologist Sig [facility] LACTIC ACID 1.12 0.30 - 2.60 mmol/L [facility] Specimen Blood - VENOUS Performing Organization Address [facility] Phone Number [facility] CLIA: [id number], [address] [place], [place] [address] LAB[facility]ATORY [facility] COVID-19 ([facility] NOW RAPID TESTING) (10/15/2019 1:15 PM CDT) SARS-CoV-2 Rapid ID Not Detected Not Detected [facility] LABOR[facility] Specimen Swab - NASOPHARYNGEAL SWAB Narrative Performed At [facility] COVID-19 Assay is an isothermal nucleic [facility] LABORATORY acid amplification test intended for the qualitative detection of nucleic acid from SARS-CoV-2 viral RNA in nasopharyngeal (ESTATE AGENT) specimens. It is used under Emergency Use Authorization (EUA) by FDA. The limit of detection (LOD) of the assay is 125 Genome Equivalents/mL. A positive result is indicative of the presence of SARS-CoV-2 RNA. Clinical correlation with patient history and other diagnostic information is necessary to determine patient infection status. A negative (Not Detected) result does not preclude SARS-CoV-2 infection. In patients with clinical symptoms and other tests that are consistent with SARS-CoV-2 infection, negative results should be treated as presumptive negative and a new specimen should be tested with alternative PCR molecular test. Invalid: Please collect a new specimen for repeat patient testing if clinically indicated. Performing Organization Address City/[facility]/Zipcode Phone Number [facility] CLIA: [id number], [address] [place], [place] [address] POCT TEST (10/15/2019 12:39 PM CDT) Pathologist Sig nature POCT PREG negative On board controls acceptable present with C Line POCT PREG LOT # [id number] POCT PREG TEST DATE 2021-01-26 Specimen Urine - URINE, CLEAN CATCH CREATINE KINASE (10/15/2019 12:38 PM CDT) Pathologist Sig giana CK 75 33 - 194 U/L [facility] Specimen Blood - VENOUS Performing Organization Address City/[facility]/Zipcode Phone Number [facility] CLIA: [id number], [address] [place], [place] [address] CBC WITH DIFFERENTIAL (10/15/2019 12:38 PM CDT) [facility] Sig giana WBC 12.98 (H) 4.30 - 11.10 [facility] 10*3/L [facility] RBC 4.05 3.93 - 5.25 [facility] 10*6/L [facility] HGB 12.2 11.6 - 15.0 [facility] g/dL H[facility]PITAL [facility] HCT 37.3 35.7 - 45.2 % [facility] MCV 92.1 80.6 - 95.5 fL [facility] MCH 30.1 25.9 - 32.8 pg [facility] MCHC 32.7 31.6 - 35.1 [facility] g/dL HOSPITAL LAB[facility]ORY RDW-SD 45.8 39.0 - 49.9 fL [facility] RDW-CV 13.6 12.0 - 15.5 % [facility] PLT 301 166 - 358 [facility] 10*3/L [facility] MPV 9.6 9.5 - 12.9 fL [facility] NRBC/100 WBC 0.0 0.0 - 10.0 /100 [facility] WBCs [facility] NRBC x10^3 <0.01 10*3/L [facility] GRAN MAT (NEUT) % 68.4 % [facility] IMM GRAN % 1.60 % [facility] LYMPH % 19.7 % [facility] MONO % 6.1 % [facility] EOS % 3.6 % [facility] BASO % 0.6 % [facility] GRAN MAT x10^3(ANC) 8.87 (H) 1.88 - 7.09 [facility] 10*3/uL [facility] IMM GRAN x10^3 0.21 (H) 0.00 - 0.06 [facility] 10*3/uL [facility] LYMPH x10^3 2.56 1.32 - 3.29 [facility] 10*3/uL [facility] MONO x10^3 0.79 0.33 - 0.92 [facility] 10*3/uL [facility] EOS x10^3 0.47 (H) 0.03 - 0.39 [facility] 10*3/uL [facility] BASO x10^3 0.08 (H) 0.01 - 0.07 [facility] 10*3/uL [facility] Specimen Blood - VENOUS Performing Organization Address City/State/Zipcode Phone Number [facility] CLIA: [id number], [address] [place], [place] [address] N-TERMINAL PRO-BNP (10/15/2019 12:38 PM CDT) Pathologist Sig nature NT-proBNP 211 (H) <=125 pg/mL [facility] Specimen Blood - VENOUS Narrative Performed At Biotin has been reported to cause a negative [facility] bias, interpret results relative to patient's use of biotin. Performing Organization Address City/[facility] Phone Number [facility] CLIA: [id number], [address] [place] [address] Troponin I (10/15/2019 12:38 PM CDT) Pathologist Sig nature TROPONIN I <0.012 <=0.034 ng/mL [facility] Specimen Blood - VENOUS Narrative Performed At Equal or Less than 0.034 ng/ml---Normal [facility] Note: Cardiac troponin begins to rise 3-4 hours after the onset of ischemia. Repeat in 4-6 hours if the sample was drawn within 3-4 hours of the onset of the symptom and found normal. Between 0.035 and 0.120 ng/mL--- Borderline. Questionable myocardial injury or necros is Note: Serial measurement may be necessary to confirm or exclude the diagnosis of myocardial injury or necrosis; Clinical correlation (symptoms, EKGs, imaging studies, and others) required; Repeat in 4-6 hours if clinically indicated. Equal or Higher than 0.121 ng/mL---Abnormal. Myocardial Injury or Necrosis Likely Biotin has been reported to cause a negative bias, interpret results relative to patient's use of biotin. Performing Organization Address City/State/Zipcode Phone Number [facility] CLIA: [id number], [address] [place] [address] COMP. METABOLIC PANEL (02231) (10/15/2019 12:38 PM CDT) Pathologist Sig nature NA 135 135 - 145 [facility] mmol/L [facility] K 4.2 3.5 - 5.0 [facility] mmol/L [facility] CL 102 98 - 108 mmol/L [facility] CO2 TOTAL 28 23 - 31 mmol/L [facility] AGAP 5 2 - 16 [facility] BUN 17 7 - 23 mg/dL [facility] GLUCOSE 122 (H) 70 - 110 mg/dL [facility] CREATININE 0.72 0.50 - 1.04 [facility] mg/dL [facility] TOTAL BILI 0.3 0.1 - 1.1 mg/dL [facility] CALCIUM 8.8 8.6 - 10.6 [facility] mg/dL [facility] T PROTEIN 7.6 6.3 - 8.2 g/dL [facility] ALBUMIN 3.7 3.5 - 5.0 g/dL [facility] ALK PHOS 67 34 - 122 U/L [facility] ALTv 17 5 - 35 U/L [facility] AST(SGOT) 26 13 - 40 U/L [facility] eGFR Calculation 89.7 mL/min/1.73m2 [facility] [place]) eGFR Calculation 108.7 mL/min/1.73m2 [facility] () [facility] Specimen Blood - VENOUS Narrative Performed At [facility] Glomer[facility] Fil[facility] (GFR[facility] and Staging of Kidney Disease* + + +- + | GFR (mL/min/1.73 m2) | With Kidney Damage | Without Kidney Damage + + +- + | >90 | Stage one | Normal + + +- + | 60-89 | Stage two | Decreased GFR + + +- + | 30-59 | Stage three | Stage three + + +- + | 15-29 | Stage four | Stage four + + +- + | <15 (or dialysis) | Stage five | Stage five + + +- + *Each stage assumes the associated GFR level has been in effect for at least three months. Stages 1 to 5, with or without kidney disease, indicate chronic kidney disease. Notes: Determination of stages one and two (with eGFR >59mL/min/1.73 m2) requires estimation of kidney damage for at least three months as defined by structural or functional abnormalities of the kidney, manifested by either: Pathological abnormalities or Markers of kidney damage (including abnormalities in the composition of the blood or urine or abnormalities in imaging tests). Performing Organization Address City/State/Zipcode Phone Number [facility] CLIA: [id number], [address] [place], [place] [address] Urinalysis (10/15/2019 12:38 PM CDT) Pathologist Sig nature APPEARANCE Clear Clear [facility] COLOR Yellow Yellow [facility] PH 7.0 4.8 - 8.0 [facility] SP GRAVITY 1.017 1.003 - 1.030 [facility] GLU U QUAL Normal Normal [facility] BLOOD Negative Negative [facility] KETONES 5 mg/dL (A) Negative [facility] PROTEIN Negative Negative [facility] UROBILIN 2.0 mg/dL (A) Normal [facility] BILIRUBIN Negative Negative [facility] NITRITE Negative Negative [facility] LEUK AIDAN Negative Negative [facility] RBC/HPF 1 0 - 3 HPF [facility] WBC/HPF 1 0 - 5 HPF [facility] BACTERIA Negative Negative [facility] SQ EPITH 1 HPF [facility] Specimen Urine - URINE, CLEAN CATCH Performing Organization Address City/State/Zipcode Phone Number [facility] CLIA: [id number], [address] [place], [place] [address] documented in this encounter Visit Diagnoses Diagnosis Bilateral cellulitis of lower leg - Prim carmelo Cellulitis and abscess of leg, except fo ot Dizziness Dizziness and giddiness Nonintractable headache, unspecified chr onicity pattern, unspecified headache type Leg swelling Swelling of limb Cellulitis of left lower extremity Cellulitis and abscess of leg, except fo ot Cellulitis of right lower extremity Cellulitis and abscess of leg, except fo ot Bilateral lower leg cellulitis Cellulitis and abscess of leg, except fo ot Pedal edema Edema Acute on chronic diastolic CHF (congesti ve heart failure), NYHA class 3 Morbid obesity due to excess calories documented in this encounter Administered Medications Medication Order MAR Action Action Date Dose Rate Site amitriptyline (ELAVIL) tablet 25 Given 10/18/2019 8:45 PM CDT 2 5 mg mg 25 mg, Oral, QHS, First dose on Sat10/16/19 at 0145, Until Discontinued, Routine Given 10/17/2019 8:45 PM CDT 25 mg Given 10/16/2019 8:40 PM CDT 25 mg ARIPiprazole (ABILIFY) tablet 15 mg Given 10/19/2019 8:46 AM CDT 15 mg 15 mg, Oral, DAILY, First dose on Sat10/16/19 at 0900, Until Discontinued, Routine Given 10/18/2019 9:02 AM CDT 15 mg Given 10/17/2019 8:17 AM CDT 15 mg aspirin chewable tablet 81 mg Given 10/19/2019 8:46 AM CDT 81 mg 81 mg, Oral, DAILY, First dose on Sat10/16/19 at 0900, Until Discontinued, Routine Given 10/18/2019 9:02 AM CDT 81 mg Given 10/17/2019 8:18 AM CDT 81 mg budesonide-formoteroL (SYMBICORT) 160-4.5 Given 10/19/2019 8:53 AM CDT 2 Puffs mcg/actuation inhaler 2 Puff 2 Puff, Inhalation, BID, First dose on Sat10/16/19 at 0800, Until Discontinued, Routine Given 10/18/2019 7:23 PM CDT 2 Puffs Given 10/18/2019 7:49 AM CDT 2 Puffs busPIRone (BUSPAR) tablet 10 mg Given 10/19/2019 8:46 AM CDT 10 mg 10 mg, Oral, BID, First dose on Sat10/16/19 at 0145, Until Discontinued, Routine Given 10/18/2019 8:45 PM CDT 10 mg Given 10/18/2019 9:01 AM CDT 10 mg divalproex ER (DEPAKOTE ER) 24 hr tablet Given 10/18/2019 8 :45 PM CDT 1,000 mg 1,000 mg 1,000 mg, Oral, QHS, First dose on Sat10/16/19 at 0145, Until Discontinued, Routine Given 10/17/2019 8:45 PM CDT 1,000 mg Given 10/16/2019 8:39 PM CDT 1,000 mg docusate (COLACE) capsule 100 mg Given 10/19/2019 8:46 AM CDT 100 mg 100 mg, Oral, BID, First dose on Sat10/16/19 at 0800, Until Discontinued, Routine Given 10/18/2019 8:45 PM CDT 100 mg Given 10/18/2019 9:02 AM CDT 100 mg doxycycline hyclate (Vibramycin) capsule 100 mg 100 mg, Oral, Q12HA2, First dose on Sat10/20/19 at 0600, Until Discontinued, CARROLL, Reason for Anti-Infective: Documented In fection, Documented Infection Site: Skin / Soft Tissue, Duration of Therapy: 10 days enoxaparin (LOVENOX) injection 40 mg Given 10/19/2019 8:47 AM CDT 40 mg Abdo men-SC 40 mg, Subcutaneous, DAILY, First dose on Sat10/16/19 at 0900, Until Discontinued, Routine Given 10/18/2019 9:02 AM CDT 40 mg Abdo men-SC Given 10/17/2019 8:18 AM CDT 40 mg Abdo men-SC furosemide (LASIX) injection 20 mg Given 10/19/2019 1:32 PM CDT 20 mg 20 mg, Slow IV Push, QAM+PM, First dose on Sat10/16/19 at 0130, Until Discontinued, Routine Given 10/18/2019 5:52 PM CDT 20 mg Given 10/18/2019 9:01 AM CDT 20 mg KCL (KLOR-CON M20) tablet 20 mEq Given 10/19/2019 8:46 AM CDT 20 mEq 20 mEq, Oral, DAILY, First dose on Sat10/18/19 at 0900, Until Discontinued Given 10/18/2019 9:01 AM CDT 20 mEq lactobacillus acidophilus (ACIDOPHILLUS) Given 10/19/2019 8 :46 AM CDT 1 tablet 25 million cell -100 mg captab 1 tablet 1 tablet, Oral, BID, First dose on Sat10/16/19 at 0130, Until Discontinued, Routine Given 10/18/2019 8:45 PM CDT 1 tablet Given 10/18/2019 9:01 AM CDT 1 tablet levoFLOXacin (LEVAQUIN) tablet 750 mg 750 mg, Oral, Q24H ABX, First dose on Sat10/20/19 at 0 600, Until Discontinued, CARROLL, Reason for Anti-Infective: Documen andre Infection, Documented Infection Site: Skin / Soft Tissue, Duration of Therapy: 10 days mirtazapine (REMERON) tablet 15 mg Given 10/18/2019 8:45 PM CDT 15 mg 15 mg, Oral, QHS, First dose on Sat10/16/19 at 0145, Until Discontinued, Routine, Reason for Non-Formulary Use: 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 FOR 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, 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 Non-formulary medication: MEGADC Given 10/17/2019 8:45 PM CDT 15 mg Given 10/16/2019 8:40 PM CDT 15 mg montelukast (SINGULAIR) tablet 10 mg Given 10/19/2019 8:46 AM CDT 10 mg 10 mg, Oral, DAILY, First dose on Sat10/16/19 at 0900, Until Discontinued, Routine Given 10/18/2019 9:01 AM CDT 10 mg Given 10/17/2019 8:17 AM CDT 10 mg ondansetron (ZOFRAN (PF)) injection 4 mg 4 mg, Slow IV Push, Q6HPRN, Starting Sat10/16/19 at 01 26, Until Discontinued, Routine, Nausea and Vomiting (N/V) pantoprazole (PROTONIX) EC tablet 40 mg Given 10/19/2019 8:46 AM CDT 40 mg 40 mg, Oral, DAILY, First dose on Sat10/16/19 at 0900, Until Discontinued, Routine Given 10/18/2019 9:01 AM CDT 40 mg Given 10/17/2019 8:18 AM CDT 40 mg traMADol (ULTRAM) tablet 50 mg Given 10/19/2019 8:46 AM CDT 50 mg 50 mg, Oral, BIDPRN, Starting 10/18/19 at 0123, Until Discontinued, Routine, Pain (scale 4-6) Given 10/18/2019 1:57 AM CDT 50 mg venlafaxine XR (EFFEXOR XR) 24 hr capsule Given 10/19/2019 8:46 AM CDT 150 mg 150 mg 150 mg, Oral, QAM WITH BREAKFAST, First dose on Sat10/16/19 at 0900, Until Discontinued, Routine Given 10/18/2019 9:01 AM CDT 150 mg Given 10/17/2019 8:17 AM CDT 150 mg Medication Order MAR Action Action Date Dose Rate Site clindamycin (CLEOCIN) injection Given 10/15/2019 4:26 PM CDT 60 0 mg 600 mg 600 mg, IV Piggyback, ONCE, 1 dose, Sofía 10/15/19 at 1700, CARROLL, Reason for Anti-Infective: Documented Infection, Documented Infection Site: Skin / Soft Tissue, Duration of Therapy: 7 days, Restricted use approved by: ED PROVIDER, Indication for Clindamycin use: cellulitis doxycycline (VIBRAMYCIN) 100 mg in NaCl 0.9% Given 1:31 PM CDT 100 mg (NS) 100 mL MINI-BAG 100 mg, IV Piggyback, Q12H ABX, First dose on Sat10/16/19 at 0230, Until Discontinued, 100 mL, Reason for Anti-Infective: Documented Infection, Documented Infection Site: Skin / Soft Tissue, Duration of Therapy: 10 days Given 10/19/2019 2:01 AM CDT 100 mg Given 10/18/2019 3:35 PM CDT 100 mg KCL (KLOR-CON M10) tablet 10 mEq Given 10/17/2019 8:18 AM CDT 10 mEq 10 mEq, Oral, DAILY, First dose on Sat10/16/19 at 0900, Until Discontinued Given 10/16/2019 9:33 AM CDT 10 mEq KCL (KLOR-CON M20) tablet 20 mEq Given 10/18/2019 11:41 AM CDT 20 mEq 20 mEq, Oral, ONCE, 1 dose, Sat10/18/19 at 1100, Routine levoFLOXacin in D5W (LEVAQUIN) 750 mg/150 mL Given 2:01 AM CDT 750 mg Piggyback 750 mg 750 mg, IV Piggyback, Q24H ABX, First dose on Sat10/16/19 at 0230, Until Discontinued, 150 mL, Reason for Anti-Infective: Documented Infection, Documented Infection Site: Skin / Soft Tissue, Duration of Therapy: 10 days Given 10/18/2019 3:02 AM CDT 750 mg Given 10/17/2019 5:04 AM CDT 750 mg sulfur hexafluoride microsphr (LUMASON) Given 10/16/2019 10:30 A M CDT 5 mL injection 5 mL 5 mL, Intravenous, ONCE, 1 dose, Sat10/16/19 at 1145, Routine documented in this encounter Insurance Payer Benefit Plan / Subscriber ID Effective Dates Phone Addre ss Type Group [facility] ST[facility] xxxxxxxxx 2018-Present Medicaid COMM PLAN - PLUS MANAGED MEDICAID [facility] [place] [address] (Home) [address] [place] [id number] documented as of this encounter
--- OUTSIDE RECORDS SUMMARY | 2019-10-26 20:14 | XMS REPORT ---
[...] Act wale Problem Hyperglycemia R73.9 Active Medications No Known Medications Results No Known Results Summary Purpose eClinicalWorks Submission
--- OUTSIDE RECORDS SUMMARY | 2019-10-26 20:14 | XMS REPORT | Summary of Care ---
:1980 Author Organization [facility] - [facility] Address [address] [place] [address] Care Team Providers Name Role Phone Mukul Estevez MD Unavailable Unavailable 1, Lab Unavailable Unavailable Salma Carrington Primary Care Provider Reason for Visit Reason Comments Transition Of Care Encounter Details Date Type Department Care Team Description 10/21/[address] [facility] [address] [address] Allergies Active Allergy Reactions Severity Noted Date Comments Oats Nausea and/or Vomiting 02/02/2016 documented as of this encounter (statuses as of 10/21/2019) Medications Medication Sig Dispensed Refills Start Date End Date Status busPIRone 30 mg TAKE 1 TABLET (30 0 11/23/2016 Active tablet MG) BY MOUTH 2 TIMES PER DAY Diclofenac Sodium Take 2-4 grams 100 g 3 03/25/2017 Active (VOLTAREN) 1 % twice a day as gelIndications: needed for pain Muscle spasm albuterol (PROAIR Inhale 2 Puffs 8.5 g 11 03/25/2017 Active HFA) 90 mcg/actuation every 6 (six) inhalerIndications: hours [...] mg by 0 Active tablet mouth daily. blood sugar Use BID, DX E11.9 100 Box 11 12/05/2018 Active diagnostic strip (Brand upon insurance approval)ONE TOUCH VERIO [...] 06/25/2019 Active tablet erythromycin [address] 0.5 Inches 1 g 1 07/09/2019 Active mg/gram (0.5 %) in both eyes 4 ophthalmic (four) times ointmentIndications: daily. Hordeolum externum of right lower eyelid diclofenac 75 mg EC Take 1 tablet by 60 tablet 1 08/20/2019 Active tabletIndications: mouth 2 (two) Right knee pain, times daily with unspecified meals. chronicity doxycycline hyclate Take 1 capsule by 4 capsule 0 10/19/2019 0 10/21/2019 Active 100 mg mouth every 12 capsuleIndications: (twelve) hours Bilateral lower leg for 2 days. cellulitis KCL 20 mEq Take 1 tablet by 15 tablet 2 10/19/2019 11/18/2019 Active tabletIndications: mouth every 48 Acute on chronic (forty-eight) diastolic CHF hours for 30 (congestive heart days. failure), NYHA class 3 furosemide 40 mg Take 1 tablet by 30 tablet 2 10/19/201911/17 Active tabletIndications: mouth daily for Acute on chronic 30 days. diastolic CHF (congestive heart failure), NYHA class 3 lactobacillus Take 1 tablet by 4 tablet 0 10/19/2019 10/21/19 20 Active acidophilus 25 mouth 2 (two) million cell -100 mg times daily for 2 captabIndications: days. Bilateral lower leg cellulitis documented as of this encounter (statuses as of 10/21/2019) Active Problems Problem Noted Date MARQUEZ (dyspnea [...] as of this encounter (statuses as of 10/21/2019) Resolved Problems Problem Noted Date Resolved Date PCOS (polycystic ovarian syndrome) 08/09/201609/12 Routine gynecological examination 06/07/20162016 documented as of this encounter (statuses as of 10/21/2019) Immunizations Name Administration Dates Next Due Influenza [...] Treatment Date Type Specialty Care Team Description 11/05/2019 Office Visit Vascular Surgery Paulo Ingram MD [address] [place] [address] [phone] 12/09/2019 Office Visit Cardiology Demetra Washington M D [address] [place] [address] [place] [address] 15 Health Maintenance Due Date Last Done Comments [...] Effective Dates Phone Addre ss Type Group [facility] STAR xxxxxxxxx 2018-Present Medicaid COMM PLAN - PLUS MANAGED MEDICAID documented as of this encounter
--- OUTSIDE RECORDS SUMMARY | 2019-10-26 20:14 | XMS REPORT | Summary of Care ---
:[address] [facility] - [facility] Address [address] [place] [address] Care Team Providers Name Role Phone Mukul Estevez MD Unavailable Unavailable 1, Lab Unavailable Unavailable aSlma Carrington Primary Care Provider Reason for Visit Reason Comments Transition Of Care Encounter Details Date Type Department Care Team Description 10/21/2019 Transition of Care [facility] [address] [address] Allergies Active Allergy Reactions Severity Noted Date [...] Treatment Date Type Specialty Care Team Description 10/22/2019 Office Visit Vascular Surgery Paulo Ingram MD [address] [place] [address] [phone] 11/05/2019 Office Visit Vascular Surgery Paulo Ingram MD [address] [place] [address] [phone] 12/09/2019 Office Visit Cardiology Demetra Washington M D [address] [place] [address] [place] [address] Health Maintenance Due Date Last Done [...] Effective Dates Phone Addre ss Type Group [facility] STAR xxxxxxxxx 2018-Present Medicaid COMM PLAN - PLUS MANAGED MEDICAID documented as of this encounter
--- OUTSIDE RECORDS SUMMARY | 2019-10-26 20:15 | XMS REPORT | Summary of Care ---
:1980 Author Organization [facility] Address [address] [place] [id number] Care Team Providers Name Role Phone Mukul Estevez MD Unavailable Unavailable 1, Lab Unavailable Unavailable Salma Carrington Primary Care Provider Reason for Visit Reason Comments Follow-up (Routine) Status Reason Specialty Diagnoses / Referred By Referred To Procedures Contact Contact Authorized [place] Diagnoses Leg swelling Simone Huang MD SURGERY / Procedures Discharge Follow-Up: Specialty Service [place] SURGERY; [address] [place] [address] [place] [address] Encounter Details Date Type Department Care Team Description 10/22/2019 Office Visit [facility] Vascular Aisha Ingram V enous insufficiency Surgery- Efren MCKNIGHT [place] [address] ([address] [place], [place]) [address] [address] [place], [place] [phone] [address] [phone] Allergies Active Allergy Reactions Severity Noted Date Comments Oats Nausea and/or Vomiting 02/02/2016 documented as of this encounter (statuses as of 10/22/2019) Medications Medication Sig Dispensed Refills Start Date [...] pain, times daily with unspecified meals. chronicity KCL 20 mEq Take 1 tablet by 15 tablet 2 10/19/2019 11/18/2019 Active tabletIndications: mouth every 48 Acute on chronic (forty-eight) diastolic CHF hours for 30 (congestive heart days. failure), NYHA class 3 furosemide 40 mg Take 1 tablet by 30 tablet 2 10/19/201911/17 Active tabletIndications: mouth daily for Acute on chronic 30 days. diastolic CHF (congestive heart failure), NYHA class 3 documented as of this encounter (statuses as of 10/22/2019) Active Problems Problem Noted Date MARQUEZ (dyspnea [...] as of this encounter (statuses as of 10/22/2019) Resolved Problems Problem Noted Date Resolved Date PCOS (polycystic ovarian syndrome) 08/09/201609/12 Routine gynecological examination 06/07/20162016 documented as of this encounter (statuses as of 10/22/2019) Immunizations Name Administration Dates Next Due Influenza [...] been in contact with No / Unsure 10/22/2019 11:16 AM CDT someone who was confirmed or suspected to have Coronavirus / COVID-19? documented as of this encounter Last Filed Vital Signs Vital Sign Reading Time Taken Comments Blood Pressure 128/75 10/22/2019 11:17 AM CDT Pulse 94 10/22/2019 11:17 AM CDT Temperature 36.9 C (98.5 F) 10/22/2019 11:17 AM CDT Respiratory Rate - - Oxygen Saturation - - Inhaled Oxygen Concentration - - Weight 133.9 kg (295 lb 4 oz) 10/22/2019 11:17 AM CDT Height 162.6 cm (5' 4") 10/22/2019 11:17 AM CDT Body Mass Index 50.68 10/22/2019 11:17 AM CDT documented in this encounter Progress Notes Donaldo Jurado MD - 10/22/2019 11:15 AM CDT Vascular Surgery Clinic Note Date of Service: 10/22/2019 HISTORY OF PRESENT ILLNESS: This 39 year old year old female patient presents for follow-up of bilateral leg swelling. Patient has a history of left great saphenous vein SVT, that was treated for 4 weeks with Eliquis. She reportsshe has had continued leg swelling, and she has not been able to wear her compression stockings. Shereports she has not been elevating her legs due to living out of her car. She has now moved into a new place. She has not been using martha wraps due to cost. She was admitted last week with BLE cellulitis and was placed on IV doxy/levaquin in plaintext and oral doxycycline outpatient . She reports improvement in BLE erythema with minimal erythema currently. She also has seen cardiology recently for her intermittent chest pain. PAST MEDICAL HISTORY: Past Medical History: Diagnosis Date Abnormal uterine bleeding Anxiety 2007 currently being treated by [facility] Asthma 2009 was being treated by [facility] in [place] Bipolar affective Depression 2001 currently being treated by [facility] Esophageal reflux 1998 currently on OTC Prilosec - Generic PCOS (polycystic ovarian syndrome) 08/09/2016 Pedal edema 11/11/2016 Sleep disorder Substance abuse Alcohol Thyroid disease 2009 was on medication but stopped Urinary incontinence non-contributory for this patient presenting symptoms Past Surgical History: Procedure Laterality Date COLPOSCOPY 2012 EYE SURGERY Bilateral 1997 for her eye lid muscles; her eyelids drooped. Medications: Current Outpatient Medications on File Prior to Visit Medication Sig Dispense Refill furosemide 40 mg tablet Take 1 tablet by mouth daily for 30 days. 30 tablet 2 KCL 20 mEq tablet Take 1 tablet by mouth every 48 (forty-eight) hours for 30 days. 15 tablet 2 diclofenac 75 mg EC tablet Take 1 tablet by mouth 2 (two) times daily with meals. 60 tablet 1 erythromycin 5 mg/gram (0.5 %) ophthalmic ointment Place 0.5 Inches in both eyes 4 (four) times daily. 1 g 1 Venlafaxine 150 mg tablet TK 1 T PO QD aspirin 81 mg EC tablet Take 1 tablet by mouth daily. nitroglycerin 0.[address] 1 tablet under the tongue every 5 (five) minutes as needed for Chest pain. 1 Bottle 5 divalproex ER 500 mg 24 hr tablet TK 2 TS PO QHS. 0 hydrOXYzine 25 mg tablet TK 1 T PO BID PRN 0 blood sugar diagnostic strip Use BID, DX E11.9 (Brand upon insurance approval)ONE TOUCH VERIO TEST STRIP 100 Box 11 amitriptyline 25 mg tablet Take 25 mg by mouth at bedtime. ARIPiprazole 15 mg tablet Take 15 mg by mouth daily. pantoprazole 20 mg EC tablet Take 40 mg by mouth daily. budesonide-formoterol 160-4.5 mcg/actuation inhaler Inhale 2 Puffs 2 (two) times daily. mirtazapine 7.5 mg tablet Take 7.5 mg by mouth at bedtime. montelukast 10 mg tablet Take 10 mg by mouth. ranitidine 150 mg capsule Take 150 mg by mouth at bedtime. solifenacin (VESICARE) 10 mg tablet Take 10 mg by mouth daily. albuterol (PROAIR HFA) 90 mcg/actuation inhaler Inhale 2 Puffs every 6 (six) hours as needed forWheezing or Shortness of Breath. 8.5 g 11 Diclofenac Sodium (VOLTAREN) 1 % gel Take 2-4 grams twice a day as needed for pain 100 g 3 busPIRone 30 mg tablet TAKE 1 TABLET (30 MG) BY MOUTH 2 TIMES PER DAY 0 No current facility-administered medications on file prior to visit. I have reviewed the social history, it is significant for current everyday smoker. I have reviewed the family history, it is non-contributory. Allergies: Allergies Allergen Reactions Oats Nausea and/or Vomiting Make sure patient is not allergic to Contrast (Iodine): No Review of Systems: (-)=Negative,(+)=Positive Constitutional: (-) fever, (-) chills Eyes: (-) Amarosis fugax Mouth/Throat: (-) facial droop Cardiovascular: (- ) chest pain, (-) palpitations Respiratory: (-) shortness of breath, (+) dyspnea on exertion Gastrointestinal: (+) weight gain Endocrine: (-) renal insufficiency Musculoskeletal: (+) joint pain, (-) muscle pain Integumentary: (+) dryness and (+) swelling Hematologic: (+) SVT and (-) DVT Infectious Disease: (-) Neuro: (-) TIAs/ Stroke, (-) numbness, (-) tingling, (-) weakness Physical Exam: BP 128/75 | Pulse 94 | Temp 36.9 C (98.5 F) (Oral) | Ht 1.626 m (5' 4") | Wt 133.9 kg (295 lb 4 oz) | BMI 50.68 kg/m Constitutional: alert, healthy and no acute distress Facial Droop: No Eyes: extra ocular movements intact Head: normal Respiratory: breathing comfortably on room air Cardio: regular rate Extremities: significant BLE swelling up to the thighs, minimal erythema Palpable DP Neurologic: alert and oriented x 3 Psychiatric: alert, with appropriate affect Hematologic: (-) bruises and (-) hematoma Labs: No new labs. Imaging: No new Radiology. Vascular Labs: Interpretation Summary No evidence of deep venous thrombosis BILATERALLY. Deep venous insufficiency lasting >1000 milliseconds is identified in the RIGHT common femoral vein and the LEFT popliteal vein. Superficial venousinsufficiency lasting >500 milliseconds is identified in the RIGHT saphenofemoral junction and the BILATERAL above and below knee greater saphenous veins and small saphenous Diagnosis: Cely Eagle is a 39 year old female with history of superficial venous thrombosis with bilateral superficial venous insuffiencey, with deep insuffiencey in right common fem and left popliteal. Has not been martha wrapping or elevating legs given complex social situation. Patient now living [facility] and will begin to elevate her legs and wrap her legs with martha wraps (given to patient in clinic). Her recent cellulitis has improved and she can continue her oral abx as prescribed. - Conservative management of BLE venous insuffiencey at this time. - Martha wraps given - Recommend elevating legs when sleeping - Continue oral abx Donaldo Jurado MD Surgery PGY-1 documented in this encounter Plan of Treatment Date Type Specialty Care Team Description 11/23/2019 Office Visit Cardiology [place] [place] [address] [address] [phone] 12/09/2019 Office Visit Cardiology [facility] [place] [facility] [address] [phone] 01/15/2020 Office Visit Vascular Surgery Paulo Ingram MD [address] [place] [address] [phone] Health Maintenance Due Date Last Done Comments [...] filedocumented in this encounter Visit Diagnoses Diagnosis Venous insufficiency of both lower extre mities - Primary documented in this encounter Insurance Payer Benefit Plan / Subscriber ID Effective Dates Phone Addre ss Type Group [facility] xxxxxxxxx 2018-Present Medicaid COMM PLAN - PLUS MANAGED MEDICAID documented as of this encounter
--- OUTSIDE RECORDS SUMMARY | 2019-10-26 20:16 | XMS REPORT | Summary of Care ---
:1980 Author Organization [facility] Address [address] [place] [address] Care Team Providers Name Role Phone Mukul Estevez MD Unavailable Unavailable 1, Lab Unavailable Unavailable Salma Carrington Primary Care Provider Reason for Visit Reason Comments Follow-up (Routine) Status Reason Specialty Diagnoses / Referred By Referred To Procedures Contact Contact Authorized [place] Diagnoses Leg swelling Simone Huang MD SURGERY / Procedures Discharge Follow-Up: Specialty Service [place] SURGERY; [address] [place] [address] [place] [address] Encounter Details Date Type Department Care Team Description 10/22/2019 Office Visit [facility] Vascular Aisha Ingram V enous insufficiency Surgery- Efren MCKNIGHT [place] [address] ([address] [place], [place]) [address] [address] [place], [place] [phone] [address] [phone] Allergies Active Allergy Reactions Severity Noted Date [...] bleeding Anxiety 2007 currently being treated by [facility] Asthma 2009 was being treated by [facility] in [place] Bipolar affective Depression 2001 currently being treated by [facility] Esophageal reflux 1998 currently on OTC Prilosec [...] saphenous veins and small saphenous Diagnosis: Cely [place]ale is a 39 year old female with [...] Visit Cardiology Dem[facility] [place] M D [address] [address] 15 [phone] 12/09/2019 Office Visit Cardiology Demetra [place] M D [address] [phone] 01/15/2020 Office Visit Vascular Surgery Paulo Ingram MD [address] [place] [phone] Health Maintenance Due Date Last [...] Effective Dates Phone Addre ss Type Group [facility] ST[facility] xxxxxxxxx 2018-Present Medicaid COMM PLAN - PLUS MANAGED MEDICAID documented as of this encounter
--- NOTE | 2019-10-26 22:17 | RAD REPORT ---
[facility] DES[facility]26/2019 10:08 pm CLINICAL HISTORY: Right arm pain and swelling COMPARISON: None FINDINGS: Echogenic material consistent with acute thrombus is present within the right cephalic vei n. No flow seen within portions of the vein. The right internal jugular, right subclavian, , right axillary, right brachial, right basilic, righ t ulnar and right radial veins are generally compressible and demonstrate augmentation. Doppler demon strates good flow. IMPRESSION: Acute thrombus within the right cephalic vein
--- NOTE | 2019-10-26 22:51 | ER ---
Nurse's Notes [facility] Name: Cely Valadez Age: 39 yrs Sex: Female : 1980 Arrival Date: 10/26/2019 Time: 20:10 Bed 6 Private MD: Diagnosis: Acute embolism and thrombosis of superficial veins of right upper extremity;Superficial Thrombophlebitis Right upper extremity Presentation: 10/25 20:27 Chief complaint: Patient states: Right posterior arm pain, swelling for 3 days. Pain ll1 radiates down arm now. Recently admitted to [facility] for edema of legs/cellulitis. Coronavirus screen: Proceed with normal triage. Patient denies a cough. Patient denies shortness of breath or difficulty breathing. Patient denies measured and/or subjective temperature greater than 100.4F prior to today's visit. Patient denies travel on a cruise ship or to a country the [facility] currently lists as an affected area. Patient denies contact with known and/or suspected case of COVID-19. Ebola Screen: Patient denies travel to an Ebola-affected area in the 21 days before illness onset. Initial Sepsis Screen: Does the patient meet any 2 criteria? No. Patient's initial sepsis screen is negative. Risk Assessment: Do you want to hurt yourself or someone else? Patient reports no desire to harm self or others. Onset of symptoms was October 24, 2019. 20:27 Method Of Arrival: Ambulatory ll1 20:27 Acuity: ADRIANA 4 ll1 20:32 Initial Sepsis Screen: Does the patient have a suspected source of infection?. ao Triage Assessment: 22:57 General: Behavior is calm. rv 22:58 Bite description: animal information: vaccination(s) is unknown. General: Appears in no rv apparent distress. 22:59 Bite description: by Pt not sure where a inset bite or Cellulitis. Pain: Complains of ao pain in right antecubital area. 22:59 Bite description: bite sustained to right antecubital area. 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 - ao Historical: - Allergies: 20:30 NKDA; ll1 - Home Meds: 22:47 Abilify 15 mg Oral tab 1 tab once daily [Active]; Amitriptyline Oral once daily lp1 [Active]; buspirone 15 mg Oral tab 2 times per day [Active]; Depakote ER 500 mg Oral Tb24 1 tab once daily [Active]; Effexor XR 37.5 mg Oral cp24 1 cap once daily [Active]; Hydralazine Oral [Active]; omeprazole 40 mg Oral cpDR 1 cap once daily [Active]; ProAir HFA 90 mcg/actuation inhalation HFAA 2 puffs as needed [Active]; topiramate 25 mg Oral tab 1 tabs daily [Active]; - PMHx: 20:30 Bipolar disorder; DVT; Asthma; acid reflux; ll1 - Immunization history:: Flu vaccine is not up to date. - Social history:: Smoking status: Patient reports the use of cigarette tobacco products, smokes two packs cigarettes per day. Patient/guardian denies using alcohol, street drugs. Screenin:20 Abuse screen: Denies threats or abuse. Denies injuries from another. Nutritional ao screening: No deficits noted. Tuberculosis screening: No symptoms or risk factors identified. Fall Risk None identified. Assessment: 21:19 General: Appears in no apparent distress. comfortable. Neuro: Level of Consciousness is ao awake, alert, obeys commands, Oriented to person, place, time, situation, Appropriate for age Moves all extremities. Full function Speech is normal, Facial symmetry appears normal. Cardiovascular: Capillary refill < 3 seconds Patient's skin is warm and dry. Respiratory: Airway is patent Respiratory effort is even, unlabored, Respiratory pattern is regular, symmetrical. GI: Abdomen is obese. : No signs and/or symptoms were reported regarding the genitourinary system. EENT: No signs and/or symptoms were reported regarding the EENT system. Derm: Skin Bilateral lower edema Skin is pink, warm \T\ dry. normal. Musculoskeletal: Circulation, motion, and sensation intact. Range of motion: intact in all extremities. 22:20 Reassessment: Patient appears in no apparent distress at this time. Waiting on US ao results. Vital Signs: 20:27 BP 140 / 75; Pulse 86; Resp 18; Temp 99.0; Pulse Ox 99% ; Pain 2/10; ll1 22:57 BP 131 / 76; Pulse 81; Resp 17; Temp 98.5; Pulse Ox 99% ; rv ED Course: 20:10 Patient arrived in ED. cf2 20:30 Triage completed. ll1 20:30 Arm band placed on Patient placed in an exam room, on a stretcher. ll1 20:32 Henrique Miller, RN is Primary Nurse. ao 20:54 Al Zamarripa PA is PHCP. jr8 20:54 Yordy Jiang MD is Attending Physician. jr8 21:21 No provider procedures requiring assistance completed. ao 22:08 US Extremity Venous Unilateral Ltd In Process Unspecified. EDMS 22:30 Patient has correct armband on for positive identification. Pulse ox on. NIBP on. rv 22:59 Patient did not have IV access during this emergency room visit. ao Administered Medications: No medications were administered Outcome: 22:51 Discharge ordered by . jr8 22:58 Discharged to home ambulatory. rv 22:58 Condition: good 22:58 Discharge instructions given to patient, Instructed on discharge instructions, follow up and referral plans. medication usage, Demonstrated understanding of instructions, follow-up care, medications, Prescriptions given X 1. 23:01 Patient left the ED. ao Signatures: Dispatcher [employer] EDMT Eusebia Bowling RN RN lp1 Al Zamarripa PA PA jr8 Henrique Miller, RN RN Benjamin Vaca RN RN Rebekah Devi cf2 Damaso Givens RN RN ll1
--- NOTE | 2019-10-26 22:52 | EDPHYS ---
Physician Documentation Formerly [facility] Name: Cely Valadez Age: 39 yrs Sex: Female : 1980 Arrival Date: 10/26/2019 Time: 20:10 Bed 6 Private MD: ED Physician Yordy Jiang HPI: 10/25 22:42 This 39 yrs old Female presents to ER via Ambulatory with complaints of arm jr8 swelling. 22:42 The patient or guardian complains of pain, swelling, tenderness. The complaints affect jr8 the right antecubital area. Onset: The symptoms/episode began/occurred acutely, 2 day(s) ago. Associated signs and symptoms: The patient has no apparent associated signs or symptoms. Severity of symptoms: At their worst the symptoms were mild, in the emergency department the symptoms are unchanged. The patient has not experienced similar symptoms in the past. The patient has been recently seen by a physician:. Patient stated that she was hospitalized at [facility] for cellulitis of lower extremities. Day after being discharged started to have pain, swelling, tenderness, and redness near IV site. Came in today for worsening of Pain. 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 - ao Historical: - Allergies: 20:30 NKDA; ll1 - Home Meds: 22:47 Abilify 15 mg Oral tab 1 tab once daily [Active]; Amitriptyline Oral once daily lp1 [Active]; buspirone 15 mg Oral tab 2 times per day [Active]; Depakote ER 500 mg Oral Tb24 1 tab once daily [Active]; Effexor XR 37.5 mg Oral cp24 1 cap once daily [Active]; Hydralazine Oral [Active]; omeprazole 40 mg Oral cpDR 1 cap once daily [Active]; ProAir HFA 90 mcg/actuation inhalation HFAA 2 puffs as needed [Active]; topiramate 25 mg Oral tab 1 tabs daily [Active]; - PMHx: 20:30 Bipolar disorder; DVT; Asthma; acid reflux; ll1 - Immunization history:: Flu vaccine is not up to date. - Social history:: Smoking status: Patient reports the use of cigarette tobacco products, smokes two packs cigarettes per day. Patient/guardian denies using alcohol, street drugs. ROS: 22:42 Eyes: Negative for injury, pain, redness, and discharge, ENT: Negative for injury, jr8 pain, and discharge, Neck: Negative for injury, pain, and swelling, Cardiovascular: Negative for chest pain, palpitations, and edema, Respiratory: Negative for shortness of breath, cough, wheezing, and pleuritic chest pain, Abdomen/GI: Negative for abdominal pain, nausea, vomiting, diarrhea, and constipation, Back: Negative for injury and pain, Skin: Negative for injury, rash, and discoloration, Neuro: Negative for headache, weakness, numbness, tingling, and seizure. 22:42 MS/extremity: Positive for erythema, pain, swelling, tenderness, of the right antecubital area. Exam: 22:42 Eyes: Pupils equal round and reactive to light, extra-ocular motions intact. Lids and jr8 lashes normal. Conjunctiva and sclera are non-icteric and not injected. Cornea within normal limits. Periorbital areas with no swelling, redness, or edema. ENT: Nares patent. No nasal discharge, no septal abnormalities noted. Tympanic membranes are normal and external auditory canals are clear. Oropharynx with no redness, swelling, or masses, exudates, or evidence of obstruction, uvula midline. Mucous membranes moist. Neck: Trachea midline, no thyromegaly or masses palpated, and no cervical lymphadenopathy. Supple, full range of motion without nuchal rigidity, or vertebral point tenderness. No Meningismus. Cardiovascular: Regular rate and rhythm with a normal S1 and S2. No gallops, murmurs, or rubs. Normal PMI, no JVD. No pulse deficits. Respiratory: Lungs have equal breath sounds bilaterally, clear to auscultation and percussion. No rales, rhonchi or wheezes noted. No increased work of breathing, no retractions or nasal flaring. Abdomen/GI: Soft, non-tender, with normal bowel sounds. No distension or tympany. No guarding or rebound. No evidence of tenderness throughout. Back: No spinal tenderness. No costovertebral tenderness. Full range of motion. Skin: Warm, dry with normal turgor. Normal color with no rashes, no lesions, and no evidence of cellulitis. Neuro: Awake and alert, GCS 15, oriented to person, place, time, and situation. Cranial nerves II-XII grossly intact. Motor strength 5/5 in all extremities. Sensory grossly intact. Cerebellar exam normal. Normal gait. 22:42 Musculoskeletal/extremity: Patient has mild swelling, tenderness, erythema to right medial condylar region of right elbow near AC joint. Full ROM present and without pain. Normal sensation with 2 + pulses radially bilateral. Rest of extremities unremarkable . Vital Signs: 20:27 BP 140 / 75; Pulse 86; Resp 18; Temp 99.0; Pulse Ox 99% ; Pain 2/10; ll1 22:57 BP 131 / 76; Pulse 81; Resp 17; Temp 98.5; Pulse Ox 99% ; rv MDM: 20:55 Patient medically screened. jr8 22:42 Data reviewed: vital signs, nurses notes, radiologic studies, ultrasound. Data jr8 interpreted: Pulse oximetry: on room air is 99 %. Interpretation: normal. Counseling: I had a detailed discussion with the patient and/or guardian regarding: the historical points, exam findings, and any diagnostic results supporting the discharge/admit diagnosis, radiology results, the need for outpatient follow up, a family practitioner, to return to the emergency department if symptoms worsen or persist or if there are any questions or concerns that arise at home. ED course: Discussed with patient superficial thrombus present with thrombophlebitis. NSAID and heat is treatment course for now. If worse to f/u or come back for reevaluation . 10/25 21:10 Order name: Extremity Venous Unilateral Ltd; Complete Time: 22:37 jr8 Administered Medications: No medications were administered Disposition: 10/26 05:24 Co-signature as Attending Physician, Yordy Jiang MD. [email or web address] Disposition: 10/26/19 22:51 Discharged to Home. Impression: Acute embolism and thrombosis of superficial veins of right upper extremity, Superficial Thrombophlebitis Right upper extremity. - Condition is Stable. - Discharge Instructions: Venous Thromboembolism. - Prescriptions for Ibuprofen 800 mg Oral Tablet - take 1 tablet by ORAL route every 8 hours As needed take with food; 30 tablet. - Medication Reconciliation Form, Thank You Letter, Antibiotic Education, Prescription Opioid Use form. - Follow up: Private Physician; When: 2 - 3 days; Reason: Recheck today's complaints, Continuance of care, Re-evaluation by your physician. - Problem is new. - Symptoms have improved. - Notes: Heat to affected area Signatures: Dispatcher [employer] EDMS Eusebia Bowling RN RN lp1 Al Zamarripa PA PA jr8 Henrique Miller RN RN Damaso Ramirez RN RN ll1 Yordy Jiang MD MD [email or web address] Corrections: (The following items were deleted from the chart) 10/25 23:01 22:51 10/26/2019 22:51 Discharged to Home. Impression: Acute embolism and thrombosis of ao superficial veins of right upper extremity; Superficial Thrombophlebitis Right upper extremity. Condition is Stable. Forms are Medication Reconciliation Form, Thank You Letter, Antibiotic Education, Prescription Opioid Use. Follow up: Private Physician; When: 2 - 3 days; Reason: Recheck today's complaints, Continuance of care, Re-evaluation by your physician. Problem is new. Symptoms have improved. jr8
[2019-10-26 23:05] VITALS: O2SAT 99
[2019-10-26 23:11] VITALS: BP 131/76; TEMP 98.5
== END 2019-10-26 23:01 | disposition home or self-care (01) ==
LOC: ER 20:05
DX: I82.611 Acute embolism and thrombosis of superficial veins of right upper extremity (principal); I80.8 Phlebitis and thrombophlebitis of other sites; F17.210 Nicotine dependence, cigarettes, uncomplicated; F31.9 Bipolar disorder, unspecified; Z86.718 Personal history of other venous thrombosis and embolism
CPT/HCPCS: 93971; 99283

== ENCOUNTER 2020-09-21 18:48 | Emergency (ER) | payer OTHER ==
--- OUTSIDE RECORDS SUMMARY | 2020-09-21 18:51 | XMS REPORT | Continuity of Care Document ---
:1980 Author Organization [facility] t Address [address] [place] [address] Care Team Providers Name Role Phone [facility], Nurse Visit Divina Attending Clinician Unavailable Archana WALLIS Attending Clinician Hitesh WALLIS Attending Clinician Najma Proctor MD Attending Clinician Problems This patient has no known problems. Allergies, Adverse Reactions, Alerts This patient has no known allergies or adverse reactions. Medications Ordered Filled Start Stop Current Ordering Indication Dosage Frequency Signature Comments Components Source Medication Medication Date Date Medication? Clinician (SIG) Name Name Oxybutynin Oxybutynin 2019-0 2020- No Na Carrington [address] [facility] Chloride ER Chloride ER 09-27 [facility] Pantoprazol Pantoprazol 2018-04 Yes Na Carrington [address] [facility] e Sodium e Sodium 0-16 [facility] Venlafaxine Venlafaxine Yes Na Carrington [address] [facility] HCl ER HCl ER 2-28 with food [facility] BusPIRone BusPIRone Yes Na Carrington [address] [facility] HCl HCl 2 [facility] Clin[facility] Aripiprazol Aripiprazol Yes Na Carrington [address] [facility] e e 2 [facility] Amitriptyli Amitriptyli Yes Na Carrington [address] [facility] ne HCl ne HCl 2 [facility] Topiramate Topiramate Yes Na Carrington [address] [facility] Flonase Flonase Yes Na Carrington [address] [facility] each [facility] nostril [facility] Loratadine Loratadine Yes Na Carrington [address] [facility] Zithromax Zithromax Yes Na Carrington [address] [facility] Z-Ridge Z-Ridge on the [facility] - first day, [facility] then 1 l tablet Outpati daily for ent 4 days Clinics PredniSONE PredniSONE Yes Na Carrington [address] [facility] dailyx 5 [facility] - days then [facility] 1 tablet l daily x 5 Outpati days ent Clinics VESIcare VESIcare Yes Na Carrington [address] [facility] [place] Yes Na Carrington [address] Carbonate Carbonate at bedtime [facility] ER ER [facility] Abilify Abilify Yes Na Carrington [address] [facility] Diclofenac Diclofenac Yes Na Carrington [address] [facility] Sodium Sodium with food [facility] - or milk [facility] Cetirizine Cetirizine Yes Na Carrington [address] [facility] HCl HCl [facility] Pantoprazol Pantoprazol Yes Na Carrington [address] [facility] e Sodium e Sodium [facility] Diclofenac Diclofenac Yes Na Carrington not [facility] Sodium Sodium defined [facility] Yes Na Carrington [address] [facility] Sodium Sodium [facility] Eliquis Eliquis Yes Na Carrington as [facility] directed [facility] Klor-Con Klor-Con Yes Na Carrington [address] [facility] M10 M10 with food [facility] Divalproex Divalproex Yes Na Carrington as [facility] Sodium ER Sodium ER directed [facility] Symbicort Symbicort Yes Na Carrington [address] [facility] Lasix Lasix Yes Na Carrington [address] [facility] BusPIRone BusPIRone Yes Na Carrington not [facility] HCl HCl defined [facility] Provera Provera Yes Na Carrington [address] with food [facility] Naproxen Naproxen Yes Na Carrington [address] [facility] Effexor Effexor Yes Na Carrington not [facility] defined [facility] One Touch One Touch Yes Na Carrington one strip [facility] Verio Verio [facility] Yes Na Carrington not [facility] defined [facility] Cyclobenzap Cyclobenzap Yes Na Carrington [address] [facility] rine HCl rine HCl as needed Kaylin k[facility] - [facility] Bactrim DS Bactrim DS Yes Na Carrington [address] [facility] Abilify Abilify Yes Na Carrington not [facility] defined [facility] One Touch One Touch Yes Na Carrington not [facility] Delica Delica defined [facility] Lancets Lancets [facility] Ranitidine Ranitidine Yes Na Carrington TAKE [facility] HCl HCl CAPSULE BY [facility] - MOUTH [facility] EVERYDAY l AT BEDTIME Outpati ent Clinics Mirtazapine Mirtazapine Yes Na Carrington [address] [facility] at bedtime Luchi [facility] l [facility] ent [facility] Proventil Proventil Yes Na Carrington [address] [facility] HFA HFA needed [facility] l [facility] ent [facility] Amitriptyli Amitriptyli Yes Na Carrington not [facility] ne HCl ne HCl defined [facility] ent [facility] Metoprolol Metoprolol Yes Na Carrington [address] [facility] Succinate Succinate [facility] Procedures This patient has no known procedures. Encounters Start End Encounter Admission Attending Care Care Encounter Source Date/Time Date/Time Type Type Clinicians Facility Department ID 2020-09-19 2020-09-19 Nurse Emilio Sigala [facility] [id number] 09:15:29 09:30:29 Visit Nurse Visit MULTISPEC [id number] Divina LEE [id number] CENTER [id number] [facility] 2020-09-19 2020-09-19 Refill Archana [facility] [id number] 00:00:00 00:00:00 Alee SPECIALTY [id number] CARE [id number] CENTER AT [id number] ALVARO RECIO 2020-09-14 2020-09-14 Refill Venecia Proctor [facility] [id number] 00:00:00 00:00:00 Health [id number] Surgical [id number] Specialti [id number] Storm Robinson 2020-09-13 2020-09-13 Office Clary Proctor [facility] [id number] 09:16:19 09:45:52 Visit Najma [facility] [id number] IAY [id number] CENTER [id number] [facility] 2020-07-19 2020-07-19 Outpatient [facility]C [facility] [id number] [facility] ent [facility] 2020-04-20 2020-04-20 Outpatient STLMLC ST[facility] [id number] [facility]00 [facility] l Outpati ent Clinics 2019-12-04 2019-12-04 [facility] [id number] [facility] 17:00:00 17:00:00 t Minturn ivi.ru s Kaymu[employer]pk [facility] Medicine Outpati ent Clinics 2019-11-04 2019-11-04 [facility] [id number] 12:00:00 12:00:00 t Minturn ivi.ru s - [employer] [facility] Medicine Outpati ent Clinics 2019-10-15 2019-10-15 [facility] [id number] 16:50:00 16:50:00 t Minturn [employer] [facility] Medicine Outpati ent Clinics 2019-10-02 2019-10-02 [facility] [id number] 16:58:00 16:58:00 t Utan s [employer] [facility] Medicine Outpati ent Clinics 2019-09-28 2019-09-28 [facility] [id number] [address] 08:40:00 08:40:00 t Minturn ivi[employer]ru s [employer] [facility] Medicine Outpati ent Clinics 2019-09-17 2019-09-17 [facility] [id number] 14:18:00 14:18:00 t Utan s [employer] [facility] Medicine Outpati ent Clinics 2019-09-15 2019-09-15 [facility] [id number] 09:25:00 09:25:00 t Minturn ivi[employer]ru s [employer]pk [facility] Medicine Outpati ent Clinics 2019-09-10 2019-09-10 [facility] [id number] [address] 16:38:00 16:38:00 t Utan s [employer] [facility] Medicine Outpati ent Clinics 2019-08-24 2019-08-24 [facility] [id number] 09:40:00 09:40:00 t Minturn ivi[employer]ru s [employer]pk [facility] Medicine Outpati ent Clinics 2019-07-23 2019-07-23 [facility] [id number] 12:01:00 12:01:00 t Minturn Minturn Jingshi Wanwei s - Drive [facility] Family Medicine l Medicine Outpati ent Clinics 2019-05-26 2019-05-26 [facility] [id number] 17:11:00 17:11:00 t Minturn Minturn Jingshi Wanwei s - Drive [facility] Medicine l Medicine Outpati ent Clinics 2019-05-25 2019-05-25 [facility] [id number] 14:40:00 14:40:00 t Minturn Minturn Jingshi Wanwei s - Drive [facility] Family Medicine l Medicine Outpati ent Clinics 2019-04-07 2019-04-07 [facility] [id number] 03:19:00 03:19:00 t Minturn ivi.ru s - Drive [facility] Medicine l Medicine Outpati ent Clinics 2019-03-19 2019-03-19 [facility] [id number] 12:20:00 12:20:00 t Minturn ivi.ru s - Drive [facility] Medicine l Medicine Outpati ent Clinics 2019-02-11 2019-02-11 [facility] [id number] [address] 08:20:00 08:20:00 t Minturn ivi.ru s - [employer] [facility] Medicine l Medicine Outpati ent Clinics 2018-12-18 2018-12-18 [facility] [id number] 11:40:00 11:40:00 t Minturn ivi[employer]ru s - [employer] [facility] Medicine l Medicine Outpati ent Clinics 2018-06-02 2018-06-02 [facility] [id number] [facility] 10:14:00 10:14:00 t Minturn ivi.ru s - Drive [facility] Medicine l Medicine Outpati ent Clinics 2018-05-28 2018-05-28 [facility] [id number] [facility] 15:15:00 15:15:00 t Minturn ivi.ru s - Drive [facility] Medicine l Medicine Outpati ent Clinics 2018-05-06 2018-05-06 [facility] [id number] [facility] 10:15:00 10:15:00 t Urgent Urgent Care L [facility] l Outpati ent Clinics 2018-02-10 2018-02-10 [facility] [id number] [facility] 08:22:00 08:22:00 t Simple[employer] [facility] Medicine Outpati ent Clinics 2018-02-02 2018-02-02 [facility] [id number] 09:45:00 09:45:00 t Urgent Urgent Care L [facility] - Care [facility] l Outpati ent Clinics 2018-01-27 2018-01-27 [facility] [id number] [facility] 14:00:00 14:00:00 t [employer] [facility] Medicine Outpati ent Clinics 2018-01-10 2018-01-10 [facility] [id number] [facility] 14:23:00 14:23:00 t [employer] [facility] Medicine Outpati ent Clinics 2017-12-19 2017-12-19 [facility] [id number] 14:45:00 14:45:00 t [employer] [facility] Medicine Outpati ent Clinics 2017-12-03 2017-12-03 [facility] [id number] 13:20:00 13:20:00 t Specialty/U Kaylin kes - Specialty rology [facility] /Urology Clinic l Clinic Outpati ent Clinics 2017-11-30 2017-11-30 [facility] [id number] [facility] 13:15:00 13:15:00 t Urgent Urgent Care L ukes - Care Clinic [facility] l Outpati ent Clinics 2017-11-28 2017-11-28 [facility] [id number] 15:00:00 15:00:00 t Specialty/U Kaylin kes - Specialty rology [facility] /Urology Clinic l Clinic Outpati ent Clinics 2017-11-23 2017-11-23 [facility] [id number] 15:30:00 15:30:00 t Urgent Urgent Care L ukes - Care Clinic [facility] l Outpati ent Clinics 2017-09-19 2017-09-19 [facility] [id number] 10:00:00 10:00:00 t Specialty/U Kaylin foster - Specialty rology [facility] a /Urology Clinic l Clinic Outpati ent Clinics 2017-09-09 2017-09-09 Outpatient Jeffrey Munoz [id number] [facility] 10:00:00 10:00:00 t Utan s [employer]mu[employer]pk [facility] Results This patient has no known results.
[2020-09-21] MEDS ORDERED: FUROSEMIDE 20 MG/ 2ML VIAL ONE (19:43)
[2020-09-21] MEDS ORDERED: METHYLPREDNISOLONE 125 MG INJ ONE (19:43)
[2020-09-21] MEDS ORDERED: LEVALBUTEROL 1.25 MG/3 ML NEB ONE (19:44)
[2020-09-21] MEDS ORDERED: ONDANSETRON 4 MG/2 ML VIAL ONE (19:44)
[2020-09-21] MEDS ORDERED: MORPHINE 4 MG/ML SYR ONE (19:44)
[2020-09-21 19:47] LABS: Absolute Lymphocytes (CBC) 2.8 K/uL (0.7-4.9); Basophils % 0.7 % (0-1.3); Hematocrit 26.9 % (36.0-45.0); Lymphocytes % 18.9 % (15.3-44.8); MPV 8.9 fL (7.6-11.3); RBC Red Blood Cell Count 3.62 M/uL (3.86-4.86)
[2020-09-21 19:53] LABS: Protime INR 0.97
[2020-09-21 20:03] LABS: ALT/SGPT 38 U/L (12-78); AST/SGOT 21 U/L (15-37); Albumin 3.1 g/dL (3.4-5.0); Alkaline Phosphatase 86 U/L (45-117); BUN Blood Urea Nitrogen 20 mg/dL (7-18); Bicarbonate 27 mmol/L (21-32); Bilirubin Direct 0.1 mg/dL (0-0.2); Bilirubin Total 0.2 mg/dL (0.2-1.0); CKMB Creatine Kinase MB < 1.0 ng/mL (0.3-3.6); Creatine Phosphokinase 65 U/L (26-192); Glucose Level 100 mg/dL (74-106); Lipase 65 U/L (73-393); Magnesium 2.4 mg/dL (1.8-2.4); NT PRO-BNP 516 pg/mL (<125); Protein, Total 7.5 g/dL (6.4-8.2); Sodium Level 139 mmol/L (136-145); Troponin (Emerg Dept Use Only) < 0.02 ng/mL (0.0-0.045)
--- NOTE | 2020-09-21 20:33 | RAD REPORT ---
EXAM DESCRIPTION: USExtrem Venous W Compress Bil09/21/2020 8:19 pm CLINICAL HISTORY: Leg pain COMPARISON: none FINDINGS: Limited evaluation the distal superficial femoral veins secondary to body habitus. No pat s abnormalities seen The remainder of the common femoral, superficial femoral, and popliteal veins bilaterally are jourdan sible and demonstrate augmentation. Doppler demonstrates good flow. IMPRESSION: No gross evidence of pulmonary embolus
--- NOTE | 2020-09-21 20:48 | RAD REPORT ---
EXAM DESCRIPTION: Mj Single View09/21/2020 7:48 pm CLINICAL HISTORY: Cough COMPARISON: 2019 FINDINGS: The lungs appear clear of acute infiltrate. The heart is mildly to moderately enlarged. Small left pleural effusion is present
--- NOTE | 2020-09-21 20:48 | RAD REPORT ---
EXAM DESCRIPTION: CT - Chest For Pe Angio - 09/21/2020 8:35 pm CLINICAL HISTORY: Chest pain COMPARISON: None. TECHNIQUE: Dynamically enhanced axial 3 mm thick images of the chest were obtained during administra tion of <100> mL Isovue 370 IV contrast. Coronal and oblique reconstruction images were generated and reviewed. Exam utilizes a protocol for optimal evaluation of pulmonary arterial tree. Maximum intensity projections 3D imaging was utilized All CT scans are performed using dose optimization technique as appropriate and may include automated exposure control or mA/KV adjustment according to patient size. FINDINGS: A pulmonary embolus is not seen. A thoracic aortic aneurysm is not noted. Small left pleural effusion. A pericardial effusion is not seen. Mild left lower lobe atelectasis. Mildly enlarged bilateral axillary lymph nodes Fatty liver IMPRESSION: Negative for a pulmonary embolism. Mild bilateral axillary lymphadenopathy is nonspecific. Ultrasound in 3 months recommended for furthe r evaluation
--- NOTE | 2020-09-21 21:37 | EDPHYS ---
Physician Documentation [facility] Name: Cely Valadez Age: 40 yrs Sex: Female : 1980 Arrival Date: 09/21/2020 Time: 18:52 Bed 5 Private MD: ED Physician Mookie Pina HPI: 09/21 20:56 This 40 yrs old Female presents to ER via Ambulatory with complaints of Leg ma2 Swelling. 20:56 The complaints affect the lateral aspect of left calf, left calf, medial aspect of left ma2 calf and left titus. Associated signs and symptoms: Pertinent negatives numbness, tingling, vomiting. Severity of symptoms: At their worst the symptoms were moderate, in the emergency department the symptoms are unchanged. The patient has experienced similar episodes in the past. pateint has hx of chronic bilateral LE edema and venous stasis, had chuck stents placed in the past and had dvt 2 years ago been off bleed thinner for 1 year. here with bilat le edema and pain x 1 week, unchanged and chronic worse last 1 week.. she has chronic asthma and her sob is unchanged from baseline . 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 - Social history:: Smoking status: Patient denies any tobacco usage or history of. Patient/guardian denies using alcohol, street drugs, The patient lives with family. - Family history:: not pertinent. ROS: 20:56 Constitutional: Negative for fever, chills, and weight loss. ma2 20:56 All other systems are negative. Exam: 20:56 Constitutional: This is a well developed, well nourished patient who is awake, alert, ma2 and in no acute distress. Head/Face: Normocephalic, atraumatic. Eyes: Pupils equal round and reactive to light, extra-ocular motions intact. Lids and lashes normal. Conjunctiva and sclera are non-icteric and not injected. Cornea within normal limits. Periorbital areas with no swelling, redness, or edema. ENT: Nares patent. No nasal discharge, no septal abnormalities noted. Tympanic membranes are normal and external auditory canals are clear. Oropharynx with no redness, swelling, or masses, exudates, or evidence of obstruction, uvula midline. Mucous membranes moist. Neck: Trachea midline, no thyromegaly or masses palpated, and no cervical lymphadenopathy. Supple, full range of motion without nuchal rigidity, or vertebral point tenderness. No Meningismus. Chest/axilla: Normal chest wall appearance and motion. Nontender with no deformity. No lesions are appreciated. Cardiovascular: Regular rate and rhythm with a normal S1 and S2. No gallops, murmurs, or rubs. Normal PMI, no JVD. No pulse deficits. Respiratory: Lungs have equal breath sounds bilaterally, clear to auscultation and percussion. No rales, rhonchi or wheezes noted. No increased work of breathing, no retractions or nasal flaring. Abdomen/GI: Soft, non-tender, with normal bowel sounds. No distension or tympany. No guarding or rebound. No evidence of tenderness throughout. Back: No spinal tenderness. No costovertebral tenderness. Full range of motion. Skin: Warm, dry with normal turgor. Normal color with no rashes, no lesions, and no evidence of cellulitis. MS/ Extremity: LE edema 2 + pitting and equal bilat.. Pulses equal, no cyanosis. Neurovascular intact. Full, normal range of motion. Neuro: Awake and alert, GCS 15, oriented to person, place, time, and situation. Cranial nerves II-XII grossly intact. Motor strength 5/5 in all extremities. Sensory grossly intact. Cerebellar exam normal. Normal gait. Vital Signs: 19:00 BP 156 / 79; Pulse 89; Resp 18; Temp 98.1; Pulse Ox 99% on R/A; Weight 149.69 kg; em Height 5 ft. 4 in. (162.56 cm); Pain 8/10; 21:50 BP 140 / 66; Pulse 80; Resp 19; Temp 98; Pulse Ox 99% ; ea 19:00 Body Mass Index 56.64 (149.69 kg, 162.56 cm) em MDM: 19:06 Patient medically screened. ma2 20:56 Differential diagnosis: contusion, abrasion, tendonitis, dvt vs LE edema d/t chrinic ma2 venous stasis.. patient has a stable chronic cough and smoked cigarette no acute changes.. Data reviewed: vital signs, nurses notes. Counseling: I had a detailed discussion with the patient and/or guardian regarding: the historical points, exam findings, and any diagnostic results supporting the discharge/admit diagnosis, the presence of at least one elevated blood pressure reading (>120/80) during this emergency department visit, the need for outpatient follow up. ED course: pe unlikley however will do a ct pe rule out.. us is negative for acute stroke per us Tech.. however because acute dvt could have false negative test.. i informed the patient to get another us in 2-5 days she will see her doctor in 2 days.. she will return to er for any new symptoms especially respiratory symptoms . 21:26 Response to treatment: the patient's symptoms have markedly improved after treatment. 09/21 19:18 Order name: BMP; Complete Time: 20:16 09/21 19:18 Order name: CBC with Diff; Complete Time: 20:09/21 19:18 Order name: Ckmb; Complete Time: 20:09/21 19:18 Order name: CPK; Complete Time: 20:16 09/21 19:18 Order name: D-Dimer; Complete Time: 20:55 09/21 19:18 Order name: Hepatic Function; Complete Time: 20:16 09/21 19:18 Order name: CT Chest For PE Angio; Complete Time: 21:07 09/21 19:18 Order name: XRAY CXR (1 view); Complete Time: 21:07 09/21 19:18 Order name: Lipase; Complete Time: 20:16 09/21 19:18 Order name: Magnesium; Complete Time: 20:16 09/21 19:18 Order name: NT PRO-BNP; Complete Time: 20:16 09/21 19:18 Order name: PT-INR; Complete Time: 20:55 09/21 19:18 Order name: Ptt, Activated; Complete Time: 20:55 or09/21 19:18 Order name: Troponin (emerg Dept Use Only); Complete Time: 20:16 09/21 19:18 Order name: EKG; Complete Time: 19:19 09/21 19:18 Order name: Cardiac monitoring; Complete Time: 19:38 ma2 09/21 19:18 Order name: EKG - Nurse/Tech; Complete Time: 19:38 ma2 09/21 19:18 Order name: IV Saline Lock; Complete Time: 19:38 ma2 09/21 19:18 Order name: Labs collected and sent; Complete Time: 19:38 ma2 09/21 19:18 Order name: O2 Per Protocol; Complete Time: :38 ma2 09/21 19:18 Order name: O2 Sat Monitoring; Complete Time: :38 ma2 09/21 19:20 Order name: Extrem Venous W Compression [place] US; Complete Time: 20:55 ma2 Administered Medications: 19:37 Drug: Xopenex (levalbuterol) 1.25 mg Route: Inhalation; ea 19:38 Drug: SOLU-Medrol (methylPrednisoLONE) 125 mg Route: IVP; Site: right antecubital; ea 22:02 Follow up: Response: No adverse reaction ea 19:38 Drug: Lasix (furosemide) 20 mg Route: IVP; Site: right antecubital; ea 22:02 Follow up: Response: No adverse reaction ea 19:38 Drug: morphine 4 mg Route: IVP; Site: right antecubital; ea 22:02 Follow up: Response: No adverse reaction ea 19:39 Drug: Zofran (Ondansetron) 4 mg Route: IVP; Site: right antecubital; ea 22:03 Follow up: Response: No adverse reaction ea Disposition: 09/21/20 21:36 Discharged to Home. Impression: Edema, not elsewhere classified - LE edema. - Condition is Stable. - Discharge Instructions: Peripheral Edema. - Prescriptions for Lasix 20 mg Oral Tablet - take 1 tablet by ORAL route once daily; 20 tablet. Diclofenac Sodium 75 mg Oral Tablet Sustained Release - take 1 tablet by ORAL route 2 times per day; 30 tablet. - Medication Reconciliation Form, Thank You Letter, Antibiotic Education, Prescription Opioid Use form. - Follow up: Private Physician; When: Tomorrow; Reason: If symptoms return. - Notes: follow up with pcp for a repeated ultrasound in 3-5 days Signatures: Dispatcher [employer] Michi Adams PA PA jmm Munoz, Edgar, RN Lindsey Lewis RN Mookie Summers ea, MD MD ma2 Corrections: (The following items were deleted from the chart) 22:02 21:36 09/21/2020 21:36 Discharged to Home. Impression: Edema, not elsewhere classified ea - LE edema. Condition is Stable. Prescriptions for Lasix 20 mg Oral Tablet - take 1 tablet by ORAL route once daily; 20 tablet, Diclofenac Sodium 75 mg Oral Tablet Sustained Release - take 1 tablet by ORAL route 2 times per day; 30 tablet. and Forms are Medication Reconciliation Form, Thank You Letter, Antibiotic Education, Prescription Opioid Use. Follow up: Private Physician; When: Tomorrow; Reason: If symptoms return. ma2
--- NOTE | 2020-09-21 21:37 | ER ---
Nurse's Notes [facility] Name: Cely Valadez Age: 40 yrs Sex: Female : 1980 Arrival Date: 09/21/2020 Time: 18:52 Bed 5 Private MD: Diagnosis: Edema, not elsewhere classified-LE edema Presentation: 09/21 19:00 Chief complaint: Patient states: kevin. leg swelling and pain for 3 days, also reports em shortness of breath with productive cough, denies fever. Coronavirus screen: Client denies travel out of the [place] in the last 14 days. Ebola Screen: Patient negative for fever greater than or equal to 101.5 degrees Fahrenheit, and additional compatible Ebola Virus Disease symptoms Patient denies exposure to infectious person. Patient denies travel to an Ebola-affected area in the 21 days before illness onset. No symptoms or risks identified at this time. Initial Sepsis Screen: Does the patient meet any 2 criteria? No. Patient's initial sepsis screen is negative. Does the patient have a suspected source of infection? No. Patient's initial sepsis screen is negative. Risk Assessment: Do you want to hurt yourself or someone else? Patient reports no desire to harm self or others. Onset of symptoms was September 21, 2020. 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 - Social history:: Smoking status: Patient denies any tobacco usage or history of. Patient/guardian denies using alcohol, street drugs, The patient lives with family. - Family history:: not pertinent. Screenin:08 Abuse screen: Denies threats or abuse. Nutritional screening: No deficits noted. ea Tuberculosis screening: No symptoms or risk factors identified. Fall Risk None identified. Assessment: 19:39 General: Appears uncomfortable, Behavior is appropriate for age. Pain: Complains of ea pain in right leg and left leg. Neuro: Level of Consciousness is awake, alert, obeys commands, Oriented to person, place, time. Cardiovascular: Patient's skin is warm and dry. Respiratory: Airway is patent Respiratory effort is even, unlabored, Respiratory pattern is regular, symmetrical. Derm: Skin is pink, warm \T\ dry. 21:21 Reassessment: Patient and/or family updated on plan of care and expected duration. Pain ea level reassessed. Patient is alert, oriented x 3, equal unlabored respirations, skin warm/dry/pink. 22:00 Reassessment: Patient and/or family updated on plan of care and expected duration. Pain ea level reassessed. Patient is alert, oriented x 3, equal unlabored respirations, skin warm/dry/pink. Discharge instruction given to patient verbalized the understanding of instruction. Pt left ED ambulatory tolerating well. Vital Signs: 19:00 BP 156 / 79; Pulse 89; Resp 18; Temp 98.1; Pulse Ox 99% on R/A; Weight 149.69 kg; em Height 5 ft. 4 in. (162.56 cm); Pain 8/10; 21:50 BP 140 / 66; Pulse 80; Resp 19; Temp 98; Pulse Ox 99% ; ea 19:00 Body Mass Index 56.64 (149.69 kg, 162.56 cm) em ED Course: 18:52 Patient arrived in ED. mr 19:02 Triage completed. em 19:03 Justus Kam, BHARATH is Primary Nurse. em 19:03 Arm band placed on. em 19:06 Mookie Pina MD is Attending Physician. ma2 19:08 Patient has correct armband on for positive identification. Bed in low position. Call ea light in reach. Side rails up X2. 19:20 Lindsey Onofre, RN is Primary Nurse. ea 19:39 Inserted saline lock: 20 gauge in right antecubital area, using aseptic technique. ea Blood collected. 19:48 XRAY CXR (1 view) In Process Unspecified. EDMS 20:17 Notified ED physician of a critical lab result(s). D-Dimer of [id number] Dr Valenzuela notified. bb 20:19 Extrem Venous W Compression Kevin US In Process Unspecified. EDMS 20:35 CT Chest For PE Angio In Process Unspecified. EDMS 22:01 No provider procedures requiring assistance completed. IV discontinued, intact, ea bleeding controlled, No redness/swelling at site. Pressure dressing applied. Administered Medications: 19:37 Drug: Xopenex (levalbuterol) 1.25 mg Route: Inhalation; ea 19:38 Drug: SOLU-Medrol (methylPrednisoLONE) 125 mg Route: IVP; Site: right antecubital; ea 22:02 Follow up: Response: No adverse reaction ea 19:38 Drug: Lasix (furosemide) 20 mg Route: IVP; Site: right antecubital; ea 22:02 Follow up: Response: No adverse reaction ea 19:38 Drug: morphine 4 mg Route: IVP; Site: right antecubital; ea 22:02 Follow up: Response: No adverse reaction ea 19:39 Drug: Zofran (Ondansetron) 4 mg Route: IVP; Site: right antecubital; ea 22:03 Follow up: Response: No adverse reaction ea Outcome: 21:36 Discharge ordered by . eduar 22:01 Discharged to home ambulatory, with family. ea 22:01 Condition: stable 22:01 Discharge instructions given to patient, Instructed on discharge instructions, follow up and referral plans. medication usage, Demonstrated understanding of instructions, follow-up care, medications, Prescriptions given X 2. 22:02 Patient left the ED. ea Signatures: Dispatcher [employer] Delia Tellez Edgar RN Lisa Stovall RN RN bb Antunez, Elena, RN RN ea Alzahri, Mohammad, MD MD ma2
[2020-09-21 23:54] VITALS: O2SAT 99
[2020-09-21 23:57] VITALS: BP 140/66; TEMP 98
--- NOTE | 2020-09-22 09:00 | EKG ---
Test Date: 2020-09-21 Test Time: 19:26:36 Side [place]: BRAIN MEASUREMENT RESULTS: Intervals: Rate: 89 ND: 204 QRSD: 78 QT: 370 QTc: 450 [place]: P: 71 ND: 204 QRS: 72 T: 62 INTERPRETIVE STATEMENTS: Normal sinus rhythm Normal ECG Compared to ECG 09/22/2018 16:19:07 T-wave abnormality no longer present Electronically Signed On 09-22-20 08:58:45 CDT by Adolfo Zabala
== END 2020-09-21 22:02 | disposition home or self-care (01) ==
LOC: ER 18:48
DX: R22.42 Localized swelling, mass and lump, left lower limb (principal); K21.9 Gastro-esophageal reflux disease without esophagitis; J45.909 Unspecified asthma, uncomplicated; F31.9 Bipolar disorder, unspecified; Z86.718 Personal history of other venous thrombosis and embolism
CPT/HCPCS: 93005; 85025; 80048; 36415; 83735; 82550; 85610; 85379; 80076; 85730; 84484; 82553; 83690; 83880; 71275; 71045; 93970; 96375; 96374; 99284; Q9967; J1940; J2930; J2405

== ENCOUNTER 2020-09-25 19:04 | Emergency (ER) | payer OTHER ==
--- OUTSIDE RECORDS SUMMARY | 2020-09-25 19:08 | XMS REPORT | Continuity of Care Document ---
:1980 Author Organization [facility] t Address [address] [place] [address] Care Team Providers Name Role Phone [facility], Nurse Visit Divina Attending Clinician Unavailable Archana [...] [facility]00 [facility] 00 :00 [facility]ics Pantoprazol Pantoprazol 2018-04 Yes Na Carrington [address] [facility] e Sodium e Sodium 0-16 [facility] Venlafaxine Venlafaxine Yes Na Carringtno [address] [facility] HCl ER HCl ER 228 with food [facility] BusPIRone BusPIRone Yes Na Carrington [address] [facility] HCl HCl 2 [facility] Aripiprazol Aripiprazol Yes Na Carrington [address] [facility] e e 228 [facility] Amitriptyli Amitriptyli Yes Na Carrington [address] [facility] ne HCl ne HCl 2 [facility] Cyclobenzap Cyclobenzap Yes [...] Carrington [address] [facility] at [facility]time [facility] Proventil Proventil Yes Na Carrington [address] [facility] HFA HFA needed [facility] Amitriptyli Amitriptyli Yes Na Carrington not [facility] ne HCl ne HCl defined [facility] Metoprolol Metoprolol Yes Na Carrington [address] [facility] Succinate Succinate [facility] ER [facility] Topiramate Topiramate Yes Na Carrington [address] [facility] Flonase Flonase Yes Na Carrington [address] [facility] each [facility] nostril [facility] Loratadine Loratadine Yes Na Carrington [address] [facility] Zithromax Zithromax Yes Na Carrington [...] tablet [facility] [place] Yes Na Carrington [address] Carbonate Carbonate at bedtime [facility] ER [facility] Abilify Abilify Yes Na Carrington [address] [facility] Diclofenac Diclofenac Yes Na Carrington [address] [facility] Sodium Sodium with food [facility] - or milk [facility] Cetirizine Cetirizine Yes Na Carrington [address] [facility] HCl HCl [facility] Pantoprazol Pantoprazol Yes Na Carrington [address] [facility] e Sodium e Sodium [facility] Diclofenac Diclofenac Yes Na Carrington not [facility] Sodium Sodium defined [facility] [address] [facility] Sodium Sodium [facility] Eliquis Eliquis Yes Na Carrington as [facility] directed [facility] Klor-Con Klor-Con Yes Na Carrington [address] [facility] M10 M10 with food [facility] Divalproex Divalproex Yes Na Carrington as [facility] Sodium ER Sodium ER directed [facility] Symbicort Symbicort Yes Na Carrington [address] [facility] Lasix Lasix Yes Na Carrington [address] [facility] BusPIRone BusPIRone Yes Na Carrington not [facility] HCl HCl defined [facility] Provera Provera Yes Na Carrington [...] [facility] Depakote Depakote Yes Na Carrington not [facility] defined [facility] Procedures This patient has no known procedures. Encounters Start End Encounter Admission Attending Care Care Encounter Source Date/Time Date/Time Type Type Clinicians Facility Department ID 2020-09-19 2020-09-19 Emilio Marcos [facility] [id number] 09:15:29 09:30:29 Visit Nurse Visit MULT[facility]PEC [id number] Divina LEE [id number] CENTER [id number] [facility] 2020-09-19 2020-09-19 Refill Archana [facility] [id number] 00:00:00 00:00:00 A[facility] SPECIALTY [id number] CARE [id number] CENTER AT [id number] ALVARO RECIO 2020-09-14 2020-09-14 Refill Venecia Proctor [facility] [id number] 00:00:00 00:00:00 Health [id number] Surgical [id number] Specialti [id number] Storm Stamps 2020-09-13 2020-09-13 Office Clary Proctor [facility] [id number] 09:16:19 09:45:52 Visit Najma [facility]LSON[facility] [id number] IALTY [id number] CENTER [id number] [facility] 2020-07-19 2020-07-19 [facility] [id number] 2020-04-20 2020-04-20 [facility] [id number] [facility] l Outpati ent Clinics 2019-12-04 2019-12-04 [facility] [id number] [facility] 17:00:00 17:00:00 t [employer] s [facility] l Medicine Outpati ent Clinics 2019-11-04 2019-11-04 [facility] [id number] [facility] 12:00:00 12:00:00 t HeyLets s GREE [facility] Medicine Outpati ent Clinics 2019-10-15 2019-10-15 [facility] [id number] [facility] 16:50:00 16:50:00 t Fourandhalf [facility] Medicine Outpati ent Clinics 2019-10-02 2019-10-02 [facility] [id number] [facility] 16:58:00 16:58:00 t HeyLets s GREE [facility] Medicine Outpati ent Clinics 2019-09-28 2019-09-28 [facility] [id number] [facility] 08:40:00 08:40:00 t HeyLets s GREE [facility] Medicine Outpati ent Clinics 2019-09-17 2019-09-17 [facility] [id number] [facility] 14:18:00 14:18:00 t Fourandhalf [facility] Medicine Outpati ent Clinics 2019-09-15 2019-09-15 [facility] [id number] 09:25:00 09:25:00 t [employer] s GREE [facility] Medicine Outpati ent Clinics 2019-09-10 2019-09-10 [facility] [id number] 16[facility]38:00 16:38:00 t Fourandhalf [facility] Medicine Outpati ent Clinics 2019-08-24 2019-08-24 [facility] [id number] 09:40:00 09:40:00 t HeyLets s GREE [facility] Medicine Outpati ent Clinics 2019-07-23 2019-07-23 [facility] [id number] 12:01:00 12:01:00 t [employer] supplies [employer] rentals s - Drive [facility] Medicine l Medicine Outpati ent Clinics 2019-05-26 2019-05-26 [facility] [id number] 17:11:00 17:11:00 t [employer] supplies [employer] rentals s - Drive [facility] Medicine l Medicine Outpati ent Clinics 2019-05-25 2019-05-25 [facility] [id number] 14:40:00 14:40:00 t [employer] s - [employer] [facility] Family Medicine l Medicine Outpati ent Clinics 2019-04-07 2019-04-07 [facility] [id number] [address] 03:19:00 03:19:00 t [employer] supplies [employer] rentals s - Drive [facility] Medicine l Medicine Outpati ent Clinics 2019-03-19 2019-03-19 [facility] [id number] 12:20:00 12:20:00 t [employer] s GREE [facility] Medicine l Medicine Outpati ent Clinics 2019-02-11 2019-02-11 [facility] [id number] 08:20:00 08:20:00 t [employer] s - [employer] [facility] Medicine l Medicine Outpati ent Clinics 2018-12-18 2018-12-18 [facility] [id number] 11:40:00 11:40:00 t [employer] s GREE [facility] Medicine l Medicine Outpati ent Clinics 2018-06-02 2018-06-02 [facility] [id number] 10:14:00 10:14:00 t [employer] rentals s [facility] Drive [facility] Medicine l Medicine Outpati ent Clinics 2018-05-28 2018-05-28 [facility] [id number] 15:15:00 15:15:00 t [employer] supplies [employer] rentals s - Drive [facility] Medicine l Medicine Outpati ent Clinics 2018-05-06 2018-05-06 [facility] [id number] [facility] 10:15:00 10:15:00 t Urgent Ur[facility] Clinic l Outpati ent Clinics 2018-02-10 2018-02-10 [facility] [id number] [facility] 08:22:00 08:22:00 t Fourandhalf [facility] Medicine Outpati ent Clinics 2018-02-02 2018-02-02 [facility] [id number] 09:45:00 09:45:00 t Urgent Urgent Care [facility] - Care Clinic [facility] l Outpati ent Clinics 2018-01-27 2018-01-27 [facility] [id number] [facility] 14:00:00 14:00:00 t Fourandhalf [facility] Medicine Outpati ent Clinics 2018-01-10 2018-01-10 [facility] [id number] [facility] 14:23:00 14:23:00 t Fourandhalf [facility] Outpati ent Clinics 2017-12-19 2017-12-19 [facility] [id number] 14:45:00 14:45:00 t Fourandhalf [facility] Medicine Outpati ent Clinics 2017-12-03 2017-12-03 [facility] [id number] 13:20:00 13:20:00 t Specialty/U Kaylin kes - Specialty rology [facility] /Urology Clinic l Clinic Outpati ent Clinics 2017-11-30 2017-11-30 [facility] [id number] [address] 13:15:00 13:15:00 t Urgent Urgent Care L [facility] - Care Clinic [facility] l Outpati ent Clinics 2017-11-28 2017-11-28 [facility] [id number] 15:00:00 15:00:00 t Specialty/U Kaylin kes - Specialty rology [facility] /Urology Clinic l Clinic Outpati ent Clinics 2017-11-23 2017-11-23 [facility] [id number] 15:30:00 15:30:00 t Urgent Urgent Care L [facility] - Care Clinic [facility] l Outpati ent Clinics 2017-09-19 2017-09-19 [facility] [id number] 10:00:00 10:00:00 t Specialty/U Kaylin kes - Specialty rology [facility] a /Urology Clinic l Clinic Outpati ent Clinics 2017-09-09 2017-09-09 Outpatient Jeffrey Munoz [id number] [facility] 10:00:00 10:00:00 t HeyLets s GREE [facility] Medicine Medicine [facility] Clin[facility] Results This patient has no known results.
[2020-09-25 21:19] LABS: Absolute Lymphocytes (CBC) 3.5 K/uL (0.7-4.9); Basophils % 0.5 % (0-1.3); Hematocrit 25.5 % (36.0-45.0); Lymphocytes % 20.1 % (15.3-44.8); MPV 8.6 fL (7.6-11.3)
[2020-09-25 21:33] LABS: ALT/SGPT 34 U/L (12-78); AST/SGOT 13 U/L (15-37); Alkaline Phosphatase 80 U/L (45-117); BUN Blood Urea Nitrogen 31 mg/dL (7-18); Bicarbonate 29 mmol/L (21-32); Bilirubin Direct < 0.1 mg/dL (0-0.2); Bilirubin Total 0.2 mg/dL (0.2-1.0); Glucose Level 100 mg/dL (74-106); Potassium 3.7 mmol/L (3.5-5.1); Protein, Total 7.2 g/dL (6.4-8.2); Sodium Level 142 mmol/L (136-145)
[2020-09-25 22:24] LABS: Blood Morphology Comment NOTED (NOT SEEN); Platelet Estimate ADEQ; Polychromasia 1+
[2020-09-25] MEDS ORDERED: CLINDAMYCIN 900MG/D5W 900 MG/50 ML IVPB IV ONE (22:39)
--- NOTE | 2020-09-25 23:08 | ER ---
Nurse's Notes [facility] Name: Cely Valadez Age: 40 yrs Sex: Female : 1980 Arrival Date: 09/25/2020 Time: 19:06 Bed 17 Private MD: Diagnosis: Cellulitis of left lower limb Presentation: 09/25 19:21 Chief complaint: Patient states: kevin leg swelling X 1 week, was seen here a couple days iw ago and was put on fluid pills and it's not helping, also has redness to left leg. Coronavirus screen: At this time, the client does not indicate any symptoms associated with coronavirus-19. Ebola Screen: Patient negative for fever greater than or equal to 101.5 degrees Fahrenheit, and additional compatible Ebola Virus Disease symptoms Patient denies exposure to infectious person. Patient denies travel to an Ebola-affected area in the 21 days before illness onset. No symptoms or risks identified at this time. Initial Sepsis Screen: Does the patient meet any 2 criteria? No. Patient's initial sepsis screen is negative. Does the patient have a suspected source of infection? No. Patient's initial sepsis screen is negative. Risk Assessment: Do you want to hurt yourself or someone else? Patient reports no desire to harm self or others. Onset of symptoms was September 18, 2020. 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 iw Historical: - Allergies: 19:24 NKDA; iw - Home Meds: 19:24 Abilify 20 mg oral tab once daily [Active]; buspirone 15 mg Oral tab 2 times per day iw [Active]; hydralazine 25 mg oral tab three times a day [Active]; omeprazole 40 mg Oral cpDR 1 cap once daily [Active]; ProAir HFA 90 mcg/actuation inhalation HFAA 2 puffs as needed [Active]; sertraline 50 mg oral tab once daily [Active]; Oxybutynin Chloride Oral once daily [Active]; - PMHx: 19:24 acid reflux; Asthma; Bipolar disorder; DVT; COPD; iw - PSHx: 19:24 None; iw - Immunization history:: Adult Immunizations not up to date, Client reports receiving the 1st dose of the Covid vaccine. - Social history:: Smoking status: Patient reports the use of cigarette tobacco products, smokes one pack cigarettes per day. Screenin:40 Abuse screen: Denies threats or abuse. Denies injuries from another. Nutritional rr5 screening: No deficits noted. Tuberculosis screening: No symptoms or risk factors identified. Fall Risk IV access (20 points). Total Rossi Fall Scale indicates No Risk (0-24 pts). Assessment: 20:40 General: Appears in no apparent distress. uncomfortable, Behavior is calm, cooperative, rr5 appropriate for age. 20:40 Pain: Complains of pain in right leg and left leg. Neuro: Level of Consciousness is rr5 awake, alert, obeys commands, Oriented to person, place, time. Cardiovascular: Capillary refill < 3 seconds Patient's skin is warm and dry. Edema pitting to left toes and right toes. Respiratory: Airway is patent Respiratory effort is even, unlabored, Respiratory pattern is regular, symmetrical. GI: Abdomen is round obese. : No signs and/or symptoms were reported regarding the genitourinary system. EENT: No signs and/or symptoms were reported regarding the EENT system. Derm: Skin is pink, red, lower legs Skin temperature is warm. Musculoskeletal: Capillary refill < 3 seconds, Swelling present in right leg and left leg. 21:40 Reassessment: Patient appears in no apparent distress at this time. Patient is alert, rr5 oriented x 3, equal unlabored respirations, skin warm/dry/pink. awaiting for result. 22:30 Reassessment: Patient appears in no apparent distress at this time. Patient and/or rr5 family updated on plan of care and expected duration. Pain level reassessed. Patient is alert, oriented x 3, equal unlabored respirations, skin warm/dry/pink. no complaints made. 23:15 Reassessment: Patient appears in no apparent distress at this time. Patient is alert, rr5 oriented x 3, equal unlabored respirations, skin warm/dry/pink. discharge instruction given and explained without complaints made. Vital Signs: 19:21 BP 134 / 77; Pulse 98; Resp 18; Temp 98.2(TE); Pulse Ox 100% on R/A; Weight 158.76 kg; iw Height 5 ft. 4 in. (162.56 cm); 21:20 BP 131 / 70; Pulse 85; Resp 19; Pulse Ox 100% ; rr5 22:15 BP 135 / 89; Pulse 95; Resp 19; Pulse Ox 98% ; rr5 23:15 BP 129 / 75; Pulse 90; Resp 17; Pulse Ox 98% ; rr5 19:21 Body Mass Index 60.08 (158.76 kg, 162.56 cm) iw ED Course: 19:06 Patient arrived in ED. es 19:22 Triage completed. iw 19:24 Arm band placed on. iw 20:02 Efren Holley MD is Attending Physician. tw4 20:40 Patient has correct armband on for positive identification. Bed in low position. Call rr5 light in reach. 20:43 Raimundo Bright, RN is Primary Nurse. rr5 21:18 Inserted saline lock: 22 gauge in right wrist, using aseptic technique. Blood collected.rr5 23:17 No provider procedures requiring assistance completed. IV discontinued, intact, rr5 bleeding controlled, No redness/swelling at site. Pressure dressing applied. Administered Medications: 22:20 Drug: Cleocin (clindamycin) 900 mg Route: IVPB; Infused Over: 30 mins; Site: right rr5 wrist; 23:00 Follow up: Response: No adverse reaction; IV Status: Completed infusion; IV Intake: [id number] Intake: 23:00 IV: 50ml; Total: 50ml. rr5 Outcome: 23:08 Discharge ordered by . tw4 23:36 Patient left the ED. rr5 Signatures: Yeni Lance Irene, RN RN Efren Holley MD MD [facility] Raimundo Bright RN RN rr5 Corrections: (The following items were deleted from the chart) 19:25 19:21 BP 134 / 77; Pulse 100bpm; Resp 18bpm; Pulse Ox 100% RA; 158.76 kg; Height 5 ft. iw 4 in.; BMI: 60.0; iw
--- NOTE | 2020-09-25 23:08 | EDPHYS ---
Physician Documentation [facility] Name: Cely Valadez Age: 40 yrs Sex: Female : 1980 Arrival Date: 09/25/2020 Time: 19:06 Bed 17 Private MD: ED Physician Efren Holley HPI: 09/25 23:09 This 40 yrs old Female presents to ER via Ambulatory with complaints of Leg tw4 Swelling, and red. 23:09 The patient presents with pain, swelling. The complaints affect the lateral aspect of tw4 left knee, lateral aspect of left calf, left knee and left titus. Onset: The symptoms/episode began/occurred 1 week(s) ago. Modifying factors: The symptoms are alleviated by nothing. the symptoms are aggravated by nothing. Severity of symptoms: At their worst the symptoms were moderate, in the emergency department the symptoms are unchanged. The patient has been recently seen at the [facility] Emergency Department, this week, for similar complaints labs were performed, an ultrasound was performed, CT scan was performed, the patient was told to return for a recheck. 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 iw Historical: - Allergies: 19:24 NKDA; iw - Home Meds: 19:24 Abilify 20 mg oral tab once daily [Active]; buspirone 15 mg Oral tab 2 times per day iw [Active]; hydralazine 25 mg oral tab three times a day [Active]; omeprazole 40 mg Oral cpDR 1 cap once daily [Active]; ProAir HFA 90 mcg/actuation inhalation HFAA 2 puffs as needed [Active]; sertraline 50 mg oral tab once daily [Active]; Oxybutynin Chloride Oral once daily [Active]; - PMHx: 19:24 acid reflux; Asthma; Bipolar disorder; DVT; COPD; iw - PSHx: 19:24 None; iw - Immunization history:: Adult Immunizations not up to date, Client reports receiving the 1st dose of the Covid vaccine. - Social history:: Smoking status: Patient reports the use of cigarette tobacco products, smokes one pack cigarettes per day. ROS: 23:09 Constitutional: Negative for fever, chills, and weight loss, Eyes: Negative for injury, tw4 pain, redness, and discharge, Cardiovascular: Negative for chest pain, palpitations, and edema, Respiratory: Negative for shortness of breath, cough, wheezing, and pleuritic chest pain, Abdomen/GI: Negative for abdominal pain, nausea, vomiting, diarrhea, and constipation, Back: Negative for injury and pain, Skin: Negative for injury, rash, and discoloration, Neuro: Negative for headache, weakness, numbness, tingling, and seizure. 23:09 MS/extremity: Positive for erythema, pain, swelling, tenderness, Negative for Exam: 23:09 Constitutional: This is a well developed, well nourished patient who is awake, alert, tw4 and in no acute distress. Head/Face: Normocephalic, atraumatic. Chest/axilla: Normal chest wall appearance and motion. Nontender with no deformity. No lesions are appreciated. Cardiovascular: Regular rate and rhythm with a normal S1 and S2. No gallops, murmurs, or rubs. Normal PMI, no JVD. No pulse deficits. Respiratory: Lungs have equal breath sounds bilaterally, clear to auscultation and percussion. No rales, rhonchi or wheezes noted. No increased work of breathing, no retractions or nasal flaring. Abdomen/GI: Soft, non-tender, with normal bowel sounds. No distension or tympany. No guarding or rebound. No evidence of tenderness throughout. Back: No spinal tenderness. No costovertebral tenderness. Full range of motion. Skin: Warm, dry with normal turgor. Normal color with no rashes, no lesions, and no evidence of cellulitis. Neuro: Awake and alert, GCS 15, oriented to person, place, time, and situation. Cranial nerves II-XII grossly intact. Motor strength 5/5 in all extremities. Sensory grossly intact. Cerebellar exam normal. Normal gait. Psych: Awake, alert, with orientation to person, place and time. Behavior, mood, and affect are within normal limits. 23:09 Musculoskeletal/extremity: Extremities: noted in the lateral aspect of left calf, left calf, medial aspect of left calf and left titus: erythema, pain, swelling, tenderness. Vital Signs: 19:21 BP 134 / 77; Pulse 98; Resp 18; Temp 98.2(TE); Pulse Ox 100% on R/A; Weight 158.76 kg; iw Height 5 ft. 4 in. (162.56 cm); 21:20 BP 131 / 70; Pulse 85; Resp 19; Pulse Ox 100% ; rr5 22:15 BP 135 / 89; Pulse 95; Resp 19; Pulse Ox 98% ; rr5 23:15 BP 129 / 75; Pulse 90; Resp 17; Pulse Ox 98% ; rr5 19:21 Body Mass Index 60.08 (158.76 kg, 162.56 cm) iw MDM: 23:08 Patient medically screened. tw4 23:09 Differential diagnosis: dislocation, open fracture, closed fracture. Data reviewed: tw4 vital signs, nurses notes. Data interpreted: Pulse oximetry: Interpretation: normal. Counseling: I had a detailed discussion with the patient and/or guardian regarding: the historical points, exam findings, and any diagnostic results supporting the discharge/admit diagnosis, lab results. Special discussion: I discussed with the patient/guardian in detail that at this point there is no indication for admission to the hospital. It is understood, however, that if the symptoms persist or worsen the patient needs to return immediately for re-evaluation. 09/25 20:42 Order name: Basic Metabolic Panel tw4 09/25 20:42 Order name: CBC with Diff tw4 09/25 20:42 Order name: Hepatic Function tw4 09/25 20:43 Order name: Basic Metabolic Panel; Complete Time: 22:16 EDMS 09/25 20:43 Order name: Liver (Hepatic) Function; Complete Time: 22:16 EDMS 09/25 20:43 Order name: CBC with Automated Diff EDMS 09/25 20:42 Order name: IV Saline Lock; Complete Time: 21:18 tw4 09/25 20:42 Order name: Labs collected and sent; Complete Time: 21:18 tw4 09/25 21:21 Order name: Manual Differential EDMS Administered Medications: 22:20 Drug: Cleocin (clindamycin) 900 mg Route: IVPB; Infused Over: 30 mins; Site: right rr5 wrist; 23:00 Follow up: Response: No adverse reaction; IV Status: Completed infusion; IV Intake: [id number] Disposition: 09/25/20 23:08 Discharged to Home. Impression: Cellulitis of left lower limb. - Condition is Stable. - Discharge Instructions: Cellulitis, Adult. - Prescriptions for Cleocin 300 mg Oral Capsule - take 1 capsule by ORAL route every 6 hours for 10 days; 40 capsule. Ibuprofen 800 mg Oral Tablet - take 1 tablet by ORAL route every 8 hours As needed take with food; 30 tablet. - Medication Reconciliation Form, Thank You Letter, Antibiotic Education, Prescription Opioid Use form. - Follow up: Private Physician; When: Upon discharge from the Emergency Department; Reason: Recheck today's complaints, Continuance of care, Re-evaluation by your physician. - Problem is new. - Symptoms have improved. Signatures: Dispatcher [employer] EDMS Effie Lackey RN RN Efren Holley MD MD tw4 Raimundo Bright RN RN rr5 Corrections: (The following items were deleted from the chart) 23:36 23:08 09/25/2020 23:08 Discharged to Home. Impression: Cellulitis of left lower limb. rr5 Condition is Stable. Forms are Medication Reconciliation Form, Thank You Letter, Antibiotic Education, Prescription Opioid Use. Follow up: Private Physician; When: Upon discharge from the Emergency Department; Reason: Recheck today's complaints, Continuance of care, Re-evaluation by your physician. Problem is new. Symptoms have improved. tw4
[2020-09-25 23:46] VITALS: TEMP 98.2
[2020-09-25 23:50] VITALS: O2SAT 98
[2020-09-25 23:52] VITALS: BP 129/75
== END 2020-09-25 23:36 | disposition home or self-care (01) ==
LOC: ER 19:04
DX: L03.116 Cellulitis of left lower limb (principal); F31.9 Bipolar disorder, unspecified; J45.909 Unspecified asthma, uncomplicated; F17.210 Nicotine dependence, cigarettes, uncomplicated; Z86.718 Personal history of other venous thrombosis and embolism
CPT/HCPCS: 36415; 80048; 80076; 85025; 96365; 99283

== ENCOUNTER 2020-09-27 17:01 | Emergency (ER) | payer OTHER ==
--- OUTSIDE RECORDS SUMMARY | 2020-09-27 17:04 | XMS REPORT | Continuity of Care Document ---
:1980 Author Organization [facility] t Address [address] [place] [address] Care Team Providers Name Role Phone [facility], Nurse Visit Divina Attending Clinician [...] [facility] - 00:00: 00:00 Memoria 00 :00 [facility] ent Clinics Pantoprazol Pantoprazol 2018-04 Yes [...] [facility] each [facility] Loratadine Loratadine Yes Na Carrington [address] [facility] Zithromax Zithromax Yes Na [...] tablet [facility] [place] Yes Na Carrington [address] Carbonate Carbonate at bedtime [facility] ER [facility] Abilify Abilify Yes Na Carrington [address] [facility] Diclofenac Diclofenac Yes Na Carrington [address] [facility] Sodium Sodium with food [facility] - or milk [facility] Cetirizine Cetirizine Yes Na Carrington [address] HCl HCl [facility] Pantoprazol Pantoprazol Yes Na Carrington [address] e Sodium e Sodium [facility] Diclofenac Diclofenac Yes Na Carrington not [facility] Sodium Sodium defined [facility] Na Carrington [address] Sodium Sodium [facility] Eliquis Eliquis Yes Na Carrington as [facility] directed [facility] Klor-Con Klor-Con Yes Na Carrington [address] M10 M10 with food [facility] Divalproex Divalproex Yes Na Carrington as [facility] Sodium ER Sodium ER directed L [facility] Symbicort Symbicort Yes Na Carrington [address] [facility] Lasix Lasix Yes Na Carrington [address] [facility] BusPIRone BusPIRone Yes Na Carrington not [facility] HCl HCl defined [facility] Provera Provera Yes Na [...] Facility Department ID 2020-09-19 2020-09-19 Emilio Marcos [facility] [id number] 09:15:29 09:30:29 Visit Nurse Visit MULTISPEC [id number] Divina LEE [id number] CENTER [id number] [facility] 2020-09-19 2020-09-19 Refill Archana [facility] [id number] 00:00:00 00:00:00 [place] SPECIALTY [id number] CARE [id number] CENTER AT [id number] ALVARO RECIO 2020-09-14 2020-09-14 Refill Venecia Proctor [facility] [id number] 00:00:00 00:00:00 Health [id number] Surgical [id number] Specialti [id number] Storm [place] 2020-09-13 2020-09-13 Office Clary Proctor [facility] [id number] 09:16:19 09:45:52 Visit Najma CARLSONPEC [id number] IALTY [id number] CENTER [id number] [facility] 2020-07-19 2020-07-19 [facility] [id number] [facility] 2020-04-20 2020-04-20 [facility] [id number] [facility]00 [facility] l Outpati ent Clinics 2019-12-04 2019-12-04 [facility] [id number] 17:00:00 17:00:00 t [employer] INAPPIN [facility] l Medicine Outpati ent Clinics 2019-11-04 2019-11-04 [facility] [id number] 12:00:00 12:00:00 t [facility] I[facility]PPIN [facility] Medicine Outpati ent Clinics 2019-10-15 2019-10-15 [facility] [id number] 16:50:00 16:50:00 t [employer] [facility] Medicine Outpati ent Clinics 2019-10-02 2019-10-02 [facility] [id number] 16:58:00 16:58:00 t [facility]IN [facility] Medicine Outpati ent Clinics 2019-09-28 2019-09-28 [facility] [id number] 08:40:00 08:40:00 [facility]IN [facility] Medicine Outpati ent Clinics 2019-09-17 2019-09-17 [facility] [id number] 14:18:00 14:18:00 t [employer] [facility] Medicine Outpati ent Clinics 2019-09-15 2019-09-15 [facility] [id number] 09:25:00 09:25:00 t [employer] [place] INAPPIN [facility] Medicine Outpati ent Clinics 2019-09-10 2019-09-10 [facility] [id number] 16:38:00 16:38:00 t [employer] [facility] Medicine Outpati ent Clinics 2019-08-24 2019-08-24 [facility] [id number] 09[facility]40:00 09:40:00 [facility]PPIN [facility] Medicine Outpati ent Clinics 2019-07-23 2019-07-23 [facility] [id number] 12:01:00 12:01:00 t [place] - Drive [facility] Family Medicine l Medicine Outpati ent Clinics 2019-05-26 2019-05-26 [facility] [id number] 17:11:00 17:11:00 t [place] - Drive [facility] Medicine l Medicine Outpati ent Clinics 2019-05-25 2019-05-25 [facility] [id number] 14:40:00 14:40:00 t [employer] [place] - Rot[employer] [facility] Family Medicine l Medicine Outpati ent Clinics 2019-04-07 2019-04-07 [facility] [id number] 03:19:00 03:19:00 t [place] - Drive [facility] Medicine l Medicine Outpati ent Clinics 2019-03-19 2019-03-19 [facility] [id number] 12:20:00 12:20:00 t [employer] INAPPIN [facility] Medicine l Medicine Outpati ent Clinics 2019-02-11 2019-02-11 [facility] [id number] 08:20:00 08:20:00 t Supply [place] - Rot[employer] [facility] Medicine l Medicine Outpati ent Clinics 2018-12-18 2018-12-18 [facility] [id number] 11:40:00 11:40:00 t [employer] [place] [employer] INAPPIN [facility] Medicine l Medicine Outpati ent Clinics 2018-06-02 2018-06-02 [facility] [id number] 10:14:00 10:14:00 t Supply [place] [employer] [address] [facility] Medicine l Medicine Outpati ent Clinics 2018-05-28 2018-05-28 [facility] [id number] 15:15:00 15:15:00 t [place] - Drive [facility] Medicine l Medicine Outpati ent Clinics 2018-05-06 2018-05-06 [facility] [id number] 10:15:00 10:15:00 t Urgent Urgent Care L [facility] - Care Clinic [facility] Clinic l Outpati ent Clinics 2018-02-10 2018-02-10 [facility] [id number] 08:22:00 08:22:00 t [employer] [facility] Medicine Outpati ent Clinics 2018-02-02 2018-02-02 [facility] [id number] 09:45:00 09:45:00 t Urgent Urgent Care L ukes - Care Clinic [facility] l Outpati ent Clinics 2018-01-27 2018-01-27 [facility] [id number] 14:00:00 14:00:00 t [employer] [facility] Medicine Outpati ent Clinics 2018-01-10 2018-01-10 [facility] [id number] 14:23:00 14:23:00 t Tutorspree [facility] Outpati ent Clinics 2017-12-19 2017-12-19 [facility] [id number] 14:45:00 14:45:00 t [employer] [facility] Medicine Outpati ent Clinics 2017-12-03 2017-12-03 [facility] [id number] 13:20:00 13:20:00 t Specialty/U Kaylin kes - Specialty rology Memori a /Urology Clinic l Clinic Outpati ent Clinics 2017-11-30 2017-11-30 [facility] [id number] 13:15:00 13:15:00 t Urgent Urgent Care L ukes - Care Clinic [facility] l Outpati ent Clinics 2017-11-28 2017-11-28 [facility] [id number] 15:00:00 15:00:00 t Specialty/U Kaylin kes - Specialty rology Memori a /Urology Clinic l Clinic Outpati ent Clinics 2017-11-23 2017-11-23 [facility] [id number] 15:30:00 15:30:00 t Urgent Urgent Care L ukes - Care Clinic [facility] l Outpati ent Clinics 2017-09-19 2017-09-19 [facility] [id number] 10:00:00 10:00:00 t Specialty/U Kaylin kes - Specialty rology [facility] a /Urology Clinic l Clinic Outpati ent Clinics 2017-09-09 2017-09-09 Outpatient Jeffrey Munoz [id number] [facility] 10:00:00 10:00:00 t [facility] INAPPIN [facility] Medicine [facility] Results This patient has no known results.
--- NOTE | 2020-09-27 18:36 | ER ---
Nurse's Notes [facility] Name: Cely Valadez Age: 40 yrs Sex: Female : 1980 Arrival Date: 09/27/2020 Time: 17:15 Bed Waiting Private MD: Diagnosis: ED Course: 09/27 17:15 Patient arrived in ED. ds1 18:35 Patient's name was called from ER lobby. No response. Unable to locate patient. Will jl7 disposition as left without being seen by a provider. Administered Medications: No medications were administered Outcome: 18:35 Patient left the ED. jl7 Signatures: Alisson Oliva ds1 Nilam Yarbrough RN RN jl7
== END 2020-09-27 18:35 | disposition left against medical advice (07) ==
LOC: ER 17:01
DX: R69 Illness, unspecified (principal); Z53.21 Procedure and treatment not carried out due to patient leaving prior to being seen by health care provider

== ENCOUNTER 2020-09-29 14:57 | Emergency (ER) | payer OTHER ==
--- OUTSIDE RECORDS SUMMARY | 2020-09-29 15:00 | XMS REPORT | Continuity of Care Document ---
:1980 Author Organization [facility] t Address [address] [place] [address] Care Team Providers Name Role Phone [facility], Nurse Visit Divina Attending Clinician Unavailable [...] [facility] - 00:00: 00:00 Memoria 00 :00 [facility] ent Clinics Pantoprazol Pantoprazol 2018-04 Yes [...] St each [facility] - [facility]ril [facility] Loratadine Loratadine Yes Na Carrington [address] [facility] Zithromax Zithromax Yes Na [...] tablet [facility] [place] Yes Na Carrington [address] Carbonate Carbonate at bedtime [facility] ER [facility] Abilify Abilify Yes Na Carrington [address] [facility] Diclofenac Diclofenac Yes Na Carrington [address] Sodium Sodium with food [facility] - or milk [facility] l [facility] Cetirizine Cetirizine Yes Na Carrington [address] HCl HCl [facility] Pantoprazol Pantoprazol Yes Na Carrington [address] e Sodium e Sodium [facility] Diclofenac Diclofenac Yes Na Carrington not [facility] Sodium Sodium defined [facility] Na Carrington [address] Sodium Sodium [facility] Eliquis Eliquis Yes Na Carrington as [facility] directed [facility] Klor-Con Klor-Con Yes Na Carrington [address] M10 M10 with food [facility] Divalproex Divalproex Yes Na Carrington as [facility] Sodium ER Sodium ER directed L [facility] Symbicort Symbicort Yes Na Carrington [address] [facility] Lasix Lasix Yes Na Carrington [address] [facility] BusPIRone BusPIRone Yes Na Carrington not [facility] HCl HCl defined [facility] Provera Provera Yes Na [...] Facility Department ID 2020-09-19 2020-09-19 Emilio Marcos [facility] [id number] 09:15:29 09:30:29 Visit Nurse Visit MULTISPEC [id number] Divina LEE [id number] CENTER [id number] [facility] 2020-09-19 2020-09-19 Refill Archana [facility] [id number] 00:00:00 00:00:00 [place] SPECIALTY [id number] CARE [id number] CENTER AT [id number] ALVARO RECIO 2020-09-14 2020-09-14 Refill Venecia Proctor [facility] [id number] [id number] 00:00:00 00:00:00 Health [id number] Surgical [id number] Specialti [id number] [place] 2020-09-13 2020-09-13 Office Clary Proctor [facility] [id number] 09:16:19 09:45:52 Visit Najma CARLSONPEC [id number] IALTY [id number] CENTER [id number] [facility] 2020-07-19 2020-07-19 [facility] [id number] [facility] 2020-04-20 2020-04-20 [facility] [id number] [facility] 00:[facility]:00 [facility] l Outpati ent Clinics 2019-12-04 2019-12-04 [facility] [id number] 17:00:00 17:00:00 t [place] [employer] s [employer] [facility] l Medicine Outpati ent Clinics 2019-11-04 2019-11-04 [facility] [id number] 12:00:00 12:00:00 t [employer] s [employer] [facility] Medicine Outpati ent Clinics 2019-10-15 2019-10-15 [facility] [id number] 16:50:00 16:50:00 t [employer] [facility] Medicine Outpati ent Clinics 2019-10-02 2019-10-02 [facility] [id number] 16:58:00 16:58:00 t [employer] [facility] Medicine Outpati ent Clinics 2019-09-28 2019-09-28 [facility] [id number] 08:40:00 08:40:00 t [employer] s [employer] [facility] Medicine Outpati ent Clinics 2019-09-17 2019-09-17 [facility] [id number] 14:18:00 14:18:00 t [employer] [facility] Medicine Outpati ent Clinics 2019-09-15 2019-09-15 [facility] [id number] 09:25:00 09:25:00 t [place] [employer] s [employer] [facility] Medicine Outpati ent Clinics 2019-09-10 2019-09-10 [facility] [id number] 16:38:00 16:38:00 t [employer] [facility] Medicine Outpati ent Clinics 2019-08-24 2019-08-24 [facility] [id number] 09:40:00 09:40:00 t [employer] s [employer] [facility] Medicine Outpati ent Clinics 2019-07-23 2019-07-23 [facility] [id number] [facility] 12:01:00 12:01:00 t [place] [employer] s - Drive [facility] Family Medicine l Medicine Outpati ent Clinics 2019-05-26 2019-05-26 [facility] [id number] [facility] 17:11:00 17:11:00 t [place] [employer] s - Drive [facility] Medicine l Medicine Outpati ent Clinics 2019-05-25 2019-05-25 [facility] [id number] 14:40:00 14:40:00 t [place] [employer] s - KVK TEAM [facility] Family Medicine l Medicine Outpati ent Clinics 2019-04-07 2019-04-07 [facility] [id number] 03:19:00 03:19:00 t [place] [employer] s - Drive [facility] Medicine l Medicine Outpati ent Clinics 2019-03-19 2019-03-19 [facility] [id number] [facility] 12:20:00 12:20:00 t [place] [employer] [facility] Medicine l Medicine Outpati ent Clinics 2019-02-11 2019-02-11 [facility] [id number] 08:20:00 08:20:00 t [place] [employer] s - KVK TEAM [facility] Medicine l Medicine Outpati ent Clinics 2018-12-18 2018-12-18 [facility] [id number] [facility] 11:40:00 11:40:00 t [place] [employer] [facility] Medicine l Medicine Outpati ent Clinics 2018-06-02 2018-06-02 [facility] [id number] [facility] 10:14:00 10:14:00 t [place] [employer] s [address] [facility] Medicine l Medicine Outpati ent Clinics 2018-05-28 2018-05-28 [facility] [id number] 15:15:00 15:15:00 t [place] [employer] s - Drive [facility] Medicine l Medicine Outpati ent Clinics 2018-05-06 2018-05-06 [facility] [id number] 10:15:00 10:15:00 t Urgent Urgent Care L [facility] - Care Clinic [facility] Clinic l Outpati ent Clinics 2018-02-10 2018-02-10 [facility] [id number] 08:22:00 08:22:00 t [employer] [facility] Medicine Outpati ent Clinics 2018-02-02 2018-02-02 [facility] [id number] 09:45:00 09:45:00 t Urgent Urgent Care L ukes - Care Clinic [facility] l Outpati ent Clinics 2018-01-27 2018-01-27 [facility] [id number] 14:00:00 14:00:00 t [employer] [facility] Medicine Outpati ent Clinics 2018-01-10 2018-01-10 [facility] [id number] 14:23:00 14:23:00 t [employer] [facility] Outpati ent Clinics 2017-12-19 2017-12-19 [facility] [id number] 14:45:00 14:45:00 t [employer] [facility] Medicine Outpati ent Clinics 2017-12-03 2017-12-03 [facility] [id number] 13:20:00 13:20:00 t Specialty/U Kaylin kes - Specialty rology Memori a /Urology Clinic l Clinic Outpati ent Clinics 2017-11-30 2017-11-30 [facility] [id number] 13:15:00 13:15:00 t Urgent Urgent Care L ukes - Care Clinic [facility] l Outpati ent Clinics 2017-11-28 2017-11-28 [facility] [id number] 15:00:00 15:00:00 t Specialty/U Kaylin kes - Specialty rology Memori a /Urology Clinic l Clinic Outpati ent Clinics 2017-11-23 2017-11-23 [facility] [id number] 15:30:00 15:30:00 t Urgent Urgent Care L ukes - Care Clinic [facility] l Outpati ent Clinics 2017-09-19 2017-09-19 [facility] [id number] 10:00:00 10:00:00 t Specialty/U Kaylin kes - Specialty rology [facility] a /Urology Clinic l Clinic Outpati ent Clinics 2017-09-09 2017-09-09 Outpatient Jeffrey Munoz [id number] [facility] 10:00:00 10:00:00 t [employer] s [employer] [facility] Medicine [facility] Results This patient has no known results.
[2020-09-29 16:23] LABS: Urine Blood Negative (Negative); Urine Glucose Negative (Negative); Urine Protein Negative (Negative); Urine Specific Gravity >=1.030 (1.005-1.030); Urine pH 5.5 (5.0-7.0)
[2020-09-29 16:33] LABS: Urine Specific Gravity/Preg >1.030 (1.005-1.030)
[2020-09-29 16:35] LABS: Absolute Lymphocytes (CBC) 2.2 K/uL (0.7-4.9); Basophils % 1.1 % (0-1.3); Hematocrit 24.7 % (36.0-45.0); Lymphocytes % 13.9 % (15.3-44.8); MPV 8.7 fL (7.6-11.3); RBC Red Blood Cell Count 3.39 M/uL (3.86-4.86)
[2020-09-29 16:51] LABS: ALT/SGPT 33 U/L (12-78); AST/SGOT 23 U/L (15-37); Alkaline Phosphatase 80 U/L (45-117); BUN Blood Urea Nitrogen 20 mg/dL (7-18); Bicarbonate 27 mmol/L (21-32); Bilirubin Direct 0.1 mg/dL (0-0.2); Bilirubin Total 0.3 mg/dL (0.2-1.0); Glucose Level 97 mg/dL (74-106); Magnesium 2.4 mg/dL (1.8-2.4); NT PRO-BNP 599 pg/mL (<125); Potassium 3.5 mmol/L (3.5-5.1); Protein, Total 7.2 g/dL (6.4-8.2); Sodium Level 140 mmol/L (136-145); Troponin (Emerg Dept Use Only) < 0.02 ng/mL (0.0-0.045)
[2020-09-29 16:52] LABS: Protime INR 0.98
--- NOTE | 2020-09-29 17:39 | RAD REPORT ---
EXAM DESCRIPTION: RAD - Chest Single View - 09/29/2020 4:42 pm CLINICAL HISTORY: Cough;SOB Chest pain. COMPARISON: Chest Single View dated 09/21/2020; Chest Single View dated 09/09/2018; Chest Single View dated 06/14/2018; Chest Single View dated 03/11/2018 FINDINGS: Portable technique limits examination quality. Mild interstitial pulmonary edema. The heart is moderately enlarged in size. No displaced fractures. IMPRESSION: Mild CHF.
[2020-09-29] MEDS ORDERED: FUROSEMIDE 40 MG/4 ML VIAL ONE (18:14)
--- NOTE | 2020-09-29 18:33 | EDPHYS ---
Physician Documentation [facility] Name: Cely Valadez Age: 40 yrs Sex: Female : 1980 Arrival Date: 09/29/2020 Time: 14:58 Bed 14 Private MD: Alee Magaña ED Physician Davis Weston HPI: 09/29 16:10 This 40 yrs old Female presents to ER via Wheelchair with complaints of cp Breathing Difficulty, Leg Swelling, Leg Pain. 16:10 The patient has shortness of breath with light activity. cp 16:10 Onset: The symptoms/episode began/occurred gradually. cp 16:10 Duration: The symptoms are intermittent. Associated signs and symptoms: Pertinent cp positives: swelling and pain of lower legs, Pertinent negatives: chest pain, productive cough, dizziness, fever, vomiting. The patient has been recently seen by a physician: the patient's primary care provider, yesterday, with similar presenting complaints, US of lower extremities performed. 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 jl7 Historical: - Allergies: 15:17 NKDA; jl7 - Home Meds: 15:17 Abilify 20 mg Oral tab once daily [Active]; buspirone 15 mg Oral tab 2 times per day jl7 [Active]; hydralazine 25 mg Oral tab three times a day [Active]; Oxybutynin Chloride Oral once daily [Active]; omeprazole 40 mg Oral cpDR 1 cap once daily [Active]; ProAir HFA 90 mcg/actuation inhalation HFAA 2 puffs as needed [Active]; sertraline 50 mg Oral tab once daily [Active]; - PMHx: 15:17 acid reflux; Asthma; Bipolar disorder; COPD; DVT; jl7 - Immunization history:: Adult Immunizations up to date, Client reports receiving the 2nd dose of the Covid vaccine. - Social history:: Smoking status: Patient reports the use of cigarette tobacco products, smokes 1.5 packs per day. ROS: 16:15 Constitutional: Negative for body aches, chills, fever, poor PO intake. cp 16:15 Eyes: Negative for injury, pain, redness, and discharge. cp 16:15 ENT: Negative for ear pain, sore throat, difficulty swallowing, difficulty handling secretions. 16:15 Cardiovascular: Positive for edema, Negative for chest pain, palpitations. 16:15 Respiratory: Positive for shortness of breath, on exertion. Negative for cough, wheezing. 16:15 Abdomen/GI: Negative for abdominal pain, nausea, vomiting, and diarrhea. 16:15 Skin: Positive for cellulitis, of the left lower leg. 16:15 Neuro: Negative for altered mental status, headache, weakness. 16:15 All other systems are negative. Exam: 16:20 Constitutional: The patient appears in no acute distress, alert, awake, cp non-diaphoretic, non-toxic, well developed, well nourished, obese. 16:20 Head/Face: Normocephalic, atraumatic. cp 16:20 Eyes: Periorbital structures: appear normal, Conjunctiva: normal, no exudate, no injection, Sclera: no appreciated abnormality, Lids and lashes: appear normal, bilaterally. 16:20 ENT: External ear(s): are unremarkable, Nose: is normal, Posterior pharynx: Airway: no evidence of obstruction, patent. 16:20 Chest/axilla: Inspection: normal, Palpation: is normal, no crepitus, no tenderness. 16:20 Cardiovascular: Rate: normal, Rhythm: regular, Edema: ankle edema, that is moderate, JVD: is not appreciated. 16:20 Respiratory: the patient does not display signs of respiratory distress, Respirations: labored breathing, is not present, intercostal retractions, are absent, shallow respirations, are not present, Breath sounds: decreased breath sounds, are not appreciated, stridor, is not appreciated, wheezing: is not appreciated. 16:20 Abdomen/GI: Inspection: obese Palpation: abdomen is soft and non-tender, in all quadrants. 16:20 Skin: cellulitis, that is mild, well demarcated, on the left lower leg. 16:20 Neuro: Orientation: to person, place \T\ time. Mentation: is normal, Motor: moves all fours, strength is normal, Sensation: no obvious gross deficits. 16:30 ECG was reviewed by the Attending Physician. cp Vital Signs: 15:13 BP 142 / 67; Pulse 97; Resp 21; Temp 99.4; Pulse Ox 98% ; Weight 158.76 kg; Height 5 jl7 ft. 4 in. (162.56 cm); Pain 9/10; 15:38 BP 146 / 68; Pulse 96; Resp 20; Pulse Ox 95% on R/A; ll1 17:24 BP 141 / 70; Pulse 92; Resp 20; Pulse Ox 100% on R/A; ll1 18:40 BP 142 / 76; Pulse 89; Resp 19; Pulse Ox 100% on R/A; ll1 15:13 Body Mass Index 60.08 (158.76 kg, 162.56 cm) jl7 MDM: 15:25 Patient medically screened. cp 18:30 Data reviewed: vital signs, nurses notes, lab test result(s), EKG, radiologic studies, cp plain films. 09/29 16:05 Order name: Basic Metabolic Panel cp 09/29 16:05 Order name: CBC with Diff cp 09/29 16:05 Order name: LFT's; Complete Time: 17:44 cp / 17:44 Interpretation: Normal except: ALB 3.0; GLOB 4.2; A/G 0.7. cp 06/ 16:05 Order name: Magnesium; Complete Time: 17:44 cp /03 16:05 Order name: NT PRO-BNP; Complete Time: 17:44 cp /03 16:05 Order name: PT-INR; Complete Time: 17:44 cp 06/03 16:05 Order name: Troponin (emerg Dept Use Only); Complete Time: 17:44 cp 06/03 16:05 Order name: XRAY Chest (1 view); Complete Time: 17:44 cp /03 16:05 Order name: Basic Metabolic Panel; Complete Time: 17:44 EDMS 09/29 17:45 Interpretation: Normal except: CL 108; BUN 20; GFR 76; CA 8.0. cp / 16:05 Order name: CBC with Automated Diff; Complete Time: 17:44 EDMS 03 17:50 Interpretation: Normal except: WBC 15.90; RBC 3.39; HGB 7.6; HCT 24.7; MCV 73.0; MCH cp 22.3; MCHC 30.6; RDW 18.6; LYM% 13.9; EOSINOPHIL % 8.1; NEUT A 11.3. 09/29 16:23 Order name: Urine Dipstick-Ancillary; Complete Time: 16:42 EDMS 09/29 16:24 Order name: Urine --Ancillary (enter results); Complete Time: 16:42 bd 09/29 18:49 Order name: SARS-COV-2 RT PCR EDMS 09/29 16:05 Order name: EKG; Complete Time: 16:06 cp 09/29 16:05 Order name: Cardiac monitoring; Complete Time: 16:17 cp 09/29 16:05 Order name: EKG - Nurse/Tech; Complete Time: 16:17 cp 09/29 16:05 Order name: IV Saline Lock; Complete Time: 16:05 cp 09/29 16:05 Order name: Labs collected and sent; Complete Time: 16:05 cp 09/29 16:05 Order name: O2 Per Protocol; Complete Time: 16:05 cp 09/29 16:05 Order name: O2 Sat Monitoring; Complete Time: 16:05 cp 09/29 16:05 Order name: Urine Test (obtain specimen); Complete Time: 16:18 cp 09/29 16:05 Order name: Urine Dipstick-Ancillary (obtain specimen); Complete Time: 16:18 cp 09/29 17:51 Order name: Misc. Order: ambulate patient with pulse ox cp EC:30 Rate is 88 beats/min. Rhythm is regular. TX interval is prolonged at 216 msec. QRS cp interval is normal. QT interval is normal. Interpreted by me. Reviewed by me. Administered Medications: 18:31 Not Given (Patient Refused): Lasix (furosemide) 40 mg IVP once; give over 2 minutes cp Disposition: 09/30 07:50 Co-signature as Attending Physician, Davis Weston MD I agree with the assessment and kdr plan of care. Disposition: 09/29/20 18:32 Discharged to Home. Impression: Unspecified combined systolic (congestive) and diastolic (congestive) heart failure, Cellulitis of left lower limb. - Condition is Stable. - Discharge Instructions: Cellulitis, Adult, Heart Failure. - Prescriptions for Lasix 40 mg Oral Tablet - take 1 tablet by ORAL route once daily for 10 days; 10 tablet. Bactrim DS 800- 160 mg Oral Tablet - take 1 tablet by ORAL route every 12 hours for 7 days; 14 tablet. - Medication Reconciliation Form, Thank You Letter, Antibiotic Education, Prescription Opioid Use form. - Follow up: Adolfo Zabala MD; When: 2 - 3 days; Reason: Recheck today's complaints. - Problem is an ongoing problem. - Symptoms are unchanged. Signatures: Dispatcher [employer] EDNJ Davis Weston MD MD kdr Gareth Benites PA PA cp Nilam Yarbrough, RN RN jl7 Damaso Givens RN RN ll1 Corrections: (The following items were deleted from the chart) 09/29 17:45 17:44 Normal except: CL 108; BUN 20; GFR 76. cp cp 17:52 16:06 CORONAVIRUS+MR.LAB.BRZ ordered. EDNJ EDMS 18:52 18:32 09/29/2020 18:32 Discharged to Home. Impression: Unspecified combined systolic ll1 (congestive) and diastolic (congestive) heart failure; Cellulitis of left lower limb. Condition is Stable. Forms are Medication Reconciliation Form, Thank You Letter, Antibiotic Education, Prescription Opioid Use. Follow up: Adolfo Zabala; When: 2 - 3 days; Reason: Recheck today's complaints. Problem is an ongoing problem. Symptoms are unchanged. cp
--- NOTE | 2020-09-29 18:33 | ER ---
Nurse's Notes [facility] Name: Cely Valadez Age: 40 yrs Sex: Female : 1980 Arrival Date: 09/29/2020 Time: 14:58 Bed 14 Private MD: Alee Magaña Diagnosis: Unspecified combined systolic (congestive) and diastolic (congestive) heart failure;Cellulitis of left lower limb Presentation: 09/29 15:13 Chief complaint: Patient states: Left leg pain, swelling and redness, SOB on exertion, jl7 numbness to feet when sitting for any length of time. Coronavirus screen: Client denies travel out of the [place] in the last 14 days. At this time, the client does not indicate any symptoms associated with coronavirus-19. Ebola Screen: No symptoms or risks identified at this time. Initial Sepsis Screen: Does the patient meet any 2 criteria? No. Patient's initial sepsis screen is negative. Does the patient have a suspected source of infection? No. Patient's initial sepsis screen is negative. Risk Assessment: Do you want to hurt yourself or someone else? Patient reports no desire to harm self or others. Onset of symptoms is unknown. Care prior to arrival: None. 15:13 Method Of Arrival: Wheelchair [facility] 15:13 Acuity: ADRIANA 3 jl7 Triage Assessment: 17:25 General: Appears comfortable, Behavior is calm, cooperative. Respiratory: the patient ll1 has moderate shortness of breath. Respiratory: Airway is patent Trachea midline Respiratory effort is even, unlabored, Respiratory pattern is regular, symmetrical. 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 jl7 Historical: - Allergies: 15:17 NKDA; jl7 - Home Meds: 15:17 Abilify 20 mg Oral tab once daily [Active]; buspirone 15 mg Oral tab 2 times per day jl7 [Active]; hydralazine 25 mg Oral tab three times a day [Active]; Oxybutynin Chloride Oral once daily [Active]; omeprazole 40 mg Oral cpDR 1 cap once daily [Active]; ProAir HFA 90 mcg/actuation inhalation HFAA 2 puffs as needed [Active]; sertraline 50 mg Oral tab once daily [Active]; - PMHx: 15:17 acid reflux; Asthma; Bipolar disorder; COPD; DVT; jl7 - Immunization history:: Adult Immunizations up to date, Client reports receiving the 2nd dose of the Covid vaccine. - Social history:: Smoking status: Patient reports the use of cigarette tobacco products, smokes 1.5 packs per day. Screenin:45 Abuse screen: Denies threats or abuse. Nutritional screening: No deficits noted. ll1 Tuberculosis screening: No symptoms or risk factors identified. Fall Risk Gait- Impaired (20 pts.). Mental Status- Overestimates/Forgets Limitations (15 pts.). Total Rossi Fall Scale indicates Low Risk Score (25-44 pts). Fall prevention measures have been instituted. Side Rails Up X 2 Frequent Obs/Assesments occuring As available Patient and Family Educated on Fall Prevention Program and strategies. Assessment: 15:43 General: Appears uncomfortable, Behavior is calm, cooperative, appropriate for age. ll1 Pain: Complains of pain in LLE Quality of pain is described as aching, Aggravated by increased activity, repositioning. Neuro: No deficits noted. Cardiovascular: Heart tones S1 S2 Capillary refill < 3 seconds Clubbing of nail beds is absent JVD is absent Patient's skin is warm and dry. Rhythm is sinus tachycardia. Respiratory: Airway is patent Trachea midline Respiratory effort is even, labored, Respiratory pattern is regular, symmetrical, Breath sounds are clear bilaterally. Onset: The symptoms/episode began/occurred. Respiratory: Reports shortness of breath on exertion. Derm: Reports redness, pain to LLE. Musculoskeletal: Circulation, motion, and sensation intact. Capillary refill < 3 seconds, Range of motion: intact in all extremities, Swelling present in LLE Tenderness present in LLE Reports pain in left leg. 16:40 Reassessment: No changes from previously documented assessment. Patient and/or family ll1 updated on plan of care and expected duration. Pain level reassessed. 17:40 Reassessment: No changes from previously documented assessment. Patient and/or family ll1 updated on plan of care and expected duration. Pain level reassessed. Patient is alert, oriented x 3, equal unlabored respirations, skin warm/dry/pink. 18:40 Reassessment: No changes from previously documented assessment. Patient and/or family ll1 updated on plan of care and expected duration. Pain level reassessed. Patient is alert, oriented x 3, equal unlabored respirations, skin warm/dry/pink. Vital Signs: 15:13 BP 142 / 67; Pulse 97; Resp 21; Temp 99.4; Pulse Ox 98% ; Weight 158.76 kg; Height 5 jl7 ft. 4 in. (162.56 cm); Pain 9/10; 15:38 BP 146 / 68; Pulse 96; Resp 20; Pulse Ox 95% on R/A; ll1 17:24 BP 141 / 70; Pulse 92; Resp 20; Pulse Ox 100% on R/A; ll1 18:40 BP 142 / 76; Pulse 89; Resp 19; Pulse Ox 100% on R/A; ll1 15:13 Body Mass Index 60.08 (158.76 kg, 162.56 cm) jl7 ED Course: 14:58 Patient arrived in ED. am2 14:59 Alee Magaña is Private Physician. am2 15:15 Triage completed. jl7 15:17 Arm band placed on right wrist. jl7 15:22 Gareth Benites PA is PHCP. cp 15:22 Davis Weston MD is Attending Physician. cp 15:32 Damaso Givens, BHARATH is Primary Nurse. ll1 16:15 Inserted saline lock: 22 gauge in right ,using aseptic technique. shoulder Blood ll1 collected. 16:23 Patient has correct armband on for positive identification. Bed in low position. Call ll1 light in reach. Side rails up X 1. Pulse ox on. NIBP on. 16:43 XRAY Chest (1 view) In Process Unspecified. EDMS 18:32 Adolfo Zabala MD is Referral Physician. cp 18:51 IV discontinued, intact, bleeding controlled, No redness/swelling at site. Pressure ll1 dressing applied. 19:23 No provider procedures requiring assistance completed. ll1 Administered Medications: 18:31 Not Given (Patient Refused): Lasix (furosemide) 40 mg IVP once; give over 2 minutes cp Outcome: 18:32 Discharge ordered by . cp 18:52 Patient left the ED. ll1 18:52 Discharged to home ambulatory. ll1 18:52 Condition: stable 18:52 Discharge instructions given to patient, Instructed on discharge instructions, follow up and referral plans. medication usage, Demonstrated understanding of instructions, follow-up care, medications, Prescriptions given X 2. Signatures: Dispatcher [employer] Gareth Brambila PA PA cp Leal, Jahala RN RN jl7 Kasey Ledesma Lynsay RN RN ll1
[2020-09-29 19:06] VITALS: TEMP 99.4
[2020-09-29 19:09] VITALS: BP 141/70; O2SAT 100
== END 2020-09-29 18:52 | disposition home or self-care (01) ==
LOC: ER 14:57
DX: I50.40 Unspecified combined systolic (congestive) and diastolic (congestive) heart failure (principal); L03.116 Cellulitis of left lower limb; F17.210 Nicotine dependence, cigarettes, uncomplicated; F31.9 Bipolar disorder, unspecified; Z20.822 Contact with and (suspected) exposure to COVID-19
CPT/HCPCS: 93005; 85025; 80048; 36415; 83735; 81025; 85610; 80076; 81003; 84484; 83880; 71045; 99284; U0003; J1940

== ENCOUNTER 2021-07-01 22:06 | Emergency (ER) | payer OTHER ==
--- OUTSIDE RECORDS SUMMARY | 2021-07-01 22:10 | XMS REPORT | Continuity of Care Document ---
:1980 Author Organization [facility] t Address [address] [place] [address] Care Team Providers Name Role Phone [facility] Primary Care Physician Unavailable Shannon Carrington Attending Clinician Unavailable Rolando Logan MD Attending Clinician Rolando LOGAN Attending Clinician Unavailable Rolando LOGAN Attending Clinician Unavailable Zakiya, Nurse Al Murcia Attending Clinician Unavailable Archana WALLIS Attending Clinician Hitesh WALLIS Attending Clinician Najma Proctor MD Attending Clinician Payers Payer Name Policy Type Policy Number Effective Date Expiration Date S ource Problems Condition Condition Condition Status Onset Resolution Last Treating Co mments Source Name Details Category Date Date Treatment Clinician Date Dizzy Dizzy Disease Active Univers spells spells 2-09 ity of 00:00: [place] 00 Medical Branch Need for Need for Disease Active Unive rs influenza influenza 2-09 ity of vaccinatio [place] 00 [place] Anxiety, Anxiety, Disease Active Unive rs generalize generalize 2-09 it y of d d 00:00: [place] [facility] 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 [place] Dyslipidem Dyslipidem Disease Active U joel ia ia 2-09 ity of 00:00: [place] 00 Medical Branch Prediabete Prediabete Disease Active 2020-04 U nivers s s 2-28 ity of 00:00: [place] 00 Medical Branch Venous Venous Disease Active 2020-04 Univers insufficie insufficie 1-16 it y of ncy ncy 00:00: [place] [facility] Venous Venous Disease Active 2020-04 Univers ulcer of ulcer of 0-06 ity of left leg left leg 00:00: [place] 00 Medical Branch Gastroesop Gastroesop Disease Active 2020-04 U joel hageal hageal 0-06 ity of reflux reflux 00:00: [place] disease disease 00 Medical without without Branch esophagiti esophagiti s s Chronic Chronic Disease Active 2020-04 Univers left-sided left-sided 0-06 it y of low back low back 00:00: [place] pain pain 00 Medical without without Branch sciatica sciatica FAREED FAREED Disease Active Univers (obstructi (obstructi 01-23 it y of ve sleep ve sleep 00:00: [place] apnea) apnea) 00 Medical Branch Other Other Disease Active Univers atopic atopic 12-29 ity of dermatitis dermatitis 00:00: [place] 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 00 Medical chronicus chronicus Bran ch Obstructiv Obstructiv Disease Active U osers e sleep e sleep 12-29 ity of apnea apnea 00:00: [place] 00 Medical Branch Non-pressu Non-pressu Disease Active U nivers re chronic re chronic 831 it y of ulcer of ulcer of 00:00: [place] left calf left calf 00 Medi damon with fat with fat Branch layer layer exposed exposed Ulcer of Ulcer of Disease Active Unive rs left lower left lower 8-19 it y of extremity, extremity, 00:00: [place] limited to limited to 00 Me dical breakdown breakdown Bran ch of skin of skin Nicotine Nicotine Disease Active Unive rs dependence dependence 8-03 it y of with with 00:00: [place] current current 00 Medical use use Branch Homelessne Homelessne Disease Active U nivers ss ss 7-08 ity of 00:00: [place] 00 Medical Branch Acute on Acute on Disease Active Unive rs chronic chronic 7 ity of diastolic diastolic 00:00: [place] heart heart 00 Medical failure failure Branch Heart Heart Disease Active Univers failure failure 6 ity of 00:00: [place] 00 Medical Branch Symptomati Symptomati Disease Active U nivers c anemia c anemia 6- ity of 00:00: [place] 00 Medical Branch Pneumonia Pneumonia Disease Active Uni vers due to due to 6 ity of infectious infectious 00:00[place] organism organism 00 Medica l Branch Sepsis due Sepsis due Disease Active U nivers to to 6 ity of pneumonia pneumonia 00:[place] Morbid Morbid Disease Active Univers obesity obesity 7 ity of with body with body 00:00: [place] mass index mass index 00 Me dical (BMI) of (BMI) of Branch 40.0 or 40.0 or higher higher Chest Chest Disease Active Univers pain, pain, 11-22 ity of unspecifie unspecifie 00:[place] d type d type 00 Medical Branch Chronic Chronic Disease Active Univers heart heart 7 ity of failure failure 00:00: [place] with with 00 Medical preserved preserved Bran ch ejection ejection fraction fraction Venous Venous Disease Active Univers insufficie insufficie 11-22 it y of ncy of ncy of 00:00: [place] both lower both lower 00 Me dical extremitie extremitie Br anch s s MARQUEZ MARQUEZ Disease Active Univers (dyspnea (dyspnea 6-19 ity of on on 00:00: [place] exertion) exertion) [facility] Branch Acute on Acute on Disease Active Unive rs chronic chronic 6-19 ity of diastolic diastolic 00:00: [place] CHF CHF 00 Medical (congestiv (congestiv Br anch e heart e heart failure), failure), NYHA class NYHA class 3 3 Cellulitis Cellulitis Disease Active U nivers of left of left 6-18 ity of leg leg 00:00: [place] [facility] Cellulitis Cellulitis Disease Active U nivers 6-18 ity of 00:00: [place] [facility] Right knee Right knee Disease Active U nivers pain pain 7-21 ity of 00:00: [place] [facility] Pedal Pedal Disease Active Univers edema edema 7-16 ity of 00:00: [place] [facility] Morbid Morbid Disease Active Univers obesity obesity 5-17 ity of due to due to 00:00: [place] excess excess 00 Medical calories calories Branch Irregular Irregular Disease Active Uni vers menstrual menstrual 5-17 ity of cycle cycle 00:00: [place] 00 Medical Branch Exposure Exposure Disease Active Unive rs to to 5-17 ity of hepatitis hepatitis 00:00: [place] C C Medical Branch Exposure Exposure Disease Active Unive rs to to 5-17 ity of hepatitis hepatitis 00:00[place] [facility] [place] Left lower Left lower Disease Active U nivers quadrant quadrant 2-09 ity of pain pain 00:00: [place] [facility] Weight Weight Disease Active Univers loss loss 2-09 ity of 00:00: [place] [facility] Elevated Elevated Disease Active Unive rs glucose glucose 2-09 ity of 00:00: [place] 00 Medical Branch Polyuria Polyuria Disease Active Unive rs 2-09 ity of 00:00: [place] [facility] Hirsutism Hirsutism Disease Active Uni vers 2-09 ity of 00:00: [place] 00 Medical Branch Acne, Acne, Disease Active Univers unspecifie unspecifie 2-09 it y of d acne d acne 00:00: [place] type type 00 Medical Branch Allergies, Adverse Reactions, Alerts Allergy Allergy Status Severity Reaction(s) Onset Inactive Treating Comm ents Source Name Type Date Date Clinician Oats Propensi Active Nausea 2015-04 Univers ty to and/or 0-06 ity of adverse Vomiting 00:00: [place] reaction 00 [facility] s Branch OATS DRUG Active N/V 2015-04 Univers INGREDI 0-06 ity of 00:00: [place] 00 Medical [place] Social History Social Habit Start Date Stop Date Quantity Comments Source History of tobacco Cigar Smoker Univ ersity of use [facility] Exposure to Not sure University SARS-CoV-2 (event) [facility] History SDMI University o f Alcohol Frequency [facility] Branch History [facility] University o f Alcohol Std Drinks [facility] History On license of [facility] o f Alcohol Binge [facility] al [place] Alcohol intake 2021-06-28 2021-06-28 0 /d University of 00:00:00 00:00:00 [facility] Education 2020-10-31 2020-10-31 13 [place] of 00:00:00 00:00:00 [facility] Tobacco Comment 2016-10-18 2016-10-18 0.5 pack per day Uni versity of 00:00:00 00:00:00 [facility] Cigarettes smoked 2015-12-21 2015-12-21 Univers ity of current (pack per 00:00:00 00:00:00 [facility] ) - Reported Branch Cigarette 2015-12-21 2015-12-21 University of pack-years 00:00:00 00:00:00 [facility] Tobacco use and 2015-12-21 2015-12-21 Never used Universit y of exposure 00:00:00 00:00:00 [facility] Alcohol Comment 2015-12-21 2015-12-21 sober for 14 Univers ity of 00:00:00 00:00:00 years [facility] Sex Ass[birth year] At [birth year] Universit y of 00:00:00 00:00:00 [facility] Smoking Status Start Date Stop Date Source Current every day smoker 2015-12-21 00:00:00 Uni versity of [facility] Medications Ordered Filled Start Stop Current Ordering Indication Dosage Frequency Signature Comments Components Source Medication Medication Date Date Medication? Clinician (SIG) Name Name montelukast Yes 10mg Take 10 mg Univers 10 mg 3-02 by mouth. ity of tablet 09:54: [place] 51 Medical Branch budesonide- Yes 2{puff} Inhale 2 Univers formoterol 3-02 Puffs 2 ity of 160-4.5 09:54: (two) [place] mcg/actuati 51 times Medical on inhaler daily. Branch ARIPiprazol 0 Yes 15mg Take 15 mg Univers e 15 mg 3-02 by mouth ity of tablet 09:54: daily. [address] SERTraline 0 Yes 50mg Take 50 mg U nivers 50 mg 3-02 by mouth ity of tablet 09:54: daily. [address] busPIRone 0 Yes 10mg Take 10 mg Un fernanda 10 mg 3-02 by mouth 3 ity of tablet 09:54: (three) [place] [address] times Medical daily. Branch montelukast Yes 10mg Take 10 mg Univers 10 mg 3-02 by mouth. ity of tablet 09:54: [address] budesonide- Yes 2{puff} Inhale 2 Univers formoterol 3-02 Puffs 2 ity of 160-4.5 09:54: (two) [facility] times Medical on inhaler daily. Branch ARIPiprazol Yes 15mg Take 15 mg Univers e 15 mg 3-02 by mouth ity of tablet 09:54: daily. [address] SERTraline 0 Yes 50mg Take 50 mg U nivers 50 mg 3-02 by mouth ity of tablet 09:54: daily. [address] busPIRone 0 Yes 10mg Take 10 mg Un fernanda 10 mg 3-02 by mouth 3 ity of tablet 09:54: (three) [place] [address] times Medical daily. Branch spironolact 2020-04 Yes [id number] 50mg Take 1 Univers one 50 mg 2-27 02 tablet by ity o f tablet 00:00: mouth [place] 00 daily. Medical Branch furosemide 2020-04 Yes 80mg Take 1 Unive rs 80 mg 2-27 tablet by ity of tablet 00:00: mouth [place] 00 every Medical morning Branch and evening. KCL 20 mEq 2020-04 Yes [id number] 40meq Take 2 Univers tablet 2-27 02 tablets by ity of 00:00: mouth [place] 00 daily. Medical Branch spironolact 2020-04 Yes [id number] 50mg Take 1 Univers one 50 mg 2-27 02 tablet by ity o f tablet 00:00: mouth [place] 00 daily. Medical Branch furosemide 2020-04 Yes 80mg Take 1 Unive rs 80 mg 2-27 tablet by ity of tablet 00:00: mouth [place] 00 every Medical morning Branch and evening. KCL 20 mEq 2020-04 Yes [id number] 40meq Take 2 Univers tablet 2-27 02 tablets by ity of 00:00: mouth [place] 00 daily. Medical Branch pantoprazol 2020-04 Yes [id number] 40mg Take 1 Univers e 40 mg EC 0-06 tablet by ity of tablet 00:00: mouth [place] 00 every Medical morning. Branch gabapentin 2020-04 Yes [id number] 300mg Take 1 Univers 300 mg 0-06 capsule by ity of capsule 00:00: mouth 3 [place] 00 (three) Medical times Branch daily. tiZANidine 2020-04 Yes [id number] 2mg Take 1 Univers 2 mg tablet 0-06 tablet by ity of 00:00: mouth [place] 00 every 8 Medical (eight) Branch hours as needed (muscle spasms). pantoprazol 2020-04 Yes [id number] 40mg Take 1 Univers e 40 mg EC 0-06 tablet by ity of tablet 00:00: mouth [place] 00 every Medical morning. Branch gabapentin 2020-04 Yes [id number] 300mg Take 1 Univers 300 mg 0-06 capsule by ity of capsule 00:00: mouth 3 [place] 00 (three) Medical times Branch daily. tiZANidine 2020-04 Yes [id number] 2mg Take 1 Univers 2 mg tablet 0-06 tablet by ity of 00:00: mouth [place] 00 every 8 Medical (eight) Branch hours as needed (muscle spasms). nicotine 14 Yes [id number] 1{patch Apply 1 Univers mg/24 hr 8-24 } Patch to ity of patch 00:00: area(s) [place] 00 every 24 Medical (twenty-fo Branch ur) hours. Apply 21mg patch daily x 6 weeks; then apply 14mg patch daily x 2 weeks; then apply 7mg patch daily x 2 weeks. Stop smoking on initiation of therapy nicotine 21 Yes [id number] 1{patch Apply 1 Univers mg/24 hr 8-24 } Patch to ity of patch 00:00: area(s) [place] 00 daily. Medical Apply 21mg Branch patch daily x 6 weeks; then apply 14mg patch daily x 2 weeks; then apply 7mg patch daily x 2 weeks. Stop smoking on initiation of therapy nicotine Yes [id number] 1{patch Apply 1 Univers mg/24 hr 8-24 } Patch to ity of patch 00:00: area(s) [place] 00 every 24 Medical (twenty-fo Branch ur) hours. Apply 21mg patch daily x 6 weeks; then apply 14mg patch daily x 2 weeks; then apply 7mg patch daily x 2 weeks. Stop smoking on initiation of therapy nicotine Yes [id number] 1{patch Apply 1 Univers mg/24 hr 8-24 } Patch to ity of patch 00:00: area(s) [place] 00 every 24 Medical (twenty-fo Branch ur) hours. Apply 21mg patch daily x 6 weeks; then apply 14mg patch daily x 2 weeks; then apply 7mg patch daily x 2 weeks. Stop smoking on initiation of therapy nicotine Yes [id number] 1{patch Apply 1 Univers mg/24 hr 8-24 } Patch to ity of patch 00:00: area(s) [place] 00 daily. Medical Apply 21mg Branch patch daily x 6 weeks; then apply 14mg patch daily x 2 weeks; then apply 7mg patch daily x 2 weeks. Stop smoking on initiation of therapy nicotine Yes [id number] 1{patch Apply 1 Univers mg/24 hr 8-24 } Patch to ity of patch 00:00: area(s) [place] 00 every 24 Medical (twenty-fo Branch ur) hours. Apply 21mg patch daily x 6 weeks; then apply 14mg patch daily x 2 weeks; then apply 7mg patch daily x 2 weeks. Stop smoking on initiation of therapy nitroglycer Yes [id number] .4mg Place 1 Univers in 0.4 mg 8-04 tablet ity of sublingual 00:00: [place] the [place] tablet 00 tongue Medical every 5 Branch (five) minutes as needed for Chest pain. nitroglycer Yes [id number] .4mg Place 1 Univers in 0.4 mg 8-04 tablet ity of sublingual 00:00: [place] the [place] tablet 00 tongue Medical every 5 Branch (five) minutes as needed for Chest pain. nystatin 202-0 Yes [id number] Apply to Univers 100,000 7-08 area(s) 2 ity of unit/gram 00:00: (two) [place] powder 00 times Medical daily as Branch needed for Itching. nystatin 2021-0 Yes [id number] Apply to Univers 100,000 7-08 area(s) 2 ity of unit/gram 00:00: (two) [place] powder 00 times Medical daily as Branch needed for Itching. cholecalcif 202-0 Yes [id number] 2000U Take 2 Univers candy, 6-22 [id number] tablets by ity of vitamin D3, 00:00: mouth [place] 25 mcg 00 daily. Medical (1,000 Branch unit) tablet cholecalcif 202-0 Yes [id number] 2000U Take 2 Univers candy, 6-22 [id number] tablets by ity of vitamin D3, 00:00: mouth [place] 25 mcg 00 daily. Medical (1,000 Branch unit) tablet lactobacill 202-0 Yes [id number] .5mg Take 1 Univers us 6-21 [id number] tablet by ity of acidophilus 00:00: mouth 2 [place] 00 (two) Medical times Branch daily. lactobacill 2021-0 Yes [id number] .5mg Take 1 Univers us 6-21 [id number] tablet by ity of acidophilus 00:00: mouth 2 [place] 00 (two) Medical times Branch daily. triamcinolo 2020-0 Yes [id number] Apply to Univers ne 4-08 area(s) 2 ity of acetonide 00:00: (two) [place] 0.1 % cream 00 times Medical daily. Branch clotrimazol 2020-0 Yes [id number] Apply to Univers e 1 % 4-08 area(s) 2 ity of topical 00:00: (two) [place] cream 00 times Medical daily as Branch needed (mix with hydrocorti sone cream and apply to rash under breast and lower abdomen). triamcinolo 2021-0 Yes [id number] Apply to Univers ne 4-08 area(s) 2 ity of acetonide 00:00: (two) [place] 0.1 % cream 00 times Medical daily. Branch clotrimazol 202-0 Yes [id number] Apply to Univers e 1 % 4-08 area(s) 2 ity of topical 00:00: (two) [place] cream 00 times Medical daily as Branch needed (mix with hydrocorti sone cream and apply to rash under breast and lower abdomen). Oxybutynin Oxybutynin 2020- No Na Carrington [address] [facility] Chloride ER Chloride ER 6- 08-30 [facility] :00 [facility] diclofenac 0 Yes [id number] 75mg Take 1 Univers 75 mg EC 4-23 [id number] tablet by ity of tablet 00:00: mouth 2 [place] (two) Medical times Branch daily with meals. diclofenac Yes [id number] 75mg Take 1 Univers 75 mg EC 4-23 [id number] tablet by ity of tablet 00:00: mouth 2 [place] (two) Medical times Branch daily with meals. hydrOXYzine 2018-04 Yes 25mg Take 25 mg Univers 25 mg 0-26 by mouth 3 ity of tablet 00:00: (three) [place] 00 times Medical daily. Branch hydrOXYzine 2018-04 Yes 25mg Take 25 mg Univers 25 mg 0-26 by mouth 3 ity of tablet 00:00: (three) [place] 00 times Medical daily. Branch Pantoprazol Pantoprazol 2018-04 Yes Na Carrington [address] [facility] e Sodium e Sodium 0-16 [facility] - 00:[facility]: [facility] 00 [facility] Venlafaxine Venlafaxine Yes Na Carrington [address] [facility] HCl ER HCl ER 2-28 with food [facility] 00:[facility]: [facility] 00 [facility] BusPIRone BusPIRone Yes Na Carrington [address] [facility] HCl HCl 2-28 [facility] 00:[facility]: [facility] Aripiprazol Aripiprazol Yes Na Carrington [address] [facility] e e 2-28 [facility] - 00:00: [facility] 00 [facility] Amitriptyli Amitriptyli Yes Na Carrington [address] [facility] ne HCl ne HCl 2-28 [facility] - 00:[facility]: [facility] albuterol 2016-04 Yes [id number] 2{puff} Inhale 2 Univers (PROAIR 1-27 Puffs ity of HFA) 90 00:00: every 6 [place] mcg/actuati 00 (six) Medical on inhaler hours as Branc h needed for Wheezing or Shortness of Breath. albuterol 2016-04 Yes [id number] 2{puff} Inhale 2 Univers (PROAIR 1-27 Puffs ity of HFA) 90 00:00: every 6 [place] mcg/actuati 00 (six) Medical on inhaler hours as Branc h needed for Wheezing or Shortness of Breath. Klor-Con Klor-Con Yes Na Carrington 1 tablet [...] - MOUTH [facility] EVERYDAY l AT BEDTIME [facility] Mirtazapine Mirtazapine Yes Na Carrington [address] [facility] at bedtime [facility] Proventil Proventil Yes Na Carrington [address] [facility] HFA HFA needed [facility] Amitriptyli Amitriptyli Yes Na Carrington not [facility] ne HCl ne HCl defined [facility] Metoprolol Metoprolol Yes Na Carrington [address] [facility] Succinate Succinate [facility] ER ER [facility] Topiramate Topiramate Yes Na Carrington [address] [facility] Flonase Flonase Yes Na Carrington [address] [facility] each [facility] nostril [facility] Loratadine Loratadine Yes Na Carrington [address] [facility] Zithromax Zithromax Yes Na [...] tablet [facility] Diagonal Diagonal Yes Na Carrington [address] Carbonate Carbonate at bedtime [facility] ER ER [facility] Abilify Abilify Yes Na Carrington [address] [facility] Diclofenac Diclofenac Yes Na Carrington [address] [facility] Sodium Sodium with food [facility] - or milk [facility] Cetirizine Cetirizine Yes Na Carrington [address] [facility] HCl HCl [facility] Pantoprazol Pantoprazol Yes Na Carrington [address] [facility] e Sodium e Sodium [facility] Diclofenac Diclofenac Yes Na Carrington not [facility] Sodium Sodium defined [facility] Montelukast Montelukast Yes Na Carrington [address] [facility] Sodium Sodium [facility] Eliquis Eliquis Yes Na Carrington as [facility] directed [facility] Immunizations Ordered Filled Immunization Date Status Comments [facility] e Immunization Name Name Influenza Virus 2021-06-07 Completed Universit y of Vaccine Quad IM, 00:00:00 [facility] dical Preserv and ABX Branch Free 6 MO-64 YRS Influenza Virus 2021-06-07 Completed Universit y of Vaccine Quad IM, 00:00:00 [facility] dical Preserv and ABX Branch Free 6 MO-64 YRS SARS-COV-2 COVID-19 2020-07-24 Completed Unive rsity of MODERNA VACCINE 00:00:00 [facility] SARS-COV-2 COVID-19 2020-07-24 Completed Unive rsity of MODERNA VACCINE 00:00:00 [facility] SARS-COV-2 COVID-19 2020-06-19 Completed Unive rsity of MODERNA VACCINE 00:00:00 [facility] SARS-COV-2 COVID-19 2020-06-19 Completed Unive rsity of MODERNA VACCINE 00:00:00 [facility] Influenza Virus 2017-03-25 Completed Universit y of Vaccine Quad IM 3+ 00:00:00 [facility] Influenza Virus 2017-03-25 Completed Universit y of Vaccine Quad IM 3+ 00:00:00 [facility] TDAP 2016-02-02 Completed [facility] 00:00:00 [facility] TD 2016-02-02 Completed [facility] 00:00:00 [facility] Vital Signs Vital Name Observation Time Observation Value Comments Source Systolic blood 2021-06-28 15:59:00 138 mm[Hg] Univer sity of pressure [facility] Diastolic blood 2021-06-28 15:59:00 85 mm[Hg] Unive rsity of pressure [facility] Heart rate 2021-06-28 15:59:00 71 /min [facility] Respiratory rate 2021-06-28 15:59:00 19 /min Univ ersity [facility] Body height 2021-06-28 15:59:00 162.6 cm [facility] Body weight 2021-06-28 15:59:00 127.688 kg [facility] BMI 2021-06-28 15:59:00 48.32 kg/m2 [facility] Oxygen saturation in 2021-06-28 15:59:00 94 /min University Arterial blood by [facility] Pulse oximetry Branch Procedures This patient has no known procedures. Encounters Start End Encounter Admission Attending Care Care Encounter Source Date/Time Date/Time Type Type Clinicians Facility Department ID 2021-05-24 Outpatient Carrington, Na STLMLC STLMLC [id number] [facility] 11:41:37 [id number] [facility] 2021-05-24 Outpatient Carrington, Na STLMLC STLMLC [id number] [facility] 11:39:09 [id number] [facility] 2021-05-24 Outpatient Carrington, Na STLMLC STLMLC [id number] [facility] 11:36:08 [id number] [facility] 2021-05-24 Outpatient Carrington, Na STLMLC STLMLC [id number] [facility] 11:29:47 [id number] [facility] 2021-05-24 Outpatient Carrington, Na STLMLC STLMLC [id number] [facility] 11:25:57 [id number] [facility] 2021-05-24 Outpatient Carrington, Na STLMLC STLMLC [id number] [facility] 11:23:56 [id number] [facility] 2021-05-24 Outpatient Carrington, Na STLMLC STLMLC [id number] [facility] 11:23:38 [id number] [facility] 2021-05-24 Outpatient Carrington, Na STLMLC STLMLC [id number] [facility] 11:22:56 [id number] [facility] 2021-05-24 Outpatient Carrington, Na STLMLC STLMLC [id number] [facility] 11:03:29 [id number] [facility] 2021-05-24 Outpatient Carrington, Na STLMLC STLMLC [id number] [facility] 11:00:09 [id number] [facility] 2021-06-28 2021-06-28 Office Juan José [facility] [id number] Univers 10:00:00 10:20:00 Visit Ana Rolando DARA [id number] ity [facility] [id number] [facility] [id number] Dc dical [address] 2021-06-28 2021-06-28 Outpatient R ANA LOGAN [facility] [id number] Univers 10:00:00 10:17:49 [facility] 2020-09-19 Nurse Emilio Sigala [facility] [id number] 09:15:29 09:30:29 Visit Nurse Visit [facility] [id number] Divina LEE [id number] CENTER [id number] [facility] 2020-09-19 2020-09-19 Reflaureen Magaña [facility] [id number] 00:00:00 00:00:00 [place] SPECIALTY [id number] CARE [id number] CENTER AT [id number] ALVARO Inman [facility] 2020-09-14 2020-09-14 Refill Venecia Proctor [facility] [id number] 00:00:00 00:00:00 Health [id number] Surgical [id number] Specialti [id number] es [address] [place] 2020-09-13 2020-09-13 Office Clary Proctor [facility] [id number] 09:16:19 09:45:52 Visit Najma [facility] [id number] IACAL [id number] CENTER [id number] [facility] 2020-07-19 2020-07-19 Outpatient [facility] [id number] [facility] 2020-04-20 2020-04-[address] [facility] ST[facility] [id number] [facility] 2019-12-04 2019-12-04 [facility] [id number] [facility] 17:00:00 17:00:00 [place] [employer] [facility] l Medicine Outpati ent Clinics 2019-11-04 2019-11-04 [facility] [id number] [facility] 12:00:00 12:00:00 [place] [employer] [facility] l Medicine Outpati ent Clinics 2019-10-15 2019-10-15 [facility] [id number] [address] 16:50:00 16:50:00 t [employer] [facility] l Medicine Outpati ent Clinics 2019-10-02 2019-10-02 [facility] [id number] [facility] 16:58:00 16:58:00 t [place] [employer] [facility] l Medicine Outpati ent Clinics 2019-09-28 2019-09-28 [facility] [id number] [facility] 08:40:00 08:40:00 t [employer] [facility] l Medicine Outpati ent Clinics 2019-09-17 2019-09-17 [facility] [id number] 14:18:00 14:18:00 t [place] [employer] [facility] l Medicine Outpati ent Clinics 2019-09-15 2019-09-15 [facility] [id number] 09:25:00 09:25:00 [place] [employer] [facility] Medicine Outpati ent Clinics 2019-09-10 2019-09-10 [facility] [id number] 16:38:00 16:38:00 t [employer] [facility] Medicine Outpati ent Clinics 2019-08-24 2019-08-24 [facility] [id number] 09:40:00 09:40:00 t [place] [employer] [facility] Medicine l Medicine Outpati ent Clinics 2019-07-23 2019-07-23 [facility] [id number] [facility] 12:01:00 12:01:00 t [place] [employer] - Drive [facility] Medicine l Medicine Outpati ent Clinics 2019-05-26 2019-05-26 [facility] [id number] 17:11:00 17:11:00 t [place] [employer] - Drive [facility] l Medicine Outpati ent Clinics 2019-05-25 2019-05-25 [facility] [id number] [facility] 14:40:00 14:40:00 t [place] [employer] [facility] Medicine Outpati ent Clinics 2019-04-07 2019-04-07 [facility] [id number] 03:19:00 03:19:00 t [place] [employer] [facility] Medicine Outpati ent Clinics 2019-03-19 2019-03-19 [facility] [id number] [facility] 12:20:00 12:20:00 t [place] [employer] [facility] Medicine l Medicine Outpati ent Clinics 2019-02-11 2019-02-11 [facility] [id number] [facility] 08:20:00 08:20:00 t [place] [employer] [facility] l Medicine Outpati ent Clinics 2018-12-18 2018-12-18 [facility] [id number] [facility] 11:40:00 11:40:00 t [place] [employer] [facility] Medicine l Medicine Outpati ent Clinics 2018-06-02 2018-06-02 [facility] [id number] [facility] 10:14:00 10:14:00 t [place] [employer] - Drive [facility] Medicine Outpati ent Clinics 2018-05-28 2018-05-28 [facility] [id number] [facility] 15:15:00 15:15:00 t [place] [employer] - Drive [facility] l Medicine Outpati ent Clinics 2018-05-06 2018-05-06 [facility] [id number] [facility] 10:15:00 10:15:00 t [facility] - Care Clinic [facility] Clinic l Outpati ent Clinics 2018-02-10 2018-02-10 [facility] [id number] 08:22:00 08:22:00 t [employer] [facility] Medicine Outpati ent Clinics 2018-02-02 2018-02-02 [facility] [id number] [facility] 09:45:00 09:45:00 t Urgent Urgent Care [facility] - Care Clinic [facility] l Outpati ent Clinics 2018-01-27 2018-01-27 [facility] [id number] [facility] 14:00:00 14:00:00 t [employer] [facility] Medicine Outpati ent Clinics 2018-01-10 2018-01-10 [facility] [id number] [facility] [facility] 14:23:00 14:23:00 t [employer] [facility] Outpati ent Clinics 2017-12-19 2017-12-19 [facility] [id number] [facility] 14:45:00 14:45:00 t [employer] [facility] Medicine Outpati ent Clinics 2017-12-03 2017-12-03 [facility] [id number] [facility] 13:20:00 13:20:00 t Specialty/U Kaylin kes - Specialty rology [facility]Urology Clinic l Clinic Outpati ent Clinics 2017-11-30 2017-11-30 [facility] [id number] [facility] 13:15:00 13:15:00 t Urgent Urgent Care [facility] - Care Clinic [facility] Clinic l Outpati ent Clinics 2017-11-28 2017-11-28 [facility] [id number] [facility] 15:00:00 15:00:00 t Specialty/U Kaylin kes - Specialty rology [facility] /Urology Clinic l Clinic Outpati ent Clinics 2017-11-23 2017-11-23 [facility] [id number] [facility] 15:30:00 15:30:00 t Urgent Urgent Care L u[facility] - Care Clinic [facility] Clinic l Outpati ent Clinics 2017-09-19 2017-09-19 Outpatient Jeffrey Munoz [id number] [facility] 10:00:00 10:00:00 t Specialty/U Kaylin foster - Specialty rology [facility] a /Urology Clinic l Clinic Outpati ent Clinics 2017-09-09 2017-09-09 Outpatient Jeffrey Munoz [id number] 10:00:00 10:00:00 t [employer] [facility] Results This patient has no known results.
[2021-07-01 23:41] LABS: Urine Blood Negative (Negative); Urine Glucose Negative (Negative); Urine Protein Negative (Negative); Urine Specific Gravity 1.025 (1.005-1.030); Urine pH 5.5 (5.0-7.0)
[2021-07-02 00:07] LABS: Barbiturates NEGATIVE (NEGATIVE); Benzodiazepines NEGATIVE (NEGATIVE); Cocaine NEGATIVE (NEGATIVE); METHAMPHETAM NEGATIVE (NEGATIVE); Methadone NEGATIVE (NEGATIVE); Opiates NEGATIVE (NEGATIVE); Phencyclidine NEGATIVE (NEGATIVE); THC Cannibis NEGATIVE (NEGATIVE)
[2021-07-02] MEDS ORDERED: METOCLOPRAMIDE 10 MG/2mL INJ ONE (00:21)
[2021-07-02] MEDS ORDERED: DIPHENHYDRAMINE 50 MG/ML VIAL ONE (00:21)
[2021-07-02] MEDS ORDERED: CEFTRIAXONE 1000 MG/VIAL ONE (00:21)
[2021-07-02] MEDS ORDERED: NA CHLORIDE 0.9% 100 ML IV ONE (00:22)
[2021-07-02 01:26] LABS: Absolute Lymphocytes (CBC) 3.1 K/uL (0.7-4.9); Hematocrit 43.5 % (36.0-45.0); Lymphocytes % 20.4 % (15.3-44.8); MPV 9.1 fL (7.6-11.3); Protime INR 1.02; RBC Red Blood Cell Count 4.85 M/uL (3.86-4.86)
[2021-07-02 01:35] LABS: SARS-COV-2 RT PCR NEGATIVE (NEGATIVE)
[2021-07-02 01:44] LABS: Albumin 3.3 g/dL (3.4-5.0); Bilirubin Direct 0.1 mg/dL (0-0.2); Bilirubin Total 0.4 mg/dL (0.2-1.0); Magnesium 2.2 mg/dL (1.8-2.4); Potassium 3.2 mmol/L (3.5-5.1); Protein, Total 7.6 g/dL (6.4-8.2); Troponin High Sensitivity 3.1 pg/mL (<58.9)
[2021-07-02] MEDS ORDERED: POTASSIUM 25 MEQ EFFERV TAB ONE (03:29)
--- NOTE | 2021-07-02 06:24 | ER ---
Nurse's Notes [facility] Name: Cely Valadez Age: 41 yrs Sex: Female : 1980 Arrival Date: 07/01/2021 Time: 22:08 Bed 14 Private MD: Alee Magaña Diagnosis: Headache;Chest pain, unspecified;UTI/ Urinary tract infection, site not specified Presentation: 07/01 22:18 Chief complaint: Patient states: " I am having pain and pressure in my chest and it tw5 feels hard to breath. I started off with a headache and thinking it was a heart burn so I took some Tylenol. However it is getting worse.". Coronavirus screen: Vaccine status: Patient reports receiving the 2nd dose of the covid vaccine. Moderna. Ebola Screen: Patient negative for fever greater than or equal to 101.5 degrees Fahrenheit, and additional compatible Ebola Virus Disease symptoms Patient denies exposure to infectious person. Patient denies travel to an Ebola-affected area in the 21 days before illness onset. Initial Sepsis Screen: Does the patient meet any 2 criteria? No. Patient's initial sepsis screen is negative. Does the patient have a suspected source of infection? No. Patient's initial sepsis screen is negative. Risk Assessment: Do you want to hurt yourself or someone else? Patient reports no desire to harm self or others. Onset of symptoms was July 01, 2021 at 18:00. 22:18 Acuity: ADRIANA 2 tw5 22:18 Method Of Arrival: Ambulatory tw5 Triage Assessment: 22:19 General: Appears uncomfortable, Behavior is calm, cooperative, appropriate for age, tw5 anxious. Pain: Complains of pain in chest Pain currently is 10 out of 10 on a pain scale. Cardiovascular: Rhythm is sinus rhythm. 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/A - Irregular menses tw5 Historical: - Allergies: 22:19 NKDA; tw5 - Home Meds: 22:19 Abilify 20 mg Oral tab once daily [Active]; buspirone 15 mg Oral tab 2 times per day tw5 [Active]; hydralazine 25 mg Oral tab three times a day [Active]; omeprazole 40 mg Oral cpDR 1 cap once daily [Active]; ProAir HFA 90 mcg/actuation inhalation HFAA 2 puffs as needed [Active]; sertraline 50 mg Oral tab once daily [Active]; Lasix 80 mg Oral tab 1 tab 2 times per day [Active]; - PMHx: 22:19 acid reflux; Asthma; Bipolar disorder; COPD; DVT; tw5 - PSHx: 22:19 None; tw5 - Immunization history:: Flu vaccine is up to date. - Social history:: Smoking status: Patient reports the use of cigarette tobacco products, smokes one pack cigarettes per day. Screenin/06 00:05 Abuse screen: Denies threats or abuse. Nutritional screening: No deficits noted. sv1 Tuberculosis screening: No symptoms or risk factors identified. Fall Risk None identified. Assessment: 02:23 Pain: Pain does not radiate. Pain began gradually, 8 months ago. sv1 Vital Signs: 07/01 22:13 BP 140 / 87; Pulse 83; Resp 18; Temp 98.1; Pulse Ox 96% on R/A; Weight 127.46 kg; tw5 Height 5 ft. 4 in. (162.56 cm); Pain 10/10; 22:30 BP 144 / 79 LA Supine (auto/reg); Pulse 76 MON; Resp 20 S; Temp 98.4; Pulse Ox 99% on sv1 R/A; Pain 8/10; 03 00:05 BP 129 / 107 LA Sitting (auto/reg); Pulse 72 MON; Resp 17 S; Pulse Ox 100% on R/A; Pain sv1 3/10; 00:05 BP 113 / 67 RA Supine (auto/reg); Pulse 72 MON; Resp 18 S; Pulse Ox 99% ; sv1 02:00 BP 111 / 73 LA Supine (auto/lg); Pulse 82 MON; Resp 14 S; Pulse Ox 93% on R/A; sv1 04:00 BP 128 / 71 LA Supine (auto/lg); Pulse 77 MON; Resp 17 S; Pulse Ox 96% on R/A; sv1 06:11 BP 122 / 74 LA Supine (auto/lg); Pulse 84; Resp 16; Pulse Ox 99% ; Pain 0/10; sv1 03 22:13 Body Mass Index 48.23 (127.46 kg, 162.56 cm) tw5 ED Course: 07/01 22:08 Patient arrived in ED. es 22:09 Alee Magaña is Private Physician. es 22:14 EKG completed in triage. Results shown to . tw5 22:19 Triage completed. tw5 22:19 Arm band placed on right wrist. tw5 22:24 Maco Vallejo RN is Primary Nurse. sv1 22:25 Yordy Jiang MD is Attending Physician. mh7 23:41 CT Head Brain wo Cont In Process Unspecified. EDMS 23:53 Urine Drug Screen Sent. sv1 23:53 Urine Microscopic Only Sent. sv1 03/06 00:05 Patient has correct armband on for positive identification. Bed in low position. Call sv1 light in reach. Side rails up X2. Adult w/ patient. ekg monitor on. Pulse ox on. NIBP on. 00:12 Urine Culture Sent. sv1 00:38 Chest Single View XRAY In Process Unspecified. EDMS 00:55 COVID-19/FLU A+B (Document "Date of Onset" if Symptomatic) Sent. sv1 02:23 Patient maintains SpO2 saturation greater than 95% on room air. sv1 03:58 Notified ED physician of a critical lab result(s). D-Dimer 782. lp1 05:08 US Extremity Venous Unilateral Ltd In Process Unspecified. EDMS 05:16 CT Chest For PE Angio In Process Unspecified. EDMS Administered Medications: 00:43 Drug: Reglan (metoCLOPramide) 10 mg Route: IVP; Site: left upper arm; vc1 00:43 Drug: Benadryl (diphenhydrAMINE) 50 mg Route: IVP; Site: left upper arm; vc1 00:43 Drug: Rocephin (cefTRIAXone) 1 grams Route: IV; Rate: per protocol; Site: left upper vc1 arm; 04:54 Follow up: Response: No adverse reaction sv1 06:38 Follow up: Response: No adverse reaction sv1 05:24 Drug: Potassium Effervescent Tablet 50 mEq Route: PO; sv1 06:37 Follow up: Response: No adverse reaction sv1 Outcome: 06:24 Discharge ordered by . mh7 06:38 Patient left the ED. sv1 Signatures: Dispatcher [employer] EDMS Yeni Lance Laura, RN RN lp1 Yordy Jiang MD MD [facility] Courtney [place] tw5 Maco Vallejo, RN RN sv1 CalcKarrie armendariz, RN RN vc1
--- NOTE | 2021-07-02 06:25 | EDPHYS ---
Physician Documentation [facility] Name: Cely Valadez Age: 41 yrs Sex: Female : 1980 Arrival Date: 07/01/2021 Time: 22:08 Bed 14 Private MD: Alee Magaña ED Physician Yordy Jiang HPI: 07/01 22:51 This 41 yrs old Female presents to ER via Ambulatory with complaints of Chest Pain, mh7 Headache, Chest Pressure. 22:51 The patient or guardian reports chest pain that is located primarily in the substernal mh7 area. Onset: today, at 18:00. The pain does not radiate. 22:51 Associated signs and symptoms: Pertinent positives: headache, nausea, shortness of mh7 breath, Pertinent negatives: abdominal pain, cough, diaphoresis, dizziness, lower extremity pain, lower extremity swelling, lightheadedness, near syncope, palpitations, recent travel, syncope, vomiting. 22:51 The chest pain is described as a pressure. Duration: The patient or guardian reports mh7 multiple episodes, that are intermittent, that wax and wane, with no pattern. Modifying factors: The symptoms are alleviated by nothing. the symptoms are aggravated by emotionally stressful situations. Severity of pain: At its worst the pain was moderate today, in the emergency department the pain has improved moderately. States that she started having headache then later started having chest pain. States that she has been feeling stressed due to recent separation.. 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/A - Irregular menses tw5 Historical: - Allergies: 22:19 NKDA; tw5 - Home Meds: 22:19 Abilify 20 mg Oral tab once daily [Active]; buspirone 15 mg Oral tab 2 times per day tw5 [Active]; hydralazine 25 mg Oral tab three times a day [Active]; omeprazole 40 mg Oral cpDR 1 cap once daily [Active]; ProAir HFA 90 mcg/actuation inhalation HFAA 2 puffs as needed [Active]; sertraline 50 mg Oral tab once daily [Active]; Lasix 80 mg Oral tab 1 tab 2 times per day [Active]; - PMHx: 22:19 acid reflux; Asthma; Bipolar disorder; COPD; DVT; tw5 - PSHx: 22:19 None; tw5 - Immunization history:: Flu vaccine is up to date. - Social history:: Smoking status: Patient reports the use of cigarette tobacco products, smokes one pack cigarettes per day. ROS: 22:51 Constitutional: Negative for fever, chills, and weight loss, Eyes: Negative for injury, mh7 pain, redness, and discharge, ENT: Negative for injury, pain, and discharge, Neck: Negative for injury, pain, and swelling. 22:51 Back: Negative for injury and pain, : Negative for injury, bleeding, discharge, and swelling, MS/Extremity: Negative for injury and deformity, Skin: Negative for injury, rash, and discoloration, Psych: Negative for depression, anxiety, suicide ideation, homicidal ideation, and hallucinations, Allergy/Immunology: Negative for hives, rash, and allergies, Endocrine: Negative for neck swelling, polydipsia, polyuria, polyphagia, and marked weight changes, Hematologic/Lymphatic: Negative for swollen nodes, abnormal bleeding, and unusual bruising. 22:51 Abdomen/GI: Negative for abdominal pain, vomiting, diarrhea, constipation, abdominal cramps, abdominal distension, anorexia, dysphagia, hematemesis, black/tarry stool, rectal pain, rectal bleeding, bowel incontinence, flatulence. 22:51 Neuro: Negative for altered mental status, dizziness, gait disturbance, hearing loss, numbness, seizure activity, speech changes, syncope, near syncope, tingling, tinnitus, tremor, visual changes, weakness. Exam: 22:51 Eyes: Pupils equal round and reactive to light, extra-ocular motions intact. Lids and mh7 lashes normal. Conjunctiva and sclera are non-icteric and not injected. Cornea within normal limits. Periorbital areas with no swelling, redness, or edema. Neck: Trachea midline, no thyromegaly or masses palpated, and no cervical lymphadenopathy. Supple, full range of motion without nuchal rigidity, or vertebral point tenderness. No Meningismus. Chest/axilla: Normal chest wall appearance and motion. Nontender with no deformity. No lesions are appreciated. Cardiovascular: Regular rate and rhythm with a normal S1 and S2. No gallops, murmurs, or rubs. Normal PMI, no JVD. No pulse deficits. Respiratory: Lungs have equal breath sounds bilaterally, clear to auscultation and percussion. No rales, rhonchi or wheezes noted. No increased work of breathing, no retractions or nasal flaring. Abdomen/GI: Soft, non-tender, with normal bowel sounds. No distension or tympany. No guarding or rebound. No evidence of tenderness throughout. Back: No spinal tenderness. No costovertebral tenderness. Full range of motion. Skin: Warm, dry with normal turgor. Normal color with no rashes, no lesions, and no evidence of cellulitis. MS/ Extremity: Pulses equal, no cyanosis. Neurovascular intact. Full, normal range of motion. Neuro: Awake and alert, GCS 15, oriented to person, place, time, and situation. Cranial nerves II-XII grossly intact. Motor strength 5/5 in all extremities. Sensory grossly intact. Cerebellar exam normal. Normal gait. Psych: Awake, alert, with orientation to person, place and time. Behavior, mood, and affect are within normal limits. 22:51 Constitutional: The patient appears in no acute distress, alert, awake, anxious. 22:51 Head/face: Noted is tenderness, that is moderate, of the top of head. 22:51 ECG was reviewed by the Attending Physician. [facility] Vital Signs: 22:13 BP 140 / 87; Pulse 83; Resp 18; Temp 98.1; Pulse Ox 96% on R/A; Weight 127.46 kg; tw5 Height 5 ft. 4 in. (162.56 cm); Pain 10/10; 22:30 BP 144 / 79 LA Supine (auto/reg); Pulse 76 MON; Resp 20 S; Temp 98.4; Pulse Ox 99% on sv1 R/A; Pain 8/10; 0306 00:05 BP 129 / 107 LA Sitting (auto/reg); Pulse 72 MON; Resp 17 S; Pulse Ox 100% on R/A; Pain sv1 3/10; 00:05 BP 113 / 67 RA Supine (auto/reg); Pulse 72 MON; Resp 18 S; Pulse Ox 99% ; sv1 02:00 BP 111 / 73 LA Supine (auto/lg); Pulse 82 MON; Resp 14 S; Pulse Ox 93% on R/A; sv1 04:00 BP 128 / 71 LA Supine (auto/lg); Pulse 77 MON; Resp 17 S; Pulse Ox 96% on R/A; sv1 06:11 BP 122 / 74 LA Supine (auto/lg); Pulse 84; Resp 16; Pulse Ox 99% ; Pain 0/10; sv1 07/01 22:13 Body Mass Index 48.23 (127.46 kg, 162.56 cm) tw5 Procedures: 04:35 Peripheral line: by aseptic technique a peripheral line was placed in the right la1 antecubital vein, 18g Midline inserted via dynamic ultrasound. visualized catheter in vein, dark venous blood return, flushes easily. . MDM: 06:20 Differential diagnosis: acute myocardial infarction, acute pericarditis, anxiety, mh7 coronary artery disease chest wall pain, congestive heart failure costochondritis, esophagitis, gastritis, gastroesophageal reflux disease (GERD), pericarditis, pleurisy, pneumonia, pneumothorax, pulmonary embolus, stable angina, thoracic aortic disection, unstable angina, Headache, stress reaction. HEART Score: History: Slightly Suspicious (0), ECG: Non specific repolarization disturbance / LBTB / PM (1), Age: < or = 45 years (0), Risk Factors: No Risk Factors Known (0), Troponin: < or = 1 x Normal Limit (0), Total Score = 1. Data reviewed: vital signs, nurses notes, old medical records, lab test result(s), cardiac enzymes, CBC, electrolytes, urinalysis, EKG, radiologic studies, CT scan, plain films, ultrasound. Data interpreted: Pulse oximetry: on room air is 99 %. Interpretation: normal. Counseling: I had a detailed discussion with the patient and/or guardian regarding: the historical points, exam findings, and any diagnostic results supporting the discharge/admit diagnosis, lab results, radiology results, the need for outpatient follow up, to return to the emergency department if symptoms worsen or persist or if there are any questions or concerns that arise at home. Response to treatment: the patient's symptoms have resolved after treatment, the patient's blood pressure is in an acceptable range, mental status has returned to baseline, the patient no longer shows bradycardia, the patient is not short of breath, the patient is not tachycardic, the patient's pain is gone, the patient's temperature has normalized. 06:24 Patient medically screened. [facility] 07/01 22:25 Order name: Basic Metabolic Panel 5 07/01 22:25 Order name: CBC with Diff; Complete Time: 01:[address] [facility] 07/01 22:25 Order name: LFT's; Complete Time: 02:[address] [facility] 07/01 22:25 Order name: Magnesium; Complete Time: 02:[address] [facility] 07/01 22:25 Order name: NT PRO-BNP; Complete Time: 02:[address] [facility] 07/01 22:25 Order name: PT-INR; Complete Time: 01:[address] [facility] 07/01 22:25 Order name: Troponin HS; Complete Time: 02:[address] [facility] 07/01 22:26 Order name: Basic Metabolic Panel; Complete Time: 02:07 [facility] 07/01 22:45 Order name: Urine Drug Screen; Complete Time: 00:10 [facility] 07/01 23:09 Order name: COVID-19/FLU A+B (Document "Date of Onset" if Symptomatic); Complete Time: [facility] 01:38 07/01 23:41 Order name: Urine Dipstick-Ancillary; Complete Time: 23:45 [facility] 07/01 23:45 Order name: Urine Culture [facility] 07/01 22:25 Order name: EKG; Complete Time: 22:[address] [facility] 07/01 22:25 Order name: Cardiac monitoring [facility] 07/01 22:25 Order name: EKG - Nurse/Tech; Complete Time: 22:[address] [facility] 07/01 22:25 Order name: IV Saline Lock; Complete Time: 23:[address] [facility] 07/01 22:25 Order name: Labs collected and sent 07/01 22:25 Order name: O2 Per Protocol; Complete Time: 23:[address] [facility] 07/01 22:25 Order name: O2 Sat Monitoring; Complete Time: 23:[address] [facility] 07/01 22:44 Order name: CT Head Brain wo Cont [facility] 07/02 00:11 Order name: Chest Single View XRAY [facility] 07/02 03:28 Order name: D-Dimer; Complete Time: 04:09 [facility] 07/02 04:13 Order name: US Extremity Venous Unilateral Ltd [facility] 07/02 04:35 Order name: CT Chest For PE Angio [facility] 07/01 22:45 Order name: Urine Dipstick-Ancillary (obtain specimen); Complete Time: 23:53 [facility] 07/01 22:45 Order name: Urine Test (obtain specimen); Complete Time: 23:53 mh7 EC/05 22:51 Rate is 76 beats/min. Rhythm is regular, Normal Sinus Rhythm with No ectopy. QRS [place] 7 is Normal. [place] interval is normal. QRS interval is normal. QT interval is normal. No Q waves. T waves are Normal. No ST changes noted. Clinical impression: Abnormal EKG without significant change, LVH, and No evidence of ischemia. Administered Medications: 07/02 00:43 Drug: Reglan (metoCLOPramide) 10 mg Route: IVP; Site: left upper arm; vc1 00:43 Drug: Benadryl (diphenhydrAMINE) 50 mg Route: IVP; Site: left upper arm; vc1 00:43 Drug: Rocephin (cefTRIAXone) 1 grams Route: IV; Rate: per protocol; Site: left upper vc1 arm; 04:54 Follow up: Response: No adverse reaction sv1 06:38 Follow up: Response: No adverse reaction sv1 05:24 Drug: Potassium Effervescent Tablet 50 mEq Route: PO; sv1 06:37 Follow up: Response: No adverse reaction sv1 Disposition: 06:46 Co-signature as Attending Physician, Yordy Jiang MD. [facility] Disposition Summary: 07/02/21 06:24 Discharge Ordered Location: Home [facility] Problem: an acute exacerbation [facility] Symptoms: have improved [facility] Condition: Stable [facility] Diagnosis - Headache 7 - Chest pain, unspecified 7 - UTI/ Urinary tract infection, site not specified [facility] Followup: [facility] - With: Private Physician - When: 1 - 2 days - Reason: Worsening of condition, Recheck today's complaints, Continuance of care, Re-evaluation by your physician Discharge Instructions: - Discharge Summary Sheet [facility] - General Headache Without Cause 7 - Urinary Tract Infection, Adult, [id number] 7 - Nonspecific Chest Pain, Adult, [id number] [facility] Forms: - Medication Reconciliation Form [facility] - Thank You Letter [facility] - Antibiotic Education [facility] - Prescription Opioid Use [facility] Prescriptions: - Cephalexin 500 mg Oral Capsule - take 1 capsule by ORAL route every 12 hours for 7 days; 14 capsule; Refills: 0, mh7 Product Selection Permitted Signatures: Dispatcher [employer] [facility] Mazin Jarquin, ORGAN GRINDER-C ORGAN GRINDER-Cla1 Yordy Jiang MD MD [facility] Courtney Smallwood tw5 Maco Vallejo, RN RN sv1 Karrie Charles, RN RN vc1
[2021-07-02 06:51] VITALS: TEMP 98.4
[2021-07-02 07:01] VITALS: BP 122/74; O2SAT 99
--- NOTE | 2021-07-02 07:38 | RAD REPORT ---
EXAM DESCRIPTION: US - Extremity Venous Uni Ltd - 07/02/2021 5:08 am CLINICAL HISTORY: PAIN COMPARISON: None. TECHNIQUE: Real-time sonographic evaluation of the right lower extremity deep venous systems was per formed. FINDINGS: Normal compressibility, flow augmentation, phasic flow and spontaneous flow are identified in the right lower extremity common femoral, superficial femoral, popliteal and posterior tibial vei ns. No intraluminal filling defects seen. IMPRESSION: No DVT in the right lower extremity.
--- NOTE | 2021-07-02 09:23 | EKG ---
Test Date: 2021-07-01 Test Time: 22:18:55 Barge Pilot: TW MEASUREMENT RESULTS: Intervals: Rate: 76 MD: 206 QRSD: 88 QT: 392 QTc: 441 [place]: P: 60 MD: 206 QRS: -37 T: 45 INTERPRETIVE STATEMENTS: Normal sinus rhythm Possible Left atrial enlargement Left axis deviation Left ventricular hypertrophy Abnormal ECG Compared to ECG 09/29/2020 16:20:00 Left-axis deviation now present Left ventricular hypertrophy now present First degree AV block no longer present Electronically Signed On 07-02-21 09:22:45 CR[employer] AND SOIL TECHNICIAN by Adolfo Zabala
--- NOTE | 2021-07-03 10:06 | RAD REPORT ---
EXAM DESCRIPTION: CT - Chest For Pe Angio - 07/02/2021 6:28 am CLINICAL HISTORY: CHEST PAIN COMPARISON: 09/21/2020. TECHNIQUE: CT CHEST ANGIOGRAPHY WITH IV CONTRAST on 07/02/2021 4:35 AM CLASSIFICATION COUNSELOR. MIPS reconstructions were generated. This exam was performed according to our departmental dose-optimization program, which includes autom ated exposure control, adjustment of the mA and/or kV according to patient size and/or use of iterati ve reconstruction technique. MIP images were generated. FINDINGS: Thoracic aorta is normal in course and caliber without aneurysm or dissection. Pulmonary a rteries are adequately opacified without acute or chronic filling defects. The heart is borderline in size. There is no pericardial effusion. Intrathoracic lymph nodes are not enlarged. There is a small chronic appearing left pleural effusion. Central airways are patent. There is develo ping rounded atelectasis in the left lower lobe. There are no acute abnormalities within the limited images of the upper abdomen. There are no acute osseous findings. No suspicious bony lesions. IMPRESSION: No aortic dissection or aneurysm. No pulmonary embolus. No definite pneumonia. Electronically signed by: Kahlil Leger MD 07/02/2021 6:09 AM CLASSIFICATION COUNSELOR Due to temporary technical issues with the PACS/Fluency reporting system, reports are being signed by the in house radiologist without review as a courtesy to ensure prompt reporting. The interpreting r adiologist is fully responsible for the content of the report.
--- NOTE | 2021-07-03 10:14 | RAD REPORT ---
EXAM DESCRIPTION: RAD - Chest Single View - 07/02/2021 12:38 am CLINICAL HISTORY: 41 years, Female, CHEST PAIN COMPARISON: None. FINDINGS: Single view of the chest was obtained portable. No prior films are available for compariso n. The heart is prominent. Lung volume is decreased. Minimal linear densities could correspond to m ost likely atelectasis versus less likely early fluid overload. No significant pleural effusions and/ or consolidations. The rest of the soft tissue and bony structures demonstrate to be unremarkable. IMPRESSION: Cardiomegaly with no signs of decompensation. Electronically signed by: Alban Dao MD 07/02/2021 2:36 AM ADZING AND BORING MACHINE HELPER Due to temporary technical issues with the PACS/Fluency reporting system, reports are being signed by the in house radiologist without review as a courtesy to ensure prompt reporting. The interpreting r adiologist is fully responsible for the content of the report.
--- NOTE | 2021-07-03 10:21 | RAD REPORT ---
EXAM DESCRIPTION: CT - Head Brain Wo Cont - 07/02/2021 6:24 am CLINICAL HISTORY: 41 years Female HEADACHE COMPARISON: 03/11/2018. TECHNIQUE: Contiguous axial CT images obtained through the brain without IV contrast. This exam was performed according to our department optimization program which includes automated exp osure control, adjustment of the mA and/or kv according to patient size and/or use of iterative recon struction technique. FINDINGS: The ventricles and sulci appear unremarkable. No abnormal areas of decreased density are identified. No mass lesions. No acute hemorrhage. No fluid or significant mucosal thickening in the visualized paranasal sinuses. No depressed calvarial fractures. IMPRESSION: No acute intracranial abnormality is identified. Electronically signed by: Dayo Stephenson MD 07/01/2021 11:47 PM WHARF TENDER HEAD Due to temporary technical issues with the PACS/Fluency reporting system, reports are being signed by the in house radiologist without review as a courtesy to ensure prompt reporting. The interpreting r adiologist is fully responsible for the content of the report.
== END 2021-07-02 06:38 | disposition home or self-care (01) ==
LOC: ER 22:06
PROC: 05HD33Z Insertion of Infusion Device into Right Cephalic Vein, Percutaneous Approach (ICD-10-PCS; principal; 2021-07-02)
DX: R07.9 Chest pain, unspecified (principal); N39.0 Urinary tract infection, site not specified; F31.9 Bipolar disorder, unspecified; J44.9 Chronic obstructive pulmonary disease, unspecified; F17.210 Nicotine dependence, cigarettes, uncomplicated; Z20.822 Contact with and (suspected) exposure to COVID-19
CPT/HCPCS: 93005; 85025; 80048; 36415; 83735; 85610; 85379; 80076; 81003; 84484; 83880; 0240U; 80307; 70450; 71275; 71045; 93971; 96375; 96374; 99285; 36569; Q9967; J2765; J1200

== ENCOUNTER 2021-11-15 17:23 | Emergency (ER) | payer OTHER ==
--- NOTE | 2021-11-15 19:16 | EDPHYS ---
Physician Documentation [facility] Name: Cely Valadez Age: 41 yrs Sex: Female : 1980 Arrival Date: 11/15/2021 Time: 17:26 Bed 9 Private MD: ED Physician Gregory Cevallos HPI: 11/16 00:13 This 41 yrs old Female presents to ER via Ambulatory with complaints of Skin Sore(s). kb 11/15 19:14 Patient reports rash to skin fold in the abdomen. States it started 2 days ago and is kb progressively getting worse. Complains of burning and itching with clear drainage. Denies fever.. 11/16 00:13 The patient's rash thought to be caused by an unknown cause. The rash is located on the kb suprapubic area, right inguinal area and left inguinal area. The rash can be described as erythematous. Onset: The symptoms/episode began/occurred 2 day(s) ago. Associated signs and symptoms: Pertinent positives: burning sensation, itching. Severity of symptoms: At their worst the symptoms were moderate in the emergency department the symptoms are unchanged. The patient has not experienced similar symptoms in the past. The patient has not recently seen a physician. Historical: - Allergies: 11/15 17:56 NKDA; jh6 - PMHx: 17:56 acid reflux; Asthma; Bipolar disorder; COPD; DVT; jh6 - PSHx: 17:56 eye; jh6 - Immunization history:: Adult Immunizations up to date, Client reports receiving the 2nd dose of the Covid vaccine. - Social history:: Smoking status: Patient reports the use of cigarette tobacco products. ROS: 11/16 00:13 Constitutional: Negative for fever, chills, and weight loss. kb Skin: Positive for erythema, rash. All other systems are negative. Exam: 00:12 Constitutional: This is a well developed, well nourished patient who is awake, alert, kb and in no acute distress. Head/Face: Normocephalic, atraumatic. ENT: Moist Mucous membranes Cardiovascular: Regular rate and rhythm with a normal S1 and S2. No gallops, murmurs, or rubs. No pulse deficits. Respiratory: Respirations even and unlabored. No increased work of breathing. Talking in full sentences MS/ Extremity: Pulses equal, no cyanosis. Neurovascular intact. Full, normal range of motion. Neuro: Awake and alert, GCS 15, oriented to person, place, time, and situation. Moves all extremities. Normal gait. Psych: Awake, alert, with orientation to person, place and time. Behavior, mood, and affect are within normal limits. 00:12 Skin: rash a moderate rash is noted, rash can be described as erythematous, on the suprapubic area, right inguinal area and left inguinal area. Vital Signs: 11/15 17:54 BP 112 / 71; Pulse 85; Resp 17; Temp 98.5(O); Pulse Ox 95% ; Weight 125.19 kg; Height 5 jh6 ft. 4 in. (162.56 cm); Pain 7/10; 17:54 Body Mass Index 47.37 (125.19 kg, 162.56 cm) jh6 MDM: 19:07 Patient medically screened. kb 11/16 00:12 Data reviewed: vital signs, nurses notes. Data interpreted: Pulse oximetry: on room air kb is 95 %. Interpretation: normal. Counseling: I had a detailed discussion with the patient and/or guardian regarding: the historical points, exam findings, and any diagnostic results supporting the discharge/admit diagnosis, the need for outpatient follow up, a family practitioner, to return to the emergency department if symptoms worsen or persist or if there are any questions or concerns that arise at home. Administered Medications: No medications were administered Disposition: 09:41 Co-signature as Attending Physician, Gregory Cevallos DO I was immediately available on-site ms3 in the Emergency Department for consultation in the care of the patient.. Disposition Summary: 11/15/21 19:15 Discharge Ordered Location: Home kb Condition: Stable kb Diagnosis - Candidiasis of skin and nail kb Followup: kb - With: Emergency Department - When: As needed - Reason: Worsening of condition Followup: kb - With: Private Physician - When: 2 - 3 days - Reason: Recheck today's complaints, Continuance of care, Re-evaluation by your physician Discharge Instructions: - Discharge Summary Sheet kb - Skin Yeast Infection kb Forms: - Medication Reconciliation Form kb - Thank You Letter kb - Antibiotic Education kb - Prescription Opioid Use kb Prescriptions: - Cephalexin 500 mg Oral Capsule - take 1 capsule by ORAL route every 8 hours for 10 days; 30 capsule; Refills: 0, kb Product Selection Permitted - Ibuprofen 800 mg Oral Tablet - take 1 tablet by ORAL route every 8 hours As needed take with food; 30 tablet; kb Refills: 0, Product Selection Permitted - Nystatin-Triamcinolone 100,000-0.1 unit/gram-% Topical Ointment - apply 1 application by TOPICAL route 2 times per day; 1 tube; Refills: 0, kb Product Selection Permitted Signatures: Veronica Hood, KADI-C GLOVE TURNER-CkGregory Tello DO DO ms3 Aisha Dunne RN RN jh6 Corrections: (The following items were deleted from the chart) 00:14 0720 19:14 Patient reports rash to hold in the abdomen. States it started 2 days ago kb and is progressively getting worse. Complains of burning and itching with clear drainage. Denies fever.. kb
--- NOTE | 2021-11-15 19:16 | ER ---
Nurse's Notes [facility] Name: Cely Valadez Age: 41 yrs Sex: Female : 1980 Arrival Date: 11/15/2021 Time: 17:26 Bed 9 Private MD: Diagnosis: Candidiasis of skin and nail Presentation: 11/15 17:54 Chief complaint: Patient states: red rash to bilat groin area x 2 days that pt is aware 6 of. states that it is burning and clear fluid draining. Coronavirus screen: Vaccine status:. Ebola Screen: Patient negative for fever greater than or equal to 101.5 degrees Fahrenheit, and additional compatible Ebola Virus Disease symptoms Patient denies exposure to infectious person. Patient denies travel to an Ebola-affected area in the 21 days before illness onset. Initial Sepsis Screen: Does the patient meet any 2 criteria? No. Patient's initial sepsis screen is negative. Does the patient have a suspected source of infection? No. Patient's initial sepsis screen is negative. Risk Assessment: Do you want to hurt yourself or someone else? Patient reports no desire to harm self or others. Onset of symptoms was November 13, 2021. 17:54 Method Of Arrival: Ambulatory [facility] 17:54 Acuity: ADRIANA 4 6 Triage Assessment: 17:57 General: Appears in no apparent distress. Behavior is calm, cooperative. Pain: 6 Complains of pain in groin, right femoral area and left femoral area Pain currently is 7 out of 10 on a pain scale. Quality of pain is described as burning, Pain began 2-3 days ago. Is continuous, Aggravated by exercise, increased activity, repositioning. Derm: Skin is intact, Wound noted groin, right femoral area and left femoral area. Historical: - Allergies: 17:56 NKDA; 6 - PMHx: 17:56 acid reflux; Asthma; Bipolar disorder; COPD; DVT; 6 - PSHx: 17:56 eye; 6 - Immunization history:: Adult Immunizations up to date, Client reports receiving the 2nd dose of the Covid vaccine. - Social history:: Smoking status: Patient reports the use of cigarette tobacco products. Screenin:25 Abuse screen: Denies threats or abuse. Nutritional screening: No deficits noted. jb4 Tuberculosis screening: No symptoms or risk factors identified. Fall Risk None identified. Assessment: 19:25 Reassessment: Patient appears in no apparent distress at this time. Patient and/or jb4 family updated on plan of care and expected duration. Pain level reassessed. Patient is alert, oriented x 3, equal unlabored respirations, skin warm/dry/pink. Vital Signs: 17:54 BP 112 / 71; Pulse 85; Resp 17; Temp 98.5(O); Pulse Ox 95% ; Weight 125.19 kg; Height 5 [facility] ft. 4 in. (162.56 cm); Pain 7/10; 17:54 Body Mass Index 47.37 (125.19 kg, 162.56 cm) [facility] ED Course: 17:26 Patient arrived in ED. as 17:56 Triage completed. [facility] 18:09 [facility]C [facility] 18:09 Gregory Cevallos DO is Attending Physician. kb 19:25 Patient has correct armband on for positive identification. Bed in low position. Call jb4 light in reach. Side rails up X 1. 19:25 No provider procedures requiring assistance completed. Patient did not have IV access jb4 during this emergency room visit. Administered Medications: No medications were administered Medication: 19:25 VIS not applicable for this client. jb4 Outcome: 19:15 Discharge ordered by . kb 19:25 Discharged to home ambulatory. jb4 19:25 Condition: stable 19:25 Discharge instructions given to patient, Instructed on discharge instructions, follow up and referral plans. medication usage, Demonstrated understanding of instructions, follow-up care, medications, Prescriptions given X 3. 19:25 Patient left the ED. jb4 Signatures: Veronica Hood FNP-C FNP-Ckb Martinez, Amelia as Bryson, James, RN RN jb4 Aisha Dunne RN RN [email or web address]
[2021-11-15 19:44] VITALS: BP 112/71; TEMP 98.5; O2SAT 95
--- OUTSIDE RECORDS SUMMARY | 2021-11-16 15:45 | XMS REPORT | Continuity of Care Document ---
:1980 Author Organization [facility] t Address [address] [place] [address] Care Team Providers Name Role Phone Tamiko MCKNIGHT Primary Care Physician Shannon Carrington Attending Clinician Unavailable Tamiko MCKNIGHT Attending Clinician Rachelle James OT Attending Clinician Unavailable Shannon Hernandez MD Attending Clinician Shannon HERNANDEZ Attending Clinician Unavailable Zakiya Nurse Al Murcia Attending Clinician Unavailable Archana WALLIS Attending Clinician Hitesh WALLIS Attending Clinician Najma Proctor MD Attending Clinician Payers Payer Name Policy Type Policy Number Effective Date Expiration Date S ource Problems Condition Condition Condition Status Onset Resolution Last Treating Co mments Source Name Details Category Date Date Treatment Clinician Date Right hand Right hand Disease Active U nivers pain pain 5-10 ity of 00:00: [place] [facility] Pain of Pain of Disease Active Univers right right 5-10 ity of thumb thumb 00:00: [place] [facility] Chronic Chronic Disease Active Univers systolic systolic 3-17 ity of heart heart 00:00: [place] failure failure 00 Medical Branch Morbid Morbid Disease Active Univers obesity obesity 3-17 ity of 00:00: [place] [facility] Dizzy Dizzy Disease Active Univers spells spells 2-09 ity of 00:00: [place] [facility] Need for Need for Disease Active Unive rs influenza influenza 2-09 ity of vaccinatio vaccinatio 00:[place] n 00 [facility] Anxiety, Anxiety, Disease Active Unive rs generalize generalize 2-09 it y of d d 00:00: [place] [facility] 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 00:[place]: [place] 00 [place] Dyslipidem Dyslipidem Disease Active U nivers ia ia 2-09 ity of 00:00: [place] 00 Medical Branch Prediabete Prediabete Disease Active 2020-04 U nivers s s 2-28 ity of 00:00: [place] [facility] Venous Venous Disease Active 2020-04 Univers insufficie insufficie 1-16 it y of ncy ncy 00:00: [place] [facility] Venous Venous Disease Active 2020-04 Univers ulcer of ulcer of 0-06 ity of left leg left leg 00:00: [place] 00 Medical Branch Gastroesop Gastroesop Disease Active 2020-04 U nivers hageal hageal 0-06 ity of reflux reflux 00:00: [place] disease disease 00 Medical without without Branch esophagiti esophagiti s s Chronic Chronic Disease Active 2020-04 Univers left-sided left-sided 0-06 it y of low back low back 00:00: [place] pain pain 00 Medical without without Branch sciatica sciatica FAREED FAREED Disease Active Univers (obstructi (obstructi 9-27 it y of ve sleep ve sleep 00:00: [place] apnea) apnea) 00 Medical Branch Other Other Disease Active Univers atopic atopic 12-29 ity of dermatitis dermatitis 00:00: [place] 00 [place] 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 00 Medical chronicus chronicus Bran ch Obstructiv Obstructiv Disease Active U nivers e sleep e sleep 12-29 ity of apnea apnea 00:00: [place] 00 Medical Branch Non-pressu Non-pressu Disease Active U nivers re chronic re chronic 8-31 it y of ulcer of ulcer of 00:00: [place] left calf left calf 00 Medi damon [...] 8-03 it y of with with 00:00: [place] current current 00 Medical use use Branch Homelessne Homelessne Disease Active U nivers ss ss 7-08 ity of 00:00: [place] [facility] Acute on Acute on Disease Active Unive rs chronic chronic 7-07 ity of diastolic diastolic 00:00: [place] horan heart heart 00 Medical failure failure Branch Heart Heart Disease Active Univers failure failure 6-19 ity of 00:00: [place] [facility] Symptomati Symptomati Disease Active U nivers c anemia c anemia 6-07 ity of 00:00: [place] 00 Medical Branch Pneumonia Pneumonia Disease Active Uni vers due to due to 6- ity of infectious infectious 00:00: [place] organism organism 00 Medica l Branch Sepsis due Sepsis due Disease Active U nivers to to 6- ity of pneumonia pneumonia 00:[place] Morbid Morbid Disease Active Univers obesity obesity 7-27 ity of with body with body 00:00[place] mass index mass index 00 Me dical (BMI) of (BMI) of Branch 40.0 or 40.0 or higher higher Chest Chest Disease Active Univers pain, pain, 7-27 ity of unspecifie unspecifie 00:00: [place] d type d type 00 Medical Branch Chronic Chronic Disease Active Univers heart heart 727 ity of failure failure 00:00: [place] with with 00 Medical preserved preserved Bran ch ejection ejection fraction fraction Venous Venous Disease Active Univers insufficie insufficie 11-22 it y of ncy of ncy of 00:00: [place] both lower both lower 00 Me dical extremitie extremitie Br anch s s MARQUEZ MARQUEZ Disease Active Univers (dyspnea (dyspnea 6-19 ity of on on 00:00: [place] exertion) exertion) 00 [facility] Branch Acute on Acute on Disease Active Unive rs chronic chronic 6-19 ity of diastolic diastolic 00:00: [place] CHF CHF 00 Medical (congestiv (congestiv Br anch e heart e heart failure), failure), NYHA class NYHA class 3 3 Cellulitis Cellulitis Disease Active U nivers of left of left 6-18 ity of leg leg 00:00: [place] [facility] Cellulitis Cellulitis Disease Active U nivers 6-18 ity of 00:00: [place] [facility] Right knee Right knee Disease Active U nivers pain pain 7-21 ity of 00:00: [place] 00 Medical Branch Pedal Pedal Disease Active Univers edema edema 7-16 ity of 00:00: [place] 00 Medical Branch Morbid Morbid Disease Recurre Univers obesity obesity nce 5-17 ity of due to due to 00:00: [place] excess excess 00 Medical calories calories Branch Irregular Irregular Disease Active Uni vers menstrual menstrual 5-17 ity of cycle cycle 00:00: [place] 00 Medical Branch Exposure Exposure Disease Active Unive rs to to 5-17 ity of hepatitis hepatitis 00:00: [place] 00 Medical Branch Exposure Exposure Disease Active Unive rs to to 5-17 ity of hepatitis hepatitis 00:00: [place] [facility] Left lower Left lower Disease Active U nivers quadrant quadrant 2-09 ity of pain pain 00:00: [place] 00 Medical Branch Weight Weight Disease Active Univers loss loss 2-09 ity of 00:00: [place] 00 [facility] Elevated Elevated Disease Active Unive rs glucose glucose 2- ity of 00:00: [place] [facility] Polyuria Polyuria Disease Active Unive rs 2- ity of 00:00: [place] 00 [facility] Hirsutism Hirsutism Disease Active Uni vers 2- ity of 00:00: [place] 00 [facility] [place] Acne, Acne, Disease Active Univers unspecifie unspecifie 2 it y of d acne d acne 00:00: [place] type type 00 Medical Branch Allergies, Adverse Reactions, Alerts Allergy Allergy Status Severity Reaction(s) Onset Inactive Treating Comm ents Source Name Type Date Date Clinician Oats Propensi Active Nausea 2015-04 Univers ty to and/or 0-06 ity of adverse Vomiting 00:00: [place] reaction 00 [facility] OATS DRUG Active N/V 2015-04 Univers INGREDI 0-06 ity of 00:00: [place] [facility] Social History Social Habit Start Date Stop Date Quantity Comments Source History of tobacco Cigar Smoker Univ ersity of use [facility] History [facility] o f Alcohol Frequency [facility] Branch History [facility] o f Alcohol Std Drinks [facility] History [facility] o f Alcohol Binge [facility] Exposure to 2021-10-15 2021-10-25 Not sure University of SARS-CoV-2 (event) 00:00:00 09:24:00 [facility] Alcohol intake 2021-10-25 2021-10-25 0 /d University of 00:00:00 00:00:00 [facility] Cigarettes smoked 2021-09-06 2021-09-06 Univers ity of current (pack per 00:00:00 00:00:00 [facility] ) - Reported Branch Cigarette 2021-09-06 2021-09-06 University of pack-years 00:00:00 00:00:00 [facility] Tobacco use and 2021-09-06 2021-09-06 Smokeless Universit y of exposure 00:00:00 00:00:00 tobacco non-user [facility] Education 2020-10-31 2020-10-31 13 University of 00:00:00 00:00:00 [facility] Tobacco Comment 2016-10-18 2016-10-18 0.5 pack per day Uni versity of 00:00:00 00:00:00 [facility] Alcohol Comment 2015-12-21 2015-12-21 sober for 14 Univers ity of 00:00:00 00:00:00 years [facility] Sex Ass[birth year] At [birth year] Universit y of 00:00:00 00:00:00 [facility] Smoking Status Start Date Stop Date Source Smokes tobacco daily 2021-09-06 00:00:00 Univers ity of [facility] Medications Ordered Filled Start Stop Current Ordering Indication Dosage Frequency Signature Comments Components Source Medication Medication Date Date Medication? Clinician (SIG) Name Name gabapentin Yes [id number] 300mg Take 1 Univers 300 mg 7-11 capsule by ity of capsule 00:00: mouth in [place] 00 the Medical morning Branch and 1 capsule at noon and 1 capsule in the evening. gabapentin Yes [id number] 300mg Take 1 Univers 300 mg 7-11 capsule by ity of capsule 00:00: mouth in [place] 00 the Medical morning Branch and 1 capsule at noon and 1 capsule in the evening. furosemide Yes 80mg Take 1 Unive rs 80 mg 6-29 tablet by ity of tablet 00:00: mouth [place] 00 every Medical morning Branch and evening. KCL 20 mEq Yes [id number] 40meq Take 2 Univers tablet 6-29 02 tablets by ity of 00:00: mouth [place] 00 daily. Medical Branch spironolact Yes [id number] 50mg Take 1 Univers one 50 mg 6-29 02 tablet by ity o f tablet 00:00: mouth [place] 00 daily. Medical Branch furosemide Yes 80mg Take 1 Unive rs 80 mg 6-29 tablet by ity of tablet 00:00: mouth [place] 00 every Medical morning Branch and evening. KCL 20 mEq Yes [id number] 40meq Take 2 Univers tablet 6-29 02 tablets by ity of 00:00: mouth [place] 00 daily. Medical Branch spironolact Yes [id number] 50mg Take 1 Univers one 50 mg 6-29 02 tablet by ity o f tablet 00:00: mouth [place] 00 daily. Medical Branch PANTOPRAZOL Yes [id number] 40mg TAKE 1 Univers E 40 mg EC 6-27 TABLET BY ity of tablet 00:00: MOUTH [place] 00 EVERY Medical MORNING Branch PANTOPRAZOL Yes [id number] 40mg TAKE 1 Univers E 40 mg EC 6-27 TABLET BY ity of tablet 00:00: MOUTH [place] 00 EVERY Medical MORNING Branch montelukast Yes 10mg Take 10 mg Univers 10 mg 5-11 by mouth. ity of tablet 14:53: [address] budesonide- Yes 2{puff} Inhale 2 Univers formoterol 5-11 Puffs 2 ity of 160-4.5 14:53: (two) [place] mcg/actuati 30 times Medical on inhaler daily. Branch montelukast Yes 10mg Take 10 mg Univers 10 mg 5-11 by mouth. ity of tablet 14:53: [address] budesonide- Yes 2{puff} Inhale 2 Univers formoterol 5-11 Puffs 2 ity of 160-4.5 14:53: (two) [place] mcg/actuati 30 times Medical on inhaler daily. Branch montelukast Yes 10mg Take 10 mg Univers 10 mg 5-11 by mouth. ity of tablet 14:53: [address] budesonide- Yes 2{puff} Inhale 2 Univers formoterol 5-11 Puffs 2 ity of 160-4.5 14:53: (two) [place] mcg/actuati 30 times Medical on inhaler daily. Branch TIZANIDINE Yes [id number] TAKE 1 Univers 2 mg tablet 4-19 TABLET BY ity of 00:00: MOUTH [place] 00 EVERY 8 Medical HOURS Branch NEEDED FOR MUSCLE SPASMS TIZANIDINE 0 Yes [id number] TAKE 1 Univers 2 mg tablet 4-19 TABLET BY ity of 00:00: MOUTH [place] 00 EVERY 8 Medical HOURS Branch NEEDED FOR MUSCLE SPASMS TIZANIDINE 0 Yes [id number] TAKE 1 Univers 2 mg tablet 4-19 TABLET BY ity of 00:00: MOUTH [place] 00 EVERY 8 Medical HOURS Branch NEEDED FOR MUSCLE SPASMS GABAPENTIN 0 Yes [id number] TAKE 1 Univers 300 mg 4-15 CAPSULE BY ity of capsule 00:00: MOUTH [place] 00 THREE Medical TIMES Branch DAILY GABAPENTIN 2021-0 2021- No [id number] TAKE 1 Univers 300 mg 4-15 07- CAPSULE BY ity of capsule 00:00: 00:00 MOUTH [place] 00 :00 THREE Medical TIMES Branch DAILY PANTOPRAZOL 2021- No [id number] 40mg TAKE 1 Univers E 40 mg EC 07-19 TABLET BY ity of tablet 00:00: 00:00 MOUTH [place] 00 :00 EVERY Medical MORNING Branch ARIPiprazol 0 Yes 15mg Take 15 mg Univers e 15 mg 3-02 by mouth ity of tablet 09:54: daily. [address] SERTraline 2021-0 Yes 50mg Take 50 mg U nivers 50 mg 3-02 by mouth ity of tablet 09:54: daily. [address] busPIRone 0 Yes 10mg Take 10 mg Un fernanda 10 mg 3-02 by mouth 3 ity of tablet 09:54: (three) [place] [address] times [facility] daily. Branch ARIPiprazol 0 Yes 15mg Take 15 mg Univers e 15 mg 3-02 by mouth ity of tablet 09:54: daily. [address] SERTraline 0 Yes 50mg Take 50 mg U nivers 50 mg 3-02 by mouth ity of tablet 09:54: daily. [address] Branch busPIRone 2021-0 Yes 10mg Take 10 mg Un fernanda 10 mg 3-02 by mouth 3 ity of tablet 09:54: (three) [place] [address] times [facility] daily. Branch ARIPiprazol 0 Yes 15mg Take 15 mg Univers e 15 mg 3-02 by mouth ity of tablet 09:54: daily. [address] SERTraline 2021-0 Yes 50mg Take 50 mg U nivers 50 mg 3-02 by mouth ity of tablet 09:54: daily. [address] busPIRone 2021-0 Yes 10mg Take 10 mg Un fernanda 10 mg 3-02 by mouth 3 ity of tablet 09:54: (three) [place] [address] times [facility] daily. Branch spironolact 2020-04- No [id number] 50mg Take 1 Univers one 50 mg 06-25 02 tablet by ity of tablet 00:00: 00:00 mouth [place] 00 :00 daily. Medical Branch furosemide 2020-04- No 80mg Take 1 Univ ers 80 mg 06-25 tablet by ity of tablet 00:00: 00:00 mouth [place] 00 :00 every Medical morning Branch and evening. KCL 20 mEq 2020-04- No [id number] 40meq Take 2 Univers tablet 06-25 02 tablets by ity of 00:00: 00:00 mouth [place] 00 :00 daily. Medical Branch nicotine Yes [id number] 1{patch Apply 1 Univers mg/24 hr 8-24 } Patch to ity of patch 00:00: [facility]() [place] 00 every 24 Medical (twenty-fo Branch ur) hours. Apply 21mg patch daily x 6 weeks; then apply 14mg patch daily x 2 weeks; then apply 7mg patch daily x 2 weeks. Stop smoking on initiation of therapy nicotine Yes [id number] 1{patch Apply 1 Univers mg/24 hr 8-24 } Patch to ity of patch 00:00: [facility]() [place] 00 daily. Medical Apply 21mg Branch patch daily x 6 weeks; then apply 14mg patch daily x 2 weeks; then apply 7mg patch daily x 2 weeks. Stop smoking on initiation of therapy nicotine Yes [id number] 1{patch Apply 1 Univers mg/24 hr 8-24 } Patch to ity of patch 00:00: [facility]() [place] 00 every 24 Medical ([facility] Branch ur) hours. Apply 21mg patch daily x 6 weeks; then apply 14mg patch daily x 2 weeks; then apply 7mg patch daily x 2 weeks. Stop smoking on initiation of therapy nicotine Yes [id number] 1{patch Apply 1 Univers mg/24 hr 8-24 } Patch to ity of patch 00:00: [facility]() [place] 00 every 24 Medical (twenty-fo Branch ur) hours. Apply 21mg patch daily x 6 weeks; then apply 14mg patch daily x 2 weeks; then apply 7mg patch daily x 2 weeks. Stop smoking on initiation of therapy nicotine Yes [id number] 1{patch Apply 1 Univers mg/24 hr 8-24 } Patch to ity of patch 00:00: [facility](s) [place] 00 daily. Medical Apply 21mg Branch patch daily x 6 weeks; then apply 14mg patch daily x 2 weeks; then apply 7mg patch daily x 2 weeks. Stop smoking on initiation of therapy nicotine Yes [id number] 1{patch Apply 1 Univers mg/24 hr 8-24 } Patch to ity of patch 00:00: area(s) [place] 00 every 24 Medical (twenty-fo Branch ur) hours. Apply 21mg patch daily x 6 weeks; then apply 14mg patch daily x 2 weeks; then apply 7mg patch daily x 2 weeks. Stop smoking on initiation of therapy nicotine 14 Yes [id number] 1{patch Apply 1 Univers mg/24 hr 8-24 } Patch to ity of patch 00:00: area() [place] 00 every 24 Medical (twenty-fo Branch ur) hours. Apply 21mg patch daily x 6 weeks; then apply 14mg patch daily x 2 weeks; then apply 7mg patch daily x 2 weeks. Stop smoking on initiation of therapy nicotine Yes [id number] 1{patch Apply 1 Univers mg/24 hr 8-24 } Patch to ity of patch 00:00: area(s) [place] 00 daily. Medical Apply 21mg Branch patch daily x 6 weeks; then apply 14mg patch daily x 2 weeks; then apply 7mg patch daily x 2 weeks. Stop smoking on initiation of therapy nicotine Yes [id number] 1{patch Apply 1 Univers mg/24 hr 8-24 } Patch to ity of patch 00:00: area() [place] 00 every 24 Medical (twenty-fo Branch ur) hours. Apply 21mg patch daily x 6 weeks; then apply 14mg patch daily x 2 weeks; then apply 7mg patch daily x 2 weeks. Stop smoking on initiation of therapy nitroglycer Yes [id number] .4mg Place 1 Univers in 0.4 mg 8-04 tablet ity of sublingual 00:00: under the [place] tablet 00 tongue Medical every 5 Branch (five) minutes as needed for Chest pain. nitroglycer Yes [id number] .4mg Place 1 Univers in 0.4 mg 8-04 tablet ity of sublingual 00:00: under the [place] tablet 00 tongue Medical every 5 Branch (five) minutes as needed for Chest pain. nitroglycer 2020-[id number] 1 Univers in 0.4 mg 8-04 tablet ity of sublingual 00:00: under the [place] tablet 00 tongue Medical every 5 Branch (five) minutes as needed for Chest pain. nystatin 2021-0 Yes [id number] Apply to Univers 100,000 7-08 area(s) 2 ity of unit/gram 00:00: (two) [place] powder 00 times Medical daily as Branch needed for Itching. nystatin 2021-0 Yes [id number] Apply to Univers 100,000 7-08 area(s) 2 ity of unit/gram 00:00: (two) [place] powder 00 times Medical daily as Branch needed for Itching. nystatin 2021-0 Yes [id number] Apply to Univers 100,000 7-08 area(s) 2 ity of unit/gram 00:00: (two) [place] powder 00 times Medical daily as Branch needed for Itching. cholecalcif 2021-0 Yes [id number] 2000U Take 2 Univers candy, 6-22 [id number] tablets by ity of vitamin D3, 00:00: mouth [place] 25 mcg 00 daily. Medical (1,000 Branch unit) tablet cholecalcif 2021-0 Yes [id number] 2000U Take 2 Univers candy, 6-22 [id number] tablets by ity of vitamin D3, 00:00: mouth [place] 25 mcg 00 daily. Medical (1,000 Branch unit) tablet cholecalcif 2021-0 Yes [id number] 2000U Take 2 Univers candy, 6-22 [id number] tablets by ity of vitamin D3, 00:00: mouth [place] 25 mcg 00 daily. Medical (1,000 Branch unit) tablet lactobacill 2021-0 Yes [id number] .5mg Take 1 Univers us 6-21 [id number] tablet by ity of acidophilus 00:00: mouth 2 [place] 00 (two) Medical times Branch daily. lactobacill 2021-0 Yes [id number] .5mg Take 1 Univers us 6-21 [id number] tablet by ity of acidophilus 00:00: mouth 2 [place] 00 (two) Medical times Branch daily. lactobacill 2021-0 Yes [id number] .5mg Take 1 Univers us 6-21 [id number] tablet by ity of acidophilus 00:00: mouth 2 [place] 00 (two) Medical times Branch daily. triamcinolo 2020-0 Yes [id number] Apply to Univers ne 4-08 area(s) 2 ity of acetonide 00:00: (two) [place] 0.1 % cream 00 times Medical daily. Branch clotrimazol 0 Yes [id number] Apply to Univers e 1 % 4-08 area(s) 2 ity of topical 00:00: (two) [place] cream 00 times Medical daily as Branch needed (mix with hydrocorti sone cream and apply to rash under breast and lower abdomen). triamcinolo 2020-0 Yes [id number] Apply to Univers ne 4-08 area(s) 2 ity of acetonide 00:00: (two) [place] 0.1 % cream 00 times Medical daily. Branch clotrimazol Yes [id number] Apply to Univers e 1 % 4-08 area(s) 2 ity of topical 00:00: (two) [place] cream 00 times Medical daily as Branch needed (mix with hydrocorti sone cream and apply to rash under breast and lower abdomen). triamcinolo 2020-0 Yes [id number] Apply to Univers ne 4-08 area(s) 2 ity of acetonide 00:00: (two) [place] 0.1 % cream 00 times Medical daily. Branch clotrimazol 0 Yes [id number] Apply to Univers e 1 % 4-08 area(s) 2 ity of topical 00:00: (two) [place] cream 00 times Medical daily as Branch needed (mix with hydrocorti sone cream and apply to rash under breast and lower abdomen). Oxybutynin Oxybutynin 2019-0 2020- No Na Carrington 1 tablet Common Chloride ER Chloride ER 09-27 08-30 Spirit 00:00: 00:00 - [facility] 00 :00 [facility] diclofenac 2020-0 Yes [id number] 75mg Take 1 Univers 75 mg EC 4-23 9104 tablet by ity of tablet 00:00: mouth 2 (two) Medical times Branch daily with meals. diclofenac 2020-0 Yes [id number] 75mg Take 1 Univers 75 mg EC 4-23 9104 tablet by ity of tablet 00:00: mouth 2 (two) Medical times Branch daily with meals. diclofenac Yes [id number] 75mg Take 1 Univers 75 mg EC 08-19 [id number] tablet by ity of tablet 00:00: mouth 2 [place] 00 (two) Medical times Branch daily with meals. hydrOXYzine 2018-04 Yes 25mg Take 25 mg Univers 25 mg 0-26 by mouth 3 ity of tablet 00:00: (three) [place] 00 times Medical daily. Branch hydrOXYzine 2018-04 Yes 25mg Take 25 mg Univers 25 mg 0-26 by mouth 3 ity of tablet 00:00: (three) [place] 00 times Medical daily. Branch hydrOXYzine 2018-04 Yes 25mg Take 25 mg Univers 25 mg 0-26 by mouth 3 ity of tablet 00:00: (three) [place] 00 times Medical daily. Branch Pantoprazol Pantoprazol 2018-04 Yes Na Carrington 1 tablet Common e Sodium e Sodium 0-16 Spirit 00:00: - [facility] Venlafaxine Venlafaxine 2018-0 Yes Na Carrington 1 capsule Common HCl ER HCl ER 2-28 with food [facility] 00:00: [facility] BusPIRone BusPIRone 2018-0 Yes Na Carrington 1 tablet Common HCl HCl 2-28 Spirit 00:00: - [facility] Aripiprazol Aripiprazol 2018-0 Yes Na Carrington 1 tablet Common e e 2-28 Spirit 00:00: - [facility] Amitriptyli Amitriptyli 2018-0 Yes Na Carrington 1 tablet Common ne HCl ne HCl 2-28 Spirit 00:00: - [facility] albuterol 2016-04 Yes [id number] 2{puff} Inhale 2 Univers (PROAIR 1-27 Puffs ity of HFA) 90 00:00: every 6 [place] mcg/actuati 00 (six) Medical on inhaler hours as Branc h needed for Wheezing or Shortness of Breath. albuterol 2016-04 Yes [id number] 2{puff} Inhale 2 Univers (PROAIR 1-27 Puffs ity of HFA) 90 00:00: every 6 [place] mcg/actuati 00 (six) Medical on inhaler hours as Branc h needed for Wheezing or Shortness of Breath. albuterol 2016-04 Yes [id number] 2{puff} Inhale 2 Univers (PROAIR 1-27 Puffs ity of HFA) 90 00:00: every 6 [place] mcg/actuati 00 (six) Medical on inhaler hours as Branc h needed for Wheezing or Shortness of Breath. Klor-Con Klor-Con Yes Na Carrington 1 tablet Common M10 M10 with food [facility] Divalproex Divalproex Yes Na Carrington as Common Sodium ER Sodium ER directed S pirit [facility] Symbicort Symbicort Yes Na Carrington 2 puffs [facility] Lasix Lasix Yes Na Carrington 1 tablet [facility] BusPIRone BusPIRone Yes Na Carrington not Co mmon HCl HCl [facility] Provera Provera Yes Na Carrington 1 tablet Co mmon with food [facility] Naproxen Naproxen Yes Na Carrington 1 tablet [facility] Effexor Effexor Yes Na Carrington not Common [facility] One Touch One Touch Yes Na Carrington one strip Common Verio Verio [facility] Depakote Depakote Yes Na Carrington not Comm on [facility] Cyclobenzap Cyclobenzap Yes Na Carrington 1 tablet Common rine HCl rine HCl as needed Sp [facility] Bactrim DS Bactrim DS Yes Na Carrington 1 tablet [facility] Abilify Abilify Yes Na Carrington not Common [facility] One Touch One Touch Yes Na Carrington not Co mmon Delica Delica defined [facility] Lancets Lancets [facility] Ranitidine Ranitidine Yes Na Carrington TAKE 1 Common HCl HCl CAPSULE BY [facility] MOUTH [facility] EVERYDAY St AT BEDTIME [facility] Mirtazapine Mirtazapine Yes Na Carrington 1 tablet Common at bedtime [facility] Proventil Proventil Yes Na Carrington 2 puffs as Common HFA HFA needed [facility] Amitriptyli Amitriptyli Yes Na Carrington not Common ne HCl ne HCl defined [facility] Metoprolol Metoprolol Yes Na Carrington 1 tablet Common Succinate Succinate Spiri t ER [facility] Topiramate Topiramate Yes Na Carringtno 1 tablet Common [facility] Flonase Flonase Yes Na Carrington 2 spray in Common each [facility] [facility] Loratadine Loratadine Yes Na Carrington 1 tablet Common [facility] Zithromax Zithromax Yes Na Carrington 2 tablets Common [facility] first day, [facility] [address] [facility] days Center PredniSONE PredniSONE Yes Na Carrington 2 tablets Common dailyx 5 days then - [facility] [address] [facility] Center VESIcare VESIcare Yes Na Carrington 1 tablet Common [facility] [place] Yes Na Carrington 1 tablet Co mmon Carbonate Carbonate at bedtime [facility] Abilify Abilify Yes Na Carrington 1 tablet Co mmon [facility] Diclofenac Diclofenac Yes Na Carrington 1 tablet Common Sodium Sodium with food [facility] or milk [facility] Cetirizine Cetirizine Yes Na Carrington 1 tablet Common HCl HCl [facility] Pantoprazol Pantoprazol Yes Na Carrington 1 tablet Common e Sodium e Sodium [facility] Diclofenac Diclofenac Yes Na Carrington not Common Sodium Sodium defined [facility] Montelukast Montelukast Yes Na Carrington 1 tablet Common Sodium Sodium [facility] Eliquis Eliquis Yes Na Carrington as Common directed [facility] Immunizations Ordered Filled Immunization Date Status Comments [facility] e Immunization Name Name Influenza Virus 2021-06-07 Completed [facility] Vaccine Quad IM, 00:00:00 [facility] dical Preserv and ABX Branch Free 6 MO-64 YRS Influenza Virus 2021-06-07 Completed [facility] of Vaccine Quad IM, 00:00:00 [facility] dical Preserv and ABX Branch Free 6 MO-64 YRS Influenza Virus 2021-06-07 Completed [facility]it y of Vaccine Quad IM, 00:00:00 [facility] dical Preserv and ABX Branch Free 6 MO-64 YRS SARS-COV-2 COVID-19 2020-07-24 Completed Unive rsity of MODERNA VACCINE 00:00:00 [facility] SARS-COV-2 COVID-19 2020-07-24 Completed Unive rsity of MODERNA VACCINE 00:00:00 [facility] SARS-COV-2 COVID-19 2020-07-24 Completed Unive rsity of MODERNA VACCINE 00:00:00 [facility] SARS-COV-2 COVID-19 2020-06-19 Completed Unive rsity of MODERNA VACCINE 00:00:00 [facility] SARS-COV-2 COVID-19 2020-06-19 Completed Unive rsity of MODERNA VACCINE 00:00:00 [facility] SARS-COV-2 COVID-19 2020-06-19 Completed Unive rsity of MODERNA VACCINE 00:00:00 [facility] Influenza Virus 2017-03-25 Completed Universit y of Vaccine Quad IM 3+ 00:00:00 [facility] Influenza Virus 2017-03-25 Completed Universit y of Vaccine Quad IM 3+ 00:00:00 [facility] Influenza Virus 2017-03-25 Completed Universit y of Vaccine Quad IM 3+ 00:00:00 [facility] TDAP 2016-02-02 Completed University of 00:00:00 [facility] TDAP 2016-02-02 Completed University of 00:00:00 [facility] TDAP 2016-02-02 Completed [facility] 00:00:00 [facility] Procedures This patient has no known procedures. Encounters Start End Encounter Admission Attending Care Care Encounter Source Date/Time Date/Time Type Type Clinicians Facility Department ID 2021-05-[address] [facility] [id number] Common 11:41:37 [id number] [facility] 2021-05-24 [facility] [id number] Common 11:39:09 [id number] [facility] 2021-05-[address] [facility] [id number] Common 11:36:08 [id number] [facility] 2021-05-24 Outpatient Carrington, Na STLMLC STLMLC [id number] Common 11:29:47 [id number] [facility] 2021-05-24 Outpatient Carrington, Na STLMLC STLMLC [id number] 2 Common 11:25:57 [id number] [facility] 2021-05-24 Outpatient Carrington, Na STLMLC STLMLC [id number] 2 Common 11:23:56 [id number] [facility] 2021-05-24 Outpatient Carrington, Na STLMLC STLMLC [id number] Common 11:23:38 [id number] [facility] 2021-05-24 Outpatient Carrington, Na STLMLC STLMLC [id number] 2 Common 11:22:56 [id number] [facility] 2021-05-24 Outpatient Carrington, Na STLMLC STLMLC [id number] Common 11:03:29 [id number] [facility] 2021-05-24 Outpatient Carrington, Na STLMLC STLMLC [id number] 2 Common 11:00:09 [id number] [facility] 2021-11-07 2021-11-07 [facility] [id number] Univers 00:00:00 00:00:00 Dom DIAMOND [id number] i ty [id number] [phone] Ne dical NAL [address] [place] [address] 2021-11-06 2021-11-06 [facility] [id number] Univers 00:00:00 00:00:00 Dom DIAMOND [id number] i ty [id number] [id number] Ne dical NAL [address] [place] [address] 2021-10-13 2021-10-13 Ancillary Yanelis James [facility] 1.2.84 [id number] [id number] Univers 10:15:00 13:23:32 Visit Malka Hernandez [id number] [facility] [id number] Jose GARCIA [phone] Ne dical [address] 2021-10-13 2021-10-13 Outpatient Jennifer HERNANDEZ [facility] [id number] Univers 10:15:00 13:23:32 MALKA david [facility] 2020-09-19 2020-09-19 Emilio Marcos [facility] [id number] 09:15:29 09:30:29 Visit Nurse Visit MULTISPEC [id number] Divina LEE 4.2.7.2.686 CENTER [id number] [facility] 2020-09-19 2020-09-19 Reflaureen Magaña [facility] [id number] 00:00:00 00:00:00 Alee SPECIALTY [id number] CARE [id number] CENTER AT [id number] ALVARO Inman [facility] 2020-09-14 2020-09-14 Refill Venecia Proctor [facility] [id number] 00:00:00 00:00:00 Health [id number] Surgical [id number] Specialti [id number] Storm Diamond 2020-09-13 2020-09-13 Office Clary Proctor [facility] [id number] 09:16:19 09:45:52 Visit Najma CARLSONPEC [id number] IAY [id number] CENTER [id number] [facility] 2020-07-19 2020-07-19 Outpatient STLMLC STLMLC [id number] Common 00:00:00 00:00:00 [facility] 2020-04-20 2020-04-20 Outpatient STLMLC STLMLC [id number] Common 00:00:00 00:00:00 [facility] 2019-12-04 2019-12-04 [id number] Common 17:00:00 17:00:[address] [facility] 2019-11-04 2019-11-04 [facility] [id number] Common 12:00:00 12:00:[address] [facility] 2019-10-15 2019-10-15 [facility] [id number] Common 16:50:00 16:50:[address] [facility] 2019-10-02 2019-10-02 [facility] [id number] Common 16:58:00 16:58:[address] [facility] 2019-09-28 2019-09-28 [facility] [id number] Common 08:40:00 08:40:[address] [facility] 2019-09-17 2019-09-17 [facility] [id number] Common 14:18:00 14:18:[address] [facility] 2019-09-15 2019-09-15 [facility] [id number] Common 09:25:00 09:25:[address] [facility] 2019-09-10 2019-09-10 [facility] [id number] Common 16:38:00 16:38:[address] [facility] 2019-08-24 2019-08-24 [facility] [id number] Common 09:40:00 09:40:[address] [facility] 2019-07-23 2019-07-23 [facility] [id number] Common 12:01:00 12:01:[address] [facility] 2019-05-26 2019-05-26 [facility] [id number] Common 17:11:00 17:11:[address] [facility] 2019-05-25 2019-05-25 [facility] [id number] Common 14:40:00 14:40:[address] [facility] 2019-04-07 2019-04-07 [facility] [id number] Common 03:19:00 03:19:[address] [facility] 2019-03-19 2019-03-19 [facility] [id number] Common 12:20:00 12:20:[address] [facility] 2019-02-11 2019-02-11 [facility] [id number] Common 08:20:00 08:20:[address] [facility] 2018-12-18 2018-12-18 [facility] [id number] Common 11:40:00 11:40:[address] [facility] 2018-06-02 2018-06-02 [facility] [id number] Common 10:14:00 10:14:[address] [facility] 2018-05-28 2018-05-28 [facility] [id number] Common 15:15:00 15:15:[address] [facility] 2018-05-06 2018-05-06 [facility] [id number] Common 10:15:00 10:15:00 t Urgent Urgent Care S p[facility] Care [facility] 2018-02-10 2018-02-10 [facility] [id number] Common 08:22:00 08:22:[address] [facility] 2018-02-02 2018-02-02 [facility] [id number] Common 09:45:00 09:45:00 t Urgent Urgent Care S pirit [facility] 2018-01-27 2018-01-27 [facility] [id number] Common 14:00:00 14:00:[address] [facility] 2018-01-10 2018-01-10 [facility] [id number] Common 14:23:00 14:23:[address] [facility] 2017-12-19 2017-12-19 [facility] [id number] Common 14:45:00 14:45:[address] [facility] 2017-12-03 2017-12-03 [facility] [id number] Common 13:20:00 13:20:00 t Specialty/U Sp elsa Specialty rology - [facility] /Urology [facility] 2017-11-30 2017-11-30 [facility] [id number] Common 13:15:00 13:15:00 t Urgent Urgent Care S pirit Care [facility] 2017-11-28 2017-11-28 [facility] [id number] Common 15:00:00 15:00:00 t Specialty/U Sp elsa Specialty rology - [facility] /Urology Clinic [facility] 2017-11-23 2017-11-23 [facility] [id number] Common 15:30:00 15:30:00 t Urgent Urgent Care S pirit Care [facility] 2017-09-19 2017-09-19 [facility] [id number] Common 10:00:00 10:00:00 t Specialty/U Sp elsa Specialty rology - [facility] /Urology Clinic [facility] 2017-09-09 2017-09-09 [facility] [id number] Common 10:00:00 10:00:[address] [facility] Results This patient has no known results.
== END 2021-11-15 19:25 | disposition home or self-care (01) ==
LOC: ER 17:23
DX: B37.2 Candidiasis of skin and nail (principal); Z72.0 Tobacco use